=== PATIENT | male | born 1965 | race Caucasian/White ===

== ENCOUNTER 2016-09-02 15:41 | Emergency (ER) | payer OTHER ==
[~2016-09-02] VITALS: Ht 180.3 cm; Wt 72.0 kg
[~2016-09-02 15:41] MED LIST: CLR10 PO; EFF75 PO; HYDR-5688 PO; LDDP5 TD; LSN20 PO; MORP60TA6 PO
[2016-09-02] MEDS ORDERED: MORP15TA19 PO (16:10)
[2016-09-02] MEDS ORDERED: HYDR-5688 PO (16:10)
[2016-09-02] MEDS ORDERED: ERGO50002 PO (16:10)
[2016-09-02] MEDS ORDERED: NICO14DI9 TOP (16:10)
[2016-09-02] MEDS ORDERED: SENN8.6C PO (16:10)
[2016-09-02 16:17] LABS: HEMATOCRIT 33.6 % (42-52); MEAN CELL VOLUME 83.4 fL (80-100); MEAN CORPUSCULAR HGB CONC 32.4 g/dl (32-36); MEAN PLATELET VOLUME 8.2 fL (7.4-10.4); PLATELET COUNT 438 K/uL (130-400); RED BLOOD COUNT 4.03 M/uL (4.7-6.1); WHITE BLOOD COUNT 8.29 K/uL (4.8-10.8)
[2016-09-02 16:18] VITALS: TEMP 37.1; Ht 180.3 cm; Wt 72.0 kg
--- NOTE | 2016-09-02 16:20 | DIAGNOSTIC IMAGING REPORT ---
CHEST ONE VIEW PORTABLE CLINICAL HISTORY: eval for pnea cough. Dyspnea. COMPARISON STUDY: 07/23/2016 FINDINGS: Lungs are clear. Diaphragms smooth. Several old right-sided rib fractures. Degenerative change left shoulder. IMPRESSION: Chronic change. No acute process. Electronically signed by: Bob Dillon M.D. 09/02/2016 4:18 PM Dictated Date/Time: 09/02/2016 4:18 PM
[2016-09-02 16:39] LABS: ALT/SGPT 21 U/L (12-78); AST/SGOT 7 U/L (15-37); BLOOD UREA NITROGEN 13 mg/dl (7-18); BUN/CREATININE RATIO 17.1 (10-20); CALCIUM 8.8 mg/dl (8.5-10.1); CARBON DIOXIDE 29 mmol/L (21-32); CHLORIDE 104 mmol/L (98-107); CREATININE 0.78 mg/dl (0.60-1.40); GLUCOSE 85 mg/dl (70-99); POTASSIUM 3.9 mmol/L (3.5-5.1); SODIUM 141 mmol/L (136-145)
[2016-09-02 16:41] LABS: ACETAMINOPHEN < 2 ug/ml (10-30)
[2016-09-02 16:50] LABS: ALKALINE PHOSPHATASE 127 U/L (45-117)
[2016-09-02 16:51] LABS: URINE APPEARANCE CLEAR (CLEAR); URINE BILIRUBIN NEG (NEG); URINE COLOR YELLOW; URINE NITRITE NEG (NEG); URINE SPECIFIC GRAVITY 1.004 (1.000-1.030); UROBILINOGEN NEG (NEG)
[2016-09-02 16:59] LABS: MANUAL MICROSCOPIC REQUIRED? NO; REVIEW REQ? NO
[2016-09-02 17:36] LABS: BENZODIAZEPINE, URINE NEG (NEG); COCAINE,URINE NEG (NEG); PHENCYCLIDINE, URINE NEG (NEG)
[2016-09-02] MEDS ORDERED: MoRPHine SULFATE CR 15 MG TAB (MS CONTIN) PO ONE (19:50)
[2016-09-02] MEDS ORDERED: METOPROLOL TARTRATE 25 MG TAB PO STA (19:50)
[2016-09-02] MEDS ORDERED: MoRPHine SULFATE CR 15 MG TAB (MS CONTIN) PO STA (19:50)
[2016-09-02] MEDS ORDERED: NICOTINE 14 MG/24 HR TDSY TD STA (19:50)
[2016-09-02] MEDS ORDERED: VENLAFAXINE HCL 50 MG TAB PO STA (19:50)
[2016-09-02] MEDS ORDERED: TRAZODONE HCL 100 MG TAB PO STA (19:50)
[2016-09-02] MEDS ORDERED: TAMSULOSIN HCL 0.4 MG CAP PO ONE (20:00)
--- NOTE | 2016-09-02 22:41 | EMERGENCY ROOM VISIT NOTE ---
History Report prepared by Pradip: Aster Guaman Under the Supervision of: Dr. Stephan Moncada M.D. First contact with patient: 15:54 Chief Complaint: ALTERED MENTAL STATUS Stated Complaint: AMS/SELF HARM/ FR [facility] History of Present Illness The patient is a 51 year old male who presents to the Emergency Room for a mental health evaluation after making suicidal statements today. The patient currently resides at [facility] due to his inability to care for himself after a left hip fracture and surgery this past June. He notes that he is surrounded by people in the last stages of life and that it is a very bad environment. He is dependent on other people to take care of him, but does not want to be in that situation. He has also been experiencing disrupted sleep. Today, he admits that he got overwhelmed and made a suicidal threat. He said that if he had a gun, he would kill himself. The patient does have a history of inpatient mental health treatment but has never tried to hurt himself. He has been diagnosed with schizoaffective disorder in the past. Today, the patient's home health care case manager evaluated him and thought that he could benefit from inpatient care. The patient is getting physical therapy for his hip but he is unsure if he is making progress. His temperature is typically between 98 and 99. The patient is incontinent at baseline and uses a catheter. Denies cough or any other illnesses. Source of History: patient Onset: today Position: other (Psych) Quality: other (suicidal threat) Timing: constant Modifying Factors (Worsening): other (living situation, health problems) Associated Symptoms: No cough Review of Systems See HPI for pertinent positives & negatives. A total of 10 systems reviewed and were otherwise negative. Past Medical & Surgical Medical Problems: (1) Altered mental status (2) Anxiety (3) Depression (4) Hip fracture, left (5) Insomnia (6) Intervertebral disc rupture (7) Lumbar stenosis with neurogenic claudication (8) Mood disorder (9) past psych meds (10) Schizoaffective disorder Family History Depression Social History Smoking Status: Heavy Tobacco Smoker Marital Status: single Housing Status: shelter Occupation Status: unemployed, disabled Current/Historical Medications Scheduled Cholecalciferol (Vitamin D3), 1 TAB PO DAILY Ergocalciferol (Drisdol), 50,000 UNITS PO DAILY Loratadine (Claritin), 10 MG PO DAILY Metoprolol Tartrate (Lopressor) (Lopressor), 12.5 MG PO Q12 Morphine Cont Rel (Ms Contin), 15 MG PO Q12 Multiple Vitamins W/ Minerals (Thera M Plus), 1 TAB PO DAILY Nicotine (Nicotine), 1 PATCH TOP DAILY Sennosides (Senna), 8.6 MG PO DAILY Tamsulosin Hcl (Flomax), 0.4 MG PO HS Trazodone Hcl (Trazodone), 100 MG PO HS Venlafaxine Hcl (Effexor), 75 MG PO BID Scheduled PRN Hydrocodone/Acetaminophen 5MG/325MG ([place] 5MG/325MG), 1 TABLET PO Q4 PRN for Pain Ibuprofen (Motrin), 400 MG PO Q4 PRN for Pain Allergies Coded Allergies: No Known Allergies (Verified , 10/27/15) Physical Exam Vital Signs Date Time Temp Pulse Resp B/P Pulse Ox O2 Delivery O2 Flow Rate FiO2 09/02/16 22:07 77 18 134/95 97 09/02/16 16:18 37.1 89 18 124/92 98 Room Air Physical Exam Constitutional: Vital signs reviewed. Eyes: Pupils are equal round reactive to light. Conjunctiva are noninjected. ENT: Pharynx is clear without erythema or exudate. Mucous membranes are moist. Neck supple without meningeal signs. Respiratory: Clear to auscultation bilaterally. Breath sounds are equal bilaterally. Cardiovascular: Regular rate and rhythm. No rubs or gallops. GI: Soft, nondistended and nontender. Bowel sounds are present. Musculoskeletal: No peripheral edema. No lower extremity tenderness. Healed incisions to the lower spine and left hip without tenderness, redness, swelling , or increased warmth. Integumentary: No cyanosis. Neurological: The patient is awake and alert. No focal deficits. Psychiatric: Depressed affect. Medical Decision & Procedures ER Provider Diagnostic Interpretation: X-ray results as stated below per interpretation by me and the radiologist: CHEST ONE VIEW PORTABLE CLINICAL HISTORY: eval for pnea cough. Dyspnea. COMPARISON STUDY: 07/23/2016 FINDINGS: Lungs are clear. Diaphragms smooth. Several old right-sided rib fractures. Degenerative change left shoulder. IMPRESSION: Chronic change. No acute process. Electronically signed by: Bob Dlilon M.D. 09/02/2016 4:18 PM Dictated Date/Time: 09/02/2016 4:18 PM Laboratory Results 09/02/16 16:05 09/02/16 16:05 Test 09/02/16 16:05 09/02/16 16:39 Red Blood Count 4.03 M/uL (4.7-6.1) Mean Corpuscular Volume 83.4 fL (80-100) Mean Corpuscular Hemoglobin 27.0 pg (25-34) Mean Corpuscular Hemoglobin Concent 32.4 g/dl (32-36) RDW Standard Deviation 45.1 fL (36.4-46.3) RDW Coefficient of Variation 14.9 % (11.5-14.5) Mean Platelet Volume 8.2 fL (7.4-10.4) Anion Gap 8.0 mmol/L (3-11) Est Creatinine Clear Calc Drug Dose 112.8 ml/min Estimated GFR () 120.3 Estimated GFR (Non- 103.8 BUN/Creatinine Ratio 17.1 (10-20) Calcium Level 8.8 mg/dl (8.5-10.1) Total Bilirubin 0.2 mg/dl (0.2-1) Direct Bilirubin < 0.1 mg/dl (0-0.2) Aspartate Amino Transf (AST/SGOT) 7 U/L (15-37) Alanine Aminotransferase (ALT/SGPT) 21 U/L (12-78) Alkaline Phosphatase 127 U/L (45-117) Total Protein 7.2 gm/dl (6.4-8.2) Albumin 3.4 gm/dl (3.4-5.0) Thyroid Stimulating Hormone (TSH) 1.100 uIu/ml (0.300-4.500) Salicylates Level < 1.7 mg/dl (2.8-20) Acetaminophen Level < 2 ug/ml (10-30) Ethyl Alcohol mg/dL < 3.0 mg/dl (0-3) Urine Color YELLOW Urine Appearance CLEAR (CLEAR) Urine pH 7.0 (4.5-7.5) Urine Specific [place] 1.004 (1.000-1.030) Urine Protein NEG (NEG) Urine Glucose (UA) NEG (NEG) Urine Ketones NEG (NEG) Urine Occult Blood NEG (NEG) Urine Nitrite NEG (NEG) Urine Bilirubin NEG (NEG) Urine Urobilinogen NEG (NEG) Urine Leukocyte Esterase NEG (NEG) Urine Opiates Screen POS (NEG) Urine Methadone, Qualitative NEG (NEG) Urine Barbiturates NEG (NEG) Urine Phencyclidine (PCP) Level NEG (NEG) Ur Amphetamine/Methamphetamine NEG (NEG) MDMA (Ecstasy) Screen NEG (NEG) Urine Benzodiazepines Screen NEG (NEG) Urine Cocaine Metabolite NEG (NEG) Urine Marijuana (THC) NEG (NEG) Laboratory results as reviewed by me. Medications Administered Medications (Trade) Dose Ordered Sig/Colten Route Start Time Stop Time Status Last Admin Dose Admin Trazodone HCl (Desyrel Tab) 100 mg NOW STAT PO 09/02/16 19:50 09/02/16 19:53 DC 09/02/16 20:48 100 MG Tamsulosin HCl (Flomax Cap) 0.4 mg NOW ONCE PO 09/02/16 20:00 09/02/16 20:01 DC 09/02/16 20:47 0.4 MG Metoprolol Tartrate (Lopressor Tab) 12.5 mg NOW STAT PO 09/02/16 19:50 09/02/16 19:53 DC 09/02/16 20:48 12.5 MG Venlafaxine HCl (effeXOR TAB) 75 mg NOW STAT PO 09/02/16 19:50 09/02/16 19:53 DC 09/02/16 20:48 75 MG Morphine Sulfate (Oramorph Sr Tab) 15 mg TODAY@1950 ONCE PO 09/02/16 19:50 09/02/16 20:42 DC 09/02/16 20:48 15 MG ECG Indication: other (medical clearance for psych evaluation) Rate (beats per minute): 90 Rhythm: normal sinus Findings: Q waves (Inferior), no ectopy Comparison ECG Date: 07/24/16 Change: no significant change ED Course 1558: The patient was evaluated in room A7. A complete history and physical exam was performed. 1947: The psych home health care case manager says that 11 facilities have turned him down, so he will be kept here overnight until [address] [place] [address] has a bed and she will consult [address] [place] [address] to see him for medication consultation. Medical Decision This is a 51-year-old male who presents for mental health evaluation. I did perform a limited focused review of portions of the patient's old chart on the electronic medical record. He was admitted for a hip fracture on July 15. He ended up with toxic encephalopathy secondary to opiate withdrawal. He has a history of schizoaffective disorder. I did evaluate the patient as noted above. The patient states he is depressed because of the dependent stated he is in. He is not sure if he will recover his independence and made statements about shooting himself. He was sent here for inpatient placement to a psychiatric facility. I did personally review the patient's 12-lead EKG and chest x-ray as described above. I did order and review the patient's blood work as noted in the electronic medical record. Urinalysis did not show any signs of infection. The patient was medically cleared. He does require hospitalization for suicidal ideation. He does state to me that he is not sure if he would kill himself. The bed search was initiated by the mental health home health care case manager. 11 facilities turned down and so the bed search was halted at this time. [facility] [address]. was consulted for recommendations. I did order his evening medications. I did sign the patient out to Dr. Hernández pending placement. Impression Primary Impression: Mood disorder Additional Impression: Suicidal ideation Scribe Attestation The scribe's documentation has been prepared under my direct and personally reviewed by me in its entirety. I confirm that the note above accurately reflects all work, treatment, procedures, and medical decision making performed by me. Departure Information Dispostion Still a Patient Referrals Juancarlos Solis (PCP) Patient Instructions A Signature Page, My [facility]
[2016-09-02] MEDS ORDERED: ACETAMINOPHEN 325 MG TAB ONE (23:06)
[2016-09-03] MEDS ORDERED: VENLAFAXINE HCL XR 75 MG CAPXR PO STA (05:35)
[2016-09-03] MEDS ORDERED: METOPROLOL SUCC 25MG EXT REL TAB PO STA (05:35)
[2016-09-03] MEDS ORDERED: MoRPHine SULFATE CR 15 MG TAB (MS CONTIN) PO STA (05:35)
--- NOTE | 2016-09-03 05:37 | EMERGENCY ROOM VISIT NOTE ---
ED Visit Note First contact with patient: 00:02 This case was signed out to me at change of shift awaiting bed placement. The patient is resting comfortably at this time. 0237: The patient is sleeping at this time. 0530: The patient continues to sleep. I will order appropriate daytime medications-metoprolol, MS Contin, and Effexor. 0630: the case will be signed out to Dr. Beckwith at change of shift awaiting continued bed search.
--- NOTE | 2016-09-03 13:16 | EMERGENCY ROOM VISIT NOTE ---
ED Visit Note First contact with patient: 06:42 I discussed the patient's case with Dr. Harrison, Psychiatry. She states he is OK to be released back to the [facility] as he is currently denying any suicidal or homicidal thoughts. She recommends we increase his Trazodone to 200 mg a day , and his Effexor should be administered in the morning and afternoon, instead of evening. Patient's case was discussed with the [facility] administration. Secure transportation arrangements have been made. The patient is aware of the plan and agrees.
[2016-09-03 16:04] VITALS: BP 136/79; PULSE 79; O2SAT 98
--- NOTE | 2016-09-03 17:10 | Psych Management Progress Note ---
Psychiatry Miscellaneous Date of Service: Sep 03, 2016. asked to see patient earlier this afternoon as had been in ER for 20+hours awaiting placement and was denying SI after getting some sleep. Chart reviewed , patient known to me from consultation service as period of altered mental status prior to his hip surgery. Patient has guns at home but no access in rehab. He admits that he is a dramatic person and just got frustrated with all of the noise at the group home and views self as so much higher functioning that the other group home residents. He would prefer to continue rehab and now declines any desire to sign himself into a psychiatric facility. He has a long standing relationship with his outpatient psychiatric provider at the [place]. There is no evidence of psychosis. He is compliant/cooperative in ED and there is no indication for involuntary psychiatric commitment. Reviewed that his Effexor second dose may be being given too close to bedtime as BID scheduling is usually 2nd dose in later afternoon (say 2 pm, 5 pm latest). Reviewed past med trials for sleep as relates trazodone 100 mg ineffective. Reviewed would advise increase to 200 mg. Patient is psychiatrically stable for discharge to [facility] of ongoing rehab. Case discussed with Dr. Bean (accepting physician).
[2016-09-03] MEDS ORDERED: MoRPHine SULFATE CR 15 MG TAB (MS CONTIN) PO ONE (19:50)
[2016-09-08 00:31] LABS: COD UR NEGATIVE NG/ML (CUTOFF=50); HYDROCOD UR 242 NG/ML (CUTOFF=50); HYDROMOR UR 262 NG/ML (CUTOFF=50); MORPHINE UR 5280 NG/ML (CUTOFF=50); NORHYDROCODONE CONF UR 1420 NG/ML (CUTOFF=50); OXYMORPH UR NEGATIVE NG/ML (CUTOFF=50)
[2016-09-23] MEDS ORDERED: CLC100 PO (11:13)
[2016-09-23] MEDS ORDERED: MRLP17X PO (11:13)
[2016-09-23] MEDS ORDERED: MORP15TA19 PO (18:43)
[2016-09-23] MEDS ORDERED: HYDR-5688 PO (18:43)
[2017-01-07] MEDS ORDERED: CGN1 PO (14:04)
[2017-03-17] MEDS ORDERED: IBUP-1459 PO (16:10)
[2017-03-17] MEDS ORDERED: CHOL20007 PO (16:10)
[2017-03-17] MEDS ORDERED: TRAZ100T29 PO (16:10)
[2017-03-17] MEDS ORDERED: METO25TA56 PO (16:10)
[2017-03-17] MEDS ORDERED: MULT-17 PO (16:10)
[2017-03-17] MEDS ORDERED: TAMS0.4C38 PO (16:10)
[2017-03-17] MEDS ORDERED: HYDR-5688 PO (18:11)
[2017-03-17] MEDS ORDERED: NAPR375T3 PO (18:11)
[2017-03-17] MEDS ORDERED: LISI-461 PO (18:11)
[2017-03-23] MEDS ORDERED: RXC5 PO (13:44)
[2017-03-23] MEDS ORDERED: KFL500 PO (13:46)
== END 2016-09-03 16:04 | disposition home or self-care (01) ==
LOC: EDBD 15:41 → C.EDA 15:42
DX: F39 Unspecified mood [affective] disorder (principal); R45.851 Suicidal ideations; F17.200 Nicotine dependence, unspecified, uncomplicated

== ENCOUNTER 2016-09-17 17:30 | Inpatient (IN) | payer OTHER ==
[~2016-09-17] VITALS: Ht 180.3 cm; Wt 74.6 kg
[~2016-09-17 17:30] MED LIST changes: +ERGO50002 PO; -LDDP5 TD; -LSN20 PO; +MORP15TA19 PO; -MORP60TA6 PO; +NICO14DI9 TOP; +SENN8.6C PO
--- NOTE | 2016-09-17 18:36 | EMERGENCY ROOM VISIT NOTE ---
History Report prepared by Pradip: Aster Guaman Under the Supervision of: Dr. Jazmine Beckwith M.D. First contact with patient: 17:45 Chief Complaint: ANXIETY Stated Complaint: ANXIETY History of Present Illness The patient is a 51 year old male who presents to the Emergency Room for a mental health evaluation due to worsened anxiety today. The patient has been a resident at [facility] since June for rehabilitation. He broke his left hip in June and had it surgically repaired. About a week later, he had 2 discs fused. The patient notes that he was having therapy for both his left hip and back. He has limited use of his left arm due to a shoulder injury, but has not had any therapy or surgical repair to the shoulder. Today, the patient was discharged home from [facility]. When he got to his apartment, it was very messy and he was not able to navigate with his walker. He also could not call his phone to order any food. He does not have a vehicle and cannot drive to get food. The patient then realized that he would not be able to take care of himself at home, so he began to have a panic attack. Currently, he continues to feel very anxious. He denies any homicidal or suicidal thoughts. The patient has been eating and drinking well prior to being discharged from [facility]. Source of History: patient Onset: today Position: other (psych) Quality: other (anxiety/panic attack) Timing: constant Modifying Factors (Worsening): other (home situation) Review of Systems See HPI for pertinent positives & negatives. A total of 10 systems reviewed and were otherwise negative. Past Medical & Surgical Medical Problems: (1) Altered mental status (2) Anxiety (3) Depression (4) Hip fracture, left (5) Insomnia (6) Intervertebral disc rupture (7) Lumbar stenosis with neurogenic claudication (8) Mood disorder (9) past psych meds (10) Schizoaffective disorder Family History Depression Social History Smoking Status: Current Every Day Smoker Marital Status: single Housing Status: jail Occupation Status: unemployed, disabled Current/Historical Medications Scheduled Cholecalciferol (Vitamin D3), 1 TAB PO DAILY Loratadine (Claritin), 10 MG PO DAILY Metoprolol Tartrate (Lopressor) (Lopressor), 12.5 MG PO Q12 Morphine Cont Rel (Ms Contin), 15 MG PO Q12 Multiple Vitamins W/ Minerals (Thera M Plus), 1 TAB PO DAILY Nicotine (Nicotine), 1 PATCH TOP DAILY Sennosides (Senna), 8.6 MG PO DAILY Tamsulosin Hcl (Flomax), 0.4 MG PO HS Trazodone Hcl (Trazodone), 100 MG PO HS Venlafaxine Hcl (Effexor), 75 MG PO BID Scheduled PRN Hydrocodone/Acetaminophen 5MG/325MG ([place] 5MG/325MG), 1 TABLET PO Q4 PRN for Pain Ibuprofen (Motrin), 400 MG PO Q4 PRN for Pain Allergies Coded Allergies: No Known Allergies (Verified , 09/17/16) Physical Exam Vital Signs Date Time Temp Pulse Resp B/P Pulse Ox O2 Delivery O2 Flow Rate FiO2 09/17/16 20:25 98 09/17/16 19:17 100 20 139/90 96 Room Air 09/17/16 17:33 36.9 108 16 /164 94 Room Air Physical Exam Vital signs reviewed. General: Chronically ill-appearing 51 year old male, in no significant distress. HEENT: No scleral icterus, PERRLA, neck supple. Atraumatic. Cardiovascular: Regular rate and rhythm, no extra sounds. Pulmonary: Clear to auscultation bilaterally, normal work of breathing. Abdomen: Soft, nontender, nondistended, positive bowel sounds. Musculoskeletal: Atraumatic, no peripheral edema. Limited range of motion of the left upper extremity due to discomfort. Neurologic: Patient awake alert and oriented x 3, weakness of the bilateral lower extremities bilaterally. Cranial nerves 2 through 12 grossly intact. Skin: Warm, dry, no rash Medical Decision & Procedures Laboratory Results 09/17/16 19:10 Red Blood Count 4.48, Mean Corpuscular Volume 82.1, Mean Corpuscular Hemoglobin 27.0, Mean Corpuscular Hemoglobin Concent 32.9, Mean Platelet Volume 8.3, Neutrophils (%) (Auto) 81.6, Lymphocytes (%) (Auto) 14.1, Monocytes (%) (Auto) 3.3, Eosinophils (%) (Auto) 0.6, Basophils (%) (Auto) 0.2, Neutrophils # (Auto) 10.12, Lymphocytes # (Auto) 1.74, Monocytes # (Auto) 0.41, Eosinophils # (Auto) 0.07, Basophils # (Auto) 0.02 09/17/16 19:10 Test 09/17/16 19:10 White Blood Count 12.38 K/uL (4.8-10.8) Red Blood Count 4.48 M/uL (4.7-6.1) Hemoglobin 12.1 g/dL (14.0-18.0) Hematocrit 36.8 % (42-52) Mean Corpuscular Volume 82.1 fL (80-100) Mean Corpuscular Hemoglobin 27.0 pg (25-34) Mean Corpuscular Hemoglobin Concent 32.9 g/dl (32-36) Platelet Count 344 K/uL (130-400) Mean Platelet Volume 8.3 fL (7.4-10.4) Neutrophils (%) (Auto) 81.6 % Lymphocytes (%) (Auto) 14.1 % Monocytes (%) (Auto) 3.3 % Eosinophils (%) (Auto) 0.6 % Basophils (%) (Auto) 0.2 % Neutrophils # (Auto) 10.12 K/uL (1.4-6.5) Lymphocytes # (Auto) 1.74 K/uL (1.2-3.4) Monocytes # (Auto) 0.41 K/uL (0.11-0.59) Eosinophils # (Auto) 0.07 K/uL (0-0.5) Basophils # (Auto) 0.02 K/uL (0-0.2) RDW Standard Deviation 43.7 fL (36.4-46.3) RDW Coefficient of Variation 14.6 % (11.5-14.5) Immature Granulocyte % (Auto) 0.2 % Immature Granulocyte # (Auto) 0.02 K/uL (0.00-0.02) Anion Gap 11.0 mmol/L (3-11) Est Creatinine Clear Calc Drug Dose 112.8 ml/min Estimated GFR () 120.3 Estimated GFR (Non- 103.8 BUN/Creatinine Ratio 21.3 (10-20) Calcium Level 9.3 mg/dl (8.5-10.1) Magnesium Level 2.5 mg/dl (1.8-2.4) Total Bilirubin 0.1 mg/dl (0.2-1) Direct Bilirubin < 0.1 mg/dl (0-0.2) Aspartate Amino Transf (AST/SGOT) 24 U/L (15-37) Alanine Aminotransferase (ALT/SGPT) 41 U/L (12-78) Alkaline Phosphatase 142 U/L (45-117) Total Protein 7.4 gm/dl (6.4-8.2) Albumin 3.5 gm/dl (3.4-5.0) Laboratory results per my review. ECG Indication: weakness Rate (beats per minute): 100 Rhythm: normal sinus Findings: LAFB, no acute ischemic change, no ectopy, other (previous inferior infarct) ED Course 1813: Past medical records reviewed. The patient was evaluated in room A6. A complete history and physical examination was performed. 2031: Per bilingual patient support caseworker, [facility] cannot take the patient back tonight but will accept a referral and review it tomorrow. 2036: I discussed the case with Dr. Joselito Mazarieogs. The patient will be evaluated for further management. Medical Decision Differential diagnosis: Etiologies such as metabolic, infection, hypo/hyperglycemia, electrolyte abnormalities, cardiac sources, intracerebral event, toxicologic, neurologic, as well as others were entertained. This patient was evaluated and appeared to be in no significant distress. The patient states he has no resources to care for himself at home. [facility]. The jail was unable to accept him at this hour of the night. They will review the case in the morning. The patient wishes for permanent placement. Case management has been involved. The case has been discussed with the hospitalist service who will observe the patient until a definitive disposition can be made. Patient is aware of the plan and agrees. Consults Time Called: 2034 Consulting Physician: Dr. Joselito Mazariegos Returned Call: 2036 I discussed the case with him. The patient will be evaluated for further management. Impression Primary Impression: Ambulatory dysfunction Additional Impressions: Anxiety Self-care deficit in patient living alone Scribe Attestation The scribe's documentation has been prepared under my direction and personally reviewed by me in its entirety. I confirm that the note above accurately reflects all work, treatment, procedures, and medical decision making performed by me. Departure Information Dispostion Being Evaluated By Hospitalist Referrals Juancarlos Solis (PCP) Patient Instructions [facility] Health Problem Qualifiers
[2016-09-17 19:21] LABS: BASO % 0.2 %; BASO ABS # 0.02 K/uL (0-0.2); COMPLETE YES; EOS % 0.6 %; HEMATOCRIT 36.8 % (42-52); IG% 0.2 %; LYMPH % 14.1 %; LYMPH ABS # 1.74 K/uL (1.2-3.4); MEAN CELL VOLUME 82.1 fL (80-100); MEAN CORPUSCULAR HGB CONC 32.9 g/dl (32-36); MEAN PLATELET VOLUME 8.3 fL (7.4-10.4); MONO % 3.3 %; NEUT % 81.6 %; PLATELET COUNT 344 K/uL (130-400); RED BLOOD COUNT 4.48 M/uL (4.7-6.1); WHITE BLOOD COUNT 12.38 K/uL (4.8-10.8)
[2016-09-17 19:37] LABS: ALT/SGPT 41 U/L (12-78); BLOOD UREA NITROGEN 17 mg/dl (7-18); BUN/CREATININE RATIO 21.3 (10-20); CALCIUM 9.3 mg/dl (8.5-10.1); CARBON DIOXIDE 25 mmol/L (21-32); CHLORIDE 104 mmol/L (98-107); CREATININE 0.78 mg/dl (0.60-1.40); GLUCOSE 110 mg/dl (70-99); MAGNESIUM 2.5 mg/dl (1.8-2.4); POTASSIUM 4.2 mmol/L (3.5-5.1); SODIUM 140 mmol/L (136-145)
[2016-09-17 19:40] LABS: ALKALINE PHOSPHATASE 142 U/L (45-117); AST/SGOT 24 U/L (15-37)
[2016-09-17 21:10] LABS: URINE APPEARANCE CLOUDY (CLEAR); URINE BILIRUBIN NEG (NEG); URINE COLOR YELLOW; URINE EPITHELIAL CELL AUTO 0-5 /lpf (0-5); URINE NITRITE NEG (NEG); URINE SPECIFIC GRAVITY 1.005 (1.000-1.030); UROBILINOGEN NEG (NEG); ZZUR CULT IF INDIC CLEAN CATCH YES
[2016-09-17 21:11] LABS: MANUAL MICROSCOPIC REQUIRED? NO; REVIEW REQ? NO
[2016-09-17] MEDS ORDERED: LORAZEPAM 2 MG/ML 1 ML VIAL IV PRN (23:45)
[2016-09-17] MEDS ORDERED: ACETAMINOPHEN 325 MG TAB PO PRN (23:45)
[2016-09-17] MEDS ORDERED: KETOROLAC TROMETHAMINE 30 MG/ML VIAL IV PRN (23:45)
[2016-09-17] MEDS ORDERED: IBUPROFEN 200 MG TAB PO PRN (23:45)
[2016-09-17] MEDS ORDERED: ONDANSETRON INJ 2 MG/ML 2 ML VIAL IV PRN (23:45)
[2016-09-18] MEDS ORDERED: IV FLUIDS COMPLETED PRN (00:15)
[2016-09-18 00:20] VITALS: BP 134/86; PULSE 94; TEMP 37; O2SAT 94; Ht 180.3 cm; Wt 74.6 kg
[2016-09-18] MEDS ORDERED: SODIUM CHLORIDE 0.9% 1000ML 1,000 ML IV STA (00:20)
[2016-09-18] MEDS ORDERED: TRAZODONE HCL 100 MG TAB PO ONE (00:21)
[2016-09-18] MEDS ORDERED: VENLAFAXINE HCL 37.5 MG TAB PO ONE (00:22)
[2016-09-18] MEDS ORDERED: METOPROLOL TARTRATE 25 MG TAB PO ONE (00:23)
[2016-09-18] MEDS ORDERED: LORAZEPAM INJ 0.5 MG in SYRINGE 0.75 ML IV PRN (00:30)
[2016-09-18 01:03] LABS: PROTHROMBIN TIME (PATIENT) 10.3 SECONDS (9.0-12.0)
[2016-09-18] MEDS ORDERED: SODIUM CHLORIDE 0.9% 1000ML 1,000 ML IV ONE (02:30)
[2016-09-18 07:21] VITALS: BP 138/81; PULSE 82; TEMP 36.8; O2SAT 96
[2016-09-18 07:36] LABS: BASO % 0.2 %; BASO ABS # 0.02 K/uL (0-0.2); COMPLETE YES; EOS % 3.1 %; HEMATOCRIT 34.4 % (42-52); IG% 0.2 %; LYMPH ABS # 2.08 K/uL (1.2-3.4); MEAN CELL VOLUME 82.7 fL (80-100); MEAN CORPUSCULAR HEMOGLOBIN 26.7 pg (25-34); MEAN CORPUSCULAR HGB CONC 32.3 g/dl (32-36); MEAN PLATELET VOLUME 8.5 fL (7.4-10.4); MONO % 4.9 %; NEUT % 67.6 %; PLATELET COUNT 322 K/uL (130-400); RED BLOOD COUNT 4.16 M/uL (4.7-6.1); WHITE BLOOD COUNT 8.65 K/uL (4.8-10.8)
[2016-09-18] MEDS: VENLAFAXINE HCL 37.5 MG TAB PO SCH ×2 (08:25→20:12)
[2016-09-18] MEDS: CEROVITE ADV FORMULA TAB PO SCH (08:26)
[2016-09-18] MEDS: SENNA 8.6 MG TAB PO SCH (08:26)
[2016-09-18] MEDS: LORATADINE 10 MG TAB PO SCH (08:26)
[2016-09-18] MEDS: METOPROLOL TARTRATE 25 MG TAB PO SCH ×2 (08:26→20:12)
[2016-09-18] MEDS: ENOXAPARIN 40 MG/0.4 ML SYR SQ SCH (08:27)
[2016-09-18] MEDS: MoRPHine SULFATE CR 15 MG TAB (MS CONTIN) PO SCH ×2 (08:31→20:11)
--- NOTE | 2016-09-18 08:54 | HISTORY & PHYSICAL EXAMINATION ---
DATE OF ADMISSION: 09/17/2016 PRIMARY CARE DOCTOR: RADHA. Hx obtained from px and records. CHIEF COMPLAINT: Anxiety. HISTORY OF PRESENT ILLNESS: Medical history significant for schizoaffective disorder, anxiety, hypertension , ongoing tobacco abuse, chronic pain on narcotics, hx neurogenic bladder/intermittent straight catheterization. chronic anemia (baseline Hg 10-11) Recent confinement June 2016 under Orthopedic service for left intertrochanteric hip fracture and spinal stenosis. Px underwent femoral nailing and decompression surgery. Developed toxic encephalopathy secondary to opioid withdrawal as per records leading ton ICU transfer. Subsequently discharged to [facility] rehab, later [facility] rehab. Patient discharged home yesterday. At home, patient found his house in disarray following his fall from 2 months ago, had difficulty moving around in his wheelchair. Denies chest pain. admits to some anxiety, mood is okay. tolerable back pain denies bladder sx. Patient called EMS. Brought to the ER. MEDICAL HISTORY: As above. SURGERIES: Orthopedic procedures. HOME MEDICATIONS: Vitamin D3, [place], Motrin, Claritin, multivitamins, Lopressor, MS Contin, nicotine, senna, Flomax, trazodone, Effexor. ALLERGIES: No known drug allergies. FAMILY HISTORY: Hypertension. PERSONAL AND SOCIAL HISTORY: One cigarette a day. No chronic intake of alcoholic beverages. Disabled. Lives alone. REVIEW OF SYSTEMS: As per HPI, all other ROS negative. PHYSICAL EXAMINATION: VITAL SIGNS: Blood pressure was noted to be 134/100, pulse rate 108, RR 16. GENERAL: Comfortable, odd affect, slightly anxious. SKIN : pallor HEAD, EYES, EARS, NOSE, AND THROAT: Pale palpebral conjunctivae. Dry mucosa. NECK: No JVD. supple CHEST: Clear to auscultation. HEART: Tachycardic. ABDOMEN: Soft. EXTREMITIES: No edema. No tenderness. NEUROLOGIC: No gross focality. LABORATORY DATA: Hemoglobin 12.1, hematocrit 36, white cell count 12.3, platelets 200. Sodium 140, potassium 4.2, chloride 104, CO2 25, BUN 20, creatinine 0.7, glucose 110. UA, WBC esterase positive, bacteria, epithelial cells. ASSESSMENT AND PLAN: 1. Functional disability, ambulatory dysfunction. recent back, hip surgery (06/2016) 2. Mood disorder, schizophrenia, stable on meds. 3. Asymptomatic pyuria history urinary retention, intermittent straight cath at home 4. Ongoing tobacco abuse. 5. chronic pain on narcotics Observation [facility] PT/OT evia Social service RE discharge planning. Hold off on antibiotics for now Patient counselled to stop smoking. DVT prophylaxis, Lovenox subQ. FULL CODE. MTDD
--- NOTE | 2016-09-18 09:52 | Progress Note ---
Subjective Date of Service: Sep 18, 2016. Subjective Pt evaluation today including: conversation w/ patient, physical exam, lab review, review of studies, review of inpatient medication list Saw/examined the patient in room 257 This is a 51 year old male with PMH of schizoaffective disorder, anxiety, HTN, neurogenic bladder and intermittent self cath - was recently in the hospital due to a fall in June 2016 - had surgical intervention of the lumbar spine and left hip - was sent to rehab and then sent home - states that at home he was having trouble getting around - was using a walker for ambulation. Had difficulty moving forward and so he came back to the hospital. I saw him this AM and pain is controlled Resting Comfortably Denies any symptoms +weakness and ambulatory issues Problem List Medical Problems: (1) Ambulatory dysfunction Status: Acute (2) Ambulatory dysfunction Status: Acute (3) Anxiety Status: Chronic (4) Back pain Status: Acute (5) Fall Status: Acute (6) Self-care deficit in patient living alone Status: Acute (7) Subcapital fracture of left hip Status: Acute (8) Suicidal ideation Status: Acute (9) Thought disorder Status: Acute Review of Systems Constitutional: + fatigue, + weakness, No chills, No fever Respiratory: No cough, No shortness of breath Cardiac: No chest pain, No edema, No palpitations Abdomen: No constipation, No diarrhea, No nausea, No pain, No vomiting Musculoskeletal: + joint pain (left hip, controlled with medications) Male : No dysuria, No urinary frequency Psychiatric: + anxiety (controlled with medications), + depression symptoms Medications Current Inpatient Medications Medications (Trade) Dose Ordered Sig/Colten Route Start Time Stop Time Status Last Admin Dose Admin Metoprolol Tartrate (Lopressor Tab) 12.5 mg Q12 PO 09/18/16 09:00 10/18/16 08:59 09/18/16 08:26 12.5 MG Enoxaparin Sodium (Lovenox Inj) 40 mg Q24H SQ 09/18/16 09:00 10/18/16 08:59 09/18/16 08:27 40 MG Acetaminophen (Tylenol Tab) 650 mg Q4H PRN PO 09/17/16 23:45 10/17/16 23:44 Acetaminophen/ Hydrocodone Bitart ([place] 5/325 Tab) 1 tab Q4 PRN PO 09/17/16 23:45 2/3/17 23:44 Ibuprofen (Advil Tab) 400 mg Q4 PRN PO 09/17/16 23:45 10/17/16 23:44 Loratadine (Claritin Tab) 10 mg DAILY PO 09/18/16 09:00 10/18/16 08:59 09/18/16 08:26 10 MG Morphine Sulfate (Oramorph Sr Tab) 15 mg Q12 PO 09/18/16 09:00 10/02/16 08:59 09/18/16 08:31 15 MG Multivitamins/ Minerals (Multivitamin W/ Minerals Tab) 1 tab DAILY PO 09/18/16 09:00 10/18/16 08:59 09/18/16 08:26 1 TAB Tamsulosin HCl (Flomax Cap) 0.4 mg HS PO 09/18/16 21:00 10/18/16 20:59 Trazodone HCl (Desyrel Tab) 100 mg HS PO 09/18/16 21:00 10/18/16 20:59 Venlafaxine HCl (effeXOR TAB) 75 mg BID PO 09/18/16 09:00 10/18/16 08:59 09/18/16 08:25 75 MG Senna (Senokot Tab) 8.6 mg DAILY PO 09/18/16 09:00 10/18/16 08:59 09/18/16 08:26 8.6 MG Lorazepam (Ativan Inj) 0.5 mg Q4H PRN IV 09/17/16 23:45 10/17/16 23:44 Ondansetron HCl (Zofran Inj) 4 mg Q6H PRN IV 09/17/16 23:45 10/17/16 23:44 Ketorolac Tromethamine 30 mg 30 mg Q6H PRN IV 09/17/16 23:45 09/22/16 23:44 Sodium Chloride (Nss 1000ml) 1,000 ml @ 75 mls/hr [id number] ONCE IV 09/18/16 02:30 09/18/16 15:49 09/18/16 02:39 75 MLS/HR Miscellaneous 1 ea 1 ea PRN PRN N/A 09/18/16 00:15 09/18/17 00:14 09/18/16 03:38 1 EA Lorazepam/Syringe (Ativan Inj/ Syringe) 1 ml @ 1 mls/min Q4H PRN IV 09/18/16 00:30 10/18/16 00:29 Objective Vital Signs Date Time Temp Pulse Resp B/P Pulse Ox O2 Delivery O2 Flow Rate FiO2 09/18/16 08:00 Room Air 09/18/16 07:21 36.8 82 20 138/81 96 Room Air 09/18/16 00:20 37.0 94 14 134/86 94 Room Air 09/17/16 23:52 98 20 140/93 98 Room Air 09/17/16 22:30 102 20 134/101 97 Room Air 09/17/16 20:51 108 20 158/111 96 Room Air 09/17/16 20:25 98 09/17/16 19:17 100 20 139/90 96 Room Air 09/17/16 17:33 36.9 108 16 /164 94 Room Air Physical Exam General Appearance: no apparent distress, + pertinent finding (resting comfortably) Eyes: normal inspection Respiratory/Chest: lungs clear, normal breath sounds, no respiratory distress, no accessory muscle use Cardiovascular: regular rate, rhythm, no edema, no murmur Abdomen: normal bowel sounds, non tender, soft Extremities: normal inspection, no pedal edema, + pertinent finding (decreased and painful ROM of left LE/hip/back) Neurologic/Psychiatric: no motor/sensory deficits, alert, normal mood/affect, oriented x 3, + pertinent finding (terse answers; no mood issues; AAOx3) Skin: normal color Laboratory Results Last 24 Hours Test 09/17/16 19:10 09/17/16 20:45 09/18/16 07:12 White Blood Count 12.38 K/uL 8.65 K/uL Red Blood Count 4.48 M/uL 4.16 M/uL Hemoglobin 12.1 g/dL 11.1 g/dL Hematocrit 36.8 % 34.4 % Mean Corpuscular Volume 82.1 fL 82.7 fL Mean Corpuscular Hemoglobin 27.0 pg 26.7 pg Mean Corpuscular Hemoglobin Concent 32.9 g/dl 32.3 g/dl Platelet Count 344 K/uL 322 K/uL Mean Platelet Volume 8.3 fL 8.5 fL Neutrophils (%) (Auto) 81.6 % 67.6 % Lymphocytes (%) (Auto) 14.1 % 24.0 % Monocytes (%) (Auto) 3.3 % 4.9 % Eosinophils (%) (Auto) 0.6 % 3.1 % Basophils (%) (Auto) 0.2 % 0.2 % Neutrophils # (Auto) 10.12 K/uL 5.84 K/uL Lymphocytes # (Auto) 1.74 K/uL 2.08 K/uL Monocytes # (Auto) 0.41 K/uL 0.42 K/uL Eosinophils # (Auto) 0.07 K/uL 0.27 K/uL Basophils # (Auto) 0.02 K/uL 0.02 K/uL RDW Standard Deviation 43.7 fL 44.1 fL RDW Coefficient of Variation 14.6 % 14.7 % Immature Granulocyte % (Auto) 0.2 % 0.2 % Immature Granulocyte # (Auto) 0.02 K/uL 0.02 K/uL Prothrombin Time 10.3 SECONDS Prothromb Time International Ratio 1.0 Sodium Level 140 mmol/L Potassium Level 4.2 mmol/L Chloride Level 104 mmol/L Carbon Dioxide Level 25 mmol/L Anion Gap 11.0 mmol/L Blood Urea Nitrogen 17 mg/dl Creatinine 0.78 mg/dl Est Creatinine Clear Calc Drug Dose 112.8 ml/min Estimated GFR () 120.3 Estimated GFR (Non- 103.8 BUN/Creatinine Ratio 21.3 Random Glucose 110 mg/dl Calcium Level 9.3 mg/dl Magnesium Level 2.5 mg/dl Total Bilirubin 0.1 mg/dl Direct Bilirubin < 0.1 mg/dl Aspartate Amino Transf (AST/SGOT) 24 U/L Alanine Aminotransferase (ALT/SGPT) 41 U/L Alkaline Phosphatase 142 U/L Total Creatine Kinase 262 U/L Total Protein 7.4 gm/dl Albumin 3.5 gm/dl Urine Color YELLOW Urine Appearance CLOUDY Urine pH 7.0 Urine Specific [place] 1.005 Urine Protein NEG Urine Glucose (UA) NEG Urine Ketones NEG Urine Occult Blood NEG Urine Nitrite NEG Urine Bilirubin NEG Urine Urobilinogen NEG Urine Leukocyte Esterase LARGE Urine WBC (Auto) >30 /hpf Urine RBC (Auto) 0-4 /hpf Urine Hyaline Casts (Auto) 1-5 /lpf Urine Epithelial Cells (Auto) 0-5 /lpf Urine Bacteria (Auto) 1+ Assessment and Plan This is a 51 year old male with PMH of schizoaffective disorder, anxiety, HTN, neurogenic bladder and intermittent self cath Ambulatory Dysfunction * secondary to recent surgical intervention of left hip and lower lumbar spine * recent stay at rehab, was discharged from rehab back home, but did not do well * pain is controlled * uses walker for ambulation * PT/OT * discharge planning eval * continue his home pain medications Neurogenic Bladder * secondary to lumbar spine surgical intervention * intermittent self cath - patient may continue with this * asymptomatic pyuria - no antibiotics at this time * continue Flomax Schizoaffective Disorder * stable mood - continue home medications HTN * blood pressures improved today * continue b-zee DVT ppx * Lovenox FULL CODE observation status - will d/c back to rehab once evaluations are performed
[2016-09-18] MEDS: HYDROCODONE/ACETAMOPHEN 5/325MG TAB PO PRN (12:41)
[2016-09-18 15:16] VITALS: BP 123/82; PULSE 77; TEMP 36.4; O2SAT 98
[2016-09-18 16:05] VITALS: O2SAT 98
[2016-09-18] MEDS ORDERED: NURSING VERBAL MED ORDER ONE (17:45)
[2016-09-18] MEDS ORDERED: NICOTINE 14 MG/24 HR TDSY TD ONE (18:15)
[2016-09-18] MEDS: TAMSULOSIN HCL 0.4 MG CAP PO SCH (20:11)
[2016-09-18] MEDS: TRAZODONE HCL 100 MG TAB PO SCH (20:12)
[2016-09-19 00:10] VITALS: BP 126/80; PULSE 83; TEMP 36.7; O2SAT 96
[2016-09-19 07:19] VITALS: BP 136/82; PULSE 88; TEMP 36.7; O2SAT 97
[2016-09-19 07:26] LABS: HEMATOCRIT 35.1 % (42-52); MEAN CELL VOLUME 81.6 fL (80-100); MEAN CORPUSCULAR HEMOGLOBIN 26.7 pg (25-34); MEAN CORPUSCULAR HGB CONC 32.8 g/dl (32-36); MEAN PLATELET VOLUME 8.2 fL (7.4-10.4); PLATELET COUNT 324 K/uL (130-400); WHITE BLOOD COUNT 8.46 K/uL (4.8-10.8)
[2016-09-19 08:02] LABS: BUN/CREATININE RATIO 15.2 (10-20); CREATININE 0.71 mg/dl (0.60-1.40); POTASSIUM 3.9 mmol/L (3.5-5.1)
[2016-09-19] MEDS: METOPROLOL TARTRATE 25 MG TAB PO SCH ×2 (08:42→22:03)
[2016-09-19] MEDS: CEROVITE ADV FORMULA TAB PO SCH (08:42)
[2016-09-19] MEDS: SENNA 8.6 MG TAB PO SCH (08:42)
[2016-09-19] MEDS: MoRPHine SULFATE CR 15 MG TAB (MS CONTIN) PO SCH ×2 (08:42→22:02)
[2016-09-19] MEDS: NICOTINE 14 MG/24 HR TDSY TD SCH (08:43)
[2016-09-19] MEDS: ENOXAPARIN 40 MG/0.4 ML SYR SQ SCH (08:43)
[2016-09-19] MEDS: LORATADINE 10 MG TAB PO SCH (08:44)
[2016-09-19] MEDS: VENLAFAXINE HCL 37.5 MG TAB PO SCH ×2 (08:44→22:02)
--- NOTE | 2016-09-19 09:37 | Progress Note ---
Subjective Date of Service: Sep 19, 2016. Subjective Pt evaluation today including: conversation w/ patient, physical exam, lab review, review of studies, review of inpatient medication list Saw/examined the patient in room 257 He is doing well Only complaint is difficulty with sleep Problem List Medical Problems: (1) Ambulatory dysfunction Status: Acute (2) Ambulatory dysfunction Status: Acute (3) Anxiety Status: Chronic (4) Back pain Status: Acute (5) Fall Status: Acute (6) Self-care deficit in patient living alone Status: Acute (7) Subcapital fracture of left hip Status: Acute (8) Suicidal ideation Status: Acute (9) Thought disorder Status: Acute Review of Systems Constitutional: + weakness, No chills, No fever Respiratory: No shortness of breath Cardiac: No chest pain Neurologic: + balance problems, + weakness, No memory loss, No numbness/ tingling, No paralysis, No vertigo Psychiatric: + insomnia Medications Current Inpatient Medications Medications (Trade) Dose Ordered Sig/Colten Route Start Time Stop Time Status Last Admin Dose Admin Metoprolol Tartrate (Lopressor Tab) 12.5 mg Q12 PO 09/18/16 09:00 10/18/16 08:59 09/18/16 20:12 12.5 MG Enoxaparin Sodium (Lovenox Inj) 40 mg Q24H SQ 09/18/16 09:00 10/18/16 08:59 09/18/16 08:27 40 MG Acetaminophen (Tylenol Tab) 650 mg Q4H PRN PO 09/17/16 23:45 10/17/16 23:44 Acetaminophen/ Hydrocodone Bitart ([place] 5/325 Tab) 1 tab Q4 PRN PO 09/17/16 23:45 10/01/16 23:44 09/18/16 12:41 1 TAB Ibuprofen (Advil Tab) 400 mg Q4 PRN PO 09/17/16 23:45 10/17/16 23:44 Loratadine (Claritin Tab) 10 mg DAILY PO 09/18/16 09:00 10/18/16 08:59 09/18/16 08:26 10 MG Morphine Sulfate (Oramorph Sr Tab) 15 mg Q12 PO 09/18/16 09:00 10/02/16 08:59 09/18/16 20:11 15 MG Multivitamins/ Minerals (Multivitamin W/ Minerals Tab) 1 tab DAILY PO 09/18/16 09:00 10/18/16 08:59 09/18/16 08:26 1 TAB Tamsulosin HCl (Flomax Cap) 0.4 mg HS PO 09/18/16 21:00 10/18/16 20:59 09/18/16 20:11 0.4 MG Trazodone HCl (Desyrel Tab) 100 mg HS PO 09/18/16 21:00 10/18/16 20:59 09/18/16 20:12 100 MG Venlafaxine HCl (effeXOR TAB) 75 mg BID PO 09/18/16 09:00 10/18/16 08:59 09/18/16 20:12 75 MG Senna (Senokot Tab) 8.6 mg DAILY PO 09/18/16 09:00 10/18/16 08:59 09/18/16 08:26 8.6 MG Lorazepam (Ativan Inj) 0.5 mg Q4H PRN IV 09/17/16 23:45 10/17/16 23:44 Ondansetron HCl (Zofran Inj) 4 mg Q6H PRN IV 09/17/16 23:45 10/17/16 23:44 Ketorolac Tromethamine (Toradol Inj) 30 mg Q6H PRN IV 09/17/16 23:45 09/22/16 23:44 Miscellaneous 1 ea 1 ea PRN PRN N/A 09/18/16 00:15 09/18/17 00:14 09/18/16 03:38 1 EA Lorazepam/Syringe (Ativan Inj/ Syringe) 1 ml @ 1 mls/min Q4H PRN IV 09/18/16 00:30 10/18/16 00:29 Nicotine (Nicoderm Cq 14MG Patch) 1 patch QAM TD 09/19/16 09:00 10/19/16 08:59 Miscellaneous (Remove Nicoderm Patch) 1 ea QAM N/A 09/19/16 09:00 10/19/16 08:59 Objective Vital Signs Date Time Temp Pulse Resp B/P Pulse Ox O2 Delivery O2 Flow Rate FiO2 09/19/16 07:19 36.7 88 18 136/82 97 Room Air 09/19/16 00:10 36.7 83 20 126/80 96 Room Air 09/19/16 00:00 Room Air 09/18/16 16:05 98 Room Air 09/18/16 15:16 36.4 77 18 123/82 98 Room Air Physical Exam General Appearance: no apparent distress Respiratory/Chest: lungs clear, normal breath sounds, no respiratory distress, no accessory muscle use Cardiovascular: regular rate, rhythm, no edema, no murmur Abdomen: normal bowel sounds, non tender, soft Neurologic/Psychiatric: no motor/sensory deficits, alert, normal mood/affect Laboratory Results Last 24 Hours Test 09/19/16 07:11 09/19/16 07:14 Sodium Level 142 mmol/L Potassium Level 3.9 mmol/L Chloride Level 106 mmol/L Carbon Dioxide Level 23 mmol/L Anion Gap 13.0 mmol/L Blood Urea Nitrogen 11 mg/dl Creatinine 0.71 mg/dl Est Creatinine Clear Calc Drug Dose 128.4 ml/min Estimated GFR () 125.0 Estimated GFR (Non- 107.9 BUN/Creatinine Ratio 15.2 Random Glucose 98 mg/dl Calcium Level 9.0 mg/dl White Blood Count 8.46 K/uL Red Blood Count 4.30 M/uL Hemoglobin 11.5 g/dL Hematocrit 35.1 % Mean Corpuscular Volume 81.6 fL Mean Corpuscular Hemoglobin 26.7 pg Mean Corpuscular Hemoglobin Concent 32.8 g/dl RDW Standard Deviation 43.8 fL RDW Coefficient of Variation 14.7 % Platelet Count 324 K/uL Mean Platelet Volume 8.2 fL Assessment and Plan This is a 51 year old male with PMH of schizoaffective disorder, anxiety, HTN, neurogenic bladder and intermittent self cath Ambulatory Dysfunction 09/19 * will need PT/OT, still pending * patient would like to go to [facility] * pain is controlled 09/18 * secondary to recent surgical intervention of left hip and lower lumbar spine * recent stay at rehab, was discharged from rehab back home, but did not do well * pain is controlled * uses walker for ambulation * PT/OT * discharge planning eval * continue his home pain medications Neurogenic Bladder * secondary to lumbar spine surgical intervention * intermittent self cath - patient may continue with this * asymptomatic pyuria - no antibiotics at this time * continue Flomax Schizoaffective Disorder * stable mood - continue home medications HTN * blood pressures improved today * continue b-zee DVT ppx * Lovenox FULL CODE plan for rehab discharge once PT/OT done Discharge planning: rehab hospital
[2016-09-19] MEDS: HYDROCODONE/ACETAMOPHEN 5/325MG TAB PO PRN (14:26)
[2016-09-19 15:32] VITALS: BP 119/77; PULSE 97; TEMP 36.9; O2SAT 96
[2016-09-19 16:20] VITALS: O2SAT 98
[2016-09-19] MEDS: ZOLPIDEM TARTRATE 5 MG TAB PO PRN (22:02)
[2016-09-19] MEDS: TAMSULOSIN HCL 0.4 MG CAP PO SCH (22:03)
[2016-09-19] MEDS: TRAZODONE HCL 100 MG TAB PO SCH (22:03)
[2016-09-20 00:16] VITALS: BP 129/86; PULSE 84; TEMP 36.8; O2SAT 96
[2016-09-20] MEDS: HYDROCODONE/ACETAMOPHEN 5/325MG TAB PO PRN (05:09)
[2016-09-20 08:00] VITALS: O2SAT 97
[2016-09-20 08:05] VITALS: BP 117/79; PULSE 85; TEMP 36.8; O2SAT 97
[2016-09-20] MEDS: SENNA 8.6 MG TAB PO SCH (08:17)
[2016-09-20] MEDS: MoRPHine SULFATE CR 15 MG TAB (MS CONTIN) PO SCH ×2 (08:17→21:28)
[2016-09-20] MEDS: NICOTINE 14 MG/24 HR TDSY TD SCH (08:17)
[2016-09-20] MEDS: LORATADINE 10 MG TAB PO SCH (08:17)
[2016-09-20] MEDS: CEROVITE ADV FORMULA TAB PO SCH (08:17)
[2016-09-20] MEDS: VENLAFAXINE HCL 37.5 MG TAB PO SCH ×2 (08:18→14:05)
[2016-09-20] MEDS: ENOXAPARIN 40 MG/0.4 ML SYR SQ SCH (08:18)
[2016-09-20] MEDS: METOPROLOL TARTRATE 25 MG TAB PO SCH ×2 (08:18→21:28)
--- NOTE | 2016-09-20 09:21 | Progress Note ---
Subjective Date of Service: Sep 20, 2016. Subjective Pt evaluation today including: conversation w/ patient, physical exam, lab review, review of studies, review of inpatient medication list Saw/examined the patient in room 257 doing well today +weakness persists +insomnia no other issues to note Problem List Medical Problems: (1) Ambulatory dysfunction Status: Acute (2) Ambulatory dysfunction Status: Acute (3) Anxiety Status: Chronic (4) Back pain Status: Acute (5) Fall Status: Acute (6) Self-care deficit in patient living alone Status: Acute (7) Subcapital fracture of left hip Status: Acute (8) Suicidal ideation Status: Acute (9) Thought disorder Status: Acute Review of Systems Constitutional: + fatigue, + weakness, No chills, No fever Respiratory: No cough, No shortness of breath, No sputum Cardiac: No chest pain Abdomen: No diarrhea, No nausea, No pain, No vomiting Musculoskeletal: + joint pain (controlled with medications) Male : + problem reported (chronic retention), No dysuria, No urinary frequency Medications Current Inpatient Medications Medications (Trade) Dose Ordered Sig/Colten Route Start Time Stop Time Status Last Admin Dose Admin Metoprolol Tartrate (Lopressor Tab) 12.5 mg Q12 PO 09/18/16 09:00 10/18/16 08:59 09/20/16 08:18 12.5 MG Enoxaparin Sodium (Lovenox Inj) 40 mg Q24H SQ 09/18/16 09:00 10/18/16 08:59 09/20/16 08:18 40 MG Acetaminophen (Tylenol Tab) 650 mg Q4H PRN PO 09/17/16 23:45 10/17/16 23:44 Acetaminophen/ Hydrocodone Bitart ([place] 5/325 Tab) 1 tab Q4 PRN PO 09/17/16 23:45 10/01/16 23:44 09/20/16 05:09 1 TAB Ibuprofen (Advil Tab) 400 mg Q4 PRN PO 09/17/16 23:45 10/17/16 23:44 Loratadine (Claritin Tab) 10 mg DAILY PO 09/18/16 09:00 10/18/16 08:59 09/20/16 08:17 10 MG Morphine Sulfate (Oramorph Sr Tab) 15 mg Q12 PO 09/18/16 09:00 10/02/16 08:59 09/20/16 08:17 15 MG Multivitamins/ Minerals (Multivitamin W/ Minerals Tab) 1 tab DAILY PO 09/18/16 09:00 10/18/16 08:59 09/20/16 08:17 1 TAB Tamsulosin HCl (Flomax Cap) 0.4 mg HS PO 09/18/16 21:00 10/18/16 20:59 09/19/16 22:03 0.4 MG Trazodone HCl (Desyrel Tab) 100 mg HS PO 09/18/16 21:00 10/18/16 20:59 09/19/16 22:03 100 MG Venlafaxine HCl (effeXOR TAB) 75 mg BID PO 09/18/16 09:00 10/18/16 08:59 09/20/16 08:18 75 MG Senna (Senokot Tab) 8.6 mg DAILY PO 09/18/16 09:00 10/18/16 08:59 09/20/16 08:17 8.6 MG Lorazepam (Ativan Inj) 0.5 mg Q4H PRN IV 09/17/16 23:45 10/17/16 23:44 Ondansetron HCl (Zofran Inj) 4 mg Q6H PRN IV 09/17/16 23:45 10/17/16 23:44 Ketorolac Tromethamine (Toradol Inj) 30 mg Q6H PRN IV 09/17/16 23:45 09/22/16 23:44 Miscellaneous 1 ea 1 ea PRN PRN N/A 09/18/16 00:15 09/18/17 00:14 09/18/16 03:38 1 EA Lorazepam/Syringe (Ativan Inj/ Syringe) 1 ml @ 1 mls/min Q4H PRN IV 09/18/16 00:30 10/18/16 00:29 Nicotine (Nicoderm Cq 14MG Patch) 1 patch QAM TD 09/19/16 09:00 10/19/16 08:59 09/20/16 08:17 1 PATCH Miscellaneous (Remove Nicoderm Patch) 1 ea QAM N/A 09/19/16 09:00 10/19/16 08:59 09/20/16 08:18 1 EA Zolpidem Tartrate (Ambien Tab) 5 mg HS PRN PO 09/19/16 09:30 10/19/16 09:29 09/19/16 22:02 5 MG Objective Vital Signs Date Time Temp Pulse Resp B/P Pulse Ox O2 Delivery O2 Flow Rate FiO2 09/20/16 08:05 36.8 85 20 117/79 97 09/20/16 00:16 36.8 84 20 129/86 96 Room Air 09/20/16 00:00 Room Air 09/19/16 16:20 98 Room Air 09/19/16 15:32 36.9 97 18 119/77 96 Room Air Physical Exam General Appearance: no apparent distress Respiratory/Chest: lungs clear, normal breath sounds, no respiratory distress, no accessory muscle use Cardiovascular: regular rate, rhythm, no edema, no murmur Abdomen: normal bowel sounds, non tender, soft Extremities: normal inspection, no pedal edema Neurologic/Psychiatric: no motor/sensory deficits, alert, normal mood/affect Assessment and Plan This is a 51 year old male with PMH of schizoaffective disorder, anxiety, HTN, neurogenic bladder and intermittent self cath Ambulatory Dysfunction 09/20 * continue PT/OT while inpatient * plan is for discharge to [facility] * discharge planning eval placed 09/19 * will need PT/OT, still pending * patient would like to go to [facility] * pain is controlled 09/18 * secondary to recent surgical intervention of left hip and lower lumbar spine * recent stay at rehab, was discharged from rehab back home, but did not do well * pain is controlled * uses walker for ambulation * PT/OT * discharge planning eval * continue his home pain medications Neurogenic Bladder * secondary to lumbar spine surgical intervention * intermittent self cath - patient may continue with this * asymptomatic pyuria - no antibiotics at this time * continue Flomax Schizoaffective Disorder * stable mood - continue home medications HTN * blood pressures improved today * continue b-zee DVT ppx * Lovenox FULL CODE plan for rehab discharge once PT/OT done Discharge planning: rehab hospital
--- NOTE | 2016-09-20 10:25 | Psych Management Progress Note ---
Psychiatry Miscellaneous Date of Service: Sep 20, 2016. patient known to me from previous admission. MS assessed. Chart reviewed. Full consult dictated. No indication for inpatient psych admit. Dose Effexor am and afternoon not hs. Previously recommended 150 mg trazodone to improve sleep. Liaison to confirm outpatient f/u.
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
[2016-09-20 14:39] VITALS: BP 102/64; PULSE 86; TEMP 36.8; O2SAT 95
[2016-09-20] MEDS ORDERED: POLYETHYLENE (MIRALAX) 17 GM PACK PO ONE (20:19)
[2016-09-20 21:20] VITALS: BP 144/96; PULSE 83
[2016-09-20] MEDS: TAMSULOSIN HCL 0.4 MG CAP PO SCH (21:27)
[2016-09-20] MEDS: ZOLPIDEM TARTRATE 5 MG TAB PO PRN (21:48)
[2016-09-20] MEDS: TRAZODONE HCL 50 MG TAB PO SCH (21:48)
[2016-09-20 23:50] VITALS: BP 119/73; PULSE 85; TEMP 36.7; O2SAT 94
[2016-09-21] MEDS: VENLAFAXINE HCL 37.5 MG TAB PO SCH ×2 (06:35→13:25)
[2016-09-21 06:44] LABS: BASO % 0.2 %; BASO ABS # 0.02 K/uL (0-0.2); COMPLETE YES; EOS % 3.3 %; HEMATOCRIT 37.4 % (42-52); IG% 0.2 %; LYMPH % 30.1 %; LYMPH ABS # 2.68 K/uL (1.2-3.4); MEAN CORPUSCULAR HGB CONC 32.9 g/dl (32-36); MEAN PLATELET VOLUME 8.8 fL (7.4-10.4); MONO % 5.7 %; NEUT % 60.5 %; PLATELET COUNT 394 K/uL (130-400); RED BLOOD COUNT 4.56 M/uL (4.7-6.1); WHITE BLOOD COUNT 8.91 K/uL (4.8-10.8)
[2016-09-21 07:09] LABS: CREATININE 0.84 mg/dl (0.60-1.40)
[2016-09-21 08:00] VITALS: O2SAT 95
[2016-09-21] MEDS: ENOXAPARIN 40 MG/0.4 ML SYR SQ SCH (08:20)
[2016-09-21] MEDS: MoRPHine SULFATE CR 15 MG TAB (MS CONTIN) PO SCH ×2 (08:21→20:41)
[2016-09-21] MEDS: SENNA 8.6 MG TAB PO SCH (08:21)
[2016-09-21] MEDS: CEROVITE ADV FORMULA TAB PO SCH (08:21)
[2016-09-21] MEDS: LORATADINE 10 MG TAB PO SCH (08:21)
[2016-09-21] MEDS: POLYETHYLENE (MIRALAX) 17 GM PACK PO PRN (08:21)
[2016-09-21] MEDS: NICOTINE 14 MG/24 HR TDSY TD SCH (08:21)
[2016-09-21] MEDS: METOPROLOL TARTRATE 25 MG TAB PO SCH ×2 (08:21→20:41)
[2016-09-21 08:34] VITALS: BP 111/76; PULSE 87; TEMP 36.5; O2SAT 95
[2016-09-21 15:41] VITALS: BP 111/78; PULSE 85; TEMP 36.7; O2SAT 98
[2016-09-21] MEDS ORDERED: LORAZEPAM 0.5 MG TAB PO PRN (17:00)
[2016-09-21] MEDS ORDERED: MINERAL OIL ENEMA 133 ML BTL PR ONE (17:00)
[2016-09-21] MEDS ORDERED: DOCUSATE SODIUM 100 MG CAP PO ONE (17:00)
--- NOTE | 2016-09-21 17:08 | Progress Note ---
Internal Med Progress Note Date of Service: Sep 21, 2016. Provider Documentation: SUBJECTIVE: Patient is lying in his bed in no apparent distress. Has been c/o constipation in the recent past and had no BM for the past 3-4 days. Denies any nausea/vomiting or abdominal pain. OBJECTIVE: Vital Signs-as noted below Examination: General Appearance: Alert/Awake and is in no apparent distress HEENT: Normocephalic, Eyes, Ears, Nose & Throat are normal looking. Neck: Supple Midline trachea, No JVD. Respiratory/Chest: lungs clear, normal breath sounds, no respiratory distress, no accessory muscle use Cardiovascular: regular rate, rhythm, no edema, no murmur Abdomen: normal bowel sounds, non tender, soft Extremities: normal inspection, no pedal edema Neurologic/Psychiatric: no motor/sensory deficits, alert, normal mood/affect Lab data as noted below. ASSESSMENT & PLAN: Ambulatory Dysfunction: Continue PT/OT while inpatient -Plan is to discharge to a Rehab facility Constipation: Likely due to narcotics he has been on. -Added Colace in addition to Senna and Miralax Hypertension: BP has been stable. Continue B-zee. Neurogenic Bladder: Secondary to lumbar spine surgical intervention -Intermittently self cath - patient may continue with this -Asymptomatic pyuria - no antibiotics at this time -Continue Flomax Schizoaffective Disorder: Stable mood - continue home medications DVT Prophylaxis: Sq Lovenox. FULL CODE Discharge Planning: Rehab facility. Vital Signs: Date Time Temp Pulse Resp B/P Pulse Ox O2 Delivery O2 Flow Rate FiO2 09/21/16 16:00 Room Air 09/21/16 15:41 36.7 85 18 111/78 98 Room Air 09/21/16 08:34 36.5 87 20 111/76 95 09/21/16 08:00 95 Room Air 09/21/16 00:00 Room Air 09/20/16 23:50 36.7 85 20 119/73 94 Room Air 09/20/16 21:20 83 144/96 Lab Results: Results Past 24 Hours Test 09/21/16 05:55 Range/Units White Blood Count 8.91 4.8-10.8 K/uL Red Blood Count 4.56 4.7-6.1 M/uL Hemoglobin 12.3 14.0-18.0 g/dL Hematocrit 37.4 42-52 % Mean Corpuscular Volume 82.0 80-100 fL Mean Corpuscular Hemoglobin 27.0 25-34 pg Mean Corpuscular Hemoglobin Concent 32.9 32-36 g/dl Platelet Count 394 130-400 K/uL Mean Platelet Volume 8.8 7.4-10.4 fL Neutrophils (%) (Auto) 60.5 % Lymphocytes (%) (Auto) 30.1 % Monocytes (%) (Auto) 5.7 % Eosinophils (%) (Auto) 3.3 % Basophils (%) (Auto) 0.2 % Neutrophils # (Auto) 5.39 1.4-6.5 K/uL Lymphocytes # (Auto) 2.68 1.2-3.4 K/uL Monocytes # (Auto) 0.51 0.11-0.59 K/uL Eosinophils # (Auto) 0.29 0-0.5 K/uL Basophils # (Auto) 0.02 0-0.2 K/uL RDW Standard Deviation 43.7 36.4-46.3 fL RDW Coefficient of Variation 14.7 11.5-14.5 % Immature Granulocyte % (Auto) 0.2 % Immature Granulocyte # (Auto) 0.02 0.00-0.02 K/uL Creatinine 0.84 0.60-1.40 mg/dl Est Creatinine Clear Calc Drug Dose 108.5 ml/min Estimated GFR () 116.7 Estimated GFR (Non- 100.7
[2016-09-21] MEDS ORDERED: HYDROCODONE/ACETAMOPHEN 5/325MG TAB PO PRN (18:00)
[2016-09-21 20:35] VITALS: BP 118/81; PULSE 84
[2016-09-21] MEDS: DOCUSATE SODIUM 100 MG CAP PO SCH (20:41)
[2016-09-21] MEDS: TAMSULOSIN HCL 0.4 MG CAP PO SCH (20:41)
[2016-09-21] MEDS: TRAZODONE HCL 50 MG TAB PO SCH (20:41)
[2016-09-21] MEDS: ZOLPIDEM TARTRATE 5 MG TAB PO PRN (20:43)
[2016-09-21 23:46] VITALS: BP 113/73; PULSE 91; TEMP 36.8; O2SAT 96
[2016-09-22] MEDS: VENLAFAXINE HCL 37.5 MG TAB PO SCH ×2 (06:07→14:35)
[2016-09-22 07:12] LABS: BASO % 0.4 %; BASO ABS # 0.03 K/uL (0-0.2); COMPLETE YES; EOS % 3.6 %; HEMATOCRIT 38.6 % (42-52); IG% 0.2 %; LYMPH % 30.8 %; LYMPH ABS # 2.51 K/uL (1.2-3.4); MEAN CORPUSCULAR HGB CONC 32.9 g/dl (32-36); MEAN PLATELET VOLUME 8.8 fL (7.4-10.4); MONO % 4.3 %; NEUT % 60.7 %; PLATELET COUNT 392 K/uL (130-400); RED BLOOD COUNT 4.71 M/uL (4.7-6.1); WHITE BLOOD COUNT 8.16 K/uL (4.8-10.8)
[2016-09-22 07:45] VITALS: BP 109/75; PULSE 87; TEMP 36.7; O2SAT 95
[2016-09-22] MEDS: LORATADINE 10 MG TAB PO SCH (07:49)
[2016-09-22] MEDS: DOCUSATE SODIUM 100 MG CAP PO SCH ×2 (07:50→21:05)
[2016-09-22] MEDS: METOPROLOL TARTRATE 25 MG TAB PO SCH ×2 (07:50→21:06)
[2016-09-22] MEDS: SENNA 8.6 MG TAB PO SCH (07:50)
[2016-09-22] MEDS: CEROVITE ADV FORMULA TAB PO SCH (07:50)
[2016-09-22] MEDS: NICOTINE 14 MG/24 HR TDSY TD SCH (07:51)
[2016-09-22 07:53] LABS: BUN/CREATININE RATIO 18.1 (10-20); CALCIUM 9.2 mg/dl (8.5-10.1); CREATININE 0.82 mg/dl (0.60-1.40); POTASSIUM 4.2 mmol/L (3.5-5.1)
[2016-09-22] MEDS: ENOXAPARIN 40 MG/0.4 ML SYR SQ SCH (07:53)
[2016-09-22] MEDS: MoRPHine SULFATE CR 15 MG TAB (MS CONTIN) PO SCH ×2 (07:53→21:04)
[2016-09-22 08:00] VITALS: O2SAT 95
[2016-09-22 16:10] VITALS: O2SAT 98
--- NOTE | 2016-09-22 19:04 | Progress Note ---
Internal Med Progress Note Date of Service: Sep 22, 2016. Provider Documentation: SUBJECTIVE: Patient is sitting in the chair in no apparent distress. Has been c/o constipation in the recent past and had one BM last night. Denies any nausea/vomiting or abdominal pain. OBJECTIVE: Vital Signs-as noted below Examination: General Appearance: Alert/Awake and is in no apparent distress HEENT: Normocephalic, Eyes, Ears, Nose & Throat are normal looking. Neck: Supple Midline trachea, No JVD. Respiratory/Chest: lungs clear, normal breath sounds, no respiratory distress, no accessory muscle use Cardiovascular: regular rate, rhythm, no edema, no murmur Abdomen: normal bowel sounds, non tender, soft Extremities: normal inspection, no pedal edema Neurologic/Psychiatric: no motor/sensory deficits, alert, normal mood/affect Lab data as noted below. ASSESSMENT & PLAN: Ambulatory Dysfunction: Continue PT/OT while inpatient -Plan is to discharge to a Rehab facility Constipation: Likely due to narcotics he has been on. -Continue Colace in addition to Senna and Miralax Hypertension: BP has been stable. Continue B-zee. Neurogenic Bladder: Secondary to lumbar spine surgical intervention -Intermittently self cath - patient may continue with this -Asymptomatic pyuria - no antibiotics at this time -Continue Flomax Schizoaffective Disorder: Stable mood - continue home medications DVT Prophylaxis: Sq Lovenox. FULL CODE Discharge Planning: Rehab facility. integrity manager working on placement. Vital Signs: Date Time Temp Pulse Resp B/P Pulse Ox O2 Delivery O2 Flow Rate FiO2 09/22/16 08:00 95 Room Air 09/22/16 07:45 36.7 87 18 109/75 95 Room Air 09/22/16 00:00 Room Air 09/21/16 23:46 36.8 91 20 113/73 96 Room Air 09/21/16 20:35 84 118/81 Lab Results: Results Past 24 Hours Test 09/22/16 06:00 Range/Units White Blood Count 8.16 4.8-10.8 K/uL Red Blood Count 4.71 4.7-6.1 M/uL Hemoglobin 12.7 14.0-18.0 g/dL Hematocrit 38.6 42-52 % Mean Corpuscular Volume 82.0 80-100 fL Mean Corpuscular Hemoglobin 27.0 25-34 pg Mean Corpuscular Hemoglobin Concent 32.9 32-36 g/dl Platelet Count 392 130-400 K/uL Mean Platelet Volume 8.8 7.4-10.4 fL Neutrophils (%) (Auto) 60.7 % Lymphocytes (%) (Auto) 30.8 % Monocytes (%) (Auto) 4.3 % Eosinophils (%) (Auto) 3.6 % Basophils (%) (Auto) 0.4 % Neutrophils # (Auto) 4.96 1.4-6.5 K/uL Lymphocytes # (Auto) 2.51 1.2-3.4 K/uL Monocytes # (Auto) 0.35 0.11-0.59 K/uL Eosinophils # (Auto) 0.29 0-0.5 K/uL Basophils # (Auto) 0.03 0-0.2 K/uL RDW Standard Deviation 44.2 36.4-46.3 fL RDW Coefficient of Variation 14.8 11.5-14.5 % Immature Granulocyte % (Auto) 0.2 % Immature Granulocyte # (Auto) 0.02 0.00-0.02 K/uL Sodium Level 141 136-145 mmol/L Potassium Level 4.2 3.5-5.1 mmol/L Chloride Level 106 98-107 mmol/L Carbon Dioxide Level 26 21-32 mmol/L Anion Gap 9.0 3-11 mmol/L Blood Urea Nitrogen 15 7-18 mg/dl Creatinine 0.82 0.60-1.40 mg/dl Est Creatinine Clear Calc Drug Dose 111.2 ml/min Estimated GFR () 117.8 Estimated GFR (Non- 101.7 BUN/Creatinine Ratio 18.1 10-20 Random Glucose 97 70-99 mg/dl Calcium Level 9.2 8.5-10.1 mg/dl Chemistry Specimen Hemolysis
[2016-09-22] MEDS: ZOLPIDEM TARTRATE 5 MG TAB PO PRN (21:04)
[2016-09-22] MEDS: TRAZODONE HCL 50 MG TAB PO SCH (21:05)
[2016-09-22] MEDS: TAMSULOSIN HCL 0.4 MG CAP PO SCH (21:05)
[2016-09-22 23:16] VITALS: BP 106/76; PULSE 87; TEMP 36.7; O2SAT 96
[2016-09-23] MEDS: VENLAFAXINE HCL 37.5 MG TAB PO SCH ×2 (05:56→14:06)
[2016-09-23 07:23] VITALS: BP 102/65; PULSE 82; TEMP 36.7; O2SAT 97
[2016-09-23] MEDS: MoRPHine SULFATE CR 15 MG TAB (MS CONTIN) PO SCH ×2 (08:27→19:42)
[2016-09-23] MEDS: METOPROLOL TARTRATE 25 MG TAB PO SCH ×2 (08:28→19:42)
[2016-09-23] MEDS: SENNA 8.6 MG TAB PO SCH (08:29)
[2016-09-23] MEDS: DOCUSATE SODIUM 100 MG CAP PO SCH ×3 (08:29→19:41)
[2016-09-23] MEDS: ENOXAPARIN 40 MG/0.4 ML SYR SQ SCH (08:31)
[2016-09-23] MEDS: NICOTINE 14 MG/24 HR TDSY TD SCH (08:31)
[2016-09-23] MEDS: CEROVITE ADV FORMULA TAB PO SCH (08:32)
[2016-09-23] MEDS: LORATADINE 10 MG TAB PO SCH (09:57)
[2016-09-23] MEDS: POLYETHYLENE (MIRALAX) 17 GM PACK PO PRN (10:49)
--- NOTE | 2016-09-23 11:11 | Progress Note ---
Internal Med Progress Note Date of Service: Sep 23, 2016. Provider Documentation: SUBJECTIVE: Patient is sitting in the chair in no apparent distress. Has been c/o constipation in the recent past and had one BM last night. Wants something else than Miralax for BM. Denies any nausea/ vomiting or abdominal pain. OBJECTIVE: Vital Signs-as noted below Examination: General Appearance: Alert/Awake and is in no apparent distress HEENT: Normocephalic, Eyes, Ears, Nose & Throat are normal looking. Neck: Supple Midline trachea, No JVD. Respiratory/Chest: lungs clear, normal breath sounds, no respiratory distress, no accessory muscle use Cardiovascular: regular rate, rhythm, no edema, no murmur Abdomen: normal bowel sounds, non tender, soft Extremities: normal inspection, no pedal edema Neurologic/Psychiatric: no motor/sensory deficits, alert, normal mood/affect Lab data as noted below. ASSESSMENT & PLAN: Ambulatory Dysfunction: Continue PT/OT while inpatient -Plan is to discharge to a Rehab facility Constipation: Likely due to narcotics he has been on. -Continue Colace (Increased to 3 times a day)in addition to Senna and Miralax Hypertension: BP has been stable. Continue B-zee. Neurogenic Bladder: Secondary to lumbar spine surgical intervention -Intermittently self cath - patient may continue with this -Asymptomatic pyuria - no antibiotics at this time -Continue Flomax Schizoaffective Disorder: Stable mood - continue home medications DVT Prophylaxis: Sq Lovenox. FULL CODE Discharge Planning: Discharge to Rehab facility later today. Vital Signs: Date Time Temp Pulse Resp B/P Pulse Ox O2 Delivery O2 Flow Rate FiO2 09/23/16 07:23 36.7 82 16 102/65 97 Room Air 09/23/16 00:00 Room Air 09/22/16 23:16 36.7 87 18 106/76 96 Room Air 09/22/16 16:10 98 Room Air
[2016-09-23] MEDS ORDERED: MRLP17X PO (11:13)
[2016-09-23] MEDS ORDERED: CLC100 PO (11:13)
--- NOTE | 2016-09-23 11:15 | Discharge Instructions ---
Discharge Instructions Admission Reason for Admission: Ambulatory Dysfunction Discharge Discharge Diagnosis / Problem: Ambulatory Dysfunction Discharge Goals Goal(s): Decrease discomfort, Improve function, Increase independence, Improve disease control, Improve nutritional status, Learn about illness, Diagnostic testing, Therapeutic intervention Activity Recommendations Activity Limitations: resume your previous activity (As tolerated with assistance following fall precautions) Exercise/Sports Limitations: as tolerated (With assistance) Shower/Bathe: no limitations Driving or Machine Use: NO . Instructions / Follow-Up Instructions / Follow-Up Monitor the bowel movements and ask for help as need arises. Follow up with the Physician at the facility. Current Hospital Diet Patient's current hospital diet: Regular Diet Discharge Diet Recommended Diet: Regular Diet Pending Studies Studies pending at discharge: no Laboratory Results Hemoglobin A1c Test 09/02/16 05:30 Range/Units Estimated Average Glucose 100 mg/dl Hemoglobin A1c 5.1 4.5-5.6 % Medical Emergencies . Who to Call and When: Medical Emergencies: If at any time you feel your situation is an emergency, please call 911 immediately. . Non-Emergent Contact Non-Emergency issues call your: Primary Care Provider . . "Provider Documentation" section prepared by Jose Miguel Burns. VTE Core Measure Inpt VTE Proph given/why not?: Enoxaparin (Lovenox)SQ
--- NOTE | 2016-09-23 11:22 | Discharge Summary ---
Discharge Summary Admission Date: Sep 18, 2016 at 17:19 Discharge Date: Sep 23, 2016 Discharge Disposition: Rehab Principal Diagnosis: Ambulatory Dysfunction Secondary Diagnoses/Problems: Hypertension Constipation caused by narcotics Neurogenic Bladder Schizoaffective Disorder Procedures: None Vaccinations: None Consultations: None Pending Studies/Follow-Up: None Medication Reconciliation New Medications: Docusate Sodium (Docusate Sodium) 100 Mg Cap 100 MG PO TID, #60 CAP Polyethylene (Miralax) 17 Gm Pow 17 GM PO DAILY PRN for Constipation, #30 Continued Medications: Cholecalciferol (Vitamin D3) 2,000 Unit Tab 1 TAB PO DAILY for 90 Days, #90 TAB 3 Refills Hydrocodone/Acetaminophen 5MG/325MG ([place] 5MG/325MG) Tab 1 TABLET PO Q4 PRN for Pain, TAB PAIN 5-10 ON A SCALE OF 1-10 Ibuprofen (Motrin) 400 Mg Tab 400 MG PO Q4 PRN for Pain, TAB PAIN LEVEL 1-4 ON A SCALE OF 1-10 Loratadine (Claritin) 10 Mg Tab 10 MG PO DAILY Metoprolol Tartrate (Lopressor) (Lopressor) 25 Mg Tab 12.5 MG PO Q12, TAB HOLD FOR PULSE < 55 Morphine Cont Rel (Ms Contin) 15 Mg Tabcr 15 MG PO Q12, TAB Multiple Vitamins W/ Minerals (Thera M Plus) 1 Tab Tab 1 TAB PO DAILY Nicotine (Nicotine) 14 Mg/24 Hr Dis 1 PATCH TOP DAILY for 28 Days, #28 PATCH Sennosides (Senna) 8.6 Mg Cap 8.6 MG PO DAILY Tamsulosin Hcl (Flomax) 0.4 Mg Cap 0.4 MG PO HS, CAP Trazodone Hcl (Trazodone) 100 Mg Tab 100 MG PO HS, TAB Venlafaxine Hcl (Effexor) 75 Mg Tab 75 MG PO BID Admission Information HPI (per Admitting provider): Medical history significant for schizoaffective disorder, anxiety, hypertension , ongoing tobacco abuse, chronic pain on narcotics, hx neurogenic bladder/intermittent straight catheterization. chronic anemia (baseline Hg 10-11) Recent confinement June 2016 under Orthopedic service for left intertrochanteric hip fracture and spinal stenosis.Px underwent femoral nailing and decompression surgery. Developed toxic encephalopathy secondary to opioid withdrawal as per records leading ton ICU transfer. Subsequently discharged to [facility]hab, [facility]. Patient discharged home yesterday. At home, patient found his house in disarray following his fall from 2 months ago, had difficulty moving around in his wheelchair. Denies chest pain. admits to some anxiety, mood is okay. tolerable back pain denies bladder sx. Patient called EMS. Brought to the ER. Physical Exam (per Admitting): VITAL SIGNS: Blood pressure was noted to be 134/100, pulse rate 108, RR 16. GENERAL: Comfortable, odd affect, slightly anxious. SKIN : pallor HEAD, EYES, EARS, NOSE, AND THROAT: Pale palpebral conjunctivae. Dry mucosa. NECK: No JVD. supple CHEST: Clear to auscultation. HEART: Tachycardic. ABDOMEN: Soft. EXTREMITIES: No edema. No tenderness. NEUROLOGIC: No gross focality. Hospital Course Ambulatory Dysfunction: Continue PT/OT while inpatient -Plan is to discharge to a Rehab facility Constipation: Likely due to narcotics he has been on. -Continue Colace (Increased to 3 times a day)in addition to Senna and Miralax Hypertension: BP has been stable. Continue B-zee. Neurogenic Bladder: Secondary to lumbar spine surgical intervention -Intermittently self cath - patient may continue with this -Asymptomatic pyuria - no antibiotics at this time -Continue Flomax Schizoaffective Disorder: Stable mood - continue home medications DVT Prophylaxis: Sq Lovenox. FULL CODE Discharge Planning: Discharge to Rehab facility later today. Total time spent on discharge = 42 minutes. This includes examination of the patient, discharge planning, medication reconciliation, and communication with other providers. Discharge Instructions Activity Recommendations Activity Limitations: resume your previous activity (As tolerated with assistance following fall precautions) Exercise/Sports Limitations: as tolerated (With assistance) Shower/Bathe: no limitations Driving or Machine Use: NO . Instructions / Follow-Up Instructions / Follow-Up Monitor the bowel movements and ask for help as need arises. Follow up with the Physician at the facility. Current Hospital Diet Patient's current hospital diet: Regular Diet Discharge Diet Recommended Diet: Regular Diet Additional Copies To Clara Loja M.D.
[2016-09-23] MEDS ORDERED: BISACODYL 10 MG SUPP PR ONE (12:00)
[2016-09-23 14:59] VITALS: BP 124/86; PULSE 87; TEMP 36.6; O2SAT 98
[2016-09-23 18:08] VITALS: BP 124/86; PULSE 87; TEMP 36.6; O2SAT 98
[2016-09-23] MEDS ORDERED: HYDR-5688 PO (18:43)
[2016-09-23] MEDS ORDERED: MORP15TA19 PO (18:43)
[2016-09-23 19:38] VITALS: BP 121/81; PULSE 98
[2016-09-23] MEDS: TAMSULOSIN HCL 0.4 MG CAP PO SCH (19:41)
[2016-09-23] MEDS: TRAZODONE HCL 50 MG TAB PO SCH (19:41)
[2017-01-07] MEDS ORDERED: CGN1 PO (14:04)
[2017-03-17] MEDS ORDERED: TAMS0.4C38 PO (16:10)
[2017-03-17] MEDS ORDERED: METO25TA56 PO (16:10)
[2017-03-17] MEDS ORDERED: CHOL20007 PO (16:10)
[2017-03-17] MEDS ORDERED: TRAZ100T29 PO (16:10)
[2017-03-17] MEDS ORDERED: IBUP-1459 PO (16:10)
[2017-03-17] MEDS ORDERED: MULT-17 PO (16:10)
[2017-03-17] MEDS ORDERED: NAPR375T3 PO (18:11)
[2017-03-17] MEDS ORDERED: HYDR-5688 PO (18:11)
[2017-03-17] MEDS ORDERED: LISI-461 PO (18:11)
[2017-03-23] MEDS ORDERED: RXC5 PO (13:44)
[2017-03-23] MEDS ORDERED: KFL500 PO (13:46)
== END 2016-09-23 21:15 | DRG 93 ==
LOC: ENRESERVTM → ENRESERVDT → EDBD 17:30 → C.EDA 17:31 → C.MS2W 23:15 → OBSVTOIN 09-18 17:19 → UNDODISIN 09-23 21:15
PROVIDERS: ADMIT Family Medicine; ATTEND Emergency Medicine
DX: R26.89 Other abnormalities of gait and mobility (principal); F32.9 Major depressive disorder, single episode, unspecified; F17.210 Nicotine dependence, cigarettes, uncomplicated; F41.9 Anxiety disorder, unspecified; F25.9 Schizoaffective disorder, unspecified; G89.29 Other chronic pain; D64.9 Anemia, unspecified; I10 Essential (primary) hypertension; N31.9 Neuromuscular dysfunction of bladder, unspecified; K59.03 Drug induced constipation; T40.605A Adverse effect of unspecified narcotics, initial encounter; Z79.899 Other long term (current) drug therapy; Z98.890 Other specified postprocedural states

== ENCOUNTER 2016-12-24 17:15 | Emergency (ER) | payer OTHER ==
[~2016-12-24] VITALS: Ht 180.3 cm; Wt 76.8 kg
[~2016-12-24 17:15] MED LIST changes: +CLC100 PO; -ERGO50002 PO; +MRLP17X PO
[2016-12-24 17:22] VITALS: TEMP 37.6; Ht 180.3 cm; Wt 76.8 kg
[2016-12-24] MEDS ORDERED: MIRT15TA3 PO (18:11)
[2016-12-24] MEDS ORDERED: BTH25 PO (18:11)
[2016-12-24] MEDS ORDERED: ZNF/4 PO (18:11)
[2016-12-24] MEDS ORDERED: HLD1X PO (18:11)
[2016-12-24] MEDS ORDERED: ONDANSETRON 4MG OD TAB PO ONE (19:00)
[2016-12-24 19:27] LABS: URINE APPEARANCE CLEAR (CLEAR); URINE BILIRUBIN NEG (NEG); URINE COLOR YELLOW; URINE NITRITE NEG (NEG); URINE SPECIFIC GRAVITY 1.007 (1.000-1.030); UROBILINOGEN NEG (NEG); ZZURINE CULT IF INDIC CATH NO
[2016-12-24 19:29] LABS: MANUAL MICROSCOPIC REQUIRED? NO; REVIEW REQ? YES
--- NOTE | 2016-12-24 19:57 | DIAGNOSTIC IMAGING REPORT ---
PA CHEST RADIOGRAPH AND UPRIGHT AND SUPINE AP RADIOGRAPHS OF THE ABDOMEN CLINICAL HISTORY: Abdominal pain and constipation. COMPARISON STUDY: Chest radiograph September 02, 2016 and abdominal series July 16, 2016. FINDINGS: There are numerous old bilateral rib fractures. No pneumothorax or pleural effusion is present. There is no consolidation or evidence of pulmonary edema. Cardiomediastinal silhouette is normal. There is no free air. Post surgical findings within the spine are noted. There is a large amount of stool within the colon and rectum suggestive of fecal impaction. A left femoral internal fixation is partially imaged. IMPRESSION: 1. Large amount of stool within the colon and rectum suggestive of fecal impaction. 2. No free air. 3. No acute cardiopulmonary findings. Electronically signed by: Oswaldo Wilson M.D. 12/24/2016 7:56 PM Dictated Date/Time: 12/24/2016 7:54 PM
[2016-12-24] MEDS ORDERED: MAGNESIUM CITRATE 296 ML/BTL PO ONE (20:00)
[2016-12-24] MEDS ORDERED: PHENERGAN 25MG HOMEPACK PO ONE (20:00)
[2016-12-24] MEDS ORDERED: PROMETHAZINE HCL 25 MG TAB PO ONE (20:00)
[2016-12-24] MEDS ORDERED: PROM25TA9 PO (20:02)
[2016-12-24] MEDS ORDERED: NAPROXEN 375 MG TAB PO STA (22:04)
[2016-12-24] MEDS ORDERED: METOPROLOL TARTRATE 25 MG TAB PO STA (22:04)
[2016-12-24] MEDS ORDERED: BETHANECHOL CHL 25 MG TAB PO STA (22:04)
[2016-12-24] MEDS ORDERED: VENLAFAXINE HCL XR 75 MG CAPXR PO STA (22:04)
[2016-12-24] MEDS ORDERED: TRAZODONE HCL 100 MG TAB PO STA (22:04)
[2016-12-24] MEDS ORDERED: TAMSULOSIN HCL 0.4 MG CAP PO ONE (22:15)
[2016-12-24] MEDS ORDERED: MIRTAZAPINE TAB 15 MG TAB PO ONE (22:15)
--- NOTE | 2016-12-25 00:53 | EMERGENCY ROOM VISIT NOTE ---
History First contact with patient: 18:14 Chief Complaint: RECTAL PAIN Stated Complaint: NAUSEA/CONSTIPATION Nursing Triage Summary: Patient arrives via BLS from home with complaints of rectal discomfort, muscle spasms "4 inches up my rectum" Had hip surgery this past June. Last BM was small and about 24 hours ago. Little nausea as well. History of Present Illness The patient is a 51 year old male who presents to the Emergency Room with complaints of nausea, rectal pain and constipation. The patient reports that he sustained a traumatic injury last June, resulting in a lumbar spine fracture and left hip fracture. He underwent surgery for his back and hip. Since his injury, he has problems with urination. He also takes regular narcotics for chronic back and hip pain. The patient reports that he did have a small bowel movement 24 hours ago. He does have prior history of constipation. He denies any vomiting, blood in his stool, fever or chills. The patient self catheterizes at home. He denies any history of UTI. The patient presents to the emergency department via BLS transport, and rates his discomfort a 3 out of 10. Review of Systems 10 system review was performed and was negative except for pertinent positives and negatives as indicated in history of present illness Past Medical/Surgical History Medical Problems: (1) Altered mental status (2) Anxiety (3) Depression (4) Hip fracture, left (5) Hypertension (6) Insomnia (7) Intervertebral disc rupture (8) Lumbar stenosis with neurogenic claudication (9) Mood disorder (10) past psych meds (11) Schizoaffective disorder (12) Tobacco abuse (13) Urinary retention Surgical Problems: (1) History of repair of hip fracture Family History Depression Social History Smoking Status: Current Every Day Smoker Marital Status: single Housing Status: lives alone, care home Occupation Status: unemployed, disabled Current/Historical Medications Scheduled Bethanechol Chl (Bethanechol Chloride), 1 TAB PO BID Cholecalciferol (Vitamin D3), 1 TAB PO DAILY Docusate Sodium (Docusate Sodium), 100 MG PO TID Haloperidol (Haloperidol), 1 MG PO Q6H Lisinopril (Zestril), 10 MG PO DAILY Metoprolol Tartrate (Lopressor) (Lopressor), 12.5 MG PO Q12 Mirtazapine (Remeron), 15 MG PO HS Multiple Vitamins W/ Minerals (Thera M Plus), 1 TAB PO DAILY Naproxen (Naproxen), 2 TAB PO BID Sennosides (Senna), 8.6 MG PO DAILY Tamsulosin Hcl (Flomax), 0.4 MG PO HS Tizanidine (Tizanidine HCl), 1 TAB PO DAILY Trazodone Hcl (Trazodone), 2 TAB PO HS Venlafaxine Hcl (Effexor), 75 MG PO BID Scheduled PRN Hydrocodone/Acetaminophen 5MG/325MG ([place] 5MG/325MG), 1 TAB PO BID PRN for Pain Ibuprofen (Motrin), 400 MG PO Q4 PRN for Pain Polyethylene (Miralax), 17 GM PO DAILY PRN for Constipation Promethazine Hcl (Phenergan), 25 MG PO Q4H PRN for Nausea Allergies Coded Allergies: No Known Allergies (Verified , 12/24/16) Physical Exam Vital Signs Date Time Temp Pulse Resp B/P Pulse Ox O2 Delivery O2 Flow Rate FiO2 12/24/16 22:35 98 20 107/87 95 Room Air 12/24/16 20:32 99 24 148/106 96 Room Air 12/24/16 18:56 110 16 139/94 98 Room Air 12/24/16 17:33 107 12/24/16 17:22 37.6 107 18 138/94 97 Room Air Physical Exam CONSTITUTIONAL: Healthy and well nourished. Alert and oriented X 3 with positive affect. Patient does not appear in any acute distress. HEENT: Normocephalic, atraumatic. Pupils equal, round and reactive. No scleral icterus or conjunctival pallor. NECK: Full active range of motion without discomfort. RESPIRATORY: Clear to auscultation bilaterally with no wheezing, crackles, rhonchi or stridor. CARDIOVASCULAR: Regular rate and rhythm with no murmurs, rubs or gallops. GASTROINTESTINAL: Bowel sounds present in all quadrants. Patient has no abdominal tenderness to palpation. Negative CVA tenderness. Negative McBurney' s point tenderness. No rigidity, guarding or rebound. Digital rectal exam was performed by our physician multimedia assistant student. The patient has no stool within the rectal vault. There is no perianal edema, erythema or induration. No palpable or visible hemorrhoids. Patient has no significant discomfort with this exam. MUSCULOSKELETAL: Full range of motion of all joints without discomfort. INTEGUMENTARY: No rash or other significant dermatologic conditions noted. NEUROLOGIC: No focal neurologic deficits noted. Medical Decision & Procedures ER Provider Diagnostic Interpretation: My interpretation of an abdomen obstruction series with a PA chest view does not show any obstructive pattern. Moderate fecal stasis is noted. Radiologist report is as follows: PA CHEST RADIOGRAPH AND UPRIGHT AND SUPINE AP RADIOGRAPHS OF THE ABDOMEN CLINICAL HISTORY: Abdominal pain and constipation. COMPARISON STUDY: Chest radiograph September 02, 2016 and abdominal series July 16, 2016. FINDINGS: There are numerous old bilateral rib fractures. No pneumothorax or pleural effusion is present. There is no consolidation or evidence of pulmonary edema. Cardiomediastinal silhouette is normal. There is no free air. Post surgical findings within the spine are noted. There is a large amount of stool within the colon and rectum suggestive of fecal impaction. A left femoral internal fixation is partially imaged. IMPRESSION: 1. Large amount of stool within the colon and rectum suggestive of fecal impaction. 2. No free air. 3. No acute cardiopulmonary findings. Laboratory Results Test 12/24/16 19:12 Urine Color YELLOW Urine Appearance CLEAR (CLEAR) Urine pH 7.0 (4.5-7.5) Urine Specific [place] 1.007 (1.000-1.030) Urine Protein NEG (NEG) Urine Glucose (UA) NEG (NEG) Urine Ketones NEG (NEG) Urine Occult Blood NEG (NEG) Urine Nitrite NEG (NEG) Urine Bilirubin NEG (NEG) Urine Urobilinogen NEG (NEG) Urine Leukocyte Esterase TRACE (NEG) Urine WBC (Auto) 1-5 /hpf (0-5) Urine RBC (Auto) 0-4 /hpf (0-4) Urine Hyaline Casts (Auto) 1-5 /lpf (0-5) Urine Epithelial Cells (Auto) 10-20 /lpf (0-5) Urine Bacteria (Auto) NEG (NEG) Urine cath collection was performed, with urinalysis showing no evidence for infection. Medications Administered Medications (Trade) Dose Ordered Sig/Colten Route Start Time Stop Time Status Last Admin Dose Admin Ondansetron HCl (Zofran Odt) 4 mg ONE ONCE PO 12/24/16 19:00 12/24/16 19:01 DC 12/24/16 19:02 4 MG Promethazine HCl (Phenergan 25MG Home Pack) 1 homepack UD ONCE PO 12/24/16 20:00 12/24/16 20:01 DC 12/24/16 20:30 1 HOMEPACK Promethazine HCl (Phenergan Tab) 25 mg NOW ONCE PO 12/24/16 20:00 12/24/16 20:01 DC 12/24/16 20:30 25 MG Magnesium Citrate (Citrate Of Magnesia Soln) 296 ml NOW ONCE PO 12/24/16 20:00 12/24/16 20:01 DC 12/24/16 20:31 296 ML Bethanechol Chloride (Urecholine Tab) 25 mg ONE STAT PO 12/24/16 22:04 12/24/16 22:09 DC 12/24/16 22:31 25 MG Metoprolol Tartrate (Lopressor Tab) 12.5 mg ONE STAT PO 12/24/16 22:04 12/24/16 22:09 DC 12/24/16 22:32 12.5 MG Mirtazapine (Remeron Tab) 15 mg NOW ONCE PO 12/24/16 22:15 12/24/16 22:16 DC 12/24/16 22:32 15 MG Naproxen (Naprosyn Tab) 375 mg ONE STAT PO 12/24/16 22:04 12/24/16 22:09 DC 12/24/16 22:31 375 MG Tamsulosin HCl (Flomax Cap) 0.4 mg NOW ONCE PO 12/24/16 22:15 12/24/16 22:16 DC 12/24/16 22:31 0.4 MG Trazodone HCl (Desyrel Tab) 200 mg ONE STAT PO 12/24/16 22:04 12/24/16 22:09 DC 12/24/16 22:30 200 MG Venlafaxine HCl (effeXOR EXTENDED REL CAP) 75 mg ONE STAT PO 12/24/16 22:04 12/24/16 22:09 DC 12/24/16 22:30 75 MG ED Course Patient history and physical exam were performed. Nurse's notes were reviewed. Urine cath collection was ordered, with urinalysis showing no evidence for infection. An abdomen obstruction series with a PA chest view shows a moderate amount of stool. Radiologist report is suggesting impaction, however digital rectal exam was normal. The patient was advised that his symptoms are likely secondary to constipation secondary to opioid use. The patient was dispensed a bottle of magnesium citrate. He was instructed to follow-up with his PCP as needed for any further constipation needs. When the nurse initially attempted to discharge the patient, he requested admission to the hospital. The patient was advised that he does not meet criteria for admission or observation. The patient then reported that he does not have a way of getting home. Case Management spoke with the patient. The patient reports that he was very anxious, and has not had his nighttime medications. His indications were ordered and administered. The patient was feeling better, and was awaiting transportation home at the time of this dictation. Medical Decision Patient presents to the emergency department with complaint of generalized abdominal pain. His x-ray shows significant fecal load without evidence for obstruction. The patient has been on chronic opioid treatment since his admission/surgery last June. Patient also performs self catheterizations. His urinalysis is not suggestive of infection. Clinical exam otherwise does not show any evidence for peritonitis. The patient is afebrile and does not have any nausea or vomiting. Impression Primary Impression: Constipation due to opioid therapy Departure Information Prescriptions Promethazine Hcl (Phenergan) 25 Mg Tab 25 MG PO Q4H Y for Nausea, #20 TAB Prov: Bahman Salcedo PA 12/24/16 Referrals Jayesh Arthur,DFedericoOFederico (PCP) Patient Instructions [facility]
[2016-12-25 01:10] VITALS: BP 141/105; PULSE 99; O2SAT 98
[2017-03-17] MEDS ORDERED: MULT-17 PO (16:10)
[2017-03-17] MEDS ORDERED: METO25TA56 PO (16:10)
[2017-03-17] MEDS ORDERED: TRAZ100T29 PO (16:10)
[2017-03-17] MEDS ORDERED: TAMS0.4C38 PO (16:10)
[2017-03-17] MEDS ORDERED: CHOL20007 PO (16:10)
[2017-03-17] MEDS ORDERED: IBUP-1459 PO (16:10)
[2017-03-17] MEDS ORDERED: LISI-461 PO (18:11)
[2017-03-17] MEDS ORDERED: HYDR-5688 PO (18:11)
[2017-03-17] MEDS ORDERED: NAPR-1221 PO (18:11)
[2017-03-23] MEDS ORDERED: RXC5 PO (13:44)
[2017-03-23] MEDS ORDERED: KFL500 PO (13:46)
== END 2016-12-25 01:11 | disposition home or self-care (01) ==
LOC: EDBD 17:15 → C.EDB 17:17
DX: K59.03 Drug induced constipation (principal); T40.2X5A Adverse effect of other opioids, initial encounter; I10 Essential (primary) hypertension; F25.9 Schizoaffective disorder, unspecified; F32.9 Major depressive disorder, single episode, unspecified; F17.200 Nicotine dependence, unspecified, uncomplicated; Z87.81 Personal history of (healed) traumatic fracture; Z98.890 Other specified postprocedural states; Z79.899 Other long term (current) drug therapy

== ENCOUNTER 2016-12-28 16:32 | Inpatient (IN) | payer OTHER ==
[~2016-12-28] VITALS: Ht 180.3 cm; Wt 77.7 kg
[~2016-12-28 16:32] MED LIST changes: +BTH25 PO; -CLR10 PO; +HLD1X PO; -HYDR-5688 PO; +MIRT15TA3 PO; -MORP15TA19 PO; -NICO14DI9 TOP; +PROM25TA9 PO; +ZNF/4 PO
[2016-12-28] MEDS ORDERED: SODIUM CHLORIDE 0.9% 1000ML 1,000 ML IV STA (17:01)
[2016-12-28] MEDS ORDERED: DiphenhydrAMINE HCL 50 MG/ML VIAL IV STA (17:07)
[2016-12-28] MEDS ORDERED: LORAZEPAM 2 MG/ML 1 ML VIAL IV STA (17:07)
--- NOTE | 2016-12-28 17:19 | DIAGNOSTIC IMAGING REPORT ---
CHEST ONE VIEW PORTABLE CLINICAL HISTORY: Overdose. COMPARISON STUDY: Chest radiograph December 24, 2016. FINDINGS: No pneumothorax or pleural effusion is present. There are multiple old bilateral rib fractures. Cardiac size is normal. Mediastinal contours are normal. No consolidation is identified to suggest pneumonia. IMPRESSION: No acute cardiopulmonary findings. Electronically signed by: Oswaldo Wilson M.D. 12/28/2016 5:18 PM Dictated Date/Time: 12/28/2016 5:17 PM
[2016-12-28 17:22] LABS: URINE APPEARANCE CLOUDY (CLEAR); URINE COLOR DK YELLOW; URINE EPITHELIAL CELL AUTO 20-30 /lpf (0-5); URINE NITRITE POS (NEG); URINE PH 5.5 (4.5-7.5); URINE SPECIFIC GRAVITY 1.035 (1.000-1.030); UROBILINOGEN NEG (NEG)
--- NOTE | 2016-12-28 17:23 | EMERGENCY ROOM VISIT NOTE ---
History Report prepared by Pradip: Trudy Vasquez Under the Supervision of: Dr. Raymundo Hutton D.O. First contact with patient: 16:34 Chief Complaint: ANXIETY Stated Complaint: ANXIETY History of Present Illness The patient is a 51 year old male who presents to the Emergency Room with complaints of constant rectal spasms and cramping for the past 10 days. The symptoms began rapidly and have not stopped. He reports feeling hot, diaphoresis , being unable to sleep, vomiting, and sour stomach. His last bowel movement was yesterday and he was unaware that he had had a bowel movement. He denies any chest pain or SOB. He is unable to sit still because of the spasms. He has never experienced these symptoms before. He has a history of bowel and bladder problems after a L4 L5 disc fusion and hip fracture surgery. He self caths. He has never had medication reactions like this before. He has a history of anxiety and depression. He denies any thoughts of hurting himself. He was recently taken off of Haldol. He is on Remeron and Effexor. Source of History: patient Onset: 10 days Position: other (rectal) Quality: other (spasm, cramping) Timing: constant Associated Symptoms: No SOB, No chest pain Note: Pt reports feeling hot, unable to sleep, sour stomach, incontinence. Review of Systems See HPI for pertinent positives & negatives. A total of 10 systems reviewed and were otherwise negative. Past Medical & Surgical Medical Problems: (1) Altered mental status (2) Anxiety (3) Depression (4) Hip fracture, left (5) Hypertension (6) Insomnia (7) Intervertebral disc rupture (8) Lumbar stenosis with neurogenic claudication (9) Mood disorder (10) past psych meds (11) Schizoaffective disorder (12) Tobacco abuse (13) Urinary retention Surgical Problems: (1) History of repair of hip fracture Family History Depression Social History Smoking Status: Current Every Day Smoker Marital Status: single Housing Status: lives alone, intermediate Occupation Status: unemployed, disabled Current/Historical Medications Scheduled Cholecalciferol (Vitamin D3), 1 TAB PO DAILY Docusate Sodium (Docusate Sodium), 100 MG PO TID Lisinopril (Zestril), 10 MG PO DAILY Metoprolol Tartrate (Lopressor) (Lopressor), 12.5 MG PO Q12 Mirtazapine (Remeron), 15 MG PO HS Multiple Vitamins W/ Minerals (Thera M Plus), 1 TAB PO DAILY Naproxen (Naproxen), 2 TAB PO BID Sennosides (Senna), 8.6 MG PO DAILY Tamsulosin Hcl (Flomax), 0.4 MG PO HS Tizanidine (Tizanidine HCl), 1 TAB PO DAILY Trazodone Hcl (Trazodone), 2 TAB PO HS Venlafaxine Hcl (Effexor), 75 MG PO BID Scheduled PRN Hydrocodone/Acetaminophen 5MG/325MG ([place] 5MG/325MG), 1 TAB PO BID PRN for Pain Ibuprofen (Motrin), 400 MG PO Q4 PRN for Pain Polyethylene (Miralax), 17 GM PO DAILY PRN for Constipation Promethazine Hcl (Phenergan), 25 MG PO Q4H PRN for Nausea Allergies Coded Allergies: No Known Allergies (Verified , 12/28/16) Physical Exam Vital Signs Date Time Temp Pulse Resp B/P Pulse Ox O2 Delivery O2 Flow Rate FiO2 12/28/16 19:27 122 152/87 12/28/16 18:49 117 130/87 12/28/16 17:37 120 18 108/85 99 Room Air 12/28/16 17:36 120 12/28/16 16:46 37.2 130 20 162/106 98 Room Air Physical Exam GENERAL: Patient is awake, alert, and very agitated. Significant psychomotor agitation noted. EYES: The conjunctivae are clear. The pupils are round and reactive. EARS, NOSE, MOUTH AND THROAT: The nose is without any evidence of any deformity. Mucous membranes are moist tongue is midline NECK: The neck is nontender and supple. RESPIRATORY: Normal respiratory effort is noted there is no evidence of wheezing rhonchi or rales CARDIOVASCULAR: Tachycardic rate, but regular rhythm. No definite murmurs noted to auscultation. GASTROINTESTINAL: The abdomen is soft. Bowel sounds are present in all quadrants. Abdomen is nontender MUSCULOSKELETAL/EXTREMITIES: There is no evidence of gross deformity full range of motion is noted in the hips and shoulders SKIN: There is no obvious evidence of any rash. There are no petechiae, pallor or cyanosis noted. NEUROLOGIC: Patient is awake alert and oriented x3, patellar reflexes are 3+ bilaterally PSYCH: Patient appears anxious, currently denying SI/HI. Medical Decision & Procedures ER Provider Diagnostic Interpretation: X-ray results as stated below per interpretation by me and the radiologist. Radiology results as stated below per my review and radiologist interpretation: CHEST ONE VIEW PORTABLE CLINICAL HISTORY: Overdose. COMPARISON STUDY: Chest radiograph December 24, 2016. FINDINGS: No pneumothorax or pleural effusion is present. There are multiple old bilateral rib fractures. Cardiac size is normal. Mediastinal contours are normal. No consolidation is identified to suggest pneumonia. IMPRESSION: No acute cardiopulmonary findings. Electronically signed by: Oswaldo Wilson M.D. 12/28/2016 5:18 PM Dictated Date/Time: 12/28/2016 5:[address] OF THE ABDOMEN AND PELVIS WITHOUT CONTRAST CLINICAL HISTORY: Lower abdominal pain and constipation. COMPARISON STUDY: Abdominal series December 24, 2016. TECHNIQUE: Axial images of the abdomen and pelvis were obtained without IV contrast. Images were reviewed in the axial, sagittal, and coronal planes. FINDINGS: Evaluation of the abdomen and pelvis is suboptimal given the lack of IV and oral contrast. Unenhanced images of liver, spleen, adrenal glands, kidneys and pancreas are normal. There is no hydronephrosis. There is no peripancreatic or pericholecystic infiltration. There are post surgical findings within the spine as well as the proximal left femur. There is no evidence for a bowel obstruction. There is a moderate amount of stool within the colon. The appendix is normal. There is no free fluid or abscess. IMPRESSION: 1. No acute process within the abdomen or pelvis although evaluation compromised given the lack of IV and oral contrast. 2. Moderate amount of stool within the colon. No bowel obstruction. 3. Normal appendix. Electronically signed by: Oswaldo Wilson M.D. 12/28/2016 6:36 PM Dictated Date/Time: 12/28/2016 6:30 PM Laboratory Results 12/28/16 17:21 Red Blood Count 4.82, Mean Corpuscular Volume 79.9, Mean Corpuscular Hemoglobin 28.0, Mean Corpuscular Hemoglobin Concent 35.1, Mean Platelet Volume 8.7, Neutrophils (%) (Auto) 78.5, Lymphocytes (%) (Auto) 16.1, Monocytes (%) (Auto) 4.7, Eosinophils (%) (Auto) 0.3, Basophils (%) (Auto) 0.1, Neutrophils # (Auto) 11.35, Lymphocytes # (Auto) 2.33, Monocytes # (Auto) 0.68, Eosinophils # (Auto) 0.04, Basophils # (Auto) 0.02 12/28/16 17:21 Test 12/28/16 16:46 12/28/16 17:21 12/28/16 17:58 Urine Color DK YELLOW Urine Appearance CLOUDY (CLEAR) Urine pH 5.5 (4.5-7.5) Urine Specific [place] 1.035 (1.000-1.030) Urine Protein TRACE (NEG) Urine Glucose (UA) NEG (NEG) Urine Ketones 1+ (NEG) Urine Occult Blood NEG (NEG) Urine Nitrite POS (NEG) Urine Bilirubin NEG (NEG) Urine Urobilinogen NEG (NEG) Urine Leukocyte Esterase MODERATE (NEG) Urine WBC (Auto) >30 /hpf (0-5) Urine RBC (Auto) 0-4 /hpf (0-4) Urine Hyaline Casts (Auto) 10-30 /lpf (0-5) Urine Epithelial Cells (Auto) 20-30 /lpf (0-5) Urine Bacteria (Auto) 1+ (NEG) Urine Pathogenic Casts 0-3 GRANULAR CASTS /lpf (0) Urine Opiates Screen POS (NEG) Urine Methadone, Qualitative NEG (NEG) Urine Barbiturates NEG (NEG) Urine Phencyclidine (PCP) Level NEG (NEG) Ur Amphetamine/Methamphetamine NEG (NEG) MDMA (Ecstasy) Screen POS (NEG) Urine Benzodiazepines Screen NEG (NEG) Urine Cocaine Metabolite NEG (NEG) Urine Marijuana (THC) NEG (NEG) White Blood Count 14.46 K/uL (4.8-10.8) Red Blood Count 4.82 M/uL (4.7-6.1) Hemoglobin 13.5 g/dL (14.0-18.0) Hematocrit 38.5 % (42-52) Mean Corpuscular Volume 79.9 fL (80-100) Mean Corpuscular Hemoglobin 28.0 pg (25-34) Mean Corpuscular Hemoglobin Concent 35.1 g/dl (32-36) Platelet Count 507 K/uL (130-400) Mean Platelet Volume 8.7 fL (7.4-10.4) Neutrophils (%) (Auto) 78.5 % Lymphocytes (%) (Auto) 16.1 % Monocytes (%) (Auto) 4.7 % Eosinophils (%) (Auto) 0.3 % Basophils (%) (Auto) 0.1 % Neutrophils # (Auto) 11.35 K/uL (1.4-6.5) Lymphocytes # (Auto) 2.33 K/uL (1.2-3.4) Monocytes # (Auto) 0.68 K/uL (0.11-0.59) Eosinophils # (Auto) 0.04 K/uL (0-0.5) Basophils # (Auto) 0.02 K/uL (0-0.2) RDW Standard Deviation 46.2 fL (36.4-46.3) RDW Coefficient of Variation 15.8 % (11.5-14.5) Immature Granulocyte % (Auto) 0.3 % Immature Granulocyte # (Auto) 0.04 K/uL (0.00-0.02) Erythrocyte Sedimentation Rate 40 mm/hr (0-14) Prothrombin Time 10.5 SECONDS (9.0-12.0) Prothromb Time International Ratio 1.0 (0.9-1.1) Activated Partial Thromboplast Time 32.3 SECONDS (21.0-31.0) Partial Thromboplastin Ratio 1.2 Anion Gap 11.0 mmol/L (3-11) Est Creatinine Clear Calc Drug Dose 96.5 ml/min Estimated GFR () 106.2 Estimated GFR (Non- 91.7 BUN/Creatinine Ratio 10.1 (10-20) Osmolality 286 mOsm/kg (280-300) Calcium Level 9.8 mg/dl (8.5-10.1) Magnesium Level 2.4 mg/dl (1.8-2.4) Total Bilirubin 0.5 mg/dl (0.2-1) Direct Bilirubin 0.1 mg/dl (0-0.2) Aspartate Amino Transf (AST/SGOT) 16 U/L (15-37) Alanine Aminotransferase (ALT/SGPT) 28 U/L (12-78) Alkaline Phosphatase 115 U/L (45-117) Total Creatine Kinase 334 U/L (39-308) Creatine Kinase MB 9.9 ng/ml (0.5-3.6) Creatine Kinase MB Ratio 3.0 (0-3.0) Troponin I < 0.015 ng/ml (0-0.045) C-Reactive Protein 8.97 mg/dl (0-0.29) Total Protein 7.9 gm/dl (6.4-8.2) Albumin 3.9 gm/dl (3.4-5.0) Lipase 134 U/L (73-393) Salicylates Level 3.6 mg/dl (2.8-20) Acetaminophen Level < 2 ug/ml (10-30) Ethyl Alcohol mg/dL < 3.0 mg/dl (0-3) Bedside Lactic Acid Venous 2.30 mmol/L (0.90-1.70) Laboratory results per my review. Medications Administered Medications (Trade) Dose Ordered Sig/Colten Route Start Time Stop Time Status Last Admin Dose Admin Sodium Chloride (Nss 1000ml) 1,000 ml @ 999 mls/hr Q1H1M STAT IV 12/28/16 17:01 12/28/16 18:04 DC 12/28/16 17:01 999 MLS/HR Lorazepam (Ativan Inj) 1 mg NOW STAT IV 12/28/16 17:07 12/28/16 17:08 DC 12/28/16 17:36 1 MG Diphenhydramine HCl (Benadryl Inj) 25 mg NOW STAT IV 12/28/16 17:07 12/28/16 17:08 DC 12/28/16 17:37 25 MG Piperacillin Sod/ Tazobactam Sod (Zosyn Iv) 4.5 gm NOW STAT IV 12/28/16 18:07 12/28/16 18:08 DC 12/28/16 18:16 4.5 GM ECG Indication: diaphoresis Rate (beats per minute): 126 Rhythm: sinus tachycardia Findings: Q waves (Inferior), no ectopy Comparison ECG Date: 17-Sep-2016 Change: Increased rate, otherwise no specific changes ED Course 1701: NSS 1000 ml @ 999 mls/hr IV. 1705: The patient was evaluated in room A6. A complete history and physical examination were performed. 170: Benadryl Inj 25 mg IV, Lorazepam 1 mg IV. 180: Zosyn Iv 4.5 gm IV. 1927: I discussed the patient's case with Dr. Doss, [facility] [place]. The patient will be evaluated for further management. 1930: Upon reevaluation, the patient is still having symptoms. I discussed results and treatment plan with him. He verbalizes agreement and understanding. I spoke with Dr. Doss of the [facility] hospitalist service. The patient will be evaluated for further management and care. Medical Decision Prior records/ancillary studies reviewed and summarized above. Nursing notes reviewed. Differential diagnosis: Etiologies such as metabolic, infection, hypo/hyperglycemia, electrolyte abnormalities, cardiac sources, intracerebral event, toxicologic, neurologic, as well as others were entertained. The patient is a 51-year-old male who presented to the emergency department for an evaluation of anxiety. The patient was recently started on Haldol but stopped this medication because it ran out a few days ago. His overall exam appear to be consistent with a dystonic type reaction. He was treated with IV fluids and IV Benadryl. He was also given IV benzodiazepines. This seemed to improve his overall condition but he also had a low-grade fever and signs of SIRS. The patient doesn't a history of chronic urinary tract infections. His most recent cultures were reviewed. He was treated with IV antibiotics because of a presumed urinary tract infection noted on urinalysis today. The patient was reevaluated multiple times today. I discussed his case with the on-call [facility] hospitalist group. They've agreed to evaluate the patient in the emergency department for further management and disposition. Consults Time Called: [phone] Consulting Physician: Dr. Doss, [facility] [place] hospitalist Returned Call: 1927 I discussed the patient's case with him. The patient will be evaluated for further management. Impression Primary Impression: Dystonic drug reaction Additional Impressions: UTI (urinary tract infection) Lactic acidosis SIRS (systemic inflammatory response syndrome) Scribe Attestation The scribe's documentation has been prepared under my direction and personally reviewed by me in its entirety. I confirm that the note above accurately reflects all work, treatment, procedures, and medical decision making performed by me. Departure Information Dispostion Being Evaluated By Hospitalist Referrals Jayesh Arthur D.O. (PCP) Patient Instructions My [facility] Health Problem Qualifiers Additional Impressions: UTI (urinary tract infection) Urinary tract infection type: site unspecified Hematuria presence: without hematuria Qualified Codes: N39.0 - Urinary tract infection, site not specified
[2016-12-28 17:36] LABS: BASO % 0.1 %; BASO ABS # 0.02 K/uL (0-0.2); COMPLETE YES; EOS % 0.3 %; HEMATOCRIT 38.5 % (42-52); IG% 0.3 %; LYMPH % 16.1 %; LYMPH ABS # 2.33 K/uL (1.2-3.4); MEAN CELL VOLUME 79.9 fL (80-100); MEAN CORPUSCULAR HGB CONC 35.1 g/dl (32-36); MEAN PLATELET VOLUME 8.7 fL (7.4-10.4); MONO % 4.7 %; NEUT % 78.5 %; PLATELET COUNT 507 K/uL (130-400); RED BLOOD COUNT 4.82 M/uL (4.7-6.1); WHITE BLOOD COUNT 14.46 K/uL (4.8-10.8)
[2016-12-28 17:37] LABS: MANUAL MICROSCOPIC REQUIRED? NO; REVIEW REQ? YES
[2016-12-28 17:39] LABS: BENZODIAZEPINE, URINE NEG (NEG); COCAINE,URINE NEG (NEG); PHENCYCLIDINE, URINE NEG (NEG); URINE BILIRUBIN NEG (NEG)
[2016-12-28 17:48] LABS: URINE PATH CASTS 0-3 GRANULAR CASTS /lpf (0)
[2016-12-28 17:49] LABS: PARTIAL THROMBOPLASTIN RATIO 1.2; PROTHROMBIN TIME (PATIENT) 10.5 SECONDS (9.0-12.0)
[2016-12-28 17:52] LABS: ALT/SGPT 28 U/L (12-78); AST/SGOT 16 U/L (15-37); BLOOD UREA NITROGEN 10 mg/dl (7-18); BUN/CREATININE RATIO 10.1 (10-20); CALCIUM 9.8 mg/dl (8.5-10.1); CARBON DIOXIDE 22 mmol/L (21-32); CHLORIDE 108 mmol/L (98-107); CREATININE 0.95 mg/dl (0.60-1.40); GLUCOSE 114 mg/dl (70-99); MAGNESIUM 2.4 mg/dl (1.8-2.4); POTASSIUM 3.8 mmol/L (3.5-5.1); SODIUM 141 mmol/L (136-145)
[2016-12-28 17:55] LABS: ALKALINE PHOSPHATASE 115 U/L (45-117); C-REACTIVE PROTEIN 8.97 mg/dl (0-0.29)
[2016-12-28 18:04] LABS: ACETAMINOPHEN < 2 ug/ml (10-30)
[2016-12-28] MEDS ORDERED: PIPERACILLIN/TAZOBACTAM 4.5 GM/100ML D5W IV STA (18:07)
--- NOTE | 2016-12-28 18:38 | DIAGNOSTIC IMAGING REPORT ---
CT OF THE ABDOMEN AND PELVIS WITHOUT CONTRAST CLINICAL HISTORY: Lower abdominal pain and constipation. COMPARISON STUDY: Abdominal series December 24, 2016. TECHNIQUE: Axial images of the abdomen and pelvis were obtained without IV contrast. Images were reviewed in the axial, sagittal, and coronal planes. FINDINGS: Evaluation of the abdomen and pelvis is suboptimal given the lack of IV and oral contrast. Unenhanced images of liver, spleen, adrenal glands, kidneys and pancreas are normal. There is no hydronephrosis. There is no peripancreatic or pericholecystic infiltration. There are post surgical findings within the spine as well as the proximal left femur. There is no evidence for a bowel obstruction. There is a moderate amount of stool within the colon. The appendix is normal. There is no free fluid or abscess. IMPRESSION: 1. No acute process within the abdomen or pelvis although evaluation compromised given the lack of IV and oral contrast. 2. Moderate amount of stool within the colon. No bowel obstruction. 3. Normal appendix. Electronically signed by: Oswaldo Wilson M.D. 12/28/2016 6:36 PM Dictated Date/Time: 12/28/2016 6:30 PM
[2016-12-28] MEDS ORDERED: HYDROCODONE/ACETAMOPHEN 5/325MG TAB PO PRN (19:45)
[2016-12-28] MEDS ORDERED: PROMETHAZINE HCL 25 MG TAB PO PRN (19:45)
[2016-12-28] MEDS ORDERED: ACETAMINOPHEN 325 MG TAB PO PRN (19:45)
[2016-12-28] MEDS ORDERED: ONDANSETRON INJ 2 MG/ML 2 ML VIAL IV PRN (19:45)
[2016-12-28] MEDS ORDERED: POLYETHYLENE (MIRALAX) 17 GM PACK PO PRN (19:45)
[2016-12-28 20:43] VITALS: BP 115/74; PULSE 121; TEMP 37.2; O2SAT 96; Ht 180.3 cm; Wt 77.7 kg
[2016-12-28] MEDS ORDERED: LORAZEPAM INJ 0.5 MG in SYRINGE 0.25 ML IV PRN (21:00)
[2016-12-28] MEDS ORDERED: NICOTINE 14 MG/24 HR TDSY TD STA (21:17)
[2016-12-28] MEDS: ZOLPIDEM TARTRATE 5 MG TAB PO PRN (21:31)
[2016-12-28] MEDS: DOCUSATE SODIUM 100 MG CAP PO SCH (21:32)
[2016-12-28] MEDS: MIRTAZAPINE TAB 15 MG TAB PO SCH (21:32)
[2016-12-28] MEDS: TAMSULOSIN HCL 0.4 MG CAP PO SCH (21:32)
[2016-12-28] MEDS: VENLAFAXINE HCL 50 MG TAB PO SCH (21:33)
[2016-12-28] MEDS: NAPROXEN 375 MG TAB PO SCH (21:34)
[2016-12-28] MEDS: TRAZODONE HCL 100 MG TAB PO SCH (21:34)
[2016-12-28] MEDS: METOPROLOL TARTRATE 25 MG TAB PO SCH (21:37)
[2016-12-28] MEDS: AMPICILLIN/SULBACTAM SOD INJ 3,000 MG in SODIUM CHLORIDE 0.9% 100ML 100 ML IV SCH (23:20)
--- NOTE | 2016-12-28 23:22 | History and Physical ---
History & Physical Date & Time of Service: December 28, 2016 at 23:23 Chief Complaint: Sirs, Uti Primary Care Physician: Dakota Arthur D.O. History of Present Illness Source: patient The patient is a 51-year-old male who presents to the emergency department complaining of rectal spasms and cramping, feeling hot, having sweats, insomnia , nausea, vomiting and a sour stomach that began about 10 days ago. He is unable to sit still because of the spasms. He straight caths himself due to complications after an L4 5 disc fusion and hip fracture surgery that left him with bowel and bladder control issues. He was recently taken off Haldol. Past Medical/Surgical History Medical Problems: (1) Anxiety Status: Chronic (2) Depression Status: Chronic (3) Hypertension Status: Chronic (4) Insomnia Status: Resolved (5) Intervertebral disc rupture Status: Chronic (6) Mood disorder Status: Resolved (7) Schizoaffective disorder Status: Chronic (8) Tobacco abuse Status: Chronic (9) Urinary retention Status: Chronic Surgical Problems: (1) History of repair of hip fracture Status: Chronic Family History Depression Social History Smoking Status: Current Every Day Smoker Smokeless Tobacco Use: No Alcohol Use: socially Drug Use: none Marital Status: single Housing status: lives alone Occupational Status: unemployed, disabled Multi-Drug Resistant Organisms History of MDRO: No Allergies Coded Allergies: No Known Allergies (Verified , 12/28/16) Home Medications Scheduled Cholecalciferol (Vitamin D3), 1 TAB PO DAILY Docusate Sodium (Docusate Sodium), 100 MG PO TID Lisinopril (Zestril), 10 MG PO DAILY Metoprolol Tartrate (Lopressor) (Lopressor), 12.5 MG PO Q12 Mirtazapine (Remeron), 15 MG PO HS Multiple Vitamins W/ Minerals (Thera M Plus), 1 TAB PO DAILY Naproxen (Naproxen), 2 TAB PO BID Sennosides (Senna), 8.6 MG PO DAILY Tamsulosin Hcl (Flomax), 0.4 MG PO HS Tizanidine (Tizanidine HCl), 1 TAB PO DAILY Trazodone Hcl (Trazodone), 2 TAB PO HS Venlafaxine Hcl (Effexor), 75 MG PO BID Scheduled PRN Hydrocodone/Acetaminophen 5MG/325MG (Coolidge 5MG/325MG), 1 TAB PO BID PRN for Pain Ibuprofen (Motrin), 400 MG PO Q4 PRN for Pain Polyethylene (Miralax), 17 GM PO DAILY PRN for Constipation Promethazine Hcl (Phenergan), 25 MG PO Q4H PRN for Nausea Review of Systems Constitutional: + chills, + fatigue, + fever, + sweats, + weakness, No weight loss Eyes: No diplopia, No discharge, No eye pain, No problem reported, No redness, No worsening of vision ENT: No dental problems, No hearing loss, No nasal symptoms, No problem reported, No sore throat, No tinnitus, No trouble swallowing, No unusual epistaxis Respiratory: No cough, No dyspnea at rest, No dyspnea on exertion, No hemoptysis, No problem reported, No shortness of breath, No sputum, No wheezing Cardiovascular: No PND, No chest pain, No claudication, No edema, No orthopnea , No palpitations, No problem reported Abdomen: + nausea, + vomiting, No GI bleeding, No constipation, No diarrhea, No pain Musculoskeletal: No calf pain, No joint pain, No muscle pain, No problem reported, No swelling Genitourinary - Male: + urinary incontinence, + urinary retention, No dysuria, No hematuria, No impotence, No lesions, No penile discharge, No urinary frequency, No urinary hesitancy, No urinary urgency Neurologic: + balance problems, + weakness, No memory loss, No numbness/ tingling, No paralysis, No vertigo Psychiatric: + anxiety, + depression symptoms, + insomnia, No anhedonism, No substance abuse Endocrine: No excessive thirst, No excessive urination, No fatigue, No problem reported Hematologic / Lymphatic: No abnormal bleeding/bruising, No clotting problems, No night sweats, No problem reported, No swollen lymph nodes Integumentary: No bleeding, No color change, No itch, No new/changing skin lesions, No problem reported, No rash Allergic / Immunologic: No environmental allergies, No food allergies, No frequent infections, No hives, No pet sensitivities, No poor healing, No problem reported, No prolonged convalescence, No seasonal allergies Physical Exam Vital Signs Date Time Temp Pulse Resp B/P Pulse Ox O2 Delivery O2 Flow Rate FiO2 12/28/16 20:43 37.2 121 20 115/74 96 Room Air 12/28/16 20:11 110 137/97 12/28/16 19:27 122 152/87 12/28/16 18:49 117 130/87 12/28/16 17:37 120 18 108/85 99 Room Air 12/28/16 17:36 120 12/28/16 16:46 37.2 130 20 162/106 98 Room Air General Appearance: + mild distress (secondary to constant motion and dystonic movements.) Head: normocephalic, atraumatic Eyes: normal inspection, PERRL, EOMI, sclerae normal ENT: normal ENT inspection, hearing grossly normal, pharynx normal Neck: supple, no adenopathy, thyroid normal, no JVD, no carotid bruits, trachea midline Respiratory/Chest: chest non-tender, lungs clear, normal breath sounds, no respiratory distress, no accessory muscle use Cardiovascular: no edema, no gallop, no JVD, no murmur, normal peripheral pulses, + tachycardia Abdomen/GI: normal bowel sounds, non tender, soft, no organomegaly, no pulsatile mass Back: normal inspection, no CVA tenderness, no muscle spasm, normal range of motion Extremities/Musculoskelatal: normal inspection, no calf tenderness, normal capillary refill, no pedal edema, normal range of motion Neurologic/Psych: geophysical support specialist II-XII nml as tested, alert, normal mood/affect, normal reflexes, oriented x 3, + abnormal gait, + motor weakness, + abnormal reflexes, + depressed affect Skin: normal color, warm/dry, no rash Lymphatic: no adenopathy Diagnostics Laboratory Results Results Past 24 Hours Test 12/28/16 16:46 12/28/16 17:21 12/28/16 17:58 Range/Units Urine Color DK YELLOW Urine Appearance CLOUDY CLEAR Urine pH 5.5 4.5-7.5 Urine Specific [place] 1.035 1.000-1.030 Urine Protein TRACE NEG Urine Glucose (UA) NEG NEG Urine Ketones 1+ NEG Urine Occult Blood NEG NEG Urine Nitrite POS NEG Urine Bilirubin NEG NEG Urine Urobilinogen NEG NEG Urine Leukocyte Esterase MODERATE NEG Urine WBC (Auto) >30 0-5 /hpf Urine RBC (Auto) 0-4 0-4 /hpf Urine Hyaline Casts (Auto) 10-30 0-5 /lpf Urine Epithelial Cells (Auto) 20-30 0-5 /lpf Urine Bacteria (Auto) 1+ NEG Urine Pathogenic Casts 0-3 GRANULAR CASTS 0 /lpf Urine Opiates Screen POS NEG Urine Methadone, Qualitative NEG NEG Urine Barbiturates NEG NEG Urine Phencyclidine (PCP) Level NEG NEG Ur Amphetamine/Methamphetamine NEG NEG MDMA (Ecstasy) Screen POS NEG Urine Benzodiazepines Screen NEG NEG Urine Cocaine Metabolite NEG NEG Urine Marijuana (THC) NEG NEG White Blood Count 14.46 4.8-10.8 K/uL Red Blood Count 4.82 4.7-6.1 M/uL Hemoglobin 13.5 14.0-18.0 g/dL Hematocrit 38.5 42-52 % Mean Corpuscular Volume 79.9 80-100 fL Mean Corpuscular Hemoglobin 28.0 25-34 pg Mean Corpuscular Hemoglobin Concent 35.1 32-36 g/dl Platelet Count 507 130-400 K/uL Mean Platelet Volume 8.7 7.4-10.4 fL Neutrophils (%) (Auto) 78.5 % Lymphocytes (%) (Auto) 16.1 % Monocytes (%) (Auto) 4.7 % Eosinophils (%) (Auto) 0.3 % Basophils (%) (Auto) 0.1 % Neutrophils # (Auto) 11.35 1.4-6.5 K/uL Lymphocytes # (Auto) 2.33 1.2-3.4 K/uL Monocytes # (Auto) 0.68 0.11-0.59 K/uL Eosinophils # (Auto) 0.04 0-0.5 K/uL Basophils # (Auto) 0.02 0-0.2 K/uL RDW Standard Deviation 46.2 36.4-46.3 fL RDW Coefficient of Variation 15.8 11.5-14.5 % Immature Granulocyte % (Auto) 0.3 % Immature Granulocyte # (Auto) 0.04 0.00-0.02 K/uL Erythrocyte Sedimentation Rate 40 0-14 mm/hr Prothrombin Time 10.5 9.0-12.0 SECONDS Prothromb Time International Ratio 1.0 0.9-1.1 Activated Partial Thromboplast Time 32.3 21.0-31.0 SECONDS Partial Thromboplastin Ratio 1.2 Sodium Level 141 136-145 mmol/L Potassium Level 3.8 3.5-5.1 mmol/L Chloride Level 108 98-107 mmol/L Carbon Dioxide Level 22 21-32 mmol/L Anion Gap 11.0 3-11 mmol/L Blood Urea Nitrogen 10 7-18 mg/dl Creatinine 0.95 0.60-1.40 mg/dl Est Creatinine Clear Calc Drug Dose 96.5 ml/min Estimated GFR () 106.2 Estimated GFR (Non- 91.7 BUN/Creatinine Ratio 10.1 10-20 Random Glucose 114 70-99 mg/dl Osmolality 286 280-300 mOsm/kg Calcium Level 9.8 8.5-10.1 mg/dl Magnesium Level 2.4 1.8-2.4 mg/dl Total Bilirubin 0.5 0.2-1 mg/dl Direct Bilirubin 0.1 0-0.2 mg/dl Aspartate Amino Transf (AST/SGOT) 16 15-37 U/L Alanine Aminotransferase (ALT/SGPT) 28 12-78 U/L Alkaline Phosphatase 115 45-117 U/L Total Creatine Kinase 334 39-308 U/L Creatine Kinase MB 9.9 0.5-3.6 ng/ml Creatine Kinase MB Ratio 3.0 0-3.0 Troponin I < 0.015 0-0.045 ng/ml C-Reactive Protein 8.97 0-0.29 mg/dl Total Protein 7.9 6.4-8.2 gm/dl Albumin 3.9 3.4-5.0 gm/dl Lipase 134 73-393 U/L Salicylates Level 3.6 2.8-20 mg/dl Acetaminophen Level < 2 10-30 ug/ml Ethyl Alcohol mg/dL < 3.0 0-3 mg/dl Hepatitis C Antibody Screen NEG NEG Bedside Lactic Acid Venous 2.30 0.90-1.70 mmol/L Microbiology Results 12/28/16 Urine Culture, Received Pending Diagnostic Radiology Patient Name: DAKOTA BAUTISTA Unit Number: [id number] Dictated: 12/28/161716 Transcribed: 12/28/161716 MARCO A Printed Date/Time: [~ rep prt dt]/[~ rep prt tm] [~ rep ct labl] - [~ rep ct ivnm] [facility] [place] [address] Dictated: 12/28/161716 Transcribed: 12/28/16 1717 JA Printed Date/Time: [~ rep prt dt]/[~ rep prt tm] [~ rep ct labl] - [~ rep ct ivnm] [~ rep ct add3]] CHEST ONE VIEW PORTABLE CLINICAL HISTORY: Overdose. COMPARISON STUDY: Chest radiograph December 24, 2016. FINDINGS: No pneumothorax or pleural effusion is present. There are multiple old bilateral rib fractures. Cardiac size is normal. Mediastinal contours are normal. No consolidation is identified to suggest pneumonia. IMPRESSION: No acute cardiopulmonary findings. Electronically signed by: Oswaldo Wilson M.D. 12/28/2016 5:18 PM Dictated Date/Time: 12/28/2016 5:17 PM The status of this report is Signed. Draft = Not yet reviewed or approved by Radiologist. Signed = Reviewed and approved by Radiologist. <AttendingPhy></AttendingPhy> <FamilyPhy>Dakota Arthur D.O.</FamilyPhy> < PrimaryPhy>Dakota Arthur D.O.</PrimaryPhy> <UnitNumber>[id number]</UnitNumber > <VisitNumber>[id number]</VisitNumber> <PatientName>DAKOTA BAUTISTA</PatientName > <DateOfBirth>1965</DateOfBirth> <Location>[facility]</Location> <ServiceDate> 12/28/16</ServiceDate> <MNE>ESINDI</MNE> <OrderingPhy>Raymundo Hutton D.O.</ OrderingPhy> <OrderingPhyMNE>f rep ord dr summers</OrderingPhyMNE> <DictatingPhyMNE> f rep dict dr summers</DictatingPhyMNE> <CCListMNE>f rep ct mne</CCListMNE> < AdmittingPhyMNE>f pt admit dr summers</AdmittingPhyMNE> <AttendingPhyMNE>f pt attend dr summers</AttendingPhyMNE> <ConsultingPhyMNE>f pt consult dr summers</ConsultingPhyMNE> <FamilyPhyMNE>f pt fam dr summers</FamilyPhyMNE> <OtherPhyMNE>f pt other dr summers</OtherPhyMNE> < PrimaryPhyMNE>f pt prim care dr summers</PrimaryPhyMNE> <ReferringPhyMNE>f pt referring dr summers</ReferringPhyMNE> Patient Name: DAKOTA BAUTISTA Unit Number: [id number] Dictated: 12/28/161829 Transcribed: 12/28/161829 JA Printed Date/Time: [~ rep prt dt]/[~ rep prt tm] [~ rep ct labl] - [~ rep ct ivnm] [facility] [place] [address] Dictated: 12/28/161829 Transcribed: 12/28/161829 JA Printed Date/Time: [~ rep prt dt]/[~ rep prt tm] [~ rep ct labl] - [~ rep ct ivnm] [~ rep ct add3]] CT OF THE ABDOMEN AND PELVIS WITHOUT CONTRAST CLINICAL HISTORY: Lower abdominal pain and constipation. COMPARISON STUDY: Abdominal series December 24, 2016. TECHNIQUE: Axial images of the abdomen and pelvis were obtained without IV contrast. Images were reviewed in the axial, sagittal, and coronal planes. FINDINGS: Evaluation of the abdomen and pelvis is suboptimal given the lack of IV and oral contrast. Unenhanced images of liver, spleen, adrenal glands, kidneys and pancreas are normal. There is no hydronephrosis. There is no peripancreatic or pericholecystic infiltration. There are post surgical findings within the spine as well as the proximal left femur. There is no evidence for a bowel obstruction. There is a moderate amount of stool within the colon. The appendix is normal. There is no free fluid or abscess. IMPRESSION: 1. No acute process within the abdomen or pelvis although evaluation compromised given the lack of IV and oral contrast. 2. Moderate amount of stool within the colon. No bowel obstruction. 3. Normal appendix. Electronically signed by: Oswaldo Wilson M.D. 12/28/2016 6:36 PM Dictated Date/Time: 12/28/2016 6:30 PM The status of this report is Signed. Draft = Not yet reviewed or approved by Radiologist. Signed = Reviewed and approved by Radiologist. <AttendingPhy></AttendingPhy> <FamilyPhy>Dakota Arthur D.O.</FamilyPhy> < PrimaryPhy>Dakota Arthur D.O.</PrimaryPhy> <UnitNumber>[id number]</UnitNumber > <VisitNumber>[id number]</VisitNumber> <PatientName>DAKOTA BAUTISTA</PatientName > <DateOfBirth>1965</DateOfBirth> <Location>[facility]</Location> <ServiceDate> 12/28/16</ServiceDate> <MNE>ESINDI</MNE> <OrderingPhy>Raymundo Hutton D.O.</ OrderingPhy> <OrderingPhyMNE>f rep ord dr summers</OrderingPhyMNE> <DictatingPhyMNE> f rep dict dr summers</DictatingPhyMNE> <CCListMNE>f rep ct melina</CCListMNE> < AdmittingPhyMNE>f pt admit dr summers</AdmittingPhyMNE> <AttendingPhyMNE>f pt attend dr summers</AttendingPhyMNE> <ConsultingPhyMNE>f pt consult dr summers</ConsultingPhyMNE> <FamilyPhyMNE>f pt fam dr summers</FamilyPhyMNE> <OtherPhyMNE>f pt other dr summers</OtherPhyMNE> < PrimaryPhyMNE>f pt prim care dr summers</PrimaryPhyMNE> <ReferringPhyMNE>f pt referring dr summers</ReferringPhyMNE> EKG EKG shows sinus tachycardia at 126 bpm left anterior fascicular block, possible old inferior wall FL, no change compared to 09/17/2016. Impression Assessment and Plan Complicated UTI/regular straight cathing/SIRS--the patient will be admitted to the medical floor. His previously urinary tract infections without of Enterococcus faecalis, with the most recent being resistant to fluoroquinolones. His received Zosyn IV in the emergency department, and we placed on Unasyn 3 g IV every 6 hours, normal saline with KCl 20 mEq once mils per hour. We'll follow urine culture and sensitivity results. Tachycardia/hypertension--increase heart rate is likely due to above infection and relative dehydration. We'll place on IV fluids as noted above. Continue current medications of lisinopril 10 mg by mouth daily and metoprolol tartrate 12.5 mg by mouth every 12 hours. If heart rate does not respond readily to infection treatment, then to increase metoprolol tartrate at that time. Anxiety/depression/schizoaffective disorder/mood disorder/insomnia--continue venlafaxine 75 mg by mouth twice a day, trazodone 200 mg by mouth at bedtime, and we'll increase her mirtazapine from 15-30 mg by mouth at bedtime. We'll have lorazepam 0.5 mg IV at bedtime when necessary available. Chronic urinary retention--increased tamsulosin 0.4-0.8 mg by mouth at bedtime. Muscle spasms/dystonic movements--continue Zanaflex 4 mg by mouth daily. This may be a withdrawal effect of Haldol, and will need to be followed closely. Constipation--continue senna 8.6 mg by mouth daily and docusate sodium 100 mg by mouth 3 times a day. Chronic pain--continue hydrocodone/acetaminophen 5/325 one by mouth twice a day when necessary. Level of Care Med/Surg Advanced Directives Existing Advance Directive: No Existing Living Will: No Existing Power of Arts Administrator: No Resuscitation Status FULL RESUSCITATION VTE Prophylaxis VTE Risk Assessment Done? Y/N: Yes Risk Level: Moderate Given or contraindicated: SCD's
[2016-12-29] VITALS: BP 120/79; PULSE 101; TEMP 37; O2SAT 96
[2016-12-29] MEDS: AMPICILLIN/SULBACTAM SOD INJ 3,000 MG in SODIUM CHLORIDE 0.9% 100ML 100 ML IV SCH ×3 (06:14→17:46)
[2016-12-29 07:19] VITALS: BP 111/75; PULSE 108; TEMP 36.8; O2SAT 99
[2016-12-29 07:20] LABS: BASO % 0.2 %; BASO ABS # 0.02 K/uL (0-0.2); COMPLETE YES; HEMATOCRIT 35.2 % (42-52); IG% 0.2 %; LYMPH ABS # 2.71 K/uL (1.2-3.4); MEAN CELL VOLUME 80.2 fL (80-100); MEAN CORPUSCULAR HEMOGLOBIN 27.1 pg (25-34); MEAN CORPUSCULAR HGB CONC 33.8 g/dl (32-36); MEAN PLATELET VOLUME 8.6 fL (7.4-10.4); MONO % 6.5 %; NEUT % 66.1 %; PLATELET COUNT 435 K/uL (130-400); RED BLOOD COUNT 4.39 M/uL (4.7-6.1); WHITE BLOOD COUNT 10.83 K/uL (4.8-10.8)
[2016-12-29] MEDS: DOCUSATE SODIUM 100 MG CAP PO SCH ×3 (07:40→21:20)
[2016-12-29] MEDS: VENLAFAXINE HCL 50 MG TAB PO SCH ×2 (07:40→21:19)
[2016-12-29] MEDS: METOPROLOL TARTRATE 25 MG TAB PO SCH ×2 (07:41→21:22)
[2016-12-29] MEDS: CEROVITE ADV FORMULA TAB PO SCH (07:41)
[2016-12-29] MEDS: LISINOPRIL 10 MG TAB PO SCH (07:42)
[2016-12-29] MEDS: CHOLECALCIFEROL 1000 INTER.UNIT TAB PO SCH (07:42)
[2016-12-29] MEDS: NAPROXEN 375 MG TAB PO SCH ×2 (07:42→21:23)
[2016-12-29] MEDS: SENNA 8.6 MG TAB PO SCH (07:42)
[2016-12-29] MEDS: NICOTINE 14 MG/24 HR TDSY TD SCH (07:43)
[2016-12-29 07:59] LABS: BUN/CREATININE RATIO 16.6 (10-20); CALCIUM 8.6 mg/dl (8.5-10.1); CREATININE 0.74 mg/dl (0.60-1.40); MAGNESIUM 2.5 mg/dl (1.8-2.4); POTASSIUM 3.8 mmol/L (3.5-5.1)
[2016-12-29] MEDS: KETOROLAC TROMETHAMINE 30 MG/ML VIAL IV PRN (08:00)
--- NOTE | 2016-12-29 08:29 | Clinical Documentation Query ---
CLINICAL DOCUMENTATION QUERY 51 year old male with known history of urinary retention requiring frequent straight catheterization who presents with complicated UTI, SIRS, and possible withdrawal effect of Haldol. Query #1/2 In your clinical opinion is this patient being managed for: ( x) Complicated UTI due to frequent straight catheterization treated with IV Unasyn. ( ) Other explanation of clinical findings (Please Explain) ( ) Unable to determine (Please Define) ( ) Need to Discuss ( ) Not Agree The medical record reflects the following clinical findings, treatment, and risk factors. Clinical Indicators: tachycardia 130, leukocytosis 14.46, ESR 40, CRP 8.97, serum lactic acid 2.30, and UA +bacteria and leukocyte esterase. Treatment: IV Unasyn, UC, tamsulosin qhs Risk Factors: Age, frequent self-straight catheterizations. Query #2/2 The H&P is also stating SIRS due to UTI. Since the [place]orm[place] of ICD 10 this phrasing can no long mean Sepsis. If the physician's intent was to mean Sepsis from UTI then such should be documented. SIRS due to UTI only codes to simple UTI and may not reflect physician's intended level of severity. In your clinical opinion is this patient being managed for: ( x ) Sepsis due to straight catheterization associated UTI ( ) UTI w/o sepsis ( ) Other explanation of clinical findings (Please Explain) ( ) Unable to determine (Please Define) ( ) Need to Discuss ( ) Not Agree The medical record reflects the following clinical findings, treatment, and risk factors. Clinical Indicators: tachycardia 130, leukocytosis 14.46, ESR 40, CRP 8.97, serum lactic acid 2.30, and UA +bacteria and leukocyte esterase. Treatment: IVF's, IV Unasyn Risk Factors: Urinary retention, Self-straight catheterizations. Please clarify and document your clinical opinion in the progress notes and discharge summary. Terms such as "probable", "suspected", "likely", "questionable", "possible", or "still to be ruled out" are acceptable. IF IN AGREEMENT, YOU MUST DOCUMENT ABOVE DIAGNOSTIC STATEMENT IN DAILY PROGRESS NOTES AND DISCHARGE SUMMARY. This document is not part of the patient's record. SIRS Criteria * SIRS criteria are present in many hospitalized patients, including those who never develop infection and never incur adverse outcomes. * SIRS may simply reflect an appropriate host response that is frequently adaptive. * SIRS criteria, such as pyrexia or neutrophilia should alert the CDS to a potential infectious process. * 2 of 4 SIRS criteria may clinically support both an infectious process and a systemic process, i.e. Sepsis. * Temperature >38C or <36C * Heart Rate >90/min * Respiratory Rate >20/min or PaCO2 <32 mm Hg * WBC >12,000/mm3 or <4000/mm3 or >10% immature bands *If the physician suspects that the sepsis is related to a chronic indwelling clark catheter or frequent self-catheterization then documentation of such will support a higher level of patient severity. Thank You, Isaiah Brown RN [phone]
--- NOTE | 2016-12-29 10:41 | Hospitalist Progress Note ---
Hospitalist Progress Note Date of Service December 29, 2016. Subjective Pt evaluation today including: conversation w/ patient, physical exam, chart review, lab review, review of studies, review of inpatient medication list Patient seen and evaluated. He was admitted overnight for rectal spasms, diaphoresis, nausea/vomiting, insomnia, and dyspepsia. Patient has schizoaffective disorder and was recently stopped on Haldol yesterday. He reports they stopped the Haldol due to these symptoms that he presented with. Incidentally he was found to have urinary tract infection that is growing gram- negative bacilli with sensitivities to follow. Patient chronically straight Due to surgical complication from L4-L5 disc fusion and hip fracture. Patient is resting supine in bed with signs of dystonic reaction including lip smacking, abnormal tongue movements, and diffuse muscle spasms/involuntary movements. He states the symptoms have been present for approximately 10 days. He does report feeling slightly better compared to presentation yesterday. [facility]. Additional Comments: REVIEW OF SYSTEMS: General/Constitutional: +"I feel hot" ENT: Denies visual changes, nasal drainage, hearing loss, sore throat, trouble swallowing Cardiovascular: Denies chest pain, palpitations, edema Respiratory: Denies cough, sputum, SOB, wheezing, orthopnea GI: +rectal spasm; Denies nausea, vomiting, abdominal pain, constipation, diarrhea, melena/hematochezia : +urinary retention; Denies dysuria, frequency, hematuria Musculoskeletal: +muscle spasm Neurologic: Denies dizziness/lightheadedness, numbness/tingling Psychiatric: +anxiety, +depression Endocrine: Deferred Hematologic/Lymphatic: Denies bleeding/clotting abnormalities Skin: Denies rash, itch, new skin changes, easy bruising Allergy/Immunologic: Deferred Medications Current Inpatient Medications Medications (Trade) Dose Ordered Sig/Colten Route Start Time Stop Time Status Last Admin Dose Admin Acetaminophen (Tylenol Tab) 650 mg Q4H PRN PO 12/28/16 19:45 01/27/17 19:44 Zolpidem Tartrate (Ambien Tab) 5 mg HSZ PRN PO 12/28/16 19:45 01/27/17 19:44 12/28/16 21:31 5 MG Ondansetron HCl (Zofran Inj) 4 mg Q6H PRN IV 12/28/16 19:45 01/27/17 19:44 Ketorolac Tromethamine (Toradol Inj) 30 mg Q6H PRN IV 12/28/16 19:45 01/02/17 19:44 12/29/16 08:00 30 MG Docusate Sodium (coLACE CAP) 100 mg TID PO 12/28/16 21:00 01/27/17 20:59 12/29/16 07:40 100 MG Acetaminophen/ Hydrocodone Bitart (Wendel 5/325 Tab) 1 tab QID PRN PO 12/28/16 19:45 01/11/17 19:44 Lisinopril (Zestril Tab) 10 mg DAILY PO 12/29/16 09:00 01/28/17 08:59 12/29/16 07:42 10 MG Metoprolol Tartrate (Lopressor Tab) 12.5 mg Q12 PO 12/28/16 21:00 01/27/17 20:59 12/29/16 07:41 12.5 MG Mirtazapine (Remeron Tab) 30 mg HS PO 12/28/16 21:00 01/27/17 20:59 12/28/16 21:32 30 MG Multivitamins/ Minerals (Multivitamin W/ Minerals Tab) 1 tab DAILY PO 12/29/16 09:00 01/28/17 08:59 12/29/16 07:41 1 TAB Naproxen (Naprosyn Tab) 750 mg BID PO 12/28/16 21:00 01/27/17 20:59 12/29/16 07:42 750 MG Polyethylene (Miralax Powder Packet) 17 gm DAILY PRN PO 12/28/16 19:45 01/27/17 19:44 Promethazine HCl (Phenergan Tab) 25 mg Q4H PRN PO 12/28/16 19:45 01/27/17 19:44 Tamsulosin HCl (Flomax Cap) 0.8 mg HS PO 12/28/16 21:00 01/27/17 20:59 12/28/16 21:32 0.8 MG Tizanidine HCl (Zanaflex Tab) 4 mg DAILY PO 12/29/16 09:00 01/28/17 08:59 12/29/16 07:42 4 MG Trazodone HCl (Desyrel Tab) 200 mg HS PO 12/28/16 21:00 01/27/17 20:59 12/28/16 21:34 200 MG Venlafaxine HCl (effeXOR TAB) 75 mg BID PO 12/28/16 21:00 01/27/17 20:59 12/29/16 07:40 75 MG Cholecalciferol (Vitamin D Tab) 2,000 inter.unit QAM PO 12/29/16 09:00 01/28/17 08:59 12/29/16 07:42 2,000 INTER.UNIT Senna 8.6 mg 8.6 mg QAM PO 12/29/16 09:00 01/28/17 08:59 12/29/16 07:42 8.6 MG Ampicillin Sodium/ Sulbactam Sodium 3000 mg/Sodium Chloride 108 ml @ 200 mls/hr Q6H IV 12/29/16 00:00 01/08/17 00:00 12/29/16 06:14 200 MLS/HR Lorazepam/Syringe (Ativan Inj/ Syringe) 0.5 ml @ 0.5 mls/min HS PRN IV 12/28/16 21:00 01/27/17 20:59 Nicotine (Nicoderm Cq 14MG Patch) 1 patch QAM TD 12/29/16 09:00 01/28/17 08:59 12/29/16 07:43 1 PATCH Miscellaneous (Remove Nicoderm Patch) 1 ea HS N/A 12/29/16 21:00 01/28/17 20:59 Objective Vital Signs Date Time Temp Pulse Resp B/P Pulse Ox O2 Delivery O2 Flow Rate FiO2 12/29/16 07:19 36.8 108 20 111/75 99 Room Air 12/29/16 00:00 37.0 101 20 120/79 96 Room Air 12/29/16 00:00 96 Room Air 12/28/16 20:43 37.2 121 20 115/74 96 Room Air 12/28/16 20:11 110 137/97 12/28/16 19:27 122 152/87 12/28/16 18:49 117 130/87 12/28/16 17:37 120 18 108/85 99 Room Air 12/28/16 17:36 120 12/28/16 16:46 37.2 130 20 162/106 98 Room Air Physical Exam Notes: PHYSICAL EXAM:: General Appearance: WDWN, restless and who is A&O x 3 HEENT: Head is normocephalic/atraumatic; EOMI; PERRLA; Hearing grossly intact; Mucous membranes moist; Pharynx negative for exudate/lesions Neck: Supple; Trachea midline; Neg JVD; Neg lymphadenopathy Heart: regular rhythm, tachycardia with no M/G/R Lungs: CTA in all lung pedroza bilaterally; Respirations unlabored; Neg accessory muscle use Abdomen: Soft, non-tender, non-distended; Positive BS x 4 quadrants; Neg organomegaly Extremities: Capillary refill < 2 seconds; Neg cyanosis or edema Neurological: Speech clear; lip smacking, tongue protrusions; involuntary movements largely of lower extremities Psychiatric: flat affect, pleasant Skin: Normal Color; Warm/Dry; Neg rashes, ecchymosis, lacerations/ulcerations Laboratory Results Last 24 Hours Test 12/28/16 16:46 12/28/16 17:21 12/28/16 17:58 12/29/16 06:43 Urine Color DK YELLOW Urine Appearance CLOUDY Urine pH 5.5 Urine Specific [place] 1.035 Urine Protein TRACE Urine Glucose (UA) NEG Urine Ketones 1+ Urine Occult Blood NEG Urine Nitrite POS Urine Bilirubin NEG Urine Urobilinogen NEG Urine Leukocyte Esterase MODERATE Urine WBC (Auto) >30 /hpf Urine RBC (Auto) 0-4 /hpf Urine Hyaline Casts (Auto) 10-30 /lpf Urine Epithelial Cells (Auto) 20-30 /lpf Urine Bacteria (Auto) 1+ Urine Pathogenic Casts 0-3 GRANULAR CASTS /lpf Urine Opiates Screen POS Urine Methadone, Qualitative NEG Urine Barbiturates NEG Urine Phencyclidine (PCP) Level NEG Ur Amphetamine/Methamphetamine NEG MDMA (Ecstasy) Screen POS Urine Benzodiazepines Screen NEG Urine Cocaine Metabolite NEG Urine Marijuana (THC) NEG White Blood Count 14.46 K/uL 10.83 K/uL Red Blood Count 4.82 M/uL 4.39 M/uL Hemoglobin 13.5 g/dL 11.9 g/dL Hematocrit 38.5 % 35.2 % Mean Corpuscular Volume 79.9 fL 80.2 fL Mean Corpuscular Hemoglobin 28.0 pg 27.1 pg Mean Corpuscular Hemoglobin Concent 35.1 g/dl 33.8 g/dl Platelet Count 507 K/uL 435 K/uL Mean Platelet Volume 8.7 fL 8.6 fL Neutrophils (%) (Auto) 78.5 % 66.1 % Lymphocytes (%) (Auto) 16.1 % 25.0 % Monocytes (%) (Auto) 4.7 % 6.5 % Eosinophils (%) (Auto) 0.3 % 2.0 % Basophils (%) (Auto) 0.1 % 0.2 % Neutrophils # (Auto) 11.35 K/uL 7.16 K/uL Lymphocytes # (Auto) 2.33 K/uL 2.71 K/uL Monocytes # (Auto) 0.68 K/uL 0.70 K/uL Eosinophils # (Auto) 0.04 K/uL 0.22 K/uL Basophils # (Auto) 0.02 K/uL 0.02 K/uL RDW Standard Deviation 46.2 fL 47.2 fL RDW Coefficient of Variation 15.8 % 16.1 % Immature Granulocyte % (Auto) 0.3 % 0.2 % Immature Granulocyte # (Auto) 0.04 K/uL 0.02 K/uL Erythrocyte Sedimentation Rate 40 mm/hr Prothrombin Time 10.5 SECONDS Prothromb Time International Ratio 1.0 Activated Partial Thromboplast Time 32.3 SECONDS Partial Thromboplastin Ratio 1.2 Sodium Level 141 mmol/L 145 mmol/L Potassium Level 3.8 mmol/L 3.8 mmol/L Chloride Level 108 mmol/L 112 mmol/L Carbon Dioxide Level 22 mmol/L 25 mmol/L Anion Gap 11.0 mmol/L 8.0 mmol/L Blood Urea Nitrogen 10 mg/dl 12 mg/dl Creatinine 0.95 mg/dl 0.74 mg/dl Est Creatinine Clear Calc Drug Dose 96.5 ml/min 124.3 ml/min Estimated GFR () 106.2 122.9 Estimated GFR (Non- 91.7 106.1 BUN/Creatinine Ratio 10.1 16.6 Random Glucose 114 mg/dl 119 mg/dl Osmolality 286 mOsm/kg Calcium Level 9.8 mg/dl 8.6 mg/dl Magnesium Level 2.4 mg/dl 2.5 mg/dl Total Bilirubin 0.5 mg/dl Direct Bilirubin 0.1 mg/dl Aspartate Amino Transf (AST/SGOT) 16 U/L Alanine Aminotransferase (ALT/SGPT) 28 U/L Alkaline Phosphatase 115 U/L Total Creatine Kinase 334 U/L Creatine Kinase MB 9.9 ng/ml Creatine Kinase MB Ratio 3.0 Troponin I < 0.015 ng/ml C-Reactive Protein 8.97 mg/dl Total Protein 7.9 gm/dl Albumin 3.9 gm/dl Lipase 134 U/L Salicylates Level 3.6 mg/dl Acetaminophen Level < 2 ug/ml Ethyl Alcohol mg/dL < 3.0 mg/dl Hepatitis C Antibody Screen NEG Bedside Lactic Acid Venous 2.30 mmol/L Test 12/29/16 07:54 Assessment and Plan Mr. Blanca is a 51 y/o male with PMHx of Schizoaffective Disorder, Urinary Retention with Straight Cath needs, Bowel Dysfunction, S/P L4-L5 Fusion Complication who presents with multiple complaints consistent with dystonic reaction from Haldol (stopped on 12/28) and UTI. Sepsis from Complicated UTI 2/2 Chronic Straight Caths: Gram Neg Bacilli - Most recent UTI (Aug) - Enterococcus faecalis with resistance to Fluoroquinolones - Awaiting culture identity and sensitivities - Unasyn 3 g IV Q6H Chronic Urinary Retention and Bowel Dysfunction 2/2 L4-L5 Surgical Complication: - Flomax 0.8 mg daily (increased) and allow self straight-cath - Senokot 8.6 mg dailiy Muscle Spasm/Dystonic Movements: Recent cessation of Haldol yesterday - Dystonic movements present x 10 days per patient - Zanaflex 4 mg daily Tachycardia/HTN: - Sinus tachycardia 2/2 dystonia vs infection - Lisinopril 10 mg daily - Lopressor 12.5 mg BID Schizoaffective Disorder - Anxiety/Depression/Mood Disorder/Insomnia: - Effexor 75 mg BID - Remeron 30 mg daily (increased) and trazodone 200 mg HS - Ativan 0.5 mg IV HS PRN DVT Prophylaxis: Lovenox 40 mg SC daily Code Status: FULL RESUSCITATION Disposition: Lives at home alone with [facility] multiple times a week Continued [facility] stay due to: multiple IV medications needed Discharge planning: home with home health
[2016-12-29 15:52] VITALS: BP 137/89; PULSE 101; TEMP 37; O2SAT 98
[2016-12-29 16:00] VITALS: O2SAT 98
[2016-12-29] MEDS: ZOLPIDEM TARTRATE 5 MG TAB PO PRN (21:19)
[2016-12-29] MEDS: MIRTAZAPINE TAB 15 MG TAB PO SCH (21:19)
[2016-12-29] MEDS: TAMSULOSIN HCL 0.4 MG CAP PO SCH (21:21)
[2016-12-29] MEDS: TRAZODONE HCL 100 MG TAB PO SCH (21:43)
[2016-12-29 23:33] VITALS: BP 143/93; PULSE 107; TEMP 36.9; O2SAT 97
[2016-12-30] VITALS: O2SAT 98
[2016-12-30] MEDS: AMPICILLIN/SULBACTAM SOD INJ 3,000 MG in SODIUM CHLORIDE 0.9% 100ML 100 ML IV SCH ×2 (00:01→05:49)
[2016-12-30] MEDS ORDERED: COUGH DROP (SUGAR FREE) LOZ 24 LOZ/1 BOX PO PRN (01:15)
[2016-12-30 07:10] LABS: BASO % 0.2 %; BASO ABS # 0.02 K/uL (0-0.2); COMPLETE YES; EOS % 3.2 %; HEMATOCRIT 34.6 % (42-52); IG% 0.1 %; LYMPH % 31.5 %; LYMPH ABS # 2.81 K/uL (1.2-3.4); MEAN CELL VOLUME 81.6 fL (80-100); MEAN CORPUSCULAR HEMOGLOBIN 26.9 pg (25-34); MEAN CORPUSCULAR HGB CONC 32.9 g/dl (32-36); MEAN PLATELET VOLUME 8.5 fL (7.4-10.4); MONO % 5.8 %; NEUT % 59.2 %; PLATELET COUNT 410 K/uL (130-400); RED BLOOD COUNT 4.24 M/uL (4.7-6.1); WHITE BLOOD COUNT 8.93 K/uL (4.8-10.8)
[2016-12-30 07:12] VITALS: BP 109/72; PULSE 84; TEMP 36.3; O2SAT 94
[2016-12-30 07:44] LABS: BUN/CREATININE RATIO 14.8 (10-20); CALCIUM 8.4 mg/dl (8.5-10.1); CREATININE 0.8 mg/dl (0.60-1.40); MAGNESIUM 2.7 mg/dl (1.8-2.4)
[2016-12-30] MEDS: VENLAFAXINE HCL 50 MG TAB PO SCH ×2 (08:21→20:44)
[2016-12-30] MEDS: DOCUSATE SODIUM 100 MG CAP PO SCH ×3 (08:21→20:42)
[2016-12-30] MEDS: CEROVITE ADV FORMULA TAB PO SCH (08:22)
[2016-12-30] MEDS: METOPROLOL TARTRATE 25 MG TAB PO SCH ×2 (08:22→20:42)
[2016-12-30] MEDS: CHOLECALCIFEROL 1000 INTER.UNIT TAB PO SCH (08:23)
[2016-12-30] MEDS: LISINOPRIL 10 MG TAB PO SCH (08:23)
[2016-12-30] MEDS: NAPROXEN 375 MG TAB PO SCH ×2 (08:23→20:44)
[2016-12-30] MEDS: NICOTINE 14 MG/24 HR TDSY TD SCH (08:24)
[2016-12-30] MEDS ORDERED: CEPHALEXIN MONOHYDRATE 500 MG CAP PO ONE (09:45)
[2016-12-30] MEDS: SENNA 8.6 MG TAB PO SCH (10:22)
[2016-12-30] MEDS: ENOXAPARIN 40 MG/0.4 ML SYR SQ SCH (10:23)
--- NOTE | 2016-12-30 12:35 | Hospitalist Progress Note ---
Hospitalist Progress Note Date of Service December 30, 2016. Subjective Pt evaluation today including: conversation w/ patient, physical exam, chart review, lab review, review of studies, review of inpatient medication list Patient seen and evaluated. No acute events overnight. Reporting improvement in his dystonic manifestations. Still continues to have mild involuntary movements and lip smacking. Continues to have insomnia which is largely difficulty falling asleep however is able to maintain sleep. Urine culture obtained revealing Citrobacter freundii that is pansensitive. No new complaints Additional Comments: REVIEW OF SYSTEMS: General/Constitutional: Denies fever/chills ENT: Denies visual changes, nasal drainage, hearing loss, sore throat, trouble swallowing Cardiovascular: Denies chest pain, palpitations, edema Respiratory: Denies cough, sputum, SOB, wheezing, orthopnea GI: +rectal spasm (improving); Denies nausea, vomiting, abdominal pain, constipation, diarrhea, melena/hematochezia : +urinary retention (chronic); Denies dysuria, frequency, hematuria Musculoskeletal: +muscle spasm (improving) Neurologic: Denies dizziness/lightheadedness, numbness/tingling Psychiatric: +anxiety, +depression, +insomnia (trouble falling asleep) Endocrine: Deferred Hematologic/Lymphatic: Denies bleeding/clotting abnormalities Skin: Denies rash, itch, new skin changes, easy bruising Allergy/Immunologic: Deferred Objective Vital Signs Date Time Temp Pulse Resp B/P Pulse Ox O2 Delivery O2 Flow Rate FiO2 12/30/16 09:39 Room Air 12/30/16 07:12 36.3 84 18 109/72 94 Room Air 12/30/16 00:00 98 Room Air 12/29/16 23:33 36.9 107 18 143/93 97 Room Air 12/29/16 16:00 98 Room Air 12/29/16 15:52 37.0 101 18 137/89 98 Room Air Physical Exam Notes: PHYSICAL EXAM:: General Appearance: WDWN, less restless and who is A&O x 3 HEENT: Head is normocephalic/atraumatic; EOMI; PERRLA; Hearing grossly intact; Mucous membranes moist; Pharynx negative for exudate/lesions Neck: Supple; Trachea midline; Neg JVD; Neg lymphadenopathy Heart: RRR with no M/G/R Lungs: CTA in all lung pedroza bilaterally; Respirations unlabored; Neg accessory muscle use Abdomen: Soft, non-tender, non-distended; Positive BS x 4 quadrants; Neg organomegaly Extremities: Capillary refill < 2 seconds; Neg cyanosis or edema Neurological: Speech clear; lip smacking, tongue protrusions; involuntary movements largely of lower extremities Psychiatric: flat affect, pleasant Skin: Normal Color; Warm/Dry; Neg rashes, ecchymosis, lacerations/ulcerations Laboratory Results Last 24 Hours Test 12/30/16 06:50 White Blood Count 8.93 K/uL Red Blood Count 4.24 M/uL Hemoglobin 11.4 g/dL Hematocrit 34.6 % Mean Corpuscular Volume 81.6 fL Mean Corpuscular Hemoglobin 26.9 pg Mean Corpuscular Hemoglobin Concent 32.9 g/dl Platelet Count 410 K/uL Mean Platelet Volume 8.5 fL Neutrophils (%) (Auto) 59.2 % Lymphocytes (%) (Auto) 31.5 % Monocytes (%) (Auto) 5.8 % Eosinophils (%) (Auto) 3.2 % Basophils (%) (Auto) 0.2 % Neutrophils # (Auto) 5.28 K/uL Lymphocytes # (Auto) 2.81 K/uL Monocytes # (Auto) 0.52 K/uL Eosinophils # (Auto) 0.29 K/uL Basophils # (Auto) 0.02 K/uL RDW Standard Deviation 48.6 fL RDW Coefficient of Variation 16.3 % Immature Granulocyte % (Auto) 0.1 % Immature Granulocyte # (Auto) 0.01 K/uL Sodium Level 146 mmol/L Potassium Level 4.0 mmol/L Chloride Level 113 mmol/L Carbon Dioxide Level 25 mmol/L Anion Gap 8.0 mmol/L Blood Urea Nitrogen 12 mg/dl Creatinine 0.80 mg/dl Est Creatinine Clear Calc Drug Dose 115.0 ml/min Estimated GFR () 119.0 Estimated GFR (Non- 102.7 BUN/Creatinine Ratio 14.8 Random Glucose 103 mg/dl Calcium Level 8.4 mg/dl Magnesium Level 2.7 mg/dl Assessment and Plan Mr. Blanca is a 51 y/o male with PMHx of Schizoaffective Disorder, Urinary Retention with Straight Cath needs, Bowel Dysfunction, S/P L4-L5 Fusion Complication who presents with multiple complaints consistent with dystonic reaction from Haldol (stopped on 12/28) and UTI. Sepsis from Complicated UTI 2/2 Chronic Straight Caths: Citrobacter Freundii Complex Pansensitive - Keflex 500 mg BID for total 10 days ABx therapy - DAY #3 Chronic Urinary Retention and Bowel Dysfunction 2/2 L4-L5 Surgical Complication: - Flomax 0.8 mg daily (increased) and allow self straight-cath - Senokot 8.6 mg dailiy Muscle Spasm/Dystonic Movements: Recent cessation of Haldol yesterday - Dystonic movements present x 10 days per patient with improvement - Zanaflex 4 mg daily Tachycardia/HTN: Sinus tachycardia 2/2 dystonia vs infection - Lisinopril 10 mg daily - Lopressor 12.5 mg BID Schizoaffective Disorder - Anxiety/Depression/Mood Disorder/Insomnia: - Effexor 75 mg BID - Remeron 30 mg daily (increased) and trazodone 200 mg HS - Ativan 0.5 mg IV HS PRN DVT Prophylaxis: Lovenox 40 mg SC daily Code Status: FULL RESUSCITATION Disposition: Lives at home alone with [facility] multiple times a week - plan for D/C home - F/U with [facility] 01/06 Discharge planning: home with home health
[2016-12-30] MEDS: KETOROLAC TROMETHAMINE 30 MG/ML VIAL IV PRN (14:38)
[2016-12-30 14:58] VITALS: BP_SYST 153; BP_SYST 156; BP_DIAS 78; BP_DIAS 92; PULSE 99; TEMP 36.7; O2SAT 97
[2016-12-30] MEDS ORDERED: CYCLOBENZAPRINE HCL 10 MG TAB PO STA (15:58)
[2016-12-30] MEDS ORDERED: NURSING VERBAL MED ORDER ONE (16:00)
[2016-12-30] MEDS: ZOLPIDEM TARTRATE 5 MG TAB PO PRN (20:41)
[2016-12-30] MEDS: TRAZODONE HCL 100 MG TAB PO SCH (20:43)
[2016-12-30] MEDS: TAMSULOSIN HCL 0.4 MG CAP PO SCH (20:45)
[2016-12-30] MEDS: CEPHALEXIN MONOHYDRATE 500 MG CAP PO SCH (20:45)
[2016-12-30] MEDS: MIRTAZAPINE TAB 15 MG TAB PO SCH (20:46)
[2016-12-30 23:06] VITALS: BP 144/92; PULSE 99; TEMP 36.9; O2SAT 96
[2016-12-31 06:51] LABS: BASO % 0.3 %; BASO ABS # 0.03 K/uL (0-0.2); COMPLETE YES; EOS % 3.9 %; HEMATOCRIT 35.5 % (42-52); IG% 0.1 %; LYMPH % 28.9 %; LYMPH ABS # 2.61 K/uL (1.2-3.4); MEAN CELL VOLUME 81.8 fL (80-100); MEAN CORPUSCULAR HEMOGLOBIN 26.5 pg (25-34); MEAN CORPUSCULAR HGB CONC 32.4 g/dl (32-36); MEAN PLATELET VOLUME 8.4 fL (7.4-10.4); MONO % 7.5 %; NEUT % 59.3 %; PLATELET COUNT 424 K/uL (130-400); RED BLOOD COUNT 4.34 M/uL (4.7-6.1); WHITE BLOOD COUNT 9.02 K/uL (4.8-10.8)
[2016-12-31 07:30] LABS: BUN/CREATININE RATIO 18.2 (10-20); CALCIUM 8.9 mg/dl (8.5-10.1); CREATININE 0.77 mg/dl (0.60-1.40); MAGNESIUM 2.7 mg/dl (1.8-2.4); POTASSIUM 4.3 mmol/L (3.5-5.1)
[2016-12-31 07:54] VITALS: BP 166/98; PULSE 102; TEMP 36.7; O2SAT 99
[2016-12-31] MEDS: NAPROXEN 375 MG TAB PO SCH (08:41)
[2016-12-31] MEDS: VENLAFAXINE HCL 50 MG TAB PO SCH (08:41)
[2016-12-31] MEDS: DOCUSATE SODIUM 100 MG CAP PO SCH ×2 (08:42→14:00)
[2016-12-31] MEDS: CHOLECALCIFEROL 1000 INTER.UNIT TAB PO SCH (08:42)
[2016-12-31] MEDS: SENNA 8.6 MG TAB PO SCH (08:42)
[2016-12-31] MEDS: LISINOPRIL 10 MG TAB PO SCH (08:42)
[2016-12-31] MEDS: METOPROLOL TARTRATE 25 MG TAB PO SCH (08:42)
[2016-12-31] MEDS: CEROVITE ADV FORMULA TAB PO SCH (08:42)
[2016-12-31] MEDS: CEPHALEXIN MONOHYDRATE 500 MG CAP PO SCH (08:43)
[2016-12-31] MEDS: ENOXAPARIN 40 MG/0.4 ML SYR SQ SCH (08:43)
[2016-12-31] MEDS: NICOTINE 14 MG/24 HR TDSY TD SCH (08:43)
--- NOTE | 2016-12-31 11:48 | Hospitalist Progress Note ---
Hospitalist Progress Note Date of Service December 31, 2016. Subjective Pt evaluation today including: conversation w/ patient, physical exam, chart review, lab review, review of studies, review of inpatient medication list Patient seen and evaluated. Dystonic reactions improving but continues to have significant rectal spasm which is unrelated to dystonic reaction but related to surgical complication with L4-L5 fusion. Today patient verbalizes that he does not feel safe to return home alone at this time as the dystonic reaction is still prevalent and the incontinence/ rectal spasm. He does have home services a couple times a week that was planning to do PT however he states this hasn't started. Patient wants consideration for inpatient rehab. This may not be unreasonable given living alone and continued dystonia. Will obtain PT/OT evaluations. Constitutional: + fatigue, No chills, No fever Eyes: No worsening of vision ENT: No nasal symptoms, No sore throat, No trouble swallowing Respiratory: No cough, No shortness of breath, No sputum Cardiovascular: No chest pain Abdomen: No constipation, No diarrhea, No nausea, No pain, No vomiting Musculoskeletal: + problem reported (muscle spasm) Male : + problem reported (urinary retention) Neurologic: + problem reported (rectal spasm 2/2 L4-L5 fusion surgical complication) Psychiatric: + anxiety, + depression symptoms Heme: No abnormal bleeding/bruising Skin: No itch, No rash Medications Current Inpatient Medications Medications (Trade) Dose Ordered Sig/Colten Route Start Time Stop Time Status Last Admin Dose Admin Acetaminophen (Tylenol Tab) 650 mg Q4H PRN PO 12/28/16 19:45 01/27/17 19:44 Zolpidem Tartrate (Ambien Tab) 5 mg HSZ PRN PO 12/28/16 19:45 01/27/17 19:44 12/30/16 20:41 5 MG Ondansetron HCl (Zofran Inj) 4 mg Q6H PRN IV 12/28/16 19:45 01/27/17 19:44 Ketorolac Tromethamine (Toradol Inj) 30 mg Q6H PRN IV 12/28/16 19:45 01/02/17 19:44 12/30/16 14:38 30 MG Docusate Sodium (coLACE CAP) 100 mg TID PO 12/28/16 21:00 01/27/17 20:59 12/31/16 08:42 100 MG Acetaminophen/ Hydrocodone Bitart (Victor 5/325 Tab) 1 tab QID PRN PO 12/28/16 19:45 01/11/17 19:44 12/30/16 00:07 1 TAB Lisinopril (Zestril Tab) 10 mg DAILY PO 12/29/16 09:00 01/28/17 08:59 12/31/16 08:42 10 MG Metoprolol Tartrate (Lopressor Tab) 12.5 mg Q12 PO 12/28/16 21:00 01/27/17 20:59 12/31/16 08:42 12.5 MG Mirtazapine (Remeron Tab) 30 mg HS PO 12/28/16 21:00 01/27/17 20:59 12/30/16 20:46 30 MG Multivitamins/ Minerals (Multivitamin W/ Minerals Tab) 1 tab DAILY PO 12/29/16 09:00 01/28/17 08:59 12/31/16 08:42 1 TAB Naproxen (Naprosyn Tab) 750 mg BID PO 12/28/16 21:00 01/27/17 20:59 12/31/16 08:41 750 MG Polyethylene (Miralax Powder Packet) 17 gm DAILY PRN PO 12/28/16 19:45 01/27/17 19:44 Promethazine HCl (Phenergan Tab) 25 mg Q4H PRN PO 12/28/16 19:45 01/27/17 19:44 Tamsulosin HCl (Flomax Cap) 0.8 mg HS PO 12/28/16 21:00 01/27/17 20:59 12/30/16 20:45 0.8 MG Tizanidine HCl (Zanaflex Tab) 4 mg DAILY PO 12/29/16 09:00 01/28/17 08:59 12/31/16 08:42 4 MG Trazodone HCl (Desyrel Tab) 200 mg HS PO 12/28/16 21:00 01/27/17 20:59 12/30/16 20:43 200 MG Venlafaxine HCl (effeXOR TAB) 75 mg BID PO 12/28/16 21:00 01/27/17 20:59 12/31/16 08:41 75 MG Cholecalciferol (Vitamin D Tab) 2,000 inter.unit QAM PO 12/29/16 09:00 01/28/17 08:59 12/31/16 08:42 2,000 INTER.UNIT Senna 8.6 mg 8.6 mg QAM PO 12/29/16 09:00 01/28/17 08:59 12/31/16 08:42 8.6 MG Lorazepam/Syringe (Ativan Inj/ Syringe) 0.5 ml @ 0.5 mls/min HS PRN IV 12/28/16 21:00 01/27/17 20:59 12/29/16 21:30 0.5 MLS/MIN Nicotine (Nicoderm Cq 14MG Patch) 1 patch QAM TD 12/29/16 09:00 01/28/17 08:59 12/31/16 08:43 1 PATCH Miscellaneous (Remove Nicoderm Patch) 1 ea HS N/A 12/29/16 21:00 01/28/17 20:59 12/30/16 20:47 1 EA Enoxaparin Sodium (Lovenox Inj) 40 mg QAM SQ 12/30/16 09:00 01/29/17 08:59 12/31/16 08:43 40 MG Menthol (Nice Ameena) 1 ameena PRN PRN PO 12/30/16 01:15 01/08/17 01:05 Cephalexin Monohydrate (Keflex Cap) 500 mg BID PO 12/30/16 21:00 01/09/17 20:59 12/31/16 08:43 500 MG Objective Vital Signs Date Time Temp Pulse Resp B/P Pulse Ox O2 Delivery O2 Flow Rate FiO2 12/31/16 08:00 Room Air 12/31/16 07:54 36.7 102 19 166/98 99 Room Air 12/31/16 00:00 Room Air 12/30/16 23:06 36.9 99 18 144/92 96 Room Air 12/30/16 16:00 Room Air 12/30/16 14:58 36.7 99 22 156/78 97 Room Air 153/92 Physical Exam General Appearance: WD/WN, + mild distress (restless; pain from rectal spasm) Eyes: normal inspection ENT: hearing grossly normal Neck: supple, no JVD, trachea midline Respiratory/Chest: lungs clear, normal breath sounds, no respiratory distress, no accessory muscle use Cardiovascular: regular rate, rhythm, no gallop, no murmur Abdomen: normal bowel sounds, non tender, soft Extremities: no pedal edema, no calf tenderness, + pertinent finding ( involuntary spasm of bilateral lower extremities (improving)) Neurologic/Psychiatric: alert, oriented x 3, + pertinent finding (dystonic reaction - lip smacking) Skin: normal color, warm/dry Laboratory Results Last 24 Hours Test 12/31/16 06:31 White Blood Count 9.02 K/uL Red Blood Count 4.34 M/uL Hemoglobin 11.5 g/dL Hematocrit 35.5 % Mean Corpuscular Volume 81.8 fL Mean Corpuscular Hemoglobin 26.5 pg Mean Corpuscular Hemoglobin Concent 32.4 g/dl Platelet Count 424 K/uL Mean Platelet Volume 8.4 fL Neutrophils (%) (Auto) 59.3 % Lymphocytes (%) (Auto) 28.9 % Monocytes (%) (Auto) 7.5 % Eosinophils (%) (Auto) 3.9 % Basophils (%) (Auto) 0.3 % Neutrophils # (Auto) 5.34 K/uL Lymphocytes # (Auto) 2.61 K/uL Monocytes # (Auto) 0.68 K/uL Eosinophils # (Auto) 0.35 K/uL Basophils # (Auto) 0.03 K/uL RDW Standard Deviation 48.3 fL RDW Coefficient of Variation 16.1 % Immature Granulocyte % (Auto) 0.1 % Immature Granulocyte # (Auto) 0.01 K/uL Sodium Level 145 mmol/L Potassium Level 4.3 mmol/L Chloride Level 111 mmol/L Carbon Dioxide Level 26 mmol/L Anion Gap 8.0 mmol/L Blood Urea Nitrogen 14 mg/dl Creatinine 0.77 mg/dl Est Creatinine Clear Calc Drug Dose 119.5 ml/min Estimated GFR () 120.9 Estimated GFR (Non- 104.3 BUN/Creatinine Ratio 18.2 Random Glucose 103 mg/dl Calcium Level 8.9 mg/dl Magnesium Level 2.7 mg/dl Assessment and Plan Mr. Blanca is a 51 y/o male with PMHx of Schizoaffective Disorder, Urinary Retention with Straight Cath needs, Bowel Dysfunction, S/P L4-L5 Fusion Complication who presents with multiple complaints consistent with dystonic reaction from Haldol (stopped on 12/28) and UTI. 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-L5 Surgical Complication: - Flomax 0.8 mg daily (increased) and allow self straight-cath - Senokot 8.6 mg dailiy Muscle Spasm/Dystonic Movements: Recent cessation of Haldol yesterday - Dystonic movements present x 10 days per patient with improvement - tongue thrushing stopped but continues to have lip-smacking and involuntary movements of bilateral legs - Zanaflex 4 mg daily Tachycardia/HTN: Sinus tachycardia 2/2 dystonia vs infection - Lisinopril 10 mg daily - Lopressor 12.5 mg BID Schizoaffective Disorder - Anxiety/Depression/Mood Disorder/Insomnia: - Effexor 75 mg BID - Remeron 30 mg daily (increased) and trazodone 200 mg HS - Ativan 0.5 mg IV HS PRN DVT Prophylaxis: Lovenox 40 mg SC daily Code Status: FULL RESUSCITATION Disposition: Lives at home alone with [facility] multiple times a week - has not started home PT and hasn't followed up with Dr. Boykin for back surgery in June - At this time patient initially wanted to return home but is concerned for safety as he is having ambulatory dysfunction with rectal spasm pain/ incontinence and living alone - Will obtain PT/OT evaluations [facility] stay due to: ambulation difficulties
[2016-12-31] MEDS ORDERED: KFL500 PO (12:17)
[2016-12-31] MEDS ORDERED: CYCL10TA6 PO (12:17)
[2016-12-31 12:23] VITALS: BP 166/98; PULSE 102; TEMP 36.7; O2SAT 99
--- NOTE | 2016-12-31 12:24 | Discharge Instructions ---
Discharge Instructions Date of Service December 31, 2016. Admission Reason for Admission: Sepsis due to UTI Discharge Discharge Diagnosis / Problem: Sepsis due to UTI, Citrobacter Discharge Goals Goal(s): Improve function, Improve disease control, Specific goals ([facility]) Activity Recommendations Activity Limitations: resume your previous activity Exercise/Sports Limitations: as tolerated Shower/Bathe: no limitations Driving or Machine Use: no driving . Instructions / Follow-Up Instructions / Follow-Up Medications: - KEFLEX: 500mg twice a day, take for 7 days to complete 10 days total therapy for Citrobacter UTI - FLEXERIL: 10mg three times a day as needed for rectal spasms, this is safe to take with Zanaflex has sedating properties so you may feel more drowsy after taking this medication, can help with sleeping at bedtime UTI secondary to straight cath: culture grew Citrobacter, no resistance, treat with Keflex. Continue to practice sterile straight cath techniques Rectal spasms and bowel incontinence: continue to try Flexeril since it helped here in the hospital Dystonic reaction: continue to hold Haldol, [facility] Weakness: case management has helped set up home therapy and home nursing visits [facility] Current Hospital Diet Patient's current hospital diet: Regular Diet Discharge Diet Recommended Diet: Regular Diet Pending Studies Studies pending at discharge: no Medical Emergencies . Who to Call and When: Medical Emergencies: If at any time you feel your situation is an emergency, please call 911 immediately. . Non-Emergent Contact Non-Emergency issues call your: Primary Care Provider Call Non-Emergent contact if: your pain is worsening, you have any medication questions . . "Provider Documentation" section prepared by Taye Rothman. . VTE Core Measure Inpt VTE Proph given/why not?: SCD's [place] Drug Monitoring Program Search Results: no issues identified
--- NOTE | 2016-12-31 13:04 | Discharge Summary ---
Discharge Summary Date of Service December 31, 2016. Discharge Summary Admission Date: December 28, 2016 at 19:46 Discharge Date: December 31, 2016 Discharge Disposition: Home with services Principal Diagnosis: Dystonic Reaction and UTI Problems/Secondary Diagnoses: 1. Schizoaffective Disorder 2. Hypertension 3. Insomnia 4. S/P L4-L5 Fusion 5. Rectal Spasm/Incontinence 2/2 Surgery 6. Urinary Retention with Straight Catheterization Procedures: 1. CHEST ONE VIEW PORTABLE CLINICAL HISTORY: Overdose. COMPARISON STUDY: Chest radiograph December 24, 2016. FINDINGS: No pneumothorax or pleural effusion is present. There are multiple old bilateral rib fractures. Cardiac size is normal. Mediastinal contours are normal. No consolidation is identified to suggest pneumonia. IMPRESSION: No acute cardiopulmonary findings. 2. CT OF THE ABDOMEN AND PELVIS WITHOUT CONTRAST FINDINGS: Evaluation of the abdomen and pelvis is suboptimal given the lack of IV and oral contrast. Unenhanced images of liver, spleen, adrenal glands, kidneys and pancreas are normal. There is no hydronephrosis. There is no peripancreatic or pericholecystic infiltration. There are post surgical findings within the spine as well as the proximal left femur. There is no evidence for a bowel obstruction. There is a moderate amount of stool within the colon. The appendix is normal. There is no free fluid or abscess. IMPRESSION: 1. No acute process within the abdomen or pelvis although evaluation compromised given the lack of IV and oral contrast. 2. Moderate amount of stool within the colon. No bowel obstruction. 3. Normal appendix. Medication Reconciliation New Medications: Cyclobenzaprine Hcl (Flexeril) 10 Mg Tab 1 TAB PO TID PRN for Muscle Spasms for 10 Days, #30 TAB Cephalexin Monohydrate (Cephalexin) 500 Mg Cap 500 MG PO BID, #14 CAP 0 Refills Continued Medications: Cholecalciferol (Vitamin D3) 2,000 Unit Tab 1 TAB PO DAILY for 90 Days, #90 TAB 3 Refills Docusate Sodium (Docusate Sodium) 100 Mg Cap 100 MG PO TID, #60 CAP Hydrocodone/Acetaminophen 5MG/325MG ([place] 5MG/325MG) Tab 1 TAB PO BID PRN for Pain for 30 Days, TAB PRN PAIN Ibuprofen (Motrin) 400 Mg Tab 400 MG PO Q4 PRN for Pain, TAB PAIN LEVEL 1-4 ON A SCALE OF 1-10 Lisinopril (Zestril) 10 Mg Tab 10 MG PO DAILY, TAB Metoprolol Tartrate (Lopressor) (Lopressor) 25 Mg Tab 12.5 MG PO Q12, TAB Mirtazapine (Remeron) 15 Mg Tab 15 MG PO HS, TAB Multiple Vitamins W/ Minerals (Thera M Plus) 1 Tab Tab 1 TAB PO DAILY Naproxen (Naproxen) 375 Mg Tab 2 TAB PO BID, TAB Polyethylene (Miralax) 17 Gm Pow 17 GM PO DAILY PRN for Constipation, #30 Promethazine Hcl (Phenergan) 25 Mg Tab 25 MG PO Q4H PRN for Nausea, #20 TAB Sennosides (Senna) 8.6 Mg Cap 8.6 MG PO DAILY Tamsulosin Hcl (Flomax) 0.4 Mg Cap 0.4 MG PO HS, CAP Tizanidine (Tizanidine HCl) 4 Mg Tab 1 TAB PO DAILY Trazodone Hcl (Trazodone) 100 Mg Tab 2 TAB PO HS, TAB Venlafaxine Hcl (Effexor) 75 Mg Tab 75 MG PO BID Discharge Exam REVIEW OF SYSTEMS Constitutional: + fatigue, No chills, No fever Eyes: No worsening of vision ENT: No nasal symptoms, No sore throat, No trouble swallowing Respiratory: No cough, No shortness of breath, No sputum Cardiovascular: No chest pain Abdomen: No constipation, No diarrhea, No nausea, No pain, No vomiting Musculoskeletal: + problem reported (muscle spasm) Male : + problem reported (urinary retention) Neurologic: + problem reported (rectal spasm 2/2 L4-L5 fusion surgical complication) Psychiatric: + anxiety, + depression symptoms Heme: No abnormal bleeding/bruising Skin: No itch, No rash PHYSICAL EXAM General Appearance: WD/WN, + mild distress (restless; pain from rectal spasm) Eyes: normal inspection ENT: hearing grossly normal Neck: supple, no JVD, trachea midline Respiratory/Chest: lungs clear, normal breath sounds, no respiratory distress, no accessory muscle use Cardiovascular: regular rate, rhythm, no gallop, no murmur Abdomen: normal bowel sounds, non tender, soft Extremities: no pedal edema, no calf tenderness, + pertinent finding ( involuntary spasm of bilateral lower extremities (improving)) Neurologic/Psychiatric: alert, oriented x 3, + pertinent finding (dystonic reaction - lip smacking) Skin: normal color, warm/dry Hospital Course ADMISSION: The patient is a 51-year-old male who presents to the emergency department complaining of rectal spasms and cramping, feeling hot, having sweats , insomnia, nausea, vomiting and a sour stomach that began about 10 days ago. He is unable to sit still because of the spasms. He straight caths himself due to complications after an L4 5 disc fusion and hip fracture surgery that left him with bowel and bladder control issues. He was recently taken off Haldol. HOSPITAL COURSE: Mr. Blanca was admitted for dystonic drug reaction 2/2 Haldol and Pansensitive Citrobacter Freundii Complex. His Haldol was discontinued the day prior to admission due to involuntary movements, lip-smacking, tongue thrusting, a numerous other complaints. The symptoms have gradually started to decrease. However upon discharge patient continues to have involuntary movements of lower extremities and lip-smacking. Upon admission he also complained of rectal spasm and cramping with associated incontinence that has been present since his L4-L5 fusion in June. This is a chronic addition however he feels is recently exacerbated and worsened the morning. He states this rectal spasms seems to ease up throughout the day. He was discharged with Flexeril 10 mg TID PRN for spasms. Incidentally, due to frequent straight catheterization he was found to be in sepsis with UTI with pansensitive Citrobacter Freundii Complex. He was discharged home on Keflex 500 mg BID to complete a 10 day course. All home medications were resumed. [facility]. Recommendations: Given the rectal spasm pain that started after spinal surgery should consider Gabapentin 100 mg TID with gradual increase. Did not implement this in hospital but would recommend close monitoring in relation to psychiatric medication use and gabapentin. He should also have outpatient follow -up with Dr. Boykin as he said he has not followed-up since his surgical procedure. As well, he states he is supposed to receive at home PT services which haven't started due to his current symptoms but this should be implemented. Total Time Spent: Greater than 30 minutes This includes examination of the patient, discharge planning, medication reconciliation, and communication with other providers. Discharge Instructions Please refer to the electronic Patient Visit Report (Discharge Instructions) for additional information. Additional Copies To Jayesh Arthur D.O.
[2017-01-03 11:34] LABS: COD UR NEGATIVE NG/ML (CUTOFF=50); HYDROCOD UR 633 NG/ML (CUTOFF=50); HYDROMOR UR 540 NG/ML (CUTOFF=50); MORPHINE UR 139 NG/ML (CUTOFF=50); NORHYDROCODONE CONF UR 8110 NG/ML (CUTOFF=50); OXYMORPH UR NEGATIVE NG/ML (CUTOFF=50)
[2017-01-05 16:31] LABS: SYNTHETIC CANNABINOIDS QL URIN NEGATIVE (Negative)
[2017-03-17] MEDS ORDERED: METO25TA56 PO (16:10)
[2017-03-17] MEDS ORDERED: TRAZ100T29 PO (16:10)
[2017-03-17] MEDS ORDERED: IBUP-1459 PO (16:10)
[2017-03-17] MEDS ORDERED: MULT-17 PO (16:10)
[2017-03-17] MEDS ORDERED: CHOL20007 PO (16:10)
[2017-03-17] MEDS ORDERED: TAMS0.4C38 PO (16:10)
[2017-03-17] MEDS ORDERED: LISI-461 PO (18:11)
[2017-03-17] MEDS ORDERED: NAPR-1221 PO (18:11)
[2017-03-17] MEDS ORDERED: HYDR-5688 PO (18:11)
[2017-03-23] MEDS ORDERED: RXC5 PO (13:44)
[2017-03-23] MEDS ORDERED: KFL500 PO (13:46)
== END 2016-12-31 16:17 | disposition home health service (06) | DRG 698 ==
LOC: ENRESERVDT → ENRESERVTM → EDBD 16:32 → C.EDA 16:34 → C.MS2W 19:46
PROVIDERS: ADMIT Hospitalist; ATTEND Hospitalist
DX: T83.518A Infection and inflammatory reaction due to other urinary catheter, initial encounter (principal); A41.9 Sepsis, unspecified organism; N39.0 Urinary tract infection, site not specified; G24.09 Other drug induced dystonia; K59.00 Constipation, unspecified; G89.29 Other chronic pain; I10 Essential (primary) hypertension; R00.0 Tachycardia, unspecified; R33.9 Retention of urine, unspecified; Z79.899 Other long term (current) drug therapy; F17.200 Nicotine dependence, unspecified, uncomplicated; T43.1X5A Adverse effect of monoamine-oxidase-inhibitor antidepressants, initial encounter; F25.9 Schizoaffective disorder, unspecified

== ENCOUNTER 2016-12-31 20:11 | Inpatient (IN) | payer OTHER ==
[~2016-12-31] VITALS: Ht 175.3 cm; Wt 72.6 kg
[~2016-12-31 20:11] MED LIST changes: -BTH25 PO; +CYCL10TA6 PO; -HLD1X PO; +KFL500 PO
[2016-12-31] MEDS ORDERED: BENZTROPINE MESYLATE 1 MG TAB PO STA (20:43)
[2016-12-31 21:10] LABS: HEMATOCRIT 34.2 % (42-52); MEAN CELL VOLUME 79.7 fL (80-100); MEAN CORPUSCULAR HEMOGLOBIN 26.8 pg (25-34); MEAN CORPUSCULAR HGB CONC 33.6 g/dl (32-36); MEAN PLATELET VOLUME 8.3 fL (7.4-10.4); PLATELET COUNT 470 K/uL (130-400); RED BLOOD COUNT 4.29 M/uL (4.7-6.1); WHITE BLOOD COUNT 11.46 K/uL (4.8-10.8)
--- NOTE | 2016-12-31 21:28 | EMERGENCY ROOM VISIT NOTE ---
History Report prepared by Pradip: Trudy Vasquez Under the Supervision of: Dr. Rocael Vieira M.D. First contact with patient: 20:38 Chief Complaint: MENTAL HEALTH EVALUATION Stated Complaint: MHID History of Present Illness The patient is a 51 year old male who presents to the Emergency Room with complaints of persistent suicidal ideation starting earlier today. He was evaluated by [facility] in the field and comes to the ED seeking admission. He was discharged from the medical hospital today after treatment for a UTI. Since then he has been feeling suicidal with a plan to shoot himself with a gun. He has never hurt himself before and tries to stay positive. He identifies the source of his stress as his own health problems. He is not under any financial stress or having any troubles with his relationships with friends and family. He has had involuntary movements of his extremities for the past week which has improved after he was taken off of a medication. Source of History: patient, nursing staff Onset: earlier today Position: other (mental health) Quality: other (suicidal ideation) Timing: other (persistent) Note: Pt admits to having a plan. Pt denies having hurt himself. Review of Systems See HPI for pertinent positives & negatives. A total of 10 systems reviewed and were otherwise negative. Past Medical & Surgical Medical Problems: (1) Altered mental status (2) Anxiety (3) Depression (4) Hip fracture, left (5) Hypertension (6) Insomnia (7) Intervertebral disc rupture (8) Lumbar stenosis with neurogenic claudication (9) Mood disorder (10) past psych meds (11) Schizoaffective disorder (12) Tobacco abuse (13) Urinary retention Surgical Problems: (1) History of repair of hip fracture Family History Depression Social History Smoking Status: Current Every Day Smoker Drug Use: none Marital Status: single Housing Status: lives alone, [facility] Occupation Status: unemployed, disabled Current/Historical Medications Scheduled Cephalexin Monohydrate (Cephalexin), 500 MG PO BID Cholecalciferol (Vitamin D3), 1 TAB PO DAILY Docusate Sodium (Docusate Sodium), 100 MG PO TID Lisinopril (Zestril), 10 MG PO DAILY Metoprolol Tartrate (Lopressor) (Lopressor), 12.5 MG PO Q12 Mirtazapine (Remeron), 15 MG PO HS Multiple Vitamins W/ Minerals (Thera M Plus), 1 TAB PO DAILY Naproxen (Naproxen), 2 TAB PO BID Sennosides (Senna), 8.6 MG PO DAILY Tamsulosin Hcl (Flomax), 0.4 MG PO HS Tizanidine (Tizanidine HCl), 1 TAB PO DAILY Trazodone Hcl (Trazodone), 2 TAB PO HS Venlafaxine Hcl (Effexor), 75 MG PO BID Scheduled PRN Cyclobenzaprine Hcl (Flexeril), 1 TAB PO TID PRN for Muscle Spasms Hydrocodone/Acetaminophen 5MG/325MG ([place] 5MG/325MG), 1 TAB PO BID PRN for Pain Ibuprofen (Motrin), 400 MG PO Q4 PRN for Pain Polyethylene (Miralax), 17 GM PO DAILY PRN for Constipation Promethazine Hcl (Phenergan), 25 MG PO Q4H PRN for Nausea Allergies Coded Allergies: No Known Allergies (Verified , 12/31/16) Physical Exam Vital Signs Date Time Temp Pulse Resp B/P Pulse Ox O2 Delivery O2 Flow Rate FiO2 12/31/16 22:29 72 18 128/76 96 Room Air 12/31/16 20:15 37.0 105 18 130/82 96 Room Air Physical Exam GENERAL: Patient is in no acute distress. HEENT: No acute trauma, normocephalic atraumatic, mucous membranes moist, no nasal congestion, no scleral icterus. NECK: No stridor, no adenopathy, no meningismus, trachea is midline. LUNGS: Clear to auscultation bilaterally, no wheeze, no rhonchi, breath sounds equal. HEART: Without murmurs gallops or rubs, regular rate and rhythm. ABDOMEN: Soft, nontender, bowel sounds positive, no hernias, no peritonitis. EXTREMITIES: No cyanosis or edema, full range of motion of all the joints without pain or difficulty, no signs for acute trauma. NEUROLOGIC: Oriented x 3, no acute motor or sensory deficits, no focal weakness. Constant movement of his extremities with some teeth grinding. SKIN: No rash, no jaundice, no diaphoresis. PSYCH: Cooperative and voluntary, admits to suicidal ideation with a plan. Medical Decision & Procedures Laboratory Results 12/31/16 21:00 12/31/16 21:00 Test 12/31/16 21:00 12/31/16 23:05 Red Blood Count 4.29 M/uL (4.7-6.1) Mean Corpuscular Volume 79.7 fL (80-100) Mean Corpuscular Hemoglobin 26.8 pg (25-34) Mean Corpuscular Hemoglobin Concent 33.6 g/dl (32-36) RDW Standard Deviation 45.7 fL (36.4-46.3) RDW Coefficient of Variation 15.7 % (11.5-14.5) Mean Platelet Volume 8.3 fL (7.4-10.4) Anion Gap 10.0 mmol/L (3-11) Est Creatinine Clear Calc Drug Dose 134.4 ml/min Estimated GFR () 128.8 Estimated GFR (Non- 111.2 BUN/Creatinine Ratio 16.2 (10-20) Calcium Level 9.2 mg/dl (8.5-10.1) Total Bilirubin 0.4 mg/dl (0.2-1) Aspartate Amino Transf (AST/SGOT) 14 U/L (15-37) Alanine Aminotransferase (ALT/SGPT) 24 U/L (12-78) Alkaline Phosphatase 93 U/L (45-117) Total Protein 7.4 gm/dl (6.4-8.2) Albumin 3.4 gm/dl (3.4-5.0) Globulin 4.0 gm/dl (2.5-4.0) Albumin/Globulin Ratio 0.9 (0.9-2) Thyroid Stimulating Hormone (TSH) 0.185 uIu/ml (0.300-4.500) Free Thyroxine 1.23 ng/dl (0.80-1.60) Salicylates Level 2.6 mg/dl (2.8-20) Acetaminophen Level < 2 ug/ml (10-30) Ethyl Alcohol mg/dL < 3.0 mg/dl (0-3) Urine Color YELLOW Urine Appearance CLEAR (CLEAR) Urine pH 7.0 (4.5-7.5) Urine Specific [place] 1.007 (1.000-1.030) Urine Protein NEG (NEG) Urine Glucose (UA) NEG (NEG) Urine Ketones NEG (NEG) Urine Occult Blood NEG (NEG) Urine Nitrite NEG (NEG) Urine Bilirubin NEG (NEG) Urine Urobilinogen NEG (NEG) Urine Leukocyte Esterase NEG (NEG) Urine Opiates Screen NEG (NEG) Urine Methadone, Qualitative NEG (NEG) Urine Barbiturates NEG (NEG) Urine Phencyclidine (PCP) Level NEG (NEG) Ur Amphetamine/Methamphetamine NEG (NEG) MDMA (Ecstasy) Screen NEG (NEG) Urine Benzodiazepines Screen NEG (NEG) Urine Cocaine Metabolite NEG (NEG) Urine Marijuana (THC) NEG (NEG) Laboratory results reviewed by me. Medications Administered Medications (Trade) Dose Ordered Sig/Colten Route Start Time Stop Time Status Last Admin Dose Admin Benztropine Mesylate (Cogentin Tab) 2 mg NOW STAT PO 12/31/16 20:43 12/31/16 20:45 DC 12/31/16 20:55 2 MG Cephalexin Monohydrate (Keflex Cap) 500 mg NOW STAT PO 12/31/16 22:16 12/31/16 22:17 DC 12/31/16 22:29 500 MG ED Course 2041: The patient was evaluated in room A7. A complete history and physical exam was performed. 2042: Cogentin Tab 2 mg PO. 2215: Keflex Cap 500 mg PO. Medical Decision Differential diagnosis: medication reaction, situational depression, drug or alcohol abuse, thyroid disorder, electrolyte imbalance, suicidal ideation. There is a mild leukocytosis, this could be consistent with infection or just the stress of his current situation. No worrisome anemia. No significant electrolyte abnormality, kidney failure or hepatitis. The patient appears to be in a euthyroid state. Urinalysis does not show infection-his urinary infection seems to have cleared. Urine tox is negative. Aspirin, Tylenol and aspirin levels are undetectable. The patient was given oral Keflex as he was due for this medication. He was given oral Cogentin. He did request a dose of Flexeril, this was given orally as well. The patient is medically clear for a psychiatric evaluation and admission. He is voluntary and a bed search is underway. The patient has been cooperative during his ER stay. Impression Primary Impression: Suicidal ideation Scribe Attestation The scribe's documentation has been prepared under my direction and personally reviewed by me in its entirety. I confirm that the note above accurately reflects all work, treatment, procedures, and medical decision making performed by me. Departure Information Dispostion Still a Patient Referrals Shunk, Jayesh R.,D.O. (PCP) Patient Instructions [facility]
[2016-12-31 22:08] LABS: CALCIUM 9.2 mg/dl (8.5-10.1)
[2016-12-31] MEDS ORDERED: CEPHALEXIN MONOHYDRATE 250 MG CAP PO STA (22:16)
[2016-12-31 22:45] LABS: ACETAMINOPHEN < 2 ug/ml (10-30)
[2016-12-31 22:50] LABS: ALB/GLOB RATIO 0.9 (0.9-2); BUN/CREATININE RATIO 16.2 (10-20); CREATININE 0.66 mg/dl (0.60-1.40); POTASSIUM 3.5 mmol/L (3.5-5.1); THYROID STIMULATING HORMONE 0.185 uIu/ml (0.300-4.500)
[2016-12-31 23:53] LABS: URINE APPEARANCE CLEAR (CLEAR); URINE BILIRUBIN NEG (NEG); URINE COLOR YELLOW; URINE NITRITE NEG (NEG); URINE SPECIFIC GRAVITY 1.007 (1.000-1.030); UROBILINOGEN NEG (NEG); ZZUR CULT IF INDIC CLEAN CATCH NO
[2017-01-01 00:02] LABS: MANUAL MICROSCOPIC REQUIRED? NO; REVIEW REQ? NO
[2017-01-01 00:12] LABS: BENZODIAZEPINE, URINE NEG (NEG); COCAINE,URINE NEG (NEG); PHENCYCLIDINE, URINE NEG (NEG)
[2017-01-01] MEDS ORDERED: CYCLOBENZAPRINE HCL 10 MG TAB PO STA (00:23)
[2017-01-01] MEDS ORDERED: NURSING VERBAL MED ORDER ONE ×3 (01:30→02:30)
[2017-01-01 01:50] VITALS: BP 128/76; PULSE 72; TEMP 37; Ht 175.3 cm; Wt 72.6 kg
[2017-01-01 02:00] VITALS: O2SAT 99
--- NOTE | 2017-01-01 02:07 | EMERGENCY ROOM VISIT NOTE ---
ED Visit Note First contact with patient: 02:06 This case was signed out to me at change of shift awaiting evaluation for inpatient psychiatric care. The patient was evaluated by staff from [facility]. They are willing to admit her to their unit. The 201 was signed.
[2017-01-01] MEDS ORDERED: MIRTAZAPINE TAB 15 MG TAB PO STA (02:23)
[2017-01-01] MEDS ORDERED: METOPROLOL TARTRATE 25 MG TAB PO STA (02:24)
[2017-01-01] MEDS ORDERED: VENLAFAXINE HCL 37.5 MG TAB PO STA (02:25)
[2017-01-01] MEDS ORDERED: ACETAMINOPHEN 325 MG TAB PO PRN (02:30)
[2017-01-01] MEDS ORDERED: hydrOXYzine HCL 25 MG TAB PO PRN ×2 (02:30)
[2017-01-01] MEDS ORDERED: ALUMINUM/MAGNESIUM SUSP 30 ML UDC PO PRN (02:30)
[2017-01-01] MEDS ORDERED: BISMUTH SUBSALICYLATE PER ML OMNICELL CHARGE PO PRN (02:30)
[2017-01-01] MEDS ORDERED: SODIUM CHLORIDE 0.65% NA SOLN 45 ML (OCEAN) PRN (02:30)
[2017-01-01] MEDS ORDERED: TRAZODONE HCL 100 MG TAB PO STA (02:32)
[2017-01-01] MEDS: METOPROLOL TARTRATE 25 MG TAB PO SCH ×2 (09:00→21:16)
[2017-01-01] MEDS ORDERED: VENLAFAXINE HCL 37.5 MG TAB PO SCH (09:00)
--- NOTE | 2017-01-01 09:53 | Psych Management Progress Note ---
Psychiatry Miscellaneous Date of Service: January 01, 2017. I personally participated in the case review and medical recommendations outlined in the psychiatric admission documented by FRANCINE Lei.
[2017-01-01] MEDS ORDERED: POLYETHYLENE (MIRALAX) 17 GM PACK PO PRN (10:00)
[2017-01-01] MEDS ORDERED: PROMETHAZINE HCL 25 MG TAB PO PRN (10:00)
[2017-01-01] MEDS ORDERED: IBUPROFEN 200 MG TAB PO PRN (10:00)
[2017-01-01] MEDS ORDERED: NAPROXEN 375 MG TAB PO ONE (10:30)
[2017-01-01] MEDS ORDERED: DOCUSATE SODIUM 100 MG CAP PO ONE (10:30)
[2017-01-01] MEDS ORDERED: METOPROLOL TARTRATE 25 MG TAB PO ONE (10:30)
[2017-01-01] MEDS ORDERED: CEROVITE ADV FORMULA TAB PO ONE (10:30)
[2017-01-01] MEDS ORDERED: LISINOPRIL 10 MG TAB PO ONE (10:30)
[2017-01-01] MEDS ORDERED: VENLAFAXINE HCL XR 75 MG CAPXR PO ONE (10:30)
[2017-01-01] MEDS ORDERED: CEPHALEXIN MONOHYDRATE 500 MG CAP PO ONE (10:30)
[2017-01-01 10:35] VITALS: BP 166/97; PULSE 120
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
[2017-01-01] MEDS: DOCUSATE SODIUM 100 MG CAP PO SCH ×2 (14:43→21:16)
[2017-01-01] MEDS: MAGNESIUM HYDROXIDE SUSP 30 ML UDC PO PRN (16:04)
[2017-01-01] MEDS ORDERED: METOPROLOL TARTRATE 25 MG TAB PO SCH (21:00)
[2017-01-01 21:14] VITALS: BP 152/95; PULSE 98
[2017-01-01] MEDS: TRAZODONE HCL 100 MG TAB PO SCH (21:16)
[2017-01-01] MEDS: CEPHALEXIN MONOHYDRATE 500 MG CAP PO SCH (21:17)
[2017-01-01] MEDS: NAPROXEN 375 MG TAB PO SCH (21:17)
[2017-01-01] MEDS: MIRTAZAPINE TAB 15 MG TAB PO SCH (21:17)
[2017-01-01] MEDS: TAMSULOSIN HCL 0.4 MG CAP PO SCH (21:17)
[2017-01-01] MEDS ORDERED: MIRTAZAPINE TAB 15 MG TAB PO SCH (22:00)
[2017-01-01] MEDS ORDERED: TRAZODONE HCL 100 MG TAB PO SCH (22:00)
[2017-01-02 06:47] VITALS: BP_SYST 126; BP_SYST 130; BP_DIAS 88; BP_DIAS 89; PULSE 102; PULSE 108; TEMP 36.6
[2017-01-02] MEDS: DOCUSATE SODIUM 100 MG CAP PO SCH ×3 (08:49→21:28)
[2017-01-02] MEDS: VENLAFAXINE HCL XR 75 MG CAPXR PO SCH (08:49)
[2017-01-02] MEDS: METOPROLOL TARTRATE 25 MG TAB PO SCH ×2 (08:50→21:27)
[2017-01-02] MEDS: CEPHALEXIN MONOHYDRATE 500 MG CAP PO SCH ×2 (08:50→21:29)
[2017-01-02] MEDS: NAPROXEN 375 MG TAB PO SCH ×2 (08:51→21:30)
[2017-01-02] MEDS: CEROVITE ADV FORMULA TAB PO SCH (08:51)
[2017-01-02] MEDS: LISINOPRIL 10 MG TAB PO SCH (08:52)
[2017-01-02] MEDS: SENNA 8.6 MG TAB PO SCH (08:52)
[2017-01-02] MEDS: CHOLECALCIFEROL 1000 INTER.UNIT TAB PO SCH (08:52)
--- NOTE | 2017-01-02 11:21 | Psychiatric Progress Notes ---
Progress Note Date of Service January 02, 2017. Interval History 51 yo male admitted voluntarily on 01/01/17 with severe depression with suicidality and a plan to shoot himself. He has had multiple medical problems since back surgery last year with a severe decline in functionality. Chief Complaint "Better.". Subjective Patient was seen & assessed interval progress reviewed with Treatment Team. The patient says that he is feeling better today. He attributes this in part to the fact that his muscle spasms are reducing and he slept well through the night. He says that the rectal spasms that he has been having were there to a much lesser degree after surgery, but have been severe over the last 2 weeks. Yesterday he felt that they were less frequent and was able to focus away from them and participate in programming. He acknowledges that he is anxious about them, likely making them worse and so has been trying to relax and focus away from them. His mood is "OK" and still have suicidal thoughts that "come and go " without pattern. He has continued to straight cath himself successfully and has been in control of his bowels. Today he has showered, has been participating in programming and has been social with his peers. Review of Systems Constitutional: No chills, No fatigue, No fever, No problem reported, No sweats , No weakness, No weight loss ENT: + problem reported (orobuccal dyskinesias more pronounced today) Respiratory: No cough, No dyspnea at rest, No dyspnea on exertion, No hemoptysis, No problem reported, No shortness of breath, No sputum, No wheezing Cardiovascular: No PND, No chest pain, No claudication, No edema, No orthopnea , No palpitations, No problem reported Abdomen: + problem reported (rectal spasms improving) Musculoskeletal: + problem reported (torse and limb spasms improved over yesterday, able to sit more quietly) Neurologic: + weakness (using a walker) Psychiatric: + anxiety, + depression symptoms Integumentary: No bleeding, No color change, No itch, No new/changing skin lesions, No problem reported, No rash Sleep Information Total Hours of Sleep: 7.25 Meal Information Percent of Breakfast Consumed: 100 Percent of Lunch Consumed: 90 Percent of Dinner Consumed: 100 Mental Status Exam During interview pt is: alert and oriented, cooperative Appearance: appropriately dressed, appropriately groomed Eye contact is: good Motor behavior is: other (reduction in mucles spasms of arms/legs/torso, but orobuccal dyskinesia more pronounced. ) Speech: normal in rate, rhythm & volume Affect: depressed, flat Mood is: depressed Thought process: goal directed Thought content: reality based without delusions Suicidal thought are: present, Plan: present, Intent: denied Homicidal thoughts are: denied Hallucinations: denies auditory, denies visual Cognition: memory grossly intact, attention grossly intact Intelligence estimated to be: average Insight: impaired Judgement: impaired Impression Improvement to involuntary muscle movements today, is able to be more still in the chair. Orobuccal movements more evident. Tolerating higher dose of Effexor and appeared to sleep better last night. Tomorrow will need to coordinate with his home care agency to let them know he's in the hospital and [facility]. Will continue Effexor XT 225 mg. daily for his mood. Will need to explore ways to secure the guns that are in his apt. Plan (1) Depression 5/6 -Previously diagnosed with schizoaffective disorder. Would like to explore this further and obtain [facility] -Will increase Effexor XR to 225 mg all morning. If worsens his muscle spasms will reduce and change agents -Increase Remeron to 30 mg at bedtime to benefit sleep -Every 15 minute checks for safety- -Encourage participation in group and individual counseling -Coordinate services with current outpatient providers 01/02 -Continue meds - Will need to secure guns from home - [facility] the [facility] (2) Muscle spasm 5 -Self-report diagnosis of tardive dyskinesia having recently been taken off of Haldol. His presentation is somewhat confusing as he has full body muscle spasms or not necessarily congruent with TD. For now we will continue his anti- spasmodics but consider a trial of amantadine or tetrabenazine or an antiepileptic agent 5/7 - arm/leg/torso spasms improved, but orobuccal dyskinesias more pronounce. Consider a withdrawal dyskinesia as he has been off of haldol for just a week or more. (3) Hypertension 5/6 -Monitor BP -Continue home doses of antihypertensive agents (4) Lumbar stenosis with neurogenic claudication 5/6 -Patient has not recently been using narcotics and so we'll continue use of NSAIDs -Patient will require the use of a walker for ambulation -Fall precautions -Coordinate with home health services referred at time of discharge on December 31 () Urinary tract infection 01/01 -Continue antibiotic as previously prescribed -Patient self caths Due to neurogenic bladder Has been reviewed with Dr. Josefina pham Discharge / Aftercare Planning Primary Care Physician: Name: Dr. Arthur at [facility]: Name: Lety Fall- [facility] Visit Code E&M Code: 45418 Inventory Assets Strengths: Willingness to engage in treatment, has outpatient providers Needs: Outpatient support Risk Factors Assessment Male: Yes : Yes /single/: Yes Higher / Fall in social status: Yes Health problems: Yes Mental Health Diagnoses: Yes Substance use disorders: No Previous attempt: No Previous psychiatric stay: Yes Smoker: Yes Protective Factors Assessment Hoahaoism beliefs: No : No Responsible for young children: No Employed: No Stable relationships: No Supportive family: No Good rapport with provider: Yes Data Vital Signs Last 24 Hrs: Date Time Temp Pulse Resp B/P Pulse Ox O2 Delivery O2 Flow Rate FiO2 01/02/17 06:47 36.6 108 16 130/89 102 126/88 01/01/17 21:14 98 18 152/95 Meds Administered Last 24 Hrs: Meds Administered (Past 24Hrs) Medications (Trade) Dose Ordered Sig/Colten Route Start Time Stop Time Status Last Admin Dose Admin Benztropine Mesylate (Cogentin Tab) 2 mg NOW STAT PO 12/31/16 20:43 12/31/16 20:45 DC 12/31/16 20:55 2 MG Cephalexin Monohydrate (Keflex Cap) 500 mg NOW STAT PO 12/31/16 22:16 12/31/16 22:17 DC 12/31/16 22:29 500 MG Cyclobenzaprine HCl (Flexeril Tab) 10 mg NOW STAT PO 01/01/17 00:23 01/01/17 00:24 DC 01/01/17 00:29 10 MG Magnesium Hydroxide (Milk Of Magnesia Susp) 30 ml DAILY PRN PO 01/01/17 02:30 01/31/17 02:29 01/01/17 16:04 30 ML Hydroxyzine HCl (Vistaril Tab) 50 mg HSZ PRN PO 01/01/17 02:30 01/31/17 02:29 01/01/17 02:47 50 MG Mirtazapine (Remeron Tab) 15 mg NOW STAT PO 01/01/17 02:23 01/01/17 02:25 DC 01/01/17 02:44 15 MG Metoprolol Tartrate (Lopressor Tab) 12.5 mg Q12 PO 01/01/17 09:00 01/31/17 08:59 01/02/17 08:50 12.5 MG Metoprolol Tartrate (Lopressor Tab) 12.5 mg NOW STAT PO 01/01/17 02:24 01/01/17 02:25 DC 01/01/17 02:43 12.5 MG Venlafaxine HCl (effeXOR TAB) 75 mg NOW STAT PO 01/01/17 02:25 01/01/17 02:26 DC 01/01/17 02:42 75 MG Trazodone HCl (Desyrel Tab) 200 mg NOW STAT PO 01/01/17 02:32 01/01/17 02:33 DC 01/01/17 02:42 200 MG Cephalexin Monohydrate (Keflex Cap) 500 mg BID PO 01/01/17 22:00 01/11/17 08:59 01/02/17 08:50 500 MG Docusate Sodium (coLACE CAP) 100 mg TID PO 01/01/17 14:00 01/31/17 13:59 01/02/17 08:49 100 MG Lisinopril (Zestril Tab) 10 mg DAILY PO 01/02/17 09:00 02/01/17 08:59 01/02/17 08:52 10 MG Mirtazapine (Remeron Tab) 30 mg HS PO 01/01/17 22:00 01/31/17 21:59 01/01/17 21:17 30 MG Multivitamins/ Minerals (Multivitamin W/ Minerals Tab) 1 tab DAILY PO 01/02/17 09:00 02/01/17 08:59 01/02/17 08:51 1 TAB Naproxen (Naprosyn Tab) 750 mg BID PO 01/01/17 22:00 01/31/17 21:59 01/02/17 08:51 750 MG Tamsulosin HCl (Flomax Cap) 0.4 mg HS PO 01/01/17 22:00 01/31/17 21:59 01/01/17 21:17 0.4 MG Tizanidine HCl (Zanaflex Tab) 4 mg DAILY PO 01/02/17 09:00 02/01/17 08:59 01/02/17 08:52 4 MG Trazodone HCl (Desyrel Tab) 200 mg HS PO 01/01/17 22:00 01/31/17 21:59 01/01/17 21:16 200 MG Venlafaxine HCl (effeXOR EXTENDED REL CAP) 225 mg QAM PO 01/02/17 09:00 02/01/17 08:59 01/02/17 08:49 225 MG Cholecalciferol (Vitamin D Tab) 2,000 inter.unit DAILY PO 01/02/17 09:00 02/01/17 08:59 01/02/17 08:52 2,000 INTER.UNIT Senna (Senokot Tab) 8.6 mg DAILY PO 01/02/17 09:00 02/01/17 08:59 01/02/17 08:52 8.6 MG Cephalexin Monohydrate (Keflex Cap) 500 mg 1030 ONCE PO 01/01/17 10:30 01/01/17 10:33 DC 01/01/17 10:49 500 MG Docusate Sodium (coLACE CAP) 100 mg 1030 ONCE PO 01/01/17 10:30 01/01/17 10:33 DC 01/01/17 10:47 100 MG Lisinopril (Zestril Tab) 10 mg 1030 ONCE PO 01/01/17 10:30 01/01/17 10:33 DC 01/01/17 10:51 10 MG Multivitamins/ Minerals (Multivitamin W/ Minerals Tab) 1 tab 1030 ONCE PO 01/01/17 10:30 01/01/17 10:33 DC 01/01/17 10:49 1 TAB Naproxen (Naprosyn Tab) 750 mg 1030 ONCE PO 01/01/17 10:30 01/01/17 10:33 DC 01/01/17 10:50 750 MG Tizanidine HCl (Zanaflex Tab) 4 mg 1030 ONCE PO 01/01/17 10:30 01/01/17 10:33 DC 01/01/17 10:50 4 MG Venlafaxine HCl (effeXOR EXTENDED REL CAP) 225 mg 1030 ONCE PO 01/01/17 10:30 01/01/17 10:33 DC 01/01/17 10:48 225 MG Lab Results Last 24 Hrs: 12/31/16 21:00 12/31/16 21:00 Test 12/31/16 21:00 12/31/16 23:05 Red Blood Count 4.29 M/uL (4.7-6.1) Mean Corpuscular Volume 79.7 fL (80-100) Mean Corpuscular Hemoglobin 26.8 pg (25-34) Mean Corpuscular Hemoglobin Concent 33.6 g/dl (32-36) RDW Standard Deviation 45.7 fL (36.4-46.3) RDW Coefficient of Variation 15.7 % (11.5-14.5) Mean Platelet Volume 8.3 fL (7.4-10.4) Anion Gap 10.0 mmol/L (3-11) Est Creatinine Clear Calc Drug Dose 134.4 ml/min Estimated GFR () 128.8 Estimated GFR (Non- 111.2 BUN/Creatinine Ratio 16.2 (10-20) Calcium Level 9.2 mg/dl (8.5-10.1) Total Bilirubin 0.4 mg/dl (0.2-1) Aspartate Amino Transf (AST/SGOT) 14 U/L (15-37) Alanine Aminotransferase (ALT/SGPT) 24 U/L (12-78) Alkaline Phosphatase 93 U/L (45-117) Total Protein 7.4 gm/dl (6.4-8.2) Albumin 3.4 gm/dl (3.4-5.0) Globulin 4.0 gm/dl (2.5-4.0) Albumin/Globulin Ratio 0.9 (0.9-2) Thyroid Stimulating Hormone (TSH) 0.185 uIu/ml (0.300-4.500) Free Thyroxine 1.23 ng/dl (0.80-1.60) Salicylates Level 2.6 mg/dl (2.8-20) Acetaminophen Level < 2 ug/ml (10-30) Ethyl Alcohol mg/dL < 3.0 mg/dl (0-3) Urine Color YELLOW Urine Appearance CLEAR (CLEAR) Urine pH 7.0 (4.5-7.5) Urine Specific [place] 1.007 (1.000-1.030) Urine Protein NEG (NEG) Urine Glucose (UA) NEG (NEG) Urine Ketones NEG (NEG) Urine Occult Blood NEG (NEG) Urine Nitrite NEG (NEG) Urine Bilirubin NEG (NEG) Urine Urobilinogen NEG (NEG) Urine Leukocyte Esterase NEG (NEG) Urine Opiates Screen NEG (NEG) Urine Methadone, Qualitative NEG (NEG) Urine Barbiturates NEG (NEG) Urine Phencyclidine (PCP) Level NEG (NEG) Ur Amphetamine/Methamphetamine NEG (NEG) MDMA (Ecstasy) Screen NEG (NEG) Urine Benzodiazepines Screen NEG (NEG) Urine Cocaine Metabolite NEG (NEG) Urine Marijuana (THC) NEG (NEG) Problem Qualifiers (1) Depression: Depression Type: major depressive disorder Major depression recurrence: recurrent Major depression episode severity: severe Psychotic features: without psychotic features
[2017-01-02] MEDS: MAGNESIUM HYDROXIDE SUSP 30 ML UDC PO PRN (18:49)
[2017-01-02 21:08] VITALS: BP 158/103; PULSE 106
[2017-01-02] MEDS: TRAZODONE HCL 100 MG TAB PO SCH (21:28)
[2017-01-02] MEDS: TAMSULOSIN HCL 0.4 MG CAP PO SCH (21:29)
[2017-01-02] MEDS: MIRTAZAPINE TAB 15 MG TAB PO SCH (21:29)
[2017-01-02] MEDS: CYCLOBENZAPRINE HCL 10 MG TAB PO PRN (21:31)
[2017-01-03 06:54] VITALS: BP_SYST 115; BP_SYST 134; BP_DIAS 84; BP_DIAS 92; PULSE 102; PULSE 109; TEMP 36.7
[2017-01-03] MEDS: CEPHALEXIN MONOHYDRATE 500 MG CAP PO SCH ×2 (08:32→21:08)
[2017-01-03] MEDS: DOCUSATE SODIUM 100 MG CAP PO SCH ×3 (08:32→21:07)
[2017-01-03] MEDS: VENLAFAXINE HCL XR 75 MG CAPXR PO SCH (08:32)
[2017-01-03] MEDS: METOPROLOL TARTRATE 25 MG TAB PO SCH ×2 (08:32→21:07)
[2017-01-03] MEDS: SENNA 8.6 MG TAB PO SCH (08:33)
[2017-01-03] MEDS: CHOLECALCIFEROL 1000 INTER.UNIT TAB PO SCH (08:33)
[2017-01-03] MEDS: NAPROXEN 375 MG TAB PO SCH ×2 (08:33→21:08)
[2017-01-03] MEDS: CEROVITE ADV FORMULA TAB PO SCH (08:33)
[2017-01-03] MEDS: LISINOPRIL 10 MG TAB PO SCH (08:34)
[2017-01-03] MEDS: CYCLOBENZAPRINE HCL 10 MG TAB PO PRN ×2 (09:17→17:49)
[2017-01-03] MEDS ORDERED: DIAZEPAM 5MG TAB PO ONE (13:00)
--- NOTE | 2017-01-03 13:00 | Psychiatric Progress Notes ---
Progress Note Date of Service January 03, 2017. Interval History 51 yo male admitted voluntarily on 01/01/17 with severe depression with suicidality and a plan to shoot himself. He has had multiple medical problems since back surgery last year with a severe decline in functionality. Chief Complaint "Not good. ". Subjective Patient was seen & assessed interval progress reviewed with Treatment Team. Today the patients muscle jerks/spasms are worse, including rectal spasms. He cannot lie still and is worried that he will be incontinent of bowel at any minute. His mood is proportionally worse and having suicidal thoughts that are "more solid". We discuss removing the guns from his home and temporarily giving them to the police to secure and he is accepting of this. . His sleep was restless, waking several times with his bed sheets in disarray. He remains anxious. he says that he is safe here on the unit without intent to harm himself. Review of Systems Constitutional: + fatigue ENT: + problem reported (orobuccal movements) Respiratory: No cough, No dyspnea at rest, No dyspnea on exertion, No hemoptysis, No problem reported, No shortness of breath, No sputum, No wheezing Cardiovascular: No PND, No chest pain, No claudication, No edema, No orthopnea , No palpitations, No problem reported Abdomen: + problem reported (rectal spasms and concern fo incontinence) Musculoskeletal: + problem reported (BLE weakness, walking with a walker) Neurologic: + weakness Psychiatric: + anxiety, + depression symptoms, + insomnia Integumentary: No bleeding, No color change, No itch, No new/changing skin lesions, No problem reported, No rash Sleep Information Total Hours of Sleep: 6.50 Meal Information Percent of Breakfast Consumed: 100 Percent of Lunch Consumed: 100 Percent of Dinner Consumed: 100 Mental Status Exam During interview pt is: alert and oriented, cooperative Appearance: appropriately dressed, appropriately groomed Eye contact is: good Motor behavior is: other (Orobuccal involuntary movement, arm/back/leg spasms have returned, not rhythmic, no cogwheeling or stiffness in BUE) Speech: normal in rate, rhythm & volume Affect: depressed, flat Mood is: depressed Thought process: goal directed Thought content: reality based without delusions Suicidal thought are: present, Plan: present, Intent: denied Homicidal thoughts are: denied Hallucinations: denies auditory, denies visual Cognition: memory grossly intact, attention grossly intact Intelligence estimated to be: average Insight: impaired Judgement: impaired Impression Worsening to involuntary movements today, exacerbating his mood and anxiety. If TD, may be helped by BZD so will order Valium 5 mg. BID with first dose now. If not improvement will ask neuro to weigh in. Will not order PT/OT at this point as likely to be unproductive until muscle movements addressed. Will continue other meds. Agrees to have guns removed by police. Plan (1) Depression 5/6 -Previously diagnosed with schizoaffective disorder. Would like to explore this further and obtain [facility] -Will increase Effexor XR to 225 mg all morning. If worsens his muscle spasms will reduce and change agents -Increase Remeron to 30 mg at bedtime to benefit sleep -Every 15 minute checks for safety- -Encourage participation in group and individual counseling -Coordinate services with current outpatient providers 01/02 -Continue meds - Will need to secure guns from home - [facility] (2) Muscle spasm 01/01 -Self-report diagnosis of tardive dyskinesia having recently been taken off of Haldol. His presentation is somewhat confusing as he has full body muscle spasms or not necessarily congruent with TD. For now we will continue his anti- spasmodics but consider a trial of amantadine or tetrabenazine or an antiepileptic agent 01/02 - arm/leg/torso spasms improved, but orobuccal dyskinesias more pronounce. Consider a withdrawal dyskinesia as he has been off of haldol for just a week or more. 01/03 - Movements worse again today. Will trial Valium 5 mg. BID and if no improvement will consult neuro - Hold on PT/OT until above evaluated. (3) Hypertension 5 -Monitor BP -Continue home doses of antihypertensive agents (4) Lumbar stenosis with neurogenic claudication 5 -Patient has not recently been using narcotics and so we'll continue use of NSAIDs -Patient will require the use of a walker for ambulation -Fall precautions -Coordinate with home health services referred at time of discharge on December 31 (5) Urinary tract infection 5 -Continue antibiotic as previously prescribed -Patient self caths Due to neurogenic bladder Has been reviewed with Dr. Josefina pham Discharge / Aftercare Planning Primary Care Physician: [facility]: [facility]: Name: Lety Fall- [facility] Visit Code E&M Code: 76110 Inventory Assets Strengths: Willingness to engage in treatment, has outpatient providers Needs: Outpatient support Risk Factors Assessment Male: Yes : Yes /single/: Yes Higher / Fall in social status: Yes Health problems: Yes Mental Health Diagnoses: Yes Substance use disorders: No Previous attempt: No Previous psychiatric stay: Yes Smoker: Yes Protective Factors Assessment Mosque beliefs: No : No Responsible for young children: No Employed: No Stable relationships: No Supportive family: No Good rapport with provider: Yes Data Vital Signs Last 24 Hrs: Date Time Temp Pulse Resp B/P Pulse Ox O2 Delivery O2 Flow Rate FiO2 01/03/17 06:54 36.7 109 18 115/84 102 134/92 01/02/17 21:08 106 18 158/103 Meds Administered Last 24 Hrs: Meds Administered (Past 24Hrs) Medications (Trade) Dose Ordered Sig/Colten Route Start Time Stop Time Status Last Admin Dose Admin Cephalexin Monohydrate (Keflex Cap) 500 mg BID PO 01/01/17 22:00 01/11/17 08:59 01/03/17 08:32 500 MG Docusate Sodium (coLACE CAP) 100 mg TID PO 01/01/17 14:00 01/31/17 13:59 01/03/17 08:32 100 MG Lisinopril (Zestril Tab) 10 mg DAILY PO 01/02/17 09:00 02/01/17 08:59 01/03/17 08:34 10 MG Mirtazapine (Remeron Tab) 30 mg HS PO 01/01/17 22:00 01/31/17 21:59 01/02/17 21:29 30 MG Multivitamins/ Minerals (Multivitamin W/ Minerals Tab) 1 tab DAILY PO 01/02/17 09:00 02/01/17 08:59 01/03/17 08:33 1 TAB Naproxen (Naprosyn Tab) 750 mg BID PO 01/01/17 22:00 01/31/17 21:59 01/03/17 08:33 750 MG Tamsulosin HCl (Flomax Cap) 0.4 mg HS PO 01/01/17 22:00 01/31/17 21:59 01/02/17 21:29 0.4 MG Tizanidine HCl (Zanaflex Tab) 4 mg DAILY PO 01/02/17 09:00 02/01/17 08:59 01/03/17 08:34 4 MG Trazodone HCl (Desyrel Tab) 200 mg HS PO 01/01/17 22:00 01/31/17 21:59 01/02/17 21:28 200 MG Venlafaxine HCl (effeXOR EXTENDED REL CAP) 225 mg QAM PO 01/02/17 09:00 02/01/17 08:59 01/03/17 08:32 225 MG Cholecalciferol (Vitamin D Tab) 2,000 inter.unit DAILY PO 01/02/17 09:00 02/01/17 08:59 01/03/17 08:33 2,000 INTER.UNIT Senna (Senokot Tab) 8.6 mg DAILY PO 01/02/17 09:00 02/01/17 08:59 01/03/17 08:33 8.6 MG Lab Results Last 24 Hrs: 12/31/16 21:00 12/31/16 21:00 Test 12/31/16 21:00 12/31/16 23:05 Red Blood Count 4.29 M/uL (4.7-6.1) Mean Corpuscular Volume 79.7 fL (80-100) Mean Corpuscular Hemoglobin 26.8 pg (25-34) Mean Corpuscular Hemoglobin Concent 33.6 g/dl (32-36) RDW Standard Deviation 45.7 fL (36.4-46.3) RDW Coefficient of Variation 15.7 % (11.5-14.5) Mean Platelet Volume 8.3 fL (7.4-10.4) Anion Gap 10.0 mmol/L (3-11) Est Creatinine Clear Calc Drug Dose 134.4 ml/min Estimated GFR () 128.8 Estimated GFR (Non- 111.2 BUN/Creatinine Ratio 16.2 (10-20) Calcium Level 9.2 mg/dl (8.5-10.1) Total Bilirubin 0.4 mg/dl (0.2-1) Aspartate Amino Transf (AST/SGOT) 14 U/L (15-37) Alanine Aminotransferase (ALT/SGPT) 24 U/L (12-78) Alkaline Phosphatase 93 U/L (45-117) Total Protein 7.4 gm/dl (6.4-8.2) Albumin 3.4 gm/dl (3.4-5.0) Globulin 4.0 gm/dl (2.5-4.0) Albumin/Globulin Ratio 0.9 (0.9-2) Thyroid Stimulating Hormone (TSH) 0.185 uIu/ml (0.300-4.500) Free Thyroxine 1.23 ng/dl (0.80-1.60) Salicylates Level 2.6 mg/dl (2.8-20) Acetaminophen Level < 2 ug/ml (10-30) Ethyl Alcohol mg/dL < 3.0 mg/dl (0-3) Urine Color YELLOW Urine Appearance CLEAR (CLEAR) Urine pH 7.0 (4.5-7.5) Urine Specific [place] 1.007 (1.000-1.030) Urine Protein NEG (NEG) Urine Glucose (UA) NEG (NEG) Urine Ketones NEG (NEG) Urine Occult Blood NEG (NEG) Urine Nitrite NEG (NEG) Urine Bilirubin NEG (NEG) Urine Urobilinogen NEG (NEG) Urine Leukocyte Esterase NEG (NEG) Urine Opiates Screen NEG (NEG) Urine Methadone, Qualitative NEG (NEG) Urine Barbiturates NEG (NEG) Urine Phencyclidine (PCP) Level NEG (NEG) Ur Amphetamine/Methamphetamine NEG (NEG) MDMA (Ecstasy) Screen NEG (NEG) Urine Benzodiazepines Screen NEG (NEG) Urine Cocaine Metabolite NEG (NEG) Urine Marijuana (THC) NEG (NEG) Problem Qualifiers (1) Depression: Depression Type: major depressive disorder Major depression recurrence: recurrent Major depression episode severity: severe Psychotic features: without psychotic features
[2017-01-03 21:05] VITALS: BP 141/93; PULSE 112
[2017-01-03] MEDS: DIAZEPAM 5MG TAB PO SCH (21:07)
[2017-01-03] MEDS: MIRTAZAPINE TAB 15 MG TAB PO SCH (21:08)
[2017-01-03] MEDS: TRAZODONE HCL 100 MG TAB PO SCH (21:08)
[2017-01-03] MEDS: TAMSULOSIN HCL 0.4 MG CAP PO SCH (21:08)
[2017-01-04 06:53] VITALS: BP_SYST 122; BP_SYST 129; BP_DIAS 86; BP_DIAS 90; PULSE 111; TEMP 36.6
[2017-01-04] MEDS: VENLAFAXINE HCL XR 75 MG CAPXR PO SCH (09:18)
[2017-01-04] MEDS: DOCUSATE SODIUM 100 MG CAP PO SCH ×2 (09:18→13:28)
[2017-01-04] MEDS: METOPROLOL TARTRATE 25 MG TAB PO SCH ×2 (09:19→21:32)
[2017-01-04] MEDS: CEPHALEXIN MONOHYDRATE 500 MG CAP PO SCH ×2 (09:19→21:32)
[2017-01-04] MEDS: CEROVITE ADV FORMULA TAB PO SCH (09:20)
[2017-01-04] MEDS: NAPROXEN 375 MG TAB PO SCH ×2 (09:21→21:31)
[2017-01-04] MEDS: DIAZEPAM 5MG TAB PO SCH ×2 (09:22→21:33)
[2017-01-04] MEDS: SENNA 8.6 MG TAB PO SCH (09:22)
[2017-01-04] MEDS: CHOLECALCIFEROL 1000 INTER.UNIT TAB PO SCH (09:22)
[2017-01-04] MEDS: LISINOPRIL 10 MG TAB PO SCH (09:23)
[2017-01-04] MEDS: CYCLOBENZAPRINE HCL 10 MG TAB PO PRN ×3 (09:25→20:13)
--- NOTE | 2017-01-04 11:50 | Psychiatric Progress Notes ---
Progress Note Date of Service January 04, 2017. Interval History 51 yo male admitted voluntarily on 01/01/17 with severe depression with suicidality and a plan to shoot himself. He has had multiple medical problems since back surgery last year with a severe decline in functionality. Chief Complaint "The same". Subjective Patient was seen & assessed. He states that he continues to be distraught by multiple physical problems, and today is focused on his rectum being tight. He states that the Valium started yesterday is helping with his body jerks, but he continues to experience a constant sense of squeezing in his rectum which is very uncomfortable. He hasn't had a bowel movement in 2-3 days, and states that the last time he had a bowel movement, he was incontinent. He is very worried that he will have another episode of fecal incontinence, and feels unable to participate in treatment due to this concern. He states he is unable to relax his anal sphincter or to have a bowel movement, and although he denies pain, it is uncomfortable and constantly bothering him. He is able to urinate. He states he's had chronic GI problems since surgery in June, with off and on constipation, and that his rectum has felt tight for about the past 2 weeks. He notes he had an exam in the emergency room and was told he had no ulcers or anal fissures, but has not seen anyone else for this issue. He states that because his muscles elsewhere in his body or feeling "more relaxed, " his mood has improved from a 2 to a 3 out of 10. He endorses ongoing suicidality, stating "well I ain't living like this, I need a solution." When asked to clarify, he states "all day I feel my butt, and I crap myself, have a catheter, can't walk, back got plates in it, shoulder pain, wrist problem..." He complains of being bored here, stating that he is not able to play on his computer, watching movies, or play guitar. Sleep Information Total Hours of Sleep: 7.25 Meal Information Percent of Breakfast Consumed: 25 Percent of Lunch Consumed: 50 Percent of Dinner Consumed: 25 Mental Status Exam During interview pt is: alert and oriented, cooperative Appearance: appropriately dressed, appropriately groomed Eye contact is: good Motor behavior is: other (Orobuccal involuntary movement, arm/back/leg spasms, walks with walker) Speech: normal in rate, rhythm & volume Affect: depressed, irritable Mood is: depressed, irritable Thought process: goal directed Thought content: reality based without delusions Suicidal thought are: present, Plan: present, Intent: denied Homicidal thoughts are: denied Hallucinations: denies auditory, denies visual Cognition: memory grossly intact, attention grossly intact Intelligence estimated to be: average Insight: impaired Judgement: impaired Impression Involuntary movements improved with the addition of diazepam, but remains concerned about rectal dysfunction and constipation, and requesting to see a specialist. Although mood is slightly improved, he remains suicidal and irritable. Will not order PT/OT at this point as likely to be unproductive until muscle movements addressed. Will continue other meds. Agrees to have guns removed by police. Plan (1) Depression 01/01 -Previously diagnosed with schizoaffective disorder. Would like to explore this further and obtain [facility] -Will increase Effexor XR to 225 mg all morning. If worsens his muscle spasms will reduce and change agents -Increase Remeron to 30 mg at bedtime to benefit sleep -Every 15 minute checks for safety- -Encourage participation in group and individual counseling -Coordinate services with current outpatient providers 01/02 -Continue meds -Will need to secure guns from home -[facility] with [facility] 01/04 -Continue current medications. (2) Muscle spasm 01/01 -Self-report diagnosis of tardive dyskinesia having recently been taken off of Haldol. His presentation is somewhat confusing as he has full body muscle spasms or not necessarily congruent with TD. For now we will continue his anti- spasmodics but consider a trial of amantadine or tetrabenazine or an antiepileptic agent 01/02 - arm/leg/torso spasms improved, but orobuccal dyskinesias more pronounce. Consider a withdrawal dyskinesia as he has been off of haldol for just a week or more. 01/03 - Movements worse again today. Will trial Valium 5 mg. BID and if no improvement will consult neuro - Hold on PT/OT until above evaluated. 01/04 - Continue diazepam, as he reports improvement in muscle spasms. - Consult GI, as he is requesting to see somebody about constipation and muscle tightness in the rectal area. (3) Hypertension 01/01 -Monitor BP -Continue home doses of antihypertensive agents (4) Lumbar stenosis with neurogenic claudication 01/01 -Patient has not recently been using narcotics and so we'll continue use of NSAIDs -Patient will require the use of a walker for ambulation -Fall precautions -Coordinate with home health services referred at time of discharge on December 31 (5) Urinary tract infection 01/01 -Continue antibiotic as previously prescribed -Patient self caths Due to neurogenic bladder Has been reviewed with Dr. Josefina pham Discharge / Aftercare Planning Primary Care Physician: Name: Dr. Arthur at [facility] Customer Service: Name: Lety Fall- [facility] Visit Code E&M Code: 26966 Inventory Assets Strengths: Willingness to engage in treatment, has outpatient providers Needs: Outpatient support Risk Factors Assessment Male: Yes : Yes /single/: Yes Higher / Fall in social status: Yes Health problems: Yes Mental Health Diagnoses: Yes Substance use disorders: No Previous attempt: No Previous psychiatric stay: Yes Smoker: Yes Protective Factors Assessment Roman Catholic beliefs: No : No Responsible for young children: No Employed: No Stable relationships: No Supportive family: No Good rapport with provider: Yes Data Vital Signs Last 24 Hrs: Date Time Temp Pulse Resp B/P Pulse Ox O2 Delivery O2 Flow Rate FiO2 01/04/17 06:53 36.6 111 18 129/86 111 122/90 01/03/17 21:05 112 18 141/93 Meds Administered Last 24 Hrs: Meds Administered (Past 24Hrs) Medications (Trade) Dose Ordered Sig/Colten Route Start Time Stop Time Status Last Admin Dose Admin Diazepam (Valium Tab) 5 mg BID PO 01/03/17 22:00 02/02/17 21:59 01/04/17 09:22 5 MG Diazepam (Valium Tab) 5 mg 1300 ONCE PO 01/03/17 13:00 01/03/17 13:01 DC 01/03/17 12:59 5 MG Problem Qualifiers (1) Depression: Depression Type: major depressive disorder Major depression recurrence: recurrent Major depression episode severity: severe Psychotic features: without psychotic features
--- NOTE | 2017-01-04 16:14 | Gastroenterology Progress Note ---
Progress Note Date of Service: January 04, 2017 Subjective Pt evaluation today including: conversation w/ patient, physical exam (with nurse present), chart review, review of studies, review of inpatient medication list Medications Current Inpatient Medications Medications (Trade) Dose Ordered Sig/Colten Route Start Time Stop Time Status Last Admin Dose Admin Acetaminophen (Tylenol Tab) 650 mg Q4H PRN PO 01/01/17 02:30 01/31/17 02:29 Al Hydroxide/Mg Hydroxide (Maalox Susp) 30 ml Q4H PRN PO 01/01/17 02:30 01/31/17 02:29 Bismuth Subsalicylate (Kaopectate Liqd) 15 ml DAILY PRN PO 01/01/17 02:30 01/31/17 02:29 Magnesium Hydroxide (Milk Of Magnesia Susp) 30 ml DAILY PRN PO 01/01/17 02:30 01/31/17 02:29 01/02/17 18:49 30 ML Sodium Chloride ([place] Nasal [place]) PRN PRN NA 01/01/17 02:30 01/31/17 02:29 Hydroxyzine HCl (Vistaril Tab) 50 mg HSZ PRN PO 01/01/17 02:30 01/31/17 02:29 01/01/17 02:47 50 MG Hydroxyzine HCl (Vistaril Tab) 25 mg Q4H PRN PO 01/01/17 02:30 01/31/17 02:29 Metoprolol Tartrate (Lopressor Tab) 12.5 mg Q12 PO 01/01/17 09:00 01/31/17 08:59 01/04/17 09:19 12.5 MG Cephalexin Monohydrate (Keflex Cap) 500 mg BID PO 01/01/17 22:00 01/11/17 08:59 01/04/17 09:19 500 MG Cyclobenzaprine HCl (Flexeril Tab) 10 mg TID PRN PO 01/01/17 10:00 01/31/17 09:59 01/04/17 14:12 10 MG Docusate Sodium (coLACE CAP) 100 mg TID PO 01/01/17 14:00 01/31/17 13:59 01/04/17 13:28 100 MG Ibuprofen (Advil Tab) 400 mg Q4 PRN PO 01/01/17 10:00 01/31/17 09:59 Lisinopril (Zestril Tab) 10 mg DAILY PO 01/02/17 09:00 02/01/17 08:59 01/04/17 09:23 10 MG Mirtazapine (Remeron Tab) 30 mg HS PO 01/01/17 22:00 01/31/17 21:59 01/03/17 21:08 30 MG Multivitamins/ Minerals (Multivitamin W/ Minerals Tab) 1 tab DAILY PO 01/02/17 09:00 02/01/17 08:59 01/04/17 09:20 1 TAB Naproxen (Naprosyn Tab) 750 mg BID PO 01/01/17 22:00 01/31/17 21:59 01/04/17 09:21 750 MG Polyethylene (Miralax Powder Packet) 17 gm DAILY PRN PO 01/01/17 10:00 01/31/17 09:59 01/04/17 11:01 17 GM Promethazine HCl (Phenergan Tab) 25 mg Q4H PRN PO 01/01/17 10:00 01/31/17 09:59 Tamsulosin HCl (Flomax Cap) 0.4 mg HS PO 01/01/17 22:00 01/31/17 21:59 01/03/17 21:08 0.4 MG Tizanidine HCl (Zanaflex Tab) 4 mg DAILY PO 01/02/17 09:00 02/01/17 08:59 01/04/17 09:23 4 MG Trazodone HCl (Desyrel Tab) 200 mg HS PO 01/01/17 22:00 01/31/17 21:59 01/03/17 21:08 200 MG Venlafaxine HCl (effeXOR EXTENDED REL CAP) 225 mg QAM PO 01/02/17 09:00 02/01/17 08:59 01/04/17 09:18 225 MG Cholecalciferol (Vitamin D Tab) 2,000 inter.unit DAILY PO 01/02/17 09:00 02/01/17 08:59 01/04/17 09:22 2,000 INTER.UNIT Senna (Senokot Tab) 8.6 mg DAILY PO 01/02/17 09:00 02/01/17 08:59 01/04/17 09:22 8.6 MG Diazepam (Valium Tab) 5 mg BID PO 01/03/17 22:00 02/02/17 21:59 01/04/17 09:22 5 MG Objective Vital Signs Date Time Temp Pulse Resp B/P Pulse Ox O2 Delivery O2 Flow Rate FiO2 01/04/17 06:53 36.6 111 18 129/86 111 122/90 01/03/17 21:05 112 18 141/93 Assessment and Plan GI consult dictated Job: rectal muscle spasms--not sure if related to constipation or if from the total body involuntary muscle movement--laxative to move bowels and neurology consult constipation---check abd series but give mag citrate and then miralax tid-- etiology combination of narcotics and lack of neurologic function post back surgery. Never had a colonoscopy and elective colonoscopy recommended. microcytic anemia--check Fe sat, ferritin, B12, folate, hemoccult
[2017-01-04] MEDS ORDERED: MAGNESIUM CITRATE 296 ML/BTL PO ONE (16:30)
--- NOTE | 2017-01-04 16:42 | DIAGNOSTIC IMAGING REPORT ---
ABDOMEN 2VIEW W/PA CHEST RTN CLINICAL HISTORY: Constipation COMPARISON STUDY: December 28, 2016 FINDINGS: The erect chest reveals no free air. There are old right-sided rib fractures. There is no focal pulmonary consolidation. Erect and supine views of the abdomen reveal postsurgical changes within the lumbar spine and left hip. There is mild fecal retention. There are no transition zones indicate bowel obstruction. IMPRESSION: Fecal retention. No evidence of bowel obstruction. No evidence of free air. Electronically signed by: Chalo Mcfarlane M.D. 01/04/2017 4:41 PM Dictated Date/Time: 01/04/2017 4:40 PM
[2017-01-04] MEDS: MIRTAZAPINE TAB 15 MG TAB PO SCH (21:31)
[2017-01-04] MEDS: TRAZODONE HCL 100 MG TAB PO SCH (21:31)
[2017-01-04] MEDS: POLYETHYLENE (MIRALAX) 17 GM PACK PO SCH ×2 (21:32→21:44)
[2017-01-04] MEDS: TAMSULOSIN HCL 0.4 MG CAP PO SCH (21:32)
[2017-01-04 22:03] VITALS: BP 165/95; PULSE 97
--- NOTE | 2017-01-04 23:17 | GASTROINTESTINAL CONSULTATION ---
DATE OF CONSULTATION: 01/04/2017 REQUESTING PHYSICIAN: Dr. Jesi Naidu. REASON FOR CONSULTATION: Muscle spasms and incontinent of bowel movements. CHIEF COMPLAINT: The patient has rectal spasms. HISTORY OF PRESENT ILLNESS: The patient is having total body involuntary muscle movements (in the chart thought secondary to Haldol), also complaining of rectal involuntary movements and spasm as well, not really pain, but the rhythmic involuntary movements. The patient had some type of spinal fusion back surgery in June and is not able to have normal bowel function or urinary tract function, he has to self-catheterize. He has no feeling around his anus. He is having to take medication for constipation. He states he has not moved his bowels for the last 3 days. He states when he does move his bowels, the rectal spasms do not necessarily change. There are no bloody stools or black stools. No dysphagia. Does have some GERD symptoms. States he has never had an upper scope or colonoscopy and never seen GI before. He was admitted with suicidal ideation, is on psych unit and being treated for that. PAST MEDICAL HISTORY: ALLERGIES: None. MEDICATIONS ON ADMISSION: Keflex, vitamin D3, docusate, Zestril, Lopressor, Remeron, multivitamin, Naprosyn, Senna, Flomax, tizanidine, trazodone, Effexor, p.r.n. Flexeril, [place], Motrin, MiraLax, Phenergan. PROBLEMS AND SURGERY: Anxiety, depression, hip fracture, hypertension, schizoaffective disorder, spinal stenosis, DJD. FAMILY HISTORY: Of depression. SOCIAL HISTORY: Tobacco daily. REVIEW OF SYSTEMS: CONSTITUTIONAL: Negative. EYES: Negative. EARS, NOSE, MOUTH, THROAT: Negative. CARDIOVASCULAR: Negative. RESPIRATORY: Negative. GENITOURINARY: Self-catheterization. MUSCULOSKELETAL: Back pain. INTEGUMENTARY, NEUROLOGIC, PSYCHIATRIC, ENDOCRINE, HEMATOLOGIC: Negative except as noted above. PHYSICAL EXAMINATION: GENERAL: Male, appears stated age, in no acute distress. Moving around constantly during H and P. Physical with nurse present. VITAL SIGNS: Most recent vital signs in the chart. Weight is 72.6. When he came into the Emergency Room, his vital signs were blood pressure 128/76, respiratory rate 18, pulse 72, oximetry 96% on room air. EYES: Conjunctivae and lids normal. ENT: Oropharynx clear. NECK: Without obvious mass or thyroid enlargement. RESPIRATORY: Normal effort, clear to anterior auscultation. CARDIOVASCULAR: Regular rate and rhythm. EXTREMITIES: Without edema. ABDOMEN: Positive bowel sounds, soft, nontender. No obvious organomegaly or masses are appreciated. RECTAL: No obvious mass noted. There is no stool on the glove. No impaction. States he has no sensation of rectal exam. DATA: CBC on admission, white count slightly elevated, hemoglobin was slightly low at 11.5, microcytic. CMP unremarkable. Free T4 normal. TSH slightly low. CT scan on 12/28/2016 of the abdomen and pelvis, moderate stool in the colon. Abdominal x-ray when he came in the ER on 12/23/2016 for nausea, rectal pain, and constipation showed fecal impaction. IMPRESSION AND PLAN: 1. Rectal muscle spasms, not sure if related to constipation or from the total body involuntary muscle movement. I recommend laxatives to get his bowels moving again and a neurology consult. 2. Constipation. Check an abdominal series, but give magnesium citrate and then MiraLax t.i.d. Etiology is probably a combination of narcotics and lack of neurologic function post back surgery. He has never had a colonoscopy, selective colonoscopy is recommended. 3. Microcytic anemia. Check iron sat, ferritin, B12, folate, and stool Hemoccult. MTDD
[2017-01-05 07:01] VITALS: BP_SYST 113; BP_DIAS 78; BP_DIAS 80; PULSE 111; PULSE 115; TEMP 36.4
--- NOTE | 2017-01-05 08:38 | Neurology Consultation ---
Neurology Consultation Date of Consultation: January 05, 2017. Attending Physician: Josefina Harrison M.D. Primary Care Physician: Jayesh Arthur D.O. Reason for Consultation: Patient is a 51-year-old, who was asked to see the request of Dr. Bradford, for neurologic consultation regarding abnormal involuntary movements and other issues. History of Present Illness Source: patient, caregiver, hospital records This patient has a long-standing history of psychiatric illnesses including anxiety, depression, schizoaffective disorder, and panic attacks. He has had multiple hospitalizations in the past for psychiatric reasons and has been on wide variety of medications. More recently, he has been on mirtazapine, Effexor , and trazodone. The patient has a long-standing history of low back pain and has been on disability since 1997 for back issues. In February 2016, he lost his balance and fell fracturing his right distal radius. He required surgical repair by Dr. Pope. In June 2016 he lost his balance and fell again fracturing his left hip. This was surgically repaired by Dr. Gaitan. Soon after this he was evaluated for his low back pain and was noted to have severe spinal stenosis at L4-5. He underwent disc removal with cage and fusion by Dr. Diaz. Ever since surgery, the patient feels that he has had problems with his bowels and bladder. He has fecal incontinence and he can't sense when he has to go to the bathroom. He feels in his rectum is "tight" and can spasm although he doesn 't have pain. He feels that his buttocks are numb and he has some numbness in his feet. He has some weakness in the feet as well. He has no pain in the legs. He tends to retain urine and have trouble initiating urination. Interestingly, he has had no low back pain since surgery. Patient has no neck pain or upper extremity symptoms. For 5 weeks ago the patient was placed on Haldol for uncertain reasons. Within 2 weeks he noted abnormal movements of his limbs and trunk in a generalized continuous fashion. He says he got quite jumpy. After being on the medicine 2- 3 weeks he stopped Haldol altogether. For the last 2 weeks, he has been off Haldol and although his movements are better there are still present. Patient was admitted to our hospital on January 01 because of increased depression and suicidal ideation. He has considerable stress from all his health issues. He was given 2 mg of Cogentin in the emergency room which he says helped considerably, although it was temporary. Valium seems to help a little bit with his movements but does not help his rectal spasm. Past Medical/Surgical History Medical Problems: (1) Ambulatory dysfunction Status: Acute (2) Ambulatory dysfunction Status: Acute (3) Back pain Status: Acute (4) Constipation due to opioid therapy Status: Acute (5) Depression Status: Chronic (6) Dystonic drug reaction Status: Acute (7) Fall Status: Acute (8) Lactic acidosis Status: Acute (9) Self-care deficit in patient living alone Status: Acute (10) SIRS (systemic inflammatory response syndrome) Status: Acute (11) Subcapital fracture of left hip Status: Acute (12) Suicidal ideation Status: Acute (13) Suicidal ideation Status: Acute (14) Thought disorder Status: Acute (15) UTI (urinary tract infection) Status: Acute Hypertension Dyslipidemia Lumbar spinal stenosis post L4-5 disc removal and fusion in June 2016 Bowel and bladder issues post surgery Post left hip fracture June 2016 requiring surgical repair Post right distal radial fracture February 2016 secondary to a fall requiring surgical repair Was some teeth removal History of multiple psychiatric conditions including anxiety, depression, and schizoaffective disorder Family History Mother at 66 of ovarian cancer. Father age 74 of an MA Social History Patient was in the [employer] for many years and then worked at [employer], retiring in 1997 We security disability because of his low back issues. Patient was a 2 pack per day cigarette smoker for years cutting down to a pack a day more recently and then quitting cigarettes over the last week. He has been smoking for 25+ years. Although he was a heavy drinker in the service he has not had much in the way of alcohol recently. Smoking Status: Former smoker Smokeless Tobacco Use: No Alcohol Use: none Drug Use: none Marital Status: single Housing Status: lives alone, [facility] Occupation Status: unemployed, disabled Allergies Coded Allergies: No Known Allergies (Verified , 12/31/16) Current Inpatient Medications Current Inpatient Medications Medications (Trade) Dose Ordered Sig/Colten Route Start Time Stop Time Status Last Admin Dose Admin Acetaminophen (Tylenol Tab) 650 mg Q4H PRN PO 01/01/17 02:30 01/31/17 02:29 Al Hydroxide/Mg Hydroxide (Maalox Susp) 30 ml Q4H PRN PO 01/01/17 02:30 01/31/17 02:29 Sodium Chloride ([place] Nasal [place]) PRN PRN NA 01/01/17 02:30 01/31/17 02:29 Hydroxyzine HCl (Vistaril Tab) 50 mg HSZ PRN PO 01/01/17 02:30 01/31/17 02:29 01/01/17 02:47 50 MG Hydroxyzine HCl (Vistaril Tab) 25 mg Q4H PRN PO 01/01/17 02:30 01/31/17 02:29 Metoprolol Tartrate (Lopressor Tab) 12.5 mg Q12 PO 01/01/17 09:00 01/31/17 08:59 01/04/17 21:32 12.5 MG Cephalexin Monohydrate (Keflex Cap) 500 mg BID PO 01/01/17 22:00 01/11/17 08:59 01/04/17 21:32 500 MG Cyclobenzaprine HCl (Flexeril Tab) 10 mg TID PRN PO 01/01/17 10:00 01/31/17 09:59 01/04/17 20:13 10 MG Ibuprofen (Advil Tab) 400 mg Q4 PRN PO 01/01/17 10:00 01/31/17 09:59 Lisinopril (Zestril Tab) 10 mg DAILY PO 01/02/17 09:00 02/01/17 08:59 01/04/17 09:23 10 MG Mirtazapine (Remeron Tab) 30 mg HS PO 01/01/17 22:00 01/31/17 21:59 01/04/17 21:31 30 MG Multivitamins/ Minerals (Multivitamin W/ Minerals Tab) 1 tab DAILY PO 01/02/17 09:00 02/01/17 08:59 01/04/17 09:20 1 TAB Naproxen (Naprosyn Tab) 750 mg BID PO 01/01/17 22:00 01/31/17 21:59 01/04/17 21:31 750 MG Polyethylene (Miralax Powder Packet) 17 gm DAILY PRN PO 01/01/17 10:00 01/31/17 09:59 01/04/17 11:01 17 GM Promethazine HCl (Phenergan Tab) 25 mg Q4H PRN PO 01/01/17 10:00 01/31/17 09:59 Tamsulosin HCl (Flomax Cap) 0.4 mg HS PO 01/01/17 22:00 01/31/17 21:59 01/04/17 21:32 0.4 MG Tizanidine HCl (Zanaflex Tab) 4 mg DAILY PO 01/02/17 09:00 02/01/17 08:59 01/04/17 09:23 4 MG Trazodone HCl (Desyrel Tab) 200 mg HS PO 01/01/17 22:00 01/31/17 21:59 01/04/17 21:31 200 MG Venlafaxine HCl (effeXOR EXTENDED REL CAP) 225 mg QAM PO 01/02/17 09:00 02/01/17 08:59 01/04/17 09:18 225 MG Cholecalciferol (Vitamin D Tab) 2,000 inter.unit DAILY PO 01/02/17 09:00 02/01/17 08:59 01/04/17 09:22 2,000 INTER.UNIT Diazepam (Valium Tab) 5 mg BID PO 01/03/17 22:00 02/02/17 21:59 01/04/17 21:33 5 MG Polyethylene (Miralax Powder Packet) 17 gm TID PO 01/04/17 22:00 02/03/17 21:59 Review of Systems Constitutional: + fatigue, + weakness, No weight loss Eyes: No diplopia, No worsening of vision ENT: No hearing loss, No tinnitus Respiratory: No cough, No shortness of breath Cardiovascular: No chest pain, No palpitations Abdomen: No nausea, No pain Musculoskeletal: No joint pain, No muscle pain Genitourinary - Male: + urinary retention, No dysuria, No hematuria Neurologic: + balance problems, + numbness/tingling, + weakness, No vertigo Psychiatric: + anxiety, + depression symptoms Endocrine: + fatigue Hematologic / Lymphatic: No abnormal bleeding/bruising Integumentary: No rash Allergic / Immunologic: No hives Physical Exam Vital Signs (Past 24 Hrs): Date Time Temp Pulse Resp B/P Pulse Ox O2 Delivery O2 Flow Rate FiO2 01/05/17 07:01 36.4 111 18 113/78 115 113/80 01/04/17 22:03 97 165/95 Patient is right-handed. The patient is awake and alert. Speech is normal without obvious aphasia or dysarthria. Mentation and thought processes are reasonably intact with orientation and normal fund of knowledge. Mood and affect are normal and appropriate. Appearance and grooming are normal. The discs are sharp with positive venous pulsations. There are no exudates, hemorrhages, or blood vessel changes seen. Pupils are 4mm bilaterally and reactive to light. Extraocular eye muscles are intact without nystagmus. Visual acuity and visual pedroza seem normal grossly to confrontation. There are no deficits to sensation of the face bilaterally. Corneal reflexes are positive bilaterally. Facial strength and symmetry is normal bilaterally. Hearing seems intact grossly to voice and finger rub. Palate moves well without asymmetry. There is normal sternocleidomastoid and trapezius strength bilaterally. Tongue is midline with good strength bilaterally. Neck is with full range of motion without discomfort. There are no cervical bruits. There are no cranial or ocular bruits. Heart is without murmur. Cervical, thoracic, and lumbar spine are nontender to palpation. Gait is narrow based but he limps favoring the left hip using a walker for support. With outstretched arms there is no drift. There are no resting, postural, or action tremors. There is no ataxia with [id number] testing. There is reasonable facility in the hands. The patient has significant frequent dyskinetic movements of the limbs, trunk, and lips. As I watched the patient, distracting him, the movements would dampen but did not disappear. Motor strength is 5/5 diffusely in the arms bilaterally including deltoids, biceps, brachioradialis, wrist flexors and extensors, manager client, and intrinsic hand muscles. Motor strength is 5/5 in the hip flexors and quadriceps muscles bilaterally. Tibialis anterior, tibialis posterior, gastrocnemius, and peroneal muscles were 4/5. He has marked wasting and atrophy in the lower legs and feet bilaterally. There is no atrophy or wasting in the hands. Limbs have good tone without spasticity or rigidity. There are no fasciculations seen. Sensory examination reveals some stocking decreased sensation to pinprick in the feet bilaterally to the lower legs. Reflexes are 2/4 in the biceps, triceps, brachioradialis, and quadriceps tendons bilaterally. Achilles tendon reflexes are absent bilaterally. Toes are neutral to downgoing with plantar stimulation bilaterally. The skin of the lower legs and feet is thin and shiny. They seem pale. Peripheral pulses are present and of normal quality distally in all four limbs. There is no peripheral edema noted. Laboratory Results Past 24 Hours: Test 01/04/17 19:30 01/05/17 04:44 01/05/17 08:18 Stool Occult Blood POSITIVE (NEGATIVE) Transferrin % Saturation % (20-50) Impression 1. Bowel incontinence and urinary retention These seem to have initiated the time of lumbar spine surgery in June 2016. Sacral radiculopathy is suspected. 2. Atrophy weakness and numbness in the distal lower legs bilaterally. Again this could be sacral radiculopathy. Skin changes are interesting and an early reflex sympathetic dystrophy may be present. There are no upper motor neuron signs on examination. He has no neurologic deficits referable to the neck or arms. 3. Abnormal involuntary movements. These are dyskinesias and are variable. There may be a volitional component to some of these movements (exaggerating at times) but I'm convinced that at least some of these movements are real/pathologic. I suspect acute extrapyramidal reaction from Haldol. Interestingly, one dose of Cogentin in the ER really helped him. 4. Rectal spasms. These are likely more related to the sacral nerve root problems stemming from his previous lumbar spine surgery. Plan 1. I recommend an MRI of the lumbar and sacral spine with and without contrast 2. Depending on any significant findings we may need a follow-up consultation with Dr. Diaz. 3. I may consider EMG and nerve conduction studies of the legs but this will be done as an outpatient 4. Consider Cogentin 1 mg twice a day 5. Hold on Haldol, tizanidine, and cyclobenzaprine for now. 6. Consider gabapentin if needed. I will follow. This case was discussed with Dr. Naidu, including differential diagnosis and treatment options.
[2017-01-05 08:58] LABS: FERRITIN 106.9 ng/ml (8.0-388.0)
[2017-01-05] MEDS: BENZTROPINE MESYLATE 1 MG TAB PO SCH ×2 (09:31→21:02)
[2017-01-05] MEDS: VENLAFAXINE HCL XR 75 MG CAPXR PO SCH (09:32)
[2017-01-05] MEDS: CEPHALEXIN MONOHYDRATE 500 MG CAP PO SCH ×2 (09:33→21:02)
[2017-01-05] MEDS: METOPROLOL TARTRATE 25 MG TAB PO SCH ×2 (09:33→21:02)
[2017-01-05] MEDS: CEROVITE ADV FORMULA TAB PO SCH (09:34)
[2017-01-05] MEDS: NAPROXEN 375 MG TAB PO SCH ×2 (09:34→21:04)
[2017-01-05] MEDS: LISINOPRIL 10 MG TAB PO SCH (09:35)
[2017-01-05] MEDS: CHOLECALCIFEROL 1000 INTER.UNIT TAB PO SCH (09:35)
[2017-01-05] MEDS: DIAZEPAM 5MG TAB PO SCH ×2 (09:35→21:04)
[2017-01-05] MEDS: POLYETHYLENE (MIRALAX) 17 GM PACK PO SCH ×3 (09:36→21:03)
[2017-01-05] MEDS ORDERED: GADAVIST IV PRN (11:15)
--- NOTE | 2017-01-05 11:31 | DIAGNOSTIC IMAGING REPORT ---
MRI OF THE LUMBAR SPINE WITH AND WITHOUT CONTRAST CLINICAL HISTORY: Peripheral wasting, neurologic impingement. Back pain. COMPARISON STUDY: MRI of the lumbar spine July 20, 2016 and lumbar spine fluoroscopic images July 26, 2016. TECHNIQUE: Utilizing a 1.5 Drea magnet and dedicated coil, multiplanar, multiecho imaging of the lumbar spine was performed before and after uneventful IV administration of 7 mL of Gadavist. FINDINGS: For purposes of numbering on this exam, the L5-S1 disc space is assigned approximately 27 of 31. There is 4 mm of anterolisthesis of L4 and L5. There are postsurgical findings consistent with an L4-L5 decompression with an L4-L5 discectomy and interbody spacer placement. There is fluid signal within the disc. There is anterior slippage at the L4-L5 level which is new since MRI of July 20, 2016. The large disc extrusion shown on that exam is no longer visualized and has been resected. No intracanalicular fluid collection is present. There is increased T2 signal posterior to the L4 vertebral body which enhances. This favors scar tissue although phlegmon could appear similar. There is no rim enhancing fluid collection to suggest an epidural abscess. This extensive marrow signal abnormality within the L4 and L5 vertebral bodies which is nonspecific. There is slight erosion of the inferior endplate of L4 and superior endplate of L5. Conus terminates at the upper L1 level. L1-2: There is mild disc bulge. Central canal and neural foramen are patent. L2-3: There is displacement with disc bulge. There is patent central canal and neural foramen are patent. L3-4: There is disc space narrowing with disc bulge. There is mild narrowing of the central canal. L4-5: The central canal is patent. Neural foramen are suboptimal assessed since exam but there is suggestion of mild narrowing bilaterally. Postoperative findings are noted, as described above. L5-S1: Central canal and neural foramina patent. IMPRESSION: 1. Status post L4-L5 discectomy and posterior decompression. Extensive marrow signal abnormality within the L4 and L5 vertebral bodies with suspected mild erosion of the inferior endplate of L4 and superior endplate of L5 with small amount of fluid within the L4-L5 disc space. These findings are nonspecific and could reflect an infectious process with osteomyelitis/discitis. However, a sterile process such as reactive osteolysis could appear similar. Recommend correlation with clinical evidence for an infectious process. T2 hyperintense material posterior to the L4 vertebral body favors scar. Phlegmon could appear similar. No well-defined fluid collection to suggest epidural abscess. Mild multilevel central canal and neural foraminal stenosis. If progressive symptoms, short-term MRI follow-up is recommended. 2. Interval resection of the large disc extrusion shown on exam June 30, 2016. Interval development of mild anterolisthesis of L4 and L5 suggestive of slippage. Electronically signed by: Oswaldo Wilson M.D. 01/05/2017 11:29 AM Dictated Date/Time: 01/05/2017 11:11 AM
--- NOTE | 2017-01-05 12:00 | Psychiatric Progress Notes ---
Progress Note Date of Service January 05, 2017. Interval History 51 yo male admitted voluntarily on 01/01/17 with severe depression with suicidality and a plan to shoot himself. He has had multiple medical problems since back surgery last year with a severe decline in functionality. Chief Complaint "A little less (suicidal).". Subjective Patient was seen & assessed interval progress reviewed with Treatment Team. The patient has been seen by both GI and neuro in consult. Meds have successfully produced BM last evening, but he remains with rectal spasms. Neuro has recommended MRI due to concerns for sacral nerve impingement, and medication changes. The patient is happy to have his problems evaluated, but is frustrated that there is no immediate relief to his rectal spasms. He denies bowel incontinence and continues to self cath regularly. He has been kept busy today and so has been less focused on his SI, describing them as "a little less". He has not been attending groups, spending time in his room, overheard to be grunting in discomfort. HIs mood remains depressed, with some degree of hopelessness. He slept well, and has a good appetite. Review of Systems Constitutional: No chills, No fatigue, No fever, No problem reported, No sweats , No weakness, No weight loss ENT: + problem reported (Orobuccal dyskinesia, with clacking dentures) Respiratory: No cough, No dyspnea at rest, No dyspnea on exertion, No hemoptysis, No problem reported, No shortness of breath, No sputum, No wheezing Cardiovascular: No PND, No chest pain, No claudication, No edema, No orthopnea , No palpitations, No problem reported Abdomen: + problem reported (rectal spasms, BM last evening, self caths) Musculoskeletal: + problem reported (Uses walker to ambulate due to BLE weakness) Neurologic: + weakness Psychiatric: + anxiety, + depression symptoms Integumentary: No bleeding, No color change, No itch, No new/changing skin lesions, No problem reported, No rash Sleep Information Total Hours of Sleep: 7.25 Meal Information Percent of Breakfast Consumed: 100 Percent of Lunch Consumed: 75 Percent of Dinner Consumed: 100 Mental Status Exam During interview pt is: alert and oriented, cooperative Appearance: appropriately dressed, appropriately groomed Eye contact is: good Motor behavior is: other (Orobuccal involuntary movement, arm/back/leg spasms, walks with walker) Speech: normal in rate, rhythm & volume Affect: depressed, irritable Mood is: depressed, irritable Thought process: goal directed Thought content: reality based without delusions Suicidal thought are: present, Plan: present, Intent: denied Homicidal thoughts are: denied Hallucinations: denies auditory, denies visual Cognition: memory grossly intact, attention grossly intact Intelligence estimated to be: average Insight: impaired Judgement: impaired Impression Appreciate Dr. Contreras and Dr. Bradford's input. Await results of MRI. May need consult with Dr. Diaz if nerve impingement. Mood remains depressed, somewhat irritable, not going to groups due to his physical discomforts. Will continue current meds as medical workup continues. Home care will continue to be a problem in view of lives alone and has no supports. Will need to have guns secured by police after discharge. Plan (1) Depression 01/01 -Previously diagnosed with schizoaffective disorder. Would like to explore this further and obtain outpatient [facility] -Will increase Effexor XR to 225 mg all morning. If worsens his muscle spasms will reduce and change agents -Increase Remeron to 30 mg at bedtime to benefit sleep -Every 15 minute checks for safety- -Encourage participation in group and individual counseling -Coordinate services with current outpatient providers 01/02 -Continue meds -Will need to secure guns from home -[facility] with the [facility] 01/04 -Continue current medications. (2) Muscle spasm 01/01 -Self-report diagnosis of tardive dyskinesia having recently been taken off of Haldol. His presentation is somewhat confusing as he has full body muscle spasms or not necessarily congruent with TD. For now we will continue his anti- spasmodics but consider a trial of amantadine or tetrabenazine or an antiepileptic agent 01/02 - arm/leg/torso spasms improved, but orobuccal dyskinesias more pronounce. Consider a withdrawal dyskinesia as he has been off of haldol for just a week or more. 01/03 - Movements worse again today. Will trial Valium 5 mg. BID and if no improvement will consult neuro - Hold on PT/OT until above evaluated. 01/04 - Continue diazepam, as he reports improvement in muscle spasms. - Consult GI, as he is requesting to see somebody about constipation and muscle tightness in the rectal area. (3) Hypertension 01/01 -Monitor BP -Continue home doses of antihypertensive agents (4) Lumbar stenosis with neurogenic claudication 01/01 -Patient has not recently been using narcotics and so we'll continue use of NSAIDs -Patient will require the use of a walker for ambulation -Fall precautions -Coordinate with home health services referred at time of discharge on December 3101/14 - Appreciate neuro and GI consults - MRI lumbar spine with and without contrast - Will start Cogentin 2 mg. BID as suggested by neuro for muscle dyskinesias - Will DC flexeril and zanaflex since there is no evidence they are helping - consider a trial of neurontin (5) Urinary tract infection 01/01 -Continue antibiotic as previously prescribed -Patient self caths Due to neurogenic bladder Has been reviewed with Dr. Josefina pham Discharge / Aftercare Planning Primary Care Physician: Name: Dr. [facility] Phone Number: [phone] Psychiatrist: Name: Dr Llanes Psychiatrist - [facility] Phone Number: [phone] Nail Kegger: [facility] Phone Number: [phone] Visit Code E&M Code: 01573 Inventory Assets Strengths: Willingness to engage in treatment, has outpatient providers Needs: Outpatient support Risk Factors Assessment Male: Yes : Yes /single/: Yes Higher / Fall in social status: Yes Health problems: Yes Mental Health Diagnoses: Yes Substance use disorders: No Previous attempt: No Previous psychiatric stay: Yes Smoker: Yes Protective Factors Assessment Mosque beliefs: No : No Responsible for young children: No Employed: No Stable relationships: No Supportive family: No Good rapport with provider: Yes Data Vital Signs Last 24 Hrs: Date Time Temp Pulse Resp B/P Pulse Ox O2 Delivery O2 Flow Rate FiO2 01/05/17 07:01 36.4 111 18 113/78 115 113/80 01/04/17 22:03 97 165/95 Meds Administered Last 24 Hrs: Meds Administered (Past 24Hrs) Medications (Trade) Dose Ordered Sig/Colten Route Start Time Stop Time Status Last Admin Dose Admin Diazepam (Valium Tab) 5 mg BID PO 01/03/17 22:00 02/02/17 21:59 01/05/17 09:35 5 MG Diazepam (Valium Tab) 5 mg 1300 ONCE PO 01/03/17 13:00 01/03/17 13:01 DC 01/03/17 12:59 5 MG Magnesium Citrate (Citrate Of Magnesia Soln) 296 ml ONE ONCE PO 01/04/17 16:30 01/04/17 16:31 DC 01/04/17 17:19 296 ML Polyethylene (Miralax Powder Packet) 17 gm TID PO 01/04/17 22:00 02/03/17 21:59 01/05/17 09:36 17 GM Benztropine Mesylate (Cogentin Tab) 2 mg BID PO 01/05/17 09:00 02/04/17 08:59 01/05/17 09:31 2 MG Lab Results Last 24 Hrs: Last 24 Hours Test 01/04/17 19:30 01/05/17 08:18 Stool Occult Blood POSITIVE Iron Level 32 mcg/dl Total Iron Binding Capacity 247 mcg/dl Transferrin 192 mg/dl Transferrin % Saturation 12 % Ferritin 106.9 ng/ml Vitamin B12 Level 739 pg/mL Folate > 24.00 ng/mL Problem Qualifiers (1) Depression: Depression Type: major depressive disorder Major depression recurrence: recurrent Major depression episode severity: severe Psychotic features: without psychotic features
--- NOTE | 2017-01-05 16:52 | PROGRESS NOTE ---
DATE: 01/05/2017 REASON FOR EVALUATION: Anemia and rectal disorder. SUBJECTIVE: The patient continues to have significant dyskinesia movements and loss of sensation and spasm of his rectum. His stool was tested and was found to be positive for occult blood, although the patient denies seeing any visible blood in his stools at any time. He also denies nausea, vomiting, or hematemesis. LABORATORY WORK: Shows that his iron levels are low. ASSESSMENT AND PLAN: His anemia is microcytic and with heme positive stool in a patient at this stage, colon cancer is a possibility. I discussed this with the patient. His B12 and folate were normal. He will need to have a colonoscopy at this point though he is too distracted by his movement disorder to consider having a bowel prep or be sedated for a colonoscopy. Would like to try to accomplish this at some point in the near future. Will keep track of him during his hospital stay and once his movement disorder settles down and he is able to tolerate a bowel prep and be sedated, will proceed with colonoscopy, either as an inpatient or outpatient.
[2017-01-05 20:47] VITALS: BP 147/99; PULSE 111
[2017-01-05] MEDS: TAMSULOSIN HCL 0.4 MG CAP PO SCH (21:03)
[2017-01-05] MEDS: TRAZODONE HCL 100 MG TAB PO SCH (21:03)
[2017-01-05] MEDS: MIRTAZAPINE TAB 15 MG TAB PO SCH (21:04)
[2017-01-06 06:54] VITALS: BP_SYST 128; BP_SYST 135; BP_DIAS 86; BP_DIAS 87; PULSE 112; PULSE 97; TEMP 36.6
[2017-01-06] MEDS: VENLAFAXINE HCL XR 75 MG CAPXR PO SCH (09:39)
[2017-01-06] MEDS: CEPHALEXIN MONOHYDRATE 500 MG CAP PO SCH ×2 (09:39→21:01)
[2017-01-06] MEDS: BENZTROPINE MESYLATE 1 MG TAB PO SCH ×2 (09:39→21:01)
[2017-01-06] MEDS: DIAZEPAM 5MG TAB PO SCH ×2 (09:40→21:02)
[2017-01-06] MEDS: NAPROXEN 375 MG TAB PO SCH ×2 (09:40→21:02)
[2017-01-06] MEDS: CEROVITE ADV FORMULA TAB PO SCH (09:40)
[2017-01-06] MEDS: METOPROLOL TARTRATE 25 MG TAB PO SCH ×2 (09:40→21:00)
[2017-01-06] MEDS: LISINOPRIL 10 MG TAB PO SCH (09:41)
[2017-01-06] MEDS: CHOLECALCIFEROL 1000 INTER.UNIT TAB PO SCH (09:41)
[2017-01-06] MEDS: POLYETHYLENE (MIRALAX) 17 GM PACK PO SCH ×3 (09:44→21:01)
--- NOTE | 2017-01-06 10:14 | Psychiatric Progress Notes ---
Progress Note Date of Service January 06, 2017. Interval History 51 yo male admitted voluntarily on 01/01/17 with severe depression with suicidality and a plan to shoot himself. He has had multiple medical problems since back surgery last year with a severe decline in functionality. Chief Complaint "Let's see how it goes.". Subjective Patient was seen & assessed interval progress reviewed with Treatment Team. The patient remains depressed with SI. He is overwhelmed with his medical condition including a workup for colon cancer and ongoing evaluation of muscle movements. He reports improvement to body dyskinesias since starting Cogentin yesterday, but rectal spasms continue, with both bowel and bladder incontinence. He reports a rash over BLE, red with a burning sensation, but no itching. Benadryl was ineffective. He is willing to proceed with the bowel prep and colonoscopy suggested by Dr. Gamble. He has been attending groups only sporadically due to physical discomforts. Review of Systems Constitutional: + fatigue ENT: + problem reported (poorly fitting dentures, removed today) Respiratory: No cough, No dyspnea at rest, No dyspnea on exertion, No hemoptysis, No problem reported, No shortness of breath, No sputum, No wheezing Cardiovascular: No PND, No chest pain, No claudication, No edema, No orthopnea , No palpitations, No problem reported Abdomen: + problem reported (bowel and urinary incontinence, self cathing) Musculoskeletal: + problem reported (Able to sit more quietly today, with fewer torso and BUE movements. Still with orobuccal movements, reports of rectal spasms) Neurologic: + problem reported (body dyskinesias improved) Psychiatric: + anxiety, + depression symptoms (with SI) Integumentary: + rash (BLE with erythema, macular, without itching) Sleep Information Total Hours of Sleep: 6.00 Meal Information Percent of Breakfast Consumed: 100 Percent of Lunch Consumed: 100 Percent of Dinner Consumed: 75 Mental Status Exam During interview pt is: alert and oriented, cooperative Appearance: appropriately dressed, appropriately groomed, disheveled Eye contact is: good Motor behavior is: other (Orobuccal involuntary movement, arm/back/leg spasms improving, walks with walker) Speech: other (minimal, monotoned) Affect: depressed, flat Mood is: depressed, irritable Thought process: goal directed Thought content: reality based without delusions Suicidal thought are: present, Plan: present, Intent: denied Homicidal thoughts are: denied Hallucinations: denies auditory, denies visual Cognition: memory grossly intact, attention grossly intact Intelligence estimated to be: average Insight: impaired Judgement: impaired Impression MRI showing some L4-[address] Diaz per Dr. Contreras's suggestion. Dr. Gamble has recommended colonoscopy to explore GI source for blood loss, which the patient is now willing to have. Will contact his office to schedule while an inpatient. Will continue current meds for now. Should have this workup inpatient as he will be poorly able to manage himself and OP testing without assistance. Plan (1) Depression 01/01 -Previously diagnosed with schizoaffective disorder. Would like to explore this further and obtain outpatient [facility] -Will increase Effexor XR to 225 mg all morning. If worsens his muscle spasms will reduce and change agents -Increase Remeron to 30 mg at bedtime to benefit sleep -Every 15 minute checks for safety- -Encourage participation in group and individual counseling -Coordinate services with current outpatient providers 01/02 -Continue meds -Will need to secure guns from home -[facility] with the [facility] 01/04 -Continue current medications. 01/06 - Continue current meds as medical workups continue (2) Muscle spasm 01/01 -Self-report diagnosis of tardive dyskinesia having recently been taken off of Haldol. His presentation is somewhat confusing as he has full body muscle spasms or not necessarily congruent with TD. For now we will continue his anti- spasmodics but consider a trial of amantadine or tetrabenazine or an antiepileptic agent 01/02 - arm/leg/torso spasms improved, but orobuccal dyskinesias more pronounce. Consider a withdrawal dyskinesia as he has been off of haldol for just a week or more. 01/03 - Movements worse again today. Will trial Valium 5 mg. BID and if no improvement will consult neuro - Hold on PT/OT until above evaluated. 01/04 - Continue diazepam, as he reports improvement in muscle spasms. - Consult GI, as he is requesting to see somebody about constipation and muscle tightness in the rectal area. 01/06 - Improved with addition of Cogentin - Appreciate Dr. Contreras's input (3) Hypertension 01/01 -Monitor BP -Continue home doses of antihypertensive agents (4) Lumbar stenosis with neurogenic claudication 01/01 -Patient has not recently been using narcotics and so we'll continue use of NSAIDs -Patient will require the use of a walker for ambulation -Fall precautions -Coordinate with home health services referred at time of discharge on December 3101/14 - Appreciate neuro and GI consults - MRI lumbar spine with and without contrast - Will start Cogentin 2 mg. BID as suggested by neuro for muscle dyskinesias - Will DC flexeril and zanaflex since there is no evidence they are helping - consider a trial of neurontin (5) Urinary tract infection 01/01 -Continue antibiotic as previously prescribed -Patient self caths Due to neurogenic bladder (6) Anemia 01/06 - Appreciate GI input - Patient willing for colonoscopy to explore GI blood loss. Will call Dr. Gamble to notify Has been reviewed with Dr. Josefina pham Discharge / Aftercare Planning Primary Care Physician: Name: Dr. [facility] at [place] Phone Number: [phone] Psychiatrist: Name: Dr Llanes Psychiatrist - [facility] Phone Number: [phone] [facility] Phone Number: [phone] Visit Code E&M Code: 28246 Inventory Assets Strengths: Willingness to engage in treatment, has outpatient providers Needs: Outpatient support Risk Factors Assessment Male: Yes : Yes /single/: Yes Higher / Fall in social status: Yes Health problems: Yes Mental Health Diagnoses: Yes Substance use disorders: No Previous attempt: No Previous psychiatric stay: Yes Smoker: Yes Protective Factors Assessment Adventism beliefs: No : No Responsible for young children: No Employed: No Stable relationships: No Supportive family: No Good rapport with provider: Yes Data Vital Signs Last 24 Hrs: Date Time Temp Pulse Resp B/P Pulse Ox O2 Delivery O2 Flow Rate FiO2 01/06/17 06:54 36.6 112 18 128/86 97 135/87 01/05/17 20:47 111 147/99 Meds Administered Last 24 Hrs: Meds Administered (Past 24Hrs) Medications (Trade) Dose Ordered Sig/Colten Route Start Time Stop Time Status Last Admin Dose Admin Magnesium Citrate (Citrate Of Magnesia Soln) 296 ml ONE ONCE PO 01/04/17 16:30 01/04/17 16:31 DC 01/04/17 17:19 296 ML Polyethylene (Miralax Powder Packet) 17 gm TID PO 01/04/17 22:00 02/03/17 21:59 01/06/17 09:44 17 GM Benztropine Mesylate (Cogentin Tab) 2 mg BID PO 01/05/17 09:00 02/04/17 08:59 01/06/17 09:39 2 MG Diphenhydramine HCl (Benadryl Cap) 50 mg NOW ONCE PO 01/05/17 18:45 01/05/17 18:46 DC 01/05/17 18:46 50 MG Lab Results Last 24 Hrs: 12/31/16 21:00 12/31/16 21:00 Test 12/31/16 21:00 12/31/16 23:05 01/04/17 19:30 01/05/17 08:18 Red Blood Count 4.29 M/uL (4.7-6.1) Mean Corpuscular Volume 79.7 fL (80-100) Mean Corpuscular Hemoglobin 26.8 pg (25-34) Mean Corpuscular Hemoglobin Concent 33.6 g/dl (32-36) RDW Standard Deviation 45.7 fL (36.4-46.3) RDW Coefficient of Variation 15.7 % (11.5-14.5) Mean Platelet Volume 8.3 fL (7.4-10.4) Anion Gap 10.0 mmol/L (3-11) Est Creatinine Clear Calc Drug Dose 134.4 ml/min Estimated GFR () 128.8 Estimated GFR (Non- 111.2 BUN/Creatinine Ratio 16.2 (10-20) Calcium Level 9.2 mg/dl (8.5-10.1) Total Bilirubin 0.4 mg/dl (0.2-1) Aspartate Amino Transf (AST/SGOT) 14 U/L (15-37) Alanine Aminotransferase (ALT/SGPT) 24 U/L (12-78) Alkaline Phosphatase 93 U/L (45-117) Total Protein 7.4 gm/dl (6.4-8.2) Albumin 3.4 gm/dl (3.4-5.0) Globulin 4.0 gm/dl (2.5-4.0) Albumin/Globulin Ratio 0.9 (0.9-2) Thyroid Stimulating Hormone (TSH) 0.185 uIu/ml (0.300-4.500) Free Thyroxine 1.23 ng/dl (0.80-1.60) Salicylates Level 2.6 mg/dl (2.8-20) Acetaminophen Level < 2 ug/ml (10-30) Ethyl Alcohol mg/dL < 3.0 mg/dl (0-3) Urine Color YELLOW Urine Appearance CLEAR (CLEAR) Urine pH 7.0 (4.5-7.5) Urine Specific [place] 1.007 (1.000-1.030) Urine Protein NEG (NEG) Urine Glucose (UA) NEG (NEG) Urine Ketones NEG (NEG) Urine Occult Blood NEG (NEG) Urine Nitrite NEG (NEG) Urine Bilirubin NEG (NEG) Urine Urobilinogen NEG (NEG) Urine Leukocyte Esterase NEG (NEG) Urine Opiates Screen NEG (NEG) Urine Methadone, Qualitative NEG (NEG) Urine Barbiturates NEG (NEG) Urine Phencyclidine (PCP) Level NEG (NEG) Ur Amphetamine/Methamphetamine NEG (NEG) MDMA (Ecstasy) Screen NEG (NEG) Urine Benzodiazepines Screen NEG (NEG) Urine Cocaine Metabolite NEG (NEG) Urine Marijuana (THC) NEG (NEG) Stool Occult Blood POSITIVE (NEGATIVE) Iron Level 32 mcg/dl (35-175) Total Iron Binding Capacity 247 mcg/dl (250-450) Transferrin 192 mg/dl (200-360) Transferrin % Saturation 12 % (20-50) Ferritin 106.9 ng/ml (8.0-388.0) Vitamin B12 Level 739 pg/mL (211-911) Folate > 24.00 ng/mL (>5.38) Problem Qualifiers (1) Depression: Depression Type: major depressive disorder Major depression recurrence: recurrent Major depression episode severity: severe Psychotic features: without psychotic features (2) Anemia: Anemia type: unspecified type Qualified Codes: D64.9 - Anemia, unspecified
--- NOTE | 2017-01-06 11:16 | Neurology Progress Notes ---
Neurology Progress Note Date of Service January 06, 2017. Subjective Patient himself feels a little bit better on Cogentin with a little less extra movements. He still has the leg symptoms, gait and incontinence issues. He has less rectal spasm issues. He had an MRI of the lumbar spine which showed postop changes and a fluid collection around the site of the surgery of uncertain etiology. I reviewed this with the patient. Objective Date Time Temp Pulse Resp B/P Pulse Ox O2 Delivery O2 Flow Rate FiO2 01/06/17 06:54 36.6 112 18 128/86 97 135/87 01/05/17 20:47 111 147/99 Imaging: MRI OF THE LUMBAR SPINE WITH AND WITHOUT CONTRAST CLINICAL HISTORY: Peripheral wasting, neurologic impingement. Back pain. COMPARISON STUDY: MRI of the lumbar spine July 20, 2016 and lumbar spine fluoroscopic images July 26, 2016. TECHNIQUE: Utilizing a 1.5 Drea magnet and dedicated coil, multiplanar, multiecho imaging of the lumbar spine was performed before and after uneventful IV administration of 7 mL of Gadavist. FINDINGS: For purposes of numbering on this exam, the L5-S1 disc space is assigned approximately 27 of 31. There is 4 mm of anterolisthesis of L4 and L5. There are postsurgical findings consistent with an L4-L5 decompression with an L4-L5 discectomy and interbody spacer placement. There is fluid signal within the disc. There is anterior slippage at the L4-L5 level which is new since MRI of July 20, 2016. The large disc extrusion shown on that exam is no longer visualized and has been resected. No intracanalicular fluid collection is present. There is increased T2 signal posterior to the L4 vertebral body which enhances. This favors scar tissue although phlegmon could appear similar. There is no rim enhancing fluid collection to suggest an epidural abscess. This extensive marrow signal abnormality within the L4 and L5 vertebral bodies which is nonspecific. There is slight erosion of the inferior endplate of L4 and superior endplate of L5. Conus terminates at the upper L1 level. L1-2: There is mild disc bulge. Central canal and neural foramen are patent. L2-3: There is displacement with disc bulge. There is patent central canal and neural foramen are patent. L3-4: There is disc space narrowing with disc bulge. There is mild narrowing of the central canal. L4-5: The central canal is patent. Neural foramen are suboptimal assessed since exam but there is suggestion of mild narrowing bilaterally. Postoperative findings are noted, as described above. L5-S1: Central canal and neural foramina patent. IMPRESSION: 1. Status post L4-L5 discectomy and posterior decompression. Extensive marrow signal abnormality within the L4 and L5 vertebral bodies with suspected mild erosion of the inferior endplate of L4 and superior endplate of L5 with small amount of fluid within the L4-L5 disc space. These findings are nonspecific and could reflect an infectious process with osteomyelitis/discitis. However, a sterile process such as reactive osteolysis could appear similar. Recommend correlation with clinical evidence for an infectious process. T2 hyperintense material posterior to the L4 vertebral body favors scar. Phlegmon could appear similar. No well-defined fluid collection to suggest epidural abscess. Mild multilevel central canal and neural foraminal stenosis. If progressive symptoms, short-term MRI follow-up is recommended. 2. Interval resection of the large disc extrusion shown on exam June 30, 2016. Interval development of mild anterolisthesis of L4 and L5 suggestive of slippage. Electronically signed by: Oswaldo Wilson M.D. 01/05/2017 11:29 AM Exam: He is awake and alert. Speech is without aphasia or dysarthria. He has no other abnormal involuntary movements around his lips or face, trunk or arms. He has some adduction movements of his legs intermittently. Strength is symmetrical in his arms and legs. Extraocular eye muscles are intact without nystagmus. Current Inpatient Medications Medications (Trade) Dose Ordered Sig/Colten Route Start Time Stop Time Status Last Admin Dose Admin Acetaminophen (Tylenol Tab) 650 mg Q4H PRN PO 01/01/17 02:30 01/31/17 02:29 Al Hydroxide/Mg Hydroxide (Maalox Susp) 30 ml Q4H PRN PO 01/01/17 02:30 01/31/17 02:29 Sodium Chloride ([place] Nasal [place]) PRN PRN NA 01/01/17 02:30 01/31/17 02:29 Hydroxyzine HCl (Vistaril Tab) 50 mg HSZ PRN PO 01/01/17 02:30 01/31/17 02:29 01/01/17 02:47 50 MG Hydroxyzine HCl (Vistaril Tab) 25 mg Q4H PRN PO 01/01/17 02:30 01/31/17 02:29 Metoprolol Tartrate (Lopressor Tab) 12.5 mg Q12 PO 01/01/17 09:00 01/31/17 08:59 01/06/17 09:40 12.5 MG Cephalexin Monohydrate (Keflex Cap) 500 mg BID PO 01/01/17 22:00 01/11/17 08:59 01/06/17 09:39 500 MG Ibuprofen (Advil Tab) 400 mg Q4 PRN PO 01/01/17 10:00 01/31/17 09:59 Lisinopril (Zestril Tab) 10 mg DAILY PO 01/02/17 09:00 02/01/17 08:59 01/06/17 09:41 10 MG Mirtazapine (Remeron Tab) 30 mg HS PO 01/01/17 22:00 01/31/17 21:59 01/05/17 21:04 30 MG Multivitamins/ Minerals (Multivitamin W/ Minerals Tab) 1 tab DAILY PO 01/02/17 09:00 02/01/17 08:59 01/06/17 09:40 1 TAB Naproxen (Naprosyn Tab) 750 mg BID PO 01/01/17 22:00 01/31/17 21:59 01/06/17 09:40 750 MG Polyethylene (Miralax Powder Packet) 17 gm DAILY PRN PO 01/01/17 10:00 01/31/17 09:59 01/04/17 11:01 17 GM Promethazine HCl (Phenergan Tab) 25 mg Q4H PRN PO 01/01/17 10:00 01/31/17 09:59 Tamsulosin HCl (Flomax Cap) 0.4 mg HS PO 01/01/17 22:00 01/31/17 21:59 01/05/17 21:03 0.4 MG Trazodone HCl (Desyrel Tab) 200 mg HS PO 01/01/17 22:00 01/31/17 21:59 01/05/17 21:03 200 MG Venlafaxine HCl (effeXOR EXTENDED REL CAP) 225 mg QAM PO 01/02/17 09:00 02/01/17 08:59 01/06/17 09:39 225 MG Cholecalciferol (Vitamin D Tab) 2,000 inter.unit DAILY PO 01/02/17 09:00 02/01/17 08:59 01/06/17 09:41 2,000 INTER.UNIT Diazepam (Valium Tab) 5 mg BID PO 01/03/17 22:00 02/02/17 21:59 01/06/17 09:40 5 MG Polyethylene (Miralax Powder Packet) 17 gm TID PO 01/04/17 22:00 02/03/17 21:59 01/06/17 09:44 17 GM Benztropine Mesylate (Cogentin Tab) 2 mg BID PO 01/05/17 09:00 02/04/17 08:59 01/06/17 09:39 2 MG Gadobutrol (Gadavist) 7 mmol UD PRN IV 01/05/17 11:15 01/09/17 11:14 Impression 1. Bowel incontinence and urinary retention These seem to have initiated the time of lumbar spine surgery in June 2016. Sacral radiculopathy is suspected. 2. Atrophy weakness and numbness in the distal lower legs bilaterally. Again this could be sacral radiculopathy. Skin changes are interesting and an early reflex sympathetic dystrophy may be present. MRI of the lumbar spine reveals postop changes and fluid changes within the disc within the operative site. There was some slippage of L4 on L5. There are no upper motor neuron signs on examination. He has no neurologic deficits referable to the neck or arms. 3. Abnormal involuntary movements, improved compared to yesterday on Cogentin These are dyskinesias and are variable. There may be a volitional component to some of these movements (exaggerating at times) but I'm convinced that at least some of these movements are real/pathologic. I suspect acute extrapyramidal reaction from Haldol. 4. Rectal spasms, improved. These are likely more related to the sacral nerve root problems stemming from his previous lumbar spine surgery. Plan 1. Agree with a consultation with Dr. Diaz, regarding the MRI of the spine. 2. I may consider EMG and nerve conduction studies of the legs, but this will be done as an outpatient 3. Continue Cogentin 1 mg twice a day, for now. 4. Hold on Haldol, tizanidine, and cyclobenzaprine for now. 5. Consider gabapentin if needed. I have no further neurologic workup patient's to make at this time. Please contact me if I can be of further assistance on this case. I can follow-up as an outpatient if desired.
--- NOTE | 2017-01-06 14:28 | DIAGNOSTIC IMAGING REPORT ---
LUMBAR SPINE CT CT DOSE: 675.07 mGy.cm HISTORY: Low back pain TECHNIQUE: Multiaxial CT images of the lumbar spine were performed and reformatted in the sagittal and coronal plane without the use of contrast. COMPARISON: Lumbar spine MRI 01/05/2017. FINDINGS: There is posterior decompression and fusion at L4-L5 with pedicle screws and rods. The hardware appears intact. There is mild periprosthetic lucency within the bilateral L4 pedicle screws and left L5 pedicle screw measuring up to 2 mm. Endplate sclerosis at L4-5 with associated endplate erosions. No significant bony fusion. The disc spacer is located along the posterior aspect of the disc space but does not extend into the central canal. There is up to 5 mm of anterolisthesis of L4-L5. Evaluation of the central canal including an epidural abnormality is essentially nondiagnostic due to the metallic artifact and due to the CT technique. There is paraspinal inflammatory change/edema at the L4-5 level. There is also a 1.7 cm low density right paraspinal structure best seen on axial image 284 of 411. This is better appreciated on the prior lumbar spine MRI which demonstrates a peripheral enhancing fluid collection. Therefore, this is highly suspicious for a small paraspinal abscess. There is mild central canal narrowing at the L2-L3 and L3-L4 levels. No acute fractures identified. Severe disc space narrowing at L2-L3 and moderate disc space narrowing at L3-L4 with associated mild central canal narrowing. IMPRESSION: Redemonstration of the posterior decompression and fusion at L4-L5 with pedicle screws and rods. There is mild periprosthetic lucency within the bilateral L4 pedicle screws and the left L5 pedicle screw. Endplate sclerosis and erosions at the L4-5 level is also noted. There is paraspinal soft tissue swelling/edema. In addition, there appears to be a 1.7 cm low density right paraspinal fluid collection at the L4-5 level. In retrospect, this is confirmed on yesterday's MRI and is highly suspicious for an abscess. Therefore, in conjunction with yesterday's MRI, these findings are highly suspicious for a discitis/osteomyelitis at the L4-5 level. Electronically signed by: Ryder Durand M.D. 01/06/2017 2:27 PM Dictated Date/Time: 01/06/2017 2:08 PM
[2017-01-06 20:45] VITALS: BP 141/90; PULSE 98
[2017-01-06] MEDS: TAMSULOSIN HCL 0.4 MG CAP PO SCH (21:01)
[2017-01-06] MEDS: TRAZODONE HCL 100 MG TAB PO SCH (21:01)
[2017-01-06] MEDS: MIRTAZAPINE TAB 15 MG TAB PO SCH (21:02)
--- NOTE | 2017-01-07 05:50 | GASTROINTESTINAL CONSULTATION ---
DATE OF CONSULTATION: 01/06/2017 GASTROINTESTINAL INPATIENT PROGRESS NOTE HISTORY OF PRESENT ILLNESS: The patient underwent imaging today that revealed a possible abscess in the lumbar spine region and has anticipated surgical debridement tomorrow by neurosurgery. There is also paraspinal soft tissue swelling that suggests an abscess. I did speak to the patient regarding his anemia. He has a brother who did have colorectal cancer at approximately the patient's current age. The patient himself has never had a colonoscopy, although seems to describe that he underwent a prep and a subsequent ultrasound for reasons unclear to me. The patient was using significant amount of naproxen recently and this may be contributing to his microcytic anemia. The patient is tolerating p.o. intake, has no abdominal pain and does not describe any bright red blood per rectum. LABORATORY STUDIES: His laboratory studies on 12/31/2016 showed a hemoglobin 11.5 with an MCV of 79.7. Platelets are slightly elevated at 470,000. His iron studies show evidence of low percent saturation at 12% and diminished iron studies, although the TIBC is also low suggesting possibly chronic disease. His BUN and creatinine are 11 and 0.6. Stools are heme positive. REVIEW OF SYSTEMS: Otherwise noncontributory based on 14-point exam except for mentioned above. He denies any nausea, vomiting, odynophagia, dysphagia, hematemesis or coffee-ground emesis and has not had any reports of weight loss. TSH level is low at 0.185, although free T4 is 1.23. B12 and folate levels are normal. LFTs are normal. PHYSICAL EXAMINATION: VITAL SIGNS: Today blood pressure 141/90, heart rate 98, he was afebrile this morning at 36.6, respirations 18. GENERAL: The patient is awake, alert and oriented. ABDOMEN: Soft, nontender, nondistended. Good bowel sounds. EXTREMITIES: Without edema. RECTAL: Deferred. HEENT: Sclerae are anicteric, conjunctiva moist. Oral mucosa moist. IMPRESSION: The patient will ultimately need upper endoscopy and colonoscopy either as an inpatient or an outpatient. I suspect that with his upcoming debridement, which is tentatively planned for tomorrow. The bowel prep may need to be postponed at least for several days until this area is treated. Ultimately, the patient is planning for transfer to medical service for continued care. We will observe over the weekend and if acceptable with everyone, we will plan tentatively for an upper endoscopy and colonoscopy perhaps sometime next week as prepping can be completed. Avoid NSAIDs and continue proton pump inhibitor therapy, which I currently do not see that the patient is on. All questions answered to the patient. I will continue to follow with you. At some point, a repeat H and H may be prudent. MTDD
[2017-01-07 07:08] VITALS: BP_SYST 117; BP_SYST 119; BP_DIAS 79; BP_DIAS 80; PULSE 103; PULSE 86; TEMP 36.6
[2017-01-07] MEDS: DIAZEPAM 5MG TAB PO SCH (09:00)
[2017-01-07] MEDS: CEROVITE ADV FORMULA TAB PO SCH (09:00)
[2017-01-07] MEDS: CHOLECALCIFEROL 1000 INTER.UNIT TAB PO SCH (09:00)
[2017-01-07] MEDS: VENLAFAXINE HCL XR 75 MG CAPXR PO SCH (09:00)
[2017-01-07] MEDS: POLYETHYLENE (MIRALAX) 17 GM PACK PO SCH ×2 (09:00→13:49)
[2017-01-07] MEDS: CEPHALEXIN MONOHYDRATE 500 MG CAP PO SCH (09:00)
[2017-01-07] MEDS: NAPROXEN 375 MG TAB PO SCH (09:00)
[2017-01-07] MEDS: BENZTROPINE MESYLATE 1 MG TAB PO SCH (09:42)
[2017-01-07] MEDS: METOPROLOL TARTRATE 25 MG TAB PO SCH (09:43)
[2017-01-07] MEDS: LISINOPRIL 10 MG TAB PO SCH (09:44)
--- NOTE | 2017-01-07 11:42 | CONSULTATION REPORT ---
DATE OF CONSULTATION: 01/07/2017 CHIEF COMPLAINT: Low back and rectal pain. HISTORY OF PRESENT ILLNESS: Mr. Blanca is a patient who is well known to our practice. He had previously undergone a lumbar decompression and fusion in June 2016. He had followed up with our office for 3 visits postoperatively and on those visits stated that he was doing relatively well. He has recently had more medical and health issues and has had difficulties with his psychotropic medications, had a recent UTI as well. He was admitted through the Emergency Room for mental health reasons. While he was admitted he was worked up for his rectal issues. An MRI of his lumbar spine was performed revealing possible infection. Today he states that he is having really no pain going down the legs, he always has pain of around 7 or 8/10, but nothing that is worse than normal. He has had a lot of involuntary tonic-clonic type motions which have improved since changing his medications. He had a fever about 10 days ago, but does not recall any fever recently. He has not developed any weakness in the lower extremities, any other numbness, tingling or paresthesias. He has had no problems to the incision, no drainage. PAST MEDICAL HISTORY: Significant for dyslipidemia, urinary tract infection, chronic lower back pain and hypertension. ALLERGIES: He has no listed drug allergies. MEDICATIONS: Include cephalexin, vitamin D3, Colace, Zestril, Lopressor, Remeron, Naproxen, Senokot, Flomax, tizanidine, trazodone, Effexor. He uses Flexeril, hydrocodone, ibuprofen, MiraLax and Phenergan as needed. FAMILY HISTORY: Significant for psychiatric history. He has had no recent alcohol consumption and he is a former smoker. REVIEW OF SYSTEMS: Negative except for what is in the HPI. PHYSICAL EXAMINATION: GENERAL: The patient is standing and walking with a walker. He does have some involuntary movements including movements of his mouth and arms. His incision was inspected and is benign. There is no erythema or drainage. MUSCULOSKELETAL: Lower extremity motor exam reveals no focal atrophy. Strength and sensation are both intact. He has full range of motion of the hips and knees. He is nontender about the back itself. He does not appear to be in any significant distress. ABDOMEN: Soft, nontender. EXTREMITIES: Calves are supple and nontender. CARDIOVASCULAR: Reveals no gross abnormalities. RADIOGRAPHIC IMAGES: MRI of the lumbar spine performed on 01/05/2017 is available for review. This reveals postoperative changes noted at the L4-L5 segment. Behind the L4 and L5 vertebral body ventral to the thecal sac there appears to be pockets of fluid that can represent epidural abscess. There is high signal in the bone as well which may represent loosening of the hardware. ASSESSMENT: Probable epidural abscess secondary to recent urinary tract infection. PLAN: At this point, the patient does have evidence of an epidural abscess. He is having pain primarily in the rectal region which may be irritation from the infection itself causing irritation to the caudal nerves. This also may be unrelated. He does have an elevated white blood cell count and a high platelet count consistent with infection as well. We believe this needs to be surgically debrided at this point as it does likely represent an abscess. We would want to obtain cultures as well. Our plan is to bring him to the operating room for an I\T\D, remove the old hardware as it does appear to be lucent and pack the area with local antibiotic beads and start him with IV antibiotics. We will need to move forward towards getting authorization for the procedure itself through his insurances and will proceed with surgical intervention. Discussed with patient and he agrees. He understands the risks and benefits of the procedure and wishes to proceed with the surgery.
--- NOTE | 2017-01-07 12:53 | PROGRESS NOTE ---
DATE: 01/07/2017 The patient appears to have infected hardware in his back with an epidural abscess and the plan is for this to be drained and the hardware removed. He has need for colonoscopy and EGD, but given the nature of this infection, we will postpone any endoscopic intervention for now as per Dr. Warner's yesterday. The plan is for him to have this back operation, and then depending on how he does through the weekend and early next week, we will hopefully be able to proceed with EGD and colonoscopy at sometime next week as an inpatient. We will continue to follow the patient during his hospital stay.
--- NOTE | 2017-01-07 13:54 | Psychiatric Progress Notes ---
Progress Note Date of Service January 07, 2017. Interval History 51 yo male admitted voluntarily on 01/01/17 with severe depression with suicidality and a plan to shoot himself. He has had multiple medical problems since back surgery last year with a severe decline in functionality. Chief Complaint None stated. Subjective Patient was seen & assessed interval progress reviewed with Treatment Team. Saw patient this AM and have been awaiting informations about scheduling I&D of back today. has been kept NPO since last night. He says that he is thankful to be getting the care and treatment of his medical conditions, but remains anxious about the process and the outcome. We discuss that the plan is for him to be admitted to medical after surgery, for IV ABX, and he voices understanding. He has been OOB, ambulating with his walker today. He continues to have rectal spasms and is overheard to be grunting with discomfort in his room. He says that his body dyskinesias are improved since starting on Cogentin. Non essential meds held this AM in view of NPO status, but if not going to surgery today will need to be given. Review of Systems Constitutional: + fatigue, + weakness ENT: + problem reported (dentures ill fitting) Respiratory: + cough, + dyspnea at rest, + dyspnea on exertion, + hemoptysis, + problem reported, + shortness of breath, + sputum, + wheezing Cardiovascular: No PND, No chest pain, No claudication, No edema, No orthopnea , No palpitations, No problem reported Abdomen: No GI bleeding, No constipation, No diarrhea, No nausea, No pain, No problem reported, No vomiting Musculoskeletal: + problem reported (Ambulates with walker, BLE weakness, no dyskinesias observed during the interview while he was laying in bed) Psychiatric: + anxiety, + depression symptoms Integumentary: No bleeding, No color change, No itch, No new/changing skin lesions, No problem reported, No rash Sleep Information Total Hours of Sleep: 7.50 Meal Information Percent of Breakfast Consumed: 0 Percent of Lunch Consumed: 0 Percent of Dinner Consumed: 100 Mental Status Exam During interview pt is: alert and oriented, cooperative Appearance: appropriately dressed, appropriately groomed, disheveled Eye contact is: good Motor behavior is: other (Orobuccal involuntary movement, arm/back/leg spasms improving, walks with walker) Speech: other (minimal, monotoned) Affect: depressed, flat Mood is: depressed, irritable Thought process: goal directed Thought content: reality based without delusions Suicidal thought are: present, Plan: present, Intent: denied Homicidal thoughts are: denied Hallucinations: denies auditory, denies visual Cognition: memory grossly intact, attention grossly intact Intelligence estimated to be: average Insight: impaired Judgement: impaired Impression Awaiting word from Dr. Diaz re: surgery today. if they are unable to get the procedure precerted he may need to remain on our service until this can be accomplished, and will need to get the meds held this AM. He has remained with SI during his hospital stay, but I do not think that he will need a 1:1 while on the medical floor, but should not be allowed to leave AMA. He has guns at home and these will need to be secured in view of the fact his SI involved shooting himself. Plan (1) Depression 01/01 -Previously diagnosed with schizoaffective disorder. Would like to explore this further and obtain outpatient [facility] -Will increase Effexor XR to 225 mg all morning. If worsens his muscle spasms will reduce and change agents -Increase Remeron to 30 mg at bedtime to benefit sleep -Every 15 minute checks for safety- -Encourage participation in group and individual counseling -Coordinate services with current outpatient providers 01/02 -Continue meds -Will need to secure guns from home -[facility] with the [facility] 01/04 -Continue current medications. 01/06 - Continue current meds as medical workups continue (2) Muscle spasm 01/01 -Self-report diagnosis of tardive dyskinesia having recently been taken off of Haldol. His presentation is somewhat confusing as he has full body muscle spasms or not necessarily congruent with TD. For now we will continue his anti- spasmodics but consider a trial of amantadine or tetrabenazine or an antiepileptic agent 01/02 - arm/leg/torso spasms improved, but orobuccal dyskinesias more pronounce. Consider a withdrawal dyskinesia as he has been off of haldol for just a week or more. 01/03 - Movements worse again today. Will trial Valium 5 mg. BID and if no improvement will consult neuro - Hold on PT/OT until above evaluated. 01/04 - Continue diazepam, as he reports improvement in muscle spasms. - Consult GI, as he is requesting to see somebody about constipation and muscle tightness in the rectal area. 01/06 - Improved with addition of Cogentin - Appreciate Dr. Contreras's input (3) Hypertension 01/01 -Monitor BP -Continue home doses of antihypertensive agents (4) Lumbar stenosis with neurogenic claudication 01/01 -Patient has not recently been using narcotics and so we'll continue use of NSAIDs -Patient will require the use of a walker for ambulation -Fall precautions -Coordinate with home health services referred at time of discharge on December 3101/05 - Appreciate neuro and GI consults - MRI lumbar spine with and without contrast - Will start Cogentin 2 mg. BID as suggested by neuro for muscle dyskinesias - Will DC flexeril and zanaflex since there is no evidence they are helping - consider a trial of neurontin 01/07 - Awaiting Dr. Diaz's word about I&D today. Will go to medical after for IV ABX - Will see whether dyskinesias in any way related to the L4-5 condition (5) Urinary tract infection 01/01 -Continue antibiotic as previously prescribed -Patient self caths Due to neurogenic bladder (6) Anemia 01/06 - Appreciate GI input - Patient willing for colonoscopy to explore GI blood loss. Will call Dr. Gamble to notify Has been reviewed with Dr. Josefina pham Discharge / Aftercare Planning Primary Care Physician: Name: Dr. Arthur at [place] Phone Number: [phone] Date of Appointment: January 14, 2017 Time of Appointment: 11:30am Psychiatrist: Name: Dr Llanes Psychiatrist - [facility] Phone Number: [phone] Date of Appointment: January 13, 2017 Time of Appointment: 8:30am [employer]: Name: Lety [facility]- [facility] Phone Number: [phone] Partial or Psych Rehab: Name: [facility] Appointment Notes: They will call you at home for start date. Home Health Services: Home Health Services: physical therapy, occupational therapy, home health agency Home Health Agency: [facility] Visit Code E&M Code: 09314 Inventory Assets Strengths: Willingness to engage in treatment, has outpatient providers Needs: Outpatient support Risk Factors Assessment Male: Yes : Yes /single/: Yes Higher / Fall in social status: Yes Health problems: Yes Mental Health Diagnoses: Yes Substance use disorders: No Previous attempt: No Previous psychiatric stay: Yes Smoker: Yes Protective Factors Assessment [employer] beliefs: No : No Responsible for young children: No Employed: No Stable relationships: No Supportive family: No Good rapport with provider: Yes Data Vital Signs Last 24 Hrs: Date Time Temp Pulse Resp B/P Pulse Ox O2 Delivery O2 Flow Rate FiO2 01/07/17 07:08 36.6 86 18 117/79 103 119/80 01/06/17 20:45 98 141/90 Meds Administered Last 24 Hrs: Meds Administered (Past 24Hrs) Medications (Trade) Dose Ordered Sig/Colten Route Start Time Stop Time Status Last Admin Dose Admin Diphenhydramine HCl (Benadryl Cap) 50 mg NOW ONCE PO 01/05/17 18:45 01/05/17 18:46 DC 01/05/17 18:46 50 MG Lab Results Last 24 Hrs: 12/31/16 21:00 12/31/16 21:00 Test 12/31/16 21:00 12/31/16 23:05 01/04/17 19:30 01/05/17 08:18 Red Blood Count 4.29 M/uL (4.7-6.1) Mean Corpuscular Volume 79.7 fL (80-100) Mean Corpuscular Hemoglobin 26.8 pg (25-34) Mean Corpuscular Hemoglobin Concent 33.6 g/dl (32-36) RDW Standard Deviation 45.7 fL (36.4-46.3) RDW Coefficient of Variation 15.7 % (11.5-14.5) Mean Platelet Volume 8.3 fL (7.4-10.4) Anion Gap 10.0 mmol/L (3-11) Est Creatinine Clear Calc Drug Dose 134.4 ml/min Estimated GFR () 128.8 Estimated GFR (Non- 111.2 BUN/Creatinine Ratio 16.2 (10-20) Calcium Level 9.2 mg/dl (8.5-10.1) Total Bilirubin 0.4 mg/dl (0.2-1) Aspartate Amino Transf (AST/SGOT) 14 U/L (15-37) Alanine Aminotransferase (ALT/SGPT) 24 U/L (12-78) Alkaline Phosphatase 93 U/L (45-117) Total Protein 7.4 gm/dl (6.4-8.2) Albumin 3.4 gm/dl (3.4-5.0) Globulin 4.0 gm/dl (2.5-4.0) Albumin/Globulin Ratio 0.9 (0.9-2) Thyroid Stimulating Hormone (TSH) 0.185 uIu/ml (0.300-4.500) Free Thyroxine 1.23 ng/dl (0.80-1.60) Salicylates Level 2.6 mg/dl (2.8-20) Acetaminophen Level < 2 ug/ml (10-30) Ethyl Alcohol mg/dL < 3.0 mg/dl (0-3) Urine Color YELLOW Urine Appearance CLEAR (CLEAR) Urine pH 7.0 (4.5-7.5) Urine Specific Speculator 1.007 (1.000-1.030) Urine Protein NEG (NEG) Urine Glucose (UA) NEG (NEG) Urine Ketones NEG (NEG) Urine Occult Blood NEG (NEG) Urine Nitrite NEG (NEG) Urine Bilirubin NEG (NEG) Urine Urobilinogen NEG (NEG) Urine Leukocyte Esterase NEG (NEG) Urine Opiates Screen NEG (NEG) Urine Methadone, Qualitative NEG (NEG) Urine Barbiturates NEG (NEG) Urine Phencyclidine (PCP) Level NEG (NEG) Ur Amphetamine/Methamphetamine NEG (NEG) MDMA (Ecstasy) Screen NEG (NEG) Urine Benzodiazepines Screen NEG (NEG) Urine Cocaine Metabolite NEG (NEG) Urine Marijuana (THC) NEG (NEG) Stool Occult Blood POSITIVE (NEGATIVE) Iron Level 32 mcg/dl (35-175) Total Iron Binding Capacity 247 mcg/dl (250-450) Transferrin 192 mg/dl (200-360) Transferrin % Saturation 12 % (20-50) Ferritin 106.9 ng/ml (8.0-388.0) Vitamin B12 Level 739 pg/mL (211-911) Folate > 24.00 ng/mL (>5.38) Problem Qualifiers (1) Depression: Depression Type: major depressive disorder Major depression recurrence: recurrent Major depression episode severity: severe Psychotic features: without psychotic features (2) Anemia: Anemia type: unspecified type Qualified Codes: D64.9 - Anemia, unspecified
[2017-01-07] MEDS ORDERED: VLM5 PO (14:04)
[2017-01-07] MEDS ORDERED: MIRT15TA3 PO (14:04)
[2017-01-07] MEDS ORDERED: BENZ-89 PO (14:04)
[2017-01-07] MEDS ORDERED: EFFSR75 PO (14:04)
--- NOTE | 2017-01-07 14:07 | Discharge Instructions ---
Discharge Information Report Includes Report will include the: Discharge Instructions & Summary Admission Admission Date / Time: January 01, 2017 at 01:32 Reason for Admission: Major Depression Discharge Discharge Diagnosis / Problem: Depression Condition at Discharge: Poor Discharge Goals Goal(s): Decrease discomfort, Improve disease control Activity Recommendations Activity Limitations: as noted below (Patient being transferred to med/surg for I&D and IV ABX) . Instructions / Follow-Up Instructions / Follow-Up . SPECIAL CARE INSTRUCTIONS: 1. Follow through with your scheduled aftercare appointments. If unable to keep an appointment, please call to reschedule. 2. Take your medication only as prescribed. Medication should not be changed or stopped without the approval of your doctor. In the event of worsening symptoms or concerns about side effects, contact your doctor immediately. 3. Utilize new healthy coping skills, anger management skills, and stress management skills learned during your hospitalization. Journal feelings and process them with a support person. Identify stressors or situations that may result in relapse, deterioration or inappropriate behaviors and develop a plan to deal with those issues. 4. If your coping skills are ineffective and you are in crisis, contact your outpatient providers for direction. If unable to reach your providers, please call the CAN HELP LINE AT or go to the closest Emergency Room. 5. Avoid alcohol and un-prescribed drugs. 6. You have been provided with the Mental Health Advance Directives Pamphlet for your review. AFTERCARE APPOINTMENTS: * Please call your insurance company prior to your scheduled appointment to confirm your aftercare providers are covered. Take your insurance information to your appointments. . Discharge / Aftercare Planning Primary Care Physician: Name: Dr. Arthur at [facility] Phone Number: [phone] Date of Appointment: January 14, 2017 Time of Appointment: 11:30am Psychiatrist: Name: Dr Llanes Psychiatrist - [facility] Phone Number: [phone] Date of Appointment: January 13, 2017 Time of Appointment: 8:30am Material Expediter: Name: Lety Saunders [facility] Phone Number: [phone] Partial or Psych Rehab: Name: [facility] Appointment Comments: They will call you at home for start date. Home Health Services: Home Health Services: physical therapy, occupational therapy, home health agency Home Health Agency: [facility] . Follow-Up Care Plan for Follow-Up Care: Transfer to med surg per Dr. Diaz Current Hospital Diet Patient's current hospital diet: Regular Diet Discharge Diet Recommended Diet: Regular Diet Procedures Procedures Performed: No Pending Studies Pending Studies at Discharge: No Medical Emergencies . Who to Call and When: Medical Emergencies: For questions or emergencies related to your hospital stay, please contact the Inpatient Behavioral Health Unit at [phone]. A mine patrol is on-call 21/03 for the Behavioral Health Unit for emergencies At any time you feel your situation is an emergency, you may also call 911 immediately. . Non-Emergent Contact Non-Emergency issues call your: Primary Care Provider, Psychiatrist Advance Directives Existing Advance Directive: No Do You Have an Existing Mental: No Existing Living Will: No Existing Power of 3D Modeler: No Advance Directives Info Given: To Pt/S.O. Advance Directives Reason: Declines as Mental Health Visit. Discharge Summary Admission HPI Per the Admitting provider: Jayesh Blanca is a 51-year-old man with a complicated medical history. He also receives psychiatric services through the [facility], currently seeing a Dr. Llanes. The patient has suffered with spinal stenosis and degenerative disc disease and in 2016 underwent spinal fusion surgery. He had complications from surgery, including loss of bowel and bladder function, now having to self cath. He went through a series of hospitalizations here at our hospital, to rehabilitation at [facility] and [facility]. He was discharged from his last nursing facility about one month ago and since then says that he has been doing "not good". He had gone from being functional to now having to use a walker to ambulate and has lost his "bathroom functions". He has help coming in to help him clean and as of this coming Tuesday, had been referred for in-home nursing care as well. He has no supports locally and so had struggled to be able to manage himself at home. He was in our hospital again from December 28 through December 31 for urinary tract infection and rectal spasm. He reports that he was recently on Haldol for the last month for sleep and [facility] due to "tardive dyskinesia.". He presents today with muscle spasms of his entire body , including involuntary mouth movements. He has poor memory for past med trials and does not seem to remember any previous antipsychotics. He reports his mood has been depressed since he was in [facility]. He found it difficult to be in a community of elderly demented people where he was the youngest person there. He has made no act on his suicidal thoughts and has just tried to prevent himself from acting. Over the last 2 weeks, his muscle spasms and jitteriness have become such a problem that he is unable to sleep. Yesterday, after having been discharged from the medical floor, he went home, could not sit still, had poor sleep and began to think more seriously about suicide. He apparently called can help who recommended he come to the emergency room for evaluation for inpatient treatment. Last night he reports no sleep at all, laying awake with the muscle spasms. He continues to feel severely depressed today with suicidal thoughts but no intent at this time. Again his sleep is severely impaired despite having been placed on Remeron recently. His energy is low, appetite is "not good". He notes that his appetite is better when he is in a structured environment like the hospital but at home struggles as he has to prepare his own food. His anxiety is "a lot" and has episodic panic attacks usually triggered by feeling overwhelmed. He describes his panic attacks as "intense". He denies that he has never had auditory or visual hallucinations although had previously seen Dr. Ruben Rao and had been diagnosed with schizoaffective disorder. He denies any current hallucinations delusions or ideas of reference. He denies history of self-injurious behaviors. He denies any history of eating disordered behaviors. He denies any discrete episodes of euphoric mood, sleeplessness or pleasure seeking behaviors. Hospital Course (1) Depression 5/6 -Previously diagnosed with schizoaffective disorder. Would like to explore this further and obtain outpatient [facility] director -Will increase Effexor XR to 225 mg all morning. If worsens his muscle spasms will reduce and change agents -Increase Remeron to 30 mg at bedtime to benefit sleep -Every 15 minute checks for safety- -Encourage participation in group and individual counseling -Coordinate services with current outpatient providers 01/02 -Continue meds -Will need to secure guns from home -[facility] with [facility] 01/04 -Continue current medications. 01/06 - Continue current meds as medical workups continue (2) Muscle spasm 01/01 -Self-report diagnosis of tardive dyskinesia having recently been taken off of Haldol. His presentation is somewhat confusing as he has full body muscle spasms or not necessarily congruent with TD. For now we will continue his anti- spasmodics but consider a trial of amantadine or tetrabenazine or an antiepileptic agent 01/02 - arm/leg/torso spasms improved, but orobuccal dyskinesias more pronounce. Consider a withdrawal dyskinesia as he has been off of haldol for just a week or more. 01/03 - Movements worse again today. Will trial Valium 5 mg. BID and if no improvement will consult neuro - Hold on PT/OT until above evaluated. 01/04 - Continue diazepam, as he reports improvement in muscle spasms. - Consult GI, as he is requesting to see somebody about constipation and muscle tightness in the rectal area. 01/06 - Improved with addition of Cogentin - Appreciate Dr. Contreras's input (3) Hypertension 01/01 -Monitor BP -Continue home doses of antihypertensive agents (4) Lumbar stenosis with neurogenic claudication 01/01 -Patient has not recently been using narcotics and so we'll continue use of NSAIDs -Patient will require the use of a walker for ambulation -Fall precautions -Coordinate with home health services referred at time of discharge on December 3101/05 - Appreciate neuro and GI consults - MRI lumbar spine with and without contrast - Will start Cogentin 2 mg. BID as suggested by neuro for muscle dyskinesias - Will DC flexeril and zanaflex since there is no evidence they are helping - consider a trial of neurontin 01/07 - Awaiting Dr. Diaz's word about I&D today. Will go to medical after for IV ABX - Will see whether dyskinesias in any way related to the L4-5 condition (5) Urinary tract infection 01/01 -Continue antibiotic as previously prescribed -Patient self caths Due to neurogenic bladder (6) Anemia 01/06 - Appreciate GI input - Patient willing for colonoscopy to explore GI blood loss. Will call Dr. Gamble to notify Risk Factors Assessment Male: Yes : Yes /single/: Yes Higher / Fall in social status: Yes Health problems: Yes Mental Health Diagnoses: Yes Substance use disorders: No Previous attempt: No Previous psychiatric stay: Yes Smoker: Yes Protective Factors Assessment Anabaptist beliefs: No : No Responsible for young children: No Employed: No Stable relationships: No Supportive family: No Good rapport with provider: Yes Day of Discharge Assessment Being transferred for I&D of back abscess and then to medical for IV ABX Laboratory Test 12/31/16 21:00 12/31/16 23:05 01/04/17 19:30 01/05/17 08:18 White Blood Count 11.46 Red Blood Count 4.29 Hemoglobin 11.5 Hematocrit 34.2 Mean Corpuscular Volume 79.7 Mean Corpuscular Hemoglobin 26.8 Mean Corpuscular Hemoglobin Concent 33.6 RDW Standard Deviation 45.7 RDW Coefficient of Variation 15.7 Platelet Count 470 Mean Platelet Volume 8.3 Sodium Level 141 Potassium Level 3.5 Chloride Level 109 Carbon Dioxide Level 22 Anion Gap 10.0 Blood Urea Nitrogen 11 Creatinine 0.66 Est Creatinine Clear Calc Drug Dose 134.4 Estimated GFR () 128.8 Estimated GFR (Non- 111.2 BUN/Creatinine Ratio 16.2 Random Glucose 87 Calcium Level 9.2 Total Bilirubin 0.4 Aspartate Amino Transferase (AST) 14 Alanine Aminotransferase (ALT) 24 Alkaline Phosphatase 93 Total Protein 7.4 Albumin 3.4 Globulin 4.0 Albumin/Globulin Ratio 0.9 Thyroid Stimulating Hormone (TSH) 0.185 Free Thyroxine 1.23 Salicylates Level 2.6 Acetaminophen Level < 2 Ethyl Alcohol mg/dL < 3.0 Urine Color YELLOW Urine Appearance CLEAR Urine pH 7.0 Urine Specific [place] 1.007 Urine Protein NEG Urine Glucose (UA) NEG Urine Ketones NEG Urine Occult Blood NEG Urine Nitrite NEG Urine Bilirubin NEG Urine Urobilinogen NEG Urine Leukocyte Esterase NEG Urine Opiates Screen NEG Urine Methadone, Qualitative NEG Urine Barbiturates NEG Urine Phencyclidine (PCP) Level NEG Ur Amphetamine/Methamphetamine NEG MDMA (Ecstasy) Screen NEG Urine Benzodiazepines Screen NEG Urine Cocaine Metabolite NEG Urine Marijuana (THC) NEG Stool Occult Blood POSITIVE Iron Level 32 Total Iron Binding Capacity 247 Transferrin 192 Transferrin % Saturation 12 Ferritin 106.9 Vitamin B12 Level 739 Folate > 24.00 Total Time Total Time Spent (min): Greater than 30 minutes Total Time Included: examination of the patient, discharge planning, medication reconciliation, communication with other providers Tobacco Cessation at Discharge Smoking Status: Former Smoker (has not had a cigarette in several days and is in the process of quitting) FDA approved Prescription: declined med & out pt counseling Problem Qualifiers (1) Depression: Depression Type: major depressive disorder Major depression recurrence: recurrent Major depression episode severity: severe Psychotic features: without psychotic features (2) Anemia: Anemia type: unspecified type Qualified Codes: D64.9 - Anemia, unspecified
[2017-01-07] MEDS ORDERED: FENTANYL CITRATE INJ 50 MCG/1 ML 2 ML VIAL IV PRN (15:00)
[2017-01-07] MEDS ORDERED: ONDANSETRON INJ 2 MG/ML 2 ML VIAL IV PRN (15:00)
[2017-01-07] MEDS ORDERED: ATROPINE SULFATE 0.1 MG/ML 5ML SYR IV PRN (15:00)
[2017-01-07] MEDS ORDERED: MEPERIDINE HCL 25 MG/ML CARP IV PRN (15:00)
[2017-01-07] MEDS ORDERED: EpHEDrine SULFATE INJ 50 MG/ML AMP IV PRN (15:00)
[2017-01-07] MEDS ORDERED: HYDROmorphone INJ 1 MG/ML SYR IV PRN (15:00)
[2017-01-07] MEDS ORDERED: LABETALOL HCL IV 5 MG/ML 20ML IV PRN (15:00)
--- NOTE | 2017-01-07 17:03 | DIAGNOSTIC IMAGING REPORT ---
LUMBAR SPINE, INTRAOPERATIVE FLUOROSCOPY HISTORY: Removal of hardware.. FLUOROSCOPY TIME: 15 seconds.. FINDINGS: Intraoperative fluoroscopy was provided for the lumbar spine. 2 fluoroscopic spot images were obtained. There is removal of the rods at the L4-5 level. IMPRESSION: Fluoroscopy provided for a removal of the L4-L5 spinal rods.. Electronically signed by: Ryder Durand M.D. 01/07/2017 5:02 PM Dictated Date/Time: 01/07/2017 5:01 PM
[2017-03-17] MEDS ORDERED: METO25TA56 PO (16:10)
[2017-03-17] MEDS ORDERED: TRAZ100T29 PO (16:10)
[2017-03-17] MEDS ORDERED: TAMS0.4C38 PO (16:10)
[2017-03-17] MEDS ORDERED: MULT-17 PO (16:10)
[2017-03-17] MEDS ORDERED: CHOL20007 PO (16:10)
[2017-03-17] MEDS ORDERED: IBUP-1459 PO (16:10)
[2017-03-17] MEDS ORDERED: HYDR-5688 PO (18:11)
[2017-03-17] MEDS ORDERED: NAPR-1221 PO (18:11)
[2017-03-17] MEDS ORDERED: LISI-461 PO (18:11)
[2017-03-23] MEDS ORDERED: RXC5 PO (13:44)
[2017-03-23] MEDS ORDERED: KFL500 PO (13:46)
== END 2017-01-07 14:10 | disposition home or self-care (01) | DRG 881 ==
LOC: ENRESERVDT → ENRESERVTM → EDBD 20:11 → C.EDA 20:14 → C.MHU 01-01 01:32
PROVIDERS: ADMIT Psychiatry & Neurology Child & Adolescent Psychiatry; ATTEND Psychiatry & Neurology Child & Adolescent Psychiatry
DX: F32.9 Major depressive disorder, single episode, unspecified (principal); R45.851 Suicidal ideations; N39.0 Urinary tract infection, site not specified; G24.9 Dystonia, unspecified; K59.4 Anal spasm; I10 Essential (primary) hypertension; M48.06 Spinal stenosis, lumbar region; D64.9 Anemia, unspecified; R33.9 Retention of urine, unspecified; Z79.899 Other long term (current) drug therapy; Z81.8 Family history of other mental and behavioral disorders; F17.200 Nicotine dependence, unspecified, uncomplicated

== ENCOUNTER 2017-01-07 14:21 | Inpatient (IN) | payer OTHER ==
[~2017-01-07] VITALS: Ht 180.3 cm; Wt 75.2 kg
[~2017-01-07 14:21] MED LIST changes: +BENZ-89 PO; +EFFSR75 PO; +VLM5 PO
--- NOTE | 2017-01-07 14:33 | History & Physical Bridge Note ---
H&P Re-Evaluation Bridge Note: I have examined the patient, reviewed the History & Physical and in the interval since the performance of the History & Physical I have noted the following changes of clinical significance: No changes noted I and D with possible removal and replacement of hardware
[2017-01-07] MEDS ORDERED: SODIUM CHLORIDE 0.9% PF 50 ML VIAL ONE (14:40)
[2017-01-07] MEDS ORDERED: BUPIVACAINE/EPINEPHRINE 0.5% MPF 1:200,000 30 ML VIAL ONE (14:40)
[2017-01-07] MEDS ORDERED: BACITRACIN 50000 UNIT VIAL ONE (14:40)
[2017-01-07] MEDS ORDERED: VANCOMYCIN HCL 1000MG/20ML VIAL ONE (14:41)
[2017-01-07] MEDS ORDERED: GENTAMICIN SULFATE 40 MG/ML 2 ML VIAL ONE (14:41)
[2017-01-07] MEDS ORDERED: ONDANSETRON INJ 2 MG/ML 2 ML VIAL IV PRN ×2 (15:00→16:45)
[2017-01-07] MEDS ORDERED: ATROPINE SULFATE 0.1 MG/ML 5ML SYR IV PRN (15:00)
[2017-01-07] MEDS ORDERED: EpHEDrine SULFATE INJ 50 MG/ML AMP IV PRN (15:00)
[2017-01-07] MEDS ORDERED: HYDROmorphone INJ 1 MG/ML SYR IV PRN (15:00)
[2017-01-07] MEDS ORDERED: FENTANYL CITRATE INJ 50 MCG/1 ML 2 ML VIAL IV PRN (15:00)
[2017-01-07] MEDS ORDERED: MEPERIDINE HCL 25 MG/ML CARP IV PRN (15:00)
[2017-01-07] MEDS ORDERED: LABETALOL HCL IV 5 MG/ML 20ML IV PRN (15:00)
[2017-01-07] MEDS ORDERED: FENTANYL CITRATE INJ 50 MCG/1 ML 2 ML VIAL ONE ×2 (15:09→16:46)
[2017-01-07] MEDS ORDERED: MIDAZOLAM HCL 1 MG/ML 2ML VIAL ONE (15:09)
[2017-01-07] MEDS ORDERED: HYDROmorphone INJ 2 MG/ML SYR/VIAL ONE (15:10)
[2017-01-07] MEDS ORDERED: DEXAMETHASONE SOD INJ 4 MG/ML VIAL ONE (16:17)
[2017-01-07] MEDS ORDERED: CEFAZOLIN SOD 1 GM VIAL ONE (16:17)
[2017-01-07] MEDS ORDERED: LIDOCAINE HCL 2% 2 ML VIAL (20MG/ML) ONE (16:17)
[2017-01-07] MEDS ORDERED: ONDANSETRON INJ 2 MG/ML 2 ML VIAL ONE (16:17)
[2017-01-07] MEDS ORDERED: ROCURONIUM BROMIDE 10 MG/ML 5 ML VIAL ONE (16:17)
[2017-01-07] MEDS ORDERED: PROPOFOL IV EMULSION 10 MG/ML 20 ML VIAL IV ONE (16:17)
[2017-01-07] MEDS ORDERED: NEOSTIGMINE METHYLSULFATE 1 MG/ML 10ML VIAL ONE (16:18)
[2017-01-07] MEDS ORDERED: GLYCOPYRROLATE INJ 0.2 MG/ML VIAL ONE (16:18)
--- NOTE | 2017-01-07 16:33 | [facility] Post Operative Brief Note ---
Immediate Operative Summary Operative Date January 07, 2017. Pre-Operative Diagnosis Epidural abscess Post-Operative Diagnosis Lumbar infection Procedure(s) Performed i and d Surgeon Dr. Diaz Geologist Surgeon(s) Chandrakant Reyna PA-C Estimated Blood Loss 40 Findings none Specimens Culture #1- L4 Vertebral body- aerobic and anaerobic specimen sent for culture and sensitivty, and gram stain Culture #2- L5 Vertebral Body- aerobic and anaerobic specimen sent for culture and sensitivy and gram stain Cultures sent from room at 1625. A: Removed hardware
[2017-01-07] MEDS ORDERED: FLOSEAL HEMOSTATIC MATRIX 10ML TOP ONE (16:35)
[2017-01-07] MEDS: BACITRACIN 50000 UNIT VIAL ONE ×2 (16:36→16:42)
[2017-01-07] MEDS ORDERED: PHENYLEPHRINE 100MCG/ML 5ML SYR ONE (16:40)
[2017-01-07] MEDS ORDERED: EpHEDrine SULFATE 50MG/5ML SYR ONE (16:40)
[2017-01-07] MEDS ORDERED: ACETAMINOPHEN 325 MG TAB PO PRN (16:45)
[2017-01-07] MEDS ORDERED: HYDROCODONE/ACETAMOPHEN 5/325MG TAB PO PRN (16:45)
[2017-01-07] MEDS ORDERED: DO NOT ADMINISTER FLU VACCINE PRN ×3 (16:45)
[2017-01-07] MEDS ORDERED: DO NOT ADMINISTER PNEUMOCOCCAL VACCINE PRN ×2 (16:45)
[2017-01-07] MEDS ORDERED: POLYETHYLENE (MIRALAX) 17 GM PACK PO PRN (16:45)
[2017-01-07] MEDS ORDERED: PROMETHAZINE HCL 25 MG TAB PO PRN (16:45)
[2017-01-07] MEDS ORDERED: MAGNESIUM HYDROXIDE SUSP 30 ML UDC PO PRN (16:45)
[2017-01-07] MEDS ORDERED: IBUPROFEN 200 MG TAB PO PRN (16:45)
--- NOTE | 2017-01-07 17:37 | Anesthesiology Progress Note ---
Anesthesia Post Op Note Date & Time January 07, 2017 at 17:37 Vital Signs Pain Intensity: 1 Vital Signs Past 12 Hours Date Time Temp Pulse Resp B/P Pulse Ox O2 Delivery O2 Flow Rate FiO2 01/07/17 17:20 36.5 95 18 111/68 100 Nasal Cannula 3 01/07/17 17:10 97 18 119/72 100 Nasal Cannula 3 01/07/17 17:00 102 18 120/75 100 Mask 10 01/07/17 16:50 36.6 109 18 135/78 100 Mask 10 01/07/17 14:43 36.7 99 20 118/79 99 Room Air Notes Mental Status: alert / awake / arousable, participated in evaluation Pt Amnestic to Procedure: Yes Nausea / Vomiting: adequately controlled Pain: adequately controlled Airway Patency, RR, SpO2: stable & adequate BP & HR: stable & adequate Hydration State: stable & adequate Anesthetic Complications: no major complications apparent
[2017-01-07 17:45] VITALS: BP 117/70; PULSE 95; TEMP 36.6; O2SAT 95
--- NOTE | 2017-01-07 17:49 | OPERATIVE REPORT ---
DATE OF OPERATION: 01/07/2017 PREOPERATIVE DIAGNOSIS: Infection at L4-L5 region, lumbar spine. POSTOPERATIVE DIAGNOSIS: Same. PROCEDURE PERFORMED: 1. I\T\D of lumbar spine with removal of instrumentation. 2. Placement of stimulating antibiotic beads in the posterolateral gutters. SURGEON: Dr. Xiang Diaz. AIR BOATSWAIN: Paul Reyna PA-C. Due to the complex nature of the procedure, the entire surgery was performed with the appeals assistant of Paul Reyna PA-C. The assistant laboratory director, under direct supervision, was involved in the actual performance of all aspects of the surgical procedure including hemostasis, tissue retraction and incision, instrument management, patient positioning, and wound closure. ANESTHESIA: General. DISPOSITION: The patient awakened and taken to PACU in stable condition. HISTORY OF PATIENT'S PROBLEMS: This is a 51-year-old male that we have consulted after being admitted to the hospital. Imaging of lumbar spine demonstrated evidence of abscess in the psoas musculature as well as evidence of osteomyelitis within the bone of L4-L5. There has been loss of height and slippage of the L4-L5 region. Subsequently, we elected to undergo I\T\D and obtain cultures of lumbar spine. Risks, benefits, pros, cons, and alternatives were outlined in detail preoperatively. DESCRIPTION OF PROCEDURE: The patient was met with preoperatively, case discussed and all questions were addressed. At that point, the patient was taken back to the operative suite and after undergoing successful general intubation by the department of anesthesia, he was placed in prone position on Chintan table atop Chidi frame. All bony prominences were well padded and the eyes were inspected to ensure there was no external pressure placed upon them. At this point, lumbar spine was prepped and draped in normal sterile fashion. Sharp dissection with the assistance of Bovie cautery was performed down to and exposing the instrumentation at the L4-L5 level. I then proceeded to remove the hardware bilaterally. We did stress the pedicle screws under live fluoro to assess for any motion across the L4-L5 level. None was appreciated and it was grossly with pressure determined to be fused. After the hardware was removed, we cultured both the L4 and L5 pedicles separately. After this was complete, we copiously irrigated with antibiotic solution and packed the pedicle holes and posterior gutters with stimulant combined with gentamicin and vancomycin. A 7 flat CARLOS drain was inserted. Incision was closed with 1-0 Vicryl in the fascia, 2-0 Vicryl subcutaneously, and 4-0 Monocryl for final skin closure. Steri-Strips and sterile dressing placed. The patient was awakened and taken to PACU in stable condition. I attest to the content of the Intraoperative Record and any orders documented therein. Any exceptio ns are noted below.
[2017-01-07 18:15] VITALS: BP 105/69; PULSE 94; TEMP 36.4; O2SAT 97
[2017-01-07 18:46] VITALS: BP 121/77; PULSE 90; TEMP 36.9; O2SAT 94
[2017-01-07 19:29] VITALS: Ht 180.3 cm; Wt 75.2 kg
[2017-01-07 19:50] VITALS: BP 115/67; PULSE 107; TEMP 36.7; O2SAT 95
[2017-01-07] MEDS: SODIUM CHLORIDE 0.9% 1000ML 1,000 ML IV SCH (20:29)
[2017-01-07] MEDS: DOCUSATE SODIUM 100 MG CAP PO SCH (20:33)
[2017-01-07] MEDS: BENZTROPINE MESYLATE 1 MG TAB PO SCH (20:34)
[2017-01-07] MEDS: TAMSULOSIN HCL 0.4 MG CAP PO SCH (20:36)
[2017-01-07] MEDS: METOPROLOL TARTRATE 25 MG TAB PO SCH (20:36)
[2017-01-07] MEDS: NAPROXEN 375 MG TAB PO SCH (20:37)
[2017-01-07] MEDS: TRAZODONE HCL 100 MG TAB PO SCH (20:38)
[2017-01-07] MEDS: MIRTAZAPINE TAB 15 MG TAB PO SCH (20:38)
[2017-01-07] MEDS: DIAZEPAM 5MG TAB PO SCH (20:40)
[2017-01-07 21:03] VITALS: BP 100/68; PULSE 96; TEMP 36.8; O2SAT 94
[2017-01-07] MEDS: CEFAZOLIN IV 2,000 MG in DEXTROSE 5% 50ML 50 ML IV SCH (22:11)
[2017-01-07 22:51] VITALS: BP 99/63; PULSE 89; TEMP 36.6; O2SAT 95
[2017-01-08] VITALS (7 sets, daily range): BP systolic 108–134; BP diastolic 63–82; PULSE 85–118; TEMP 36.2–36.9; O2SAT 92–99
[2017-01-08] MEDS: SODIUM CHLORIDE 0.9% 1000ML 1,000 ML IV SCH (05:23)
[2017-01-08] MEDS: CEFAZOLIN IV 2,000 MG in DEXTROSE 5% 50ML 50 ML IV SCH ×2 (05:23→13:09)
[2017-01-08] MEDS: DOCUSATE SODIUM 100 MG CAP PO SCH ×2 (09:20→20:59)
[2017-01-08] MEDS: LISINOPRIL 10 MG TAB PO SCH (09:20)
[2017-01-08] MEDS: METOPROLOL TARTRATE 25 MG TAB PO SCH ×2 (09:20→21:00)
[2017-01-08] MEDS: CEROVITE ADV FORMULA TAB PO SCH (09:21)
[2017-01-08] MEDS: NAPROXEN 375 MG TAB PO SCH ×2 (09:21→20:58)
[2017-01-08] MEDS: VENLAFAXINE HCL XR 75 MG CAPXR PO SCH (09:21)
[2017-01-08] MEDS: BENZTROPINE MESYLATE 1 MG TAB PO SCH ×2 (09:21→20:58)
[2017-01-08] MEDS: DIAZEPAM 5MG TAB PO SCH ×2 (09:25→21:05)
--- NOTE | 2017-01-08 10:18 | PROGRESS NOTE ---
DATE: 01/08/2017 DATE: 01/08/2017. SUBJECTIVE: Postop day 1. He states his back pain is well controlled. Denies any leg pain. Vital signs stable. T-max 36.7. CARLOS drained 45 mL over the last shift. Cultures are pending. ASSESSMENT: Status post incision and drainage lumbar spine, removal instrumentation and placement of antibiotic beads. PLAN: At this time, we will consult infectious disease. Will require medicine for his multiple medical issues. Hopefully, be able to discontinue the drain in the next few days. I will have discussion with medicine regarding transfer to the medical service. He came under my service more on an urgent basis so that we would be able to move forward with surgery secondary to hospital protocols and transferring from the behavioral unit to the regular hospital floor.
[2017-01-08] MEDS: HYDROmorphone INJ 1 MG/ML SYR IV PRN ×2 (15:15→19:13)
--- NOTE | 2017-01-08 16:49 | Medical Consult ---
Consultation Date of Consultation: January 08, 2017. Attending Physician: Xiang Diaz D.O. Reason for Consultation: Medical mgt History of Present Illness Pt is a 51 yr old man with a Pmh significant for HTN, Schizoaffective disorder, Back pain admitted to the Orthopedic floor s/p surgery on January 07 following spine surgery for infection. DATE OF OPERATION: 01/07/2017 PREOPERATIVE DIAGNOSIS: Infection at L4-L5 region, lumbar spine. POSTOPERATIVE DIAGNOSIS: Same. PROCEDURE PERFORMED: 1. I\T\D of lumbar spine with removal of instrumentation. 2. Placement of stimulating antibiotic beads in the posterolateral gutters. SURGEON: Dr. Xiang Diaz. Post op course had been uneventful. Pt denies any cardio resp symptoms. Past Medical/Surgical History Medical Problems: (1) Ambulatory dysfunction Status: Acute (2) Ambulatory dysfunction Status: Acute (3) Back pain Status: Acute (4) Constipation due to opioid therapy Status: Acute (5) Dystonic drug reaction Status: Acute (6) Fall Status: Acute (7) Lactic acidosis Status: Acute (8) Self-care deficit in patient living alone Status: Acute (9) SIRS (systemic inflammatory response syndrome) Status: Acute (10) Subcapital fracture of left hip Status: Acute (11) Suicidal ideation Status: Acute (12) Suicidal ideation Status: Acute (13) Thought disorder Status: Acute (14) UTI (urinary tract infection) Status: Acute Family History Depression Social History Smoking Status: Former Smoker Drug Use: none Marital Status: single Housing Status: lives alone, intermediate Occupation Status: unemployed, disabled Allergies Coded Allergies: No Known Allergies (Verified , 12/31/16) Current Inpatient Medications Current Inpatient Medications Medications (Trade) Dose Ordered Sig/Colten Route Start Time Stop Time Status Last Admin Dose Admin Magnesium Hydroxide (Milk Of Magnesia Susp) 30 ml DAILY PRN PO 01/07/17 16:45 02/06/17 16:44 Docusate Sodium (coLACE CAP) 100 mg BID PO 01/07/17 21:00 02/06/17 20:59 01/08/17 09:20 100 MG Acetaminophen (Tylenol Tab) 650 mg Q6H PRN PO 01/07/17 16:45 02/06/17 16:44 Ondansetron HCl (Zofran Inj) 4 mg Q6 PRN IV 01/07/17 16:45 02/06/17 16:44 Pneumococcal Polysaccharide Vaccine 1 ea PRN PRN N/A 01/07/17 16:45 02/06/17 16:44 Influenza Virus Vacc Triv Types A&B 1 ea 1 ea PRN PRN N/A 01/07/17 16:45 02/06/17 16:44 Sodium Chloride (Nss 1000ml) 1,000 ml @ 80 mls/hr [id number] IV 01/07/17 18:15 01/08/17 18:14 01/08/17 05:23 80 MLS/HR Oxycodone HCl (Roxicodone Immediate Rel Tab) 5 mg Q4H PRN PO 01/07/17 16:45 01/21/17 16:44 Hydromorphone HCl (Dilaudid Inj) 1 mg Q3H PRN IV 01/07/17 16:45 01/21/17 16:44 01/08/17 15:15 1 MG Polyethylene (Miralax Powder Packet) 17 gm DAILY PO 01/09/17 09:00 02/08/17 08:59 Bisacodyl (Dulcolax Tab) 5 mg DAILY PRN PO 01/09/17 06:00 02/08/17 05:59 Bisacodyl (Dulcolax Supp) 10 mg DAILY PRN SC 01/09/17 06:00 02/08/17 05:59 Benztropine Mesylate (Cogentin Tab) 2 mg BID PO 01/07/17 21:00 02/06/17 20:59 01/08/17 09:21 2 MG Diazepam (Valium Tab) 5 mg BID PO 01/07/17 21:00 02/06/17 20:59 01/08/17 09:25 5 MG Acetaminophen/ Hydrocodone Bitart ([place] 5/325 Tab) 1 tab BID PRN PO 01/07/17 16:45 01/21/17 16:44 Future Hold Ibuprofen (Advil Tab) 400 mg Q4 PRN PO 01/07/17 16:45 02/06/17 16:44 Lisinopril (Zestril Tab) 10 mg DAILY PO 01/08/17 09:00 02/07/17 08:59 01/08/17 09:20 10 MG Metoprolol Tartrate (Lopressor Tab) 12.5 mg Q12 PO 01/07/17 21:00 02/06/17 20:59 01/08/17 09:20 12.5 MG Mirtazapine (Remeron Tab) 30 mg HS PO 01/07/17 21:00 02/06/17 20:59 01/07/17 20:38 30 MG Multivitamins/ Minerals (Multivitamin W/ Minerals Tab) 1 tab DAILY PO 01/08/17 09:00 02/07/17 08:59 01/08/17 09:21 1 TAB Naproxen (Naprosyn Tab) 750 mg BID PO 01/07/17 21:00 02/06/17 20:59 01/08/17 09:21 750 MG Polyethylene (Miralax Powder Packet) 17 gm DAILY PRN PO 01/07/17 16:45 02/06/17 16:44 Promethazine HCl (Phenergan Tab) 25 mg Q4H PRN PO 01/07/17 16:45 02/06/17 16:44 Tamsulosin HCl (Flomax Cap) 0.4 mg HS PO 01/07/17 21:00 02/06/17 20:59 01/07/17 20:36 0.4 MG Trazodone HCl (Desyrel Tab) 200 mg HS PO 01/07/17 21:00 02/06/17 20:59 01/07/17 20:38 200 MG Venlafaxine HCl (effeXOR EXTENDED REL CAP) 225 mg QAM PO 01/08/17 09:00 02/07/17 08:59 01/08/17 09:21 225 MG Review of Systems Constitutional: + weakness Eyes: No diplopia, No discharge, No eye pain, No problem reported, No redness, No worsening of vision ENT: No dental problems, No hearing loss, No nasal symptoms, No problem reported, No sore throat, No tinnitus, No trouble swallowing, No unusual epistaxis Respiratory: No cough, No dyspnea at rest, No dyspnea on exertion, No hemoptysis, No problem reported, No shortness of breath, No sputum, No wheezing Cardiovascular: No PND, No chest pain, No claudication, No edema, No orthopnea , No palpitations, No problem reported Abdomen: No GI bleeding, No constipation, No diarrhea, No nausea, No pain, No problem reported, No vomiting Musculoskeletal: No calf pain, No joint pain, No muscle pain, No problem reported, No swelling Genitourinary - Male: No dysuria, No hematuria, No impotence, No lesions, No penile discharge, No problem reported, No urinary frequency, No urinary hesitancy, No urinary incontinence, No urinary retention, No urinary urgency Neurologic: No balance problems, No memory loss, No numbness/tingling, No paralysis, No problem reported, No vertigo, No weakness Endocrine: No excessive thirst, No excessive urination, No fatigue, No problem reported Hematologic / Lymphatic: No abnormal bleeding/bruising, No clotting problems, No night sweats, No problem reported, No swollen lymph nodes Integumentary: No bleeding, No color change, No itch, No new/changing skin lesions, No problem reported, No rash Physical Exam Date Time Temp Pulse Resp B/P Pulse Ox O2 Delivery O2 Flow Rate FiO2 01/08/17 15:58 36.9 85 16 123/73 92 Room Air 01/08/17 11:36 36.8 91 18 134/81 99 Room Air 01/08/17 09:30 Room Air 01/08/17 08:00 36.7 86 16 129/82 97 Room Air 01/08/17 04:32 Room Air 01/08/17 03:51 100 01/08/17 03:41 36.7 118 18 108/63 94 Room Air 01/08/17 00:30 Room Air 01/07/17 22:51 36.6 89 16 99/63 95 Room Air 01/07/17 21:03 36.8 96 16 100/68 94 Room Air 01/07/17 19:50 36.7 107 16 115/67 95 Room Air 01/07/17 19:29 Room Air 01/07/17 18:46 36.9 90 16 121/77 94 Room Air 01/07/17 18:15 36.4 94 16 105/69 97 Room Air 01/07/17 17:45 36.6 95 16 117/70 95 Room Air 01/07/17 17:20 36.5 95 18 111/68 100 Nasal Cannula 3 01/07/17 17:10 97 18 119/72 100 Nasal Cannula 3 01/07/17 17:00 102 18 120/75 100 Mask 10 01/07/17 16:50 36.6 109 18 135/78 100 Mask 10 General Appearance: WD/WN Head: normocephalic Eyes: normal inspection, PERRL ENT: normal ENT inspection, hearing grossly normal Neck: supple, no adenopathy, no JVD Respiratory/Chest: chest non-tender, lungs clear Cardiovascular: regular rate, rhythm, no edema, no JVD, no murmur Abdomen/GI: normal bowel sounds, non tender, soft Back: + pertinent finding (dressing at surgical site) 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 Resulted Assessment & Plan s/p 1. I\T\D of lumbar spine with removal of instrumentation. 2. Placement of stimulating antibiotic beads in the posterolateral gutters Mgt per Orthopedics. Follow up on cultures. Received IV Cefazolin. Hx of HTN Monitor Bp trend.Currently on lisinopril and metoprolol. Hx of schizoaffective disorder Consult Psychiatry. DVT prophylaxis. Recommend SCDs.
--- NOTE | 2017-01-08 18:03 | Psychiatric Progress Notes ---
Psychiatric Progress Note Date of Service January 08, 2017. Notes patient was discharged from mental health for a medically necessary procedure, he had not yet completed his course of treatment. There are outstanding issues related to multiple guns in his residence and he was expressing SI (no intent or plan in hospital). Will ask liaison to communicate with primary service re: consult/need for clinician to reassess MSE prior to any discharge from [facility].
--- NOTE | 2017-01-08 18:07 | Medical Consult ---
Consultation Date of Consultation: January 08, 2017. Attending Physician: Xiang Diaz D.O. Reason for Consultation: Deep lumbar infection History of Present Illness 51-year-old male with history of hypertension and schizoaffective disorder, status post lumbar surgery, now presents with evidence of psoas abscess, lumbar diskitis and osteomyelitis, patient is now undergone surgical debridement, removal of hardware, and treatment with IV vancomycin. Surgical cultures are pending. Patient has not had any significant fever chills. Tolerating antibiotics without apparent difficulty thus far. Past Medical/Surgical History Medical Problems: (1) Ambulatory dysfunction Status: Acute (2) Ambulatory dysfunction Status: Acute (3) Back pain Status: Acute (4) Constipation due to opioid therapy Status: Acute (5) Dystonic drug reaction Status: Acute (6) Fall Status: Acute (7) Lactic acidosis Status: Acute (8) Self-care deficit in patient living alone Status: Acute (9) SIRS (systemic inflammatory response syndrome) Status: Acute (10) Subcapital fracture of left hip Status: Acute (11) Suicidal ideation Status: Acute (12) Suicidal ideation Status: Acute (13) Thought disorder Status: Acute (14) UTI (urinary tract infection) Status: Acute Medical Problems: (1) Abscess in epidural space of lumbar spine (2) Altered mental status (3) Anemia (4) Anxiety (5) Chronic low back pain (6) Depression (7) Dyslipidemia (8) Hip fracture, left (9) Hypertension (10) Infection of lumbar spine (11) Insomnia (12) Intervertebral disc rupture (13) Lumbar stenosis with neurogenic claudication (14) Mood disorder (15) Muscle spasm (16) past psych meds (17) Schizoaffective disorder (18) Tobacco abuse (19) Urinary retention (20) Urinary tract infection Surgical Problems: (1) History of repair of hip fracture Family History Depression Social History Smoking Status: Former Smoker Drug Use: none Marital Status: single Housing Status: lives alone, jail Occupation Status: unemployed, disabled Allergies Coded Allergies: No Known Allergies (Verified , 12/31/16) Current Inpatient Medications Current Inpatient Medications Medications (Trade) Dose Ordered Sig/Colten Route Start Time Stop Time Status Last Admin Dose Admin Magnesium Hydroxide (Milk Of Magnesia Susp) 30 ml DAILY PRN PO 01/07/17 16:45 02/06/17 16:44 Docusate Sodium (coLACE CAP) 100 mg BID PO 01/07/17 21:00 02/06/17 20:59 01/08/17 09:20 100 MG Acetaminophen (Tylenol Tab) 650 mg Q6H PRN PO 01/07/17 16:45 02/06/17 16:44 Ondansetron HCl (Zofran Inj) 4 mg Q6 PRN IV 01/07/17 16:45 02/06/17 16:44 Pneumococcal Polysaccharide Vaccine 1 ea PRN PRN N/A 01/07/17 16:45 02/06/17 16:44 Influenza Virus Vacc Triv Types A&B 1 ea 1 ea PRN PRN N/A 01/07/17 16:45 02/06/17 16:44 Sodium Chloride (Nss 1000ml) 1,000 ml @ 80 mls/hr [id number] IV 01/07/17 18:15 01/08/17 18:14 01/08/17 05:23 80 MLS/HR Oxycodone HCl (Roxicodone Immediate Rel Tab) 5 mg Q4H PRN PO 01/07/17 16:45 01/21/17 16:44 Hydromorphone HCl (Dilaudid Inj) 1 mg Q3H PRN IV 01/07/17 16:45 01/21/17 16:44 01/08/17 15:15 1 MG Polyethylene (Miralax Powder Packet) 17 gm DAILY PO 01/09/17 09:00 02/08/17 08:59 Bisacodyl (Dulcolax Tab) 5 mg DAILY PRN PO 01/09/17 06:00 02/08/17 05:59 Bisacodyl (Dulcolax Supp) 10 mg DAILY PRN MI 01/09/17 06:00 02/08/17 05:59 Benztropine Mesylate (Cogentin Tab) 2 mg BID PO 01/07/17 21:00 02/06/17 20:59 01/08/17 09:21 2 MG Diazepam (Valium Tab) 5 mg BID PO 01/07/17 21:00 02/06/17 20:59 01/08/17 09:25 5 MG Acetaminophen/ Hydrocodone Bitart ([place] 5/325 Tab) 1 tab BID PRN PO 01/07/17 16:45 01/21/17 16:44 Future Hold Ibuprofen (Advil Tab) 400 mg Q4 PRN PO 01/07/17 16:45 02/06/17 16:44 Lisinopril (Zestril Tab) 10 mg DAILY PO 01/08/17 09:00 02/07/17 08:59 01/08/17 09:20 10 MG Metoprolol Tartrate (Lopressor Tab) 12.5 mg Q12 PO 01/07/17 21:00 02/06/17 20:59 01/08/17 09:20 12.5 MG Mirtazapine (Remeron Tab) 30 mg HS PO 01/07/17 21:00 02/06/17 20:59 01/07/17 20:38 30 MG Multivitamins/ Minerals (Multivitamin W/ Minerals Tab) 1 tab DAILY PO 01/08/17 09:00 02/07/17 08:59 01/08/17 09:21 1 TAB Naproxen (Naprosyn Tab) 750 mg BID PO 01/07/17 21:00 02/06/17 20:59 01/08/17 09:21 750 MG Polyethylene (Miralax Powder Packet) 17 gm DAILY PRN PO 01/07/17 16:45 02/06/17 16:44 Promethazine HCl (Phenergan Tab) 25 mg Q4H PRN PO 01/07/17 16:45 02/06/17 16:44 Tamsulosin HCl (Flomax Cap) 0.4 mg HS PO 01/07/17 21:00 02/06/17 20:59 01/07/17 20:36 0.4 MG Trazodone HCl (Desyrel Tab) 200 mg HS PO 01/07/17 21:00 02/06/17 20:59 01/07/17 20:38 200 MG Venlafaxine HCl (effeXOR EXTENDED REL CAP) 225 mg QAM PO 01/08/17 09:00 02/07/17 08:59 01/08/17 09:21 225 MG Review of Systems all systems were reviewed and are negative except as per HPI Physical Exam Date Time Temp Pulse Resp B/P Pulse Ox O2 Delivery O2 Flow Rate FiO2 01/08/17 16:00 92 Room Air 01/08/17 15:58 36.9 85 16 123/73 92 Room Air 01/08/17 11:36 36.8 91 18 134/81 99 Room Air 01/08/17 09:30 Room Air 01/08/17 08:00 36.7 86 16 129/82 97 Room Air 01/08/17 04:32 Room Air 01/08/17 03:51 100 01/08/17 03:41 36.7 118 18 108/63 94 Room Air 01/08/17 00:30 Room Air 01/07/17 22:51 36.6 89 16 99/63 95 Room Air 01/07/17 21:03 36.8 96 16 100/68 94 Room Air 01/07/17 19:50 36.7 107 16 115/67 95 Room Air 01/07/17 19:29 Room Air 01/07/17 18:46 36.9 90 16 121/77 94 Room Air 01/07/17 18:15 36.4 94 16 105/69 97 Room Air General Appearance: WD/WN, no apparent distress Head: normocephalic, atraumatic Eyes: normal inspection, EOMI, sclerae normal ENT: normal ENT inspection, hearing grossly normal, pharynx normal Neck: supple, no adenopathy, trachea midline Respiratory/Chest: chest non-tender, lungs clear, normal breath sounds, no respiratory distress Cardiovascular: regular rate, rhythm, no gallop, no murmur Abdomen/GI: normal bowel sounds, non tender, soft, no organomegaly Back: normal inspection, no CVA tenderness Extremities/Musculoskelatal: no calf tenderness, normal capillary refill Neurologic/Psych: alert, oriented x 3 Skin: normal color, warm/dry, no rash, + pertinent finding ( Surgical dressing intact) Lymphatic: no adenopathy Laboratory Results RUN DATE: 01/08/17 [facility] PAGE 1 RUN TIME: 1322 Specimen Inquiry PATIENT: LILYDAKOTA [place] LOC: [facility] U # : [id number] AGE/SX: 51/M ROOM: 88 REG : 01/07/[address]: Xiang Diaz D.O. : 1965 BED: 2 DIS : STATUS: ADM IN TLOC: SPEC #: [id number] JADEN: 01/07/17 STATUS: RES REQ #: [id number] RECD: 01/07/[address]: Xiang Diaz D.O. SOURCE: INC.SITE ENTR: 01/07/[address]: Stephan Escobedo M.D. SPDESC: Dakota Gandara D.O. ORDERED: ELOY/TIM CULTSMR COMMENTS: L5 VERTEBRAL BODY Procedure Result Verified Site GRAM STAIN Final 01/08/17-0851 RESULT RARE WBCs SEEN NO ORGANISMS SEEN OR AER/TIM CULT Preliminary 01/08/17-1322 NO GROWTH TO DATE. MRI OF THE LUMBAR SPINE WITH AND WITHOUT CONTRAST CLINICAL HISTORY: Peripheral wasting, neurologic impingement. Back pain. COMPARISON STUDY: MRI of the lumbar spine July 20, 2016 and lumbar spine fluoroscopic images July 26, 2016. TECHNIQUE: Utilizing a 1.5 Drea magnet and dedicated coil, multiplanar, multiecho imaging of the lumbar spine was performed before and after uneventful IV administration of 7 mL of Gadavist. FINDINGS: For purposes of numbering on this exam, the L5-S1 disc space is assigned approximately 27 of 31. There is 4 mm of anterolisthesis of L4 and L5. There are postsurgical findings consistent with an L4-L5 decompression with an L4-L5 discectomy and interbody spacer placement. There is fluid signal within the disc. There is anterior slippage at the L4-L5 level which is new since MRI of July 20, 2016. The large disc extrusion shown on that exam is no longer visualized and has been resected. No intracanalicular fluid collection is present. There is increased T2 signal posterior to the L4 vertebral body which enhances. This favors scar tissue although phlegmon could appear similar. There is no rim enhancing fluid collection to suggest an epidural abscess. This extensive marrow signal abnormality within the L4 and L5 vertebral bodies which is nonspecific. There is slight erosion of the inferior endplate of L4 and superior endplate of L5. Conus terminates at the upper L1 level. L1-2: There is mild disc bulge. Central canal and neural foramen are patent. L2-3: There is displacement with disc bulge. There is patent central canal and neural foramen are patent. L3-4: There is disc space narrowing with disc bulge. There is mild narrowing of the central canal. L4-5: The central canal is patent. Neural foramen are suboptimal assessed since exam but there is suggestion of mild narrowing bilaterally. Postoperative findings are noted, as described above. L5-S1: Central canal and neural foramina patent. IMPRESSION: 1. Status post L4-L5 discectomy and posterior decompression. Extensive marrow signal abnormality within the L4 and L5 vertebral bodies with suspected mild erosion of the inferior endplate of L4 and superior endplate of L5 with small amount of fluid within the L4-L5 disc space. These findings are nonspecific and could reflect an infectious process with osteomyelitis/discitis. However, a sterile process such as reactive osteolysis could appear similar. Recommend correlation with clinical evidence for an infectious process. T2 hyperintense material posterior to the L4 vertebral body favors scar. Phlegmon could appear similar. No well-defined fluid collection to suggest epidural abscess. Mild multilevel central canal and neural foraminal stenosis. If progressive symptoms, short-term MRI follow-up is recommended. 2. Interval resection of the large disc extrusion shown on exam June 30, 2016. Interval development of mild anterolisthesis of L4 and L5 suggestive of slippage. Electronically signed by: Oswaldo Wilson M.D. 01/05/2017 11:29 AM Dictated Date/Time: 01/05/2017 11:11 AM Assessment & Plan now in safe 51-year-old male status post lumbar surgery now with deep lumbar infection with possible diskitis, vertebral osteomyelitis, status post removal of hardware and debridement, cultures are pending. Current antibiotic therapy appropriate pending final culture results. Patient will likely require prolonged IV therapy, will be based on culture results. Will follow.
[2017-01-08] MEDS: TAMSULOSIN HCL 0.4 MG CAP PO SCH (20:58)
[2017-01-08] MEDS: MIRTAZAPINE TAB 15 MG TAB PO SCH (21:01)
[2017-01-08] MEDS: TRAZODONE HCL 100 MG TAB PO SCH (21:01)
[2017-01-09] MEDS ORDERED: BISACODYL 10 MG SUPP PR PRN (06:00)
[2017-01-09] MEDS ORDERED: BISACODYL 5 MG TABEC PO PRN (06:00)
[2017-01-09 07:58] VITALS: BP 122/68; PULSE 73; TEMP 36.7; O2SAT 96
[2017-01-09] MEDS: DIAZEPAM 5MG TAB PO SCH ×2 (09:15→20:52)
[2017-01-09] MEDS: OXYCODONE HCL IR 5 MG TAB (IMMEDIATE RELEASE) PO PRN ×2 (09:16→12:54)
[2017-01-09] MEDS: METOPROLOL TARTRATE 25 MG TAB PO SCH ×2 (09:19→20:53)
[2017-01-09] MEDS: CEROVITE ADV FORMULA TAB PO SCH (09:19)
[2017-01-09] MEDS: DOCUSATE SODIUM 100 MG CAP PO SCH ×2 (09:20→20:53)
[2017-01-09] MEDS: VENLAFAXINE HCL XR 75 MG CAPXR PO SCH (09:20)
[2017-01-09] MEDS: POLYETHYLENE (MIRALAX) 17 GM PACK PO SCH (09:21)
[2017-01-09] MEDS: BENZTROPINE MESYLATE 1 MG TAB PO SCH ×2 (09:21→20:57)
[2017-01-09] MEDS: LISINOPRIL 10 MG TAB PO SCH (09:22)
[2017-01-09] MEDS: NAPROXEN 375 MG TAB PO SCH ×2 (09:22→20:55)
--- NOTE | 2017-01-09 11:07 | Hospitalist Progress Note ---
Hospitalist Progress Note Date of Service January 09, 2017. Subjective Pt evaluation today including: conversation w/ patient Medications Medications (Trade) Dose Ordered Sig/Colten Route Start Time Stop Time Status Last Admin Dose Admin Polyethylene (Miralax Powder Packet) 17 gm DAILY PO 01/09/17 09:00 02/08/17 08:59 01/09/17 09:21 17 GM Objective Vital Signs Date Time Temp Pulse Resp B/P Pulse Ox O2 Delivery O2 Flow Rate FiO2 01/09/17 10:52 Room Air 01/09/17 07:58 36.7 73 16 122/68 96 Room Air 01/08/17 23:25 Room Air 01/08/17 22:45 36.2 114 18 109/73 96 Room Air 01/08/17 16:00 92 Room Air 01/08/17 15:58 36.9 85 16 123/73 92 Room Air 01/08/17 11:36 36.8 91 18 134/81 99 Room Air Physical Exam General Appearance: WD/WN Eyes: normal inspection ENT: normal ENT inspection Neck: supple Respiratory/Chest: chest non-tender Cardiovascular: regular rate, rhythm, no edema Abdomen: normal bowel sounds, non tender Extremities: normal range of motion Skin: normal color, + pertinent finding (Drain at lumbar site.) Assessment and Plan s/p 1. I\T\D of lumbar spine with removal of instrumentation. 2. Placement of stimulating antibiotic beads in the posterolateral gutters Mgt per Orthopedics. Follow up on cultures. Wound cultures negative. Received IV Cefazolin and will continue as per ID recommendations. Pt will likely need PICC line at hi. Hx of HTN Monitor Bp trend.Currently on lisinopril and metoprolol. Hx of schizoaffective disorder Consult Psychiatry. DVT prophylaxis. Recommend SCDs.
[2017-01-09] MEDS: CEFAZOLIN IV 2,000 MG in DEXTROSE 5% 50ML 50 ML IV SCH ×2 (12:08→20:03)
--- NOTE | 2017-01-09 13:47 | PROGRESS NOTE ---
DATE: 01/09/2017 SUBJECTIVE: Postop day #2. Back pain is controlled. Denies any new leg pain. Vital signs stable. T-max 36.7. CARLOS drained only 20 mL today. Cultures still pending with no growth to date. PHYSICAL EXAMINATION: He is comfortable. Dressing is clean, dry and intact. He has no complaints. ASSESSMENT: Status post I\T\D ____ PLAN: At this time, ____ recommending continued Ancef IV. We most likely require a PICC line placement and long-term antibiotics for 6 weeks. The patient understands and agrees.
[2017-01-09 15:00] VITALS: BP 131/86; PULSE 93; TEMP 36.7; O2SAT 93
[2017-01-09] MEDS: HYDROmorphone INJ 1 MG/ML SYR IV PRN ×2 (15:23→19:58)
[2017-01-09 16:00] VITALS: O2SAT 93
[2017-01-09] MEDS: MIRTAZAPINE TAB 15 MG TAB PO SCH (20:55)
[2017-01-09] MEDS: TAMSULOSIN HCL 0.4 MG CAP PO SCH (20:55)
[2017-01-09] MEDS: TRAZODONE HCL 100 MG TAB PO SCH (20:56)
[2017-01-09 22:45] VITALS: BP 109/69; PULSE 80; TEMP 36.5; O2SAT 96
[2017-01-10] MEDS: CEFAZOLIN IV 2,000 MG in DEXTROSE 5% 50ML 50 ML IV SCH ×3 (04:15→20:15)
[2017-01-10 06:58] VITALS: BP 124/81; PULSE 88; TEMP 36.5; O2SAT 98
--- NOTE | 2017-01-10 08:32 | Anesthesiology Progress Note ---
Anesthesia Post Op Note Date & Time January 10, 2017 at 08:32 Vital Signs Pain Intensity: 0.0 Vital Signs Past 12 Hours Date Time Temp Pulse Resp B/P Pulse Ox O2 Delivery O2 Flow Rate FiO2 01/10/17 06:58 36.5 88 16 124/81 98 Room Air 01/09/17 23:20 Room Air 01/09/17 22:45 36.5 80 16 109/69 96 Room Air Notes Mental Status: alert / awake / arousable, participated in evaluation Pt Amnestic to Procedure: Yes Nausea / Vomiting: adequately controlled Pain: adequately controlled Airway Patency, RR, SpO2: stable & adequate BP & HR: stable & adequate Hydration State: stable & adequate Anesthetic Complications: no major complications apparent
[2017-01-10] MEDS: VENLAFAXINE HCL XR 75 MG CAPXR PO SCH (09:21)
[2017-01-10] MEDS: DIAZEPAM 5MG TAB PO SCH ×2 (09:21→20:32)
[2017-01-10] MEDS: OXYCODONE HCL IR 5 MG TAB (IMMEDIATE RELEASE) PO PRN ×3 (09:21→17:05)
[2017-01-10] MEDS: CEROVITE ADV FORMULA TAB PO SCH (09:21)
[2017-01-10] MEDS: METOPROLOL TARTRATE 25 MG TAB PO SCH ×2 (09:22→20:31)
[2017-01-10] MEDS: DOCUSATE SODIUM 100 MG CAP PO SCH ×2 (09:22→20:30)
[2017-01-10] MEDS: LISINOPRIL 10 MG TAB PO SCH (09:23)
[2017-01-10 09:25] LABS: BASO % 0.4 %; BASO ABS # 0.03 K/uL (0-0.2); COMPLETE YES; EOS % 3.7 %; HEMATOCRIT 34.9 % (42-52); IG% 0.6 %; LYMPH % 34.6 %; LYMPH ABS # 2.78 K/uL (1.2-3.4); MEAN CELL VOLUME 84.3 fL (80-100); MEAN CORPUSCULAR HEMOGLOBIN 26.8 pg (25-34); MEAN CORPUSCULAR HGB CONC 31.8 g/dl (32-36); MEAN PLATELET VOLUME 8.5 fL (7.4-10.4); MONO % 3.4 %; NEUT % 57.3 %; PLATELET COUNT 504 K/uL (130-400); RED BLOOD COUNT 4.14 M/uL (4.7-6.1); WHITE BLOOD COUNT 8.04 K/uL (4.8-10.8)
[2017-01-10] MEDS: NAPROXEN 375 MG TAB PO SCH ×2 (09:25→20:32)
[2017-01-10] MEDS: POLYETHYLENE (MIRALAX) 17 GM PACK PO SCH (09:26)
[2017-01-10] MEDS: BENZTROPINE MESYLATE 1 MG TAB PO SCH ×2 (09:26→20:30)
[2017-01-10 09:52] LABS: BUN/CREATININE RATIO 23.5 (10-20); CALCIUM 8.3 mg/dl (8.5-10.1); CREATININE 0.88 mg/dl (0.60-1.40); POTASSIUM 4.1 mmol/L (3.5-5.1)
--- NOTE | 2017-01-10 11:06 | Hospitalist Progress Note ---
Hospitalist Progress Note Date of Service January 10, 2017. Subjective Pt evaluation today including: conversation w/ patient, physical exam, chart review, lab review, conversation w/ internet consultant, review of inpatient medication list Patient currently has no complaints. He denies any significant pain. He says that he is "just sore." He does note that he has not had a bowel movement in several days. He denies any nausea or abdominal pain. No chest pain or pressure. No shortness of breath. Denies any dizziness. Reportedly eating well. No weakness or pain in the lower extremities. Additional Comments: 6 system review negative. Please see pertinent positives in the history of present illness section. Objective Vital Signs Date Time Temp Pulse Resp B/P Pulse Ox O2 Delivery O2 Flow Rate FiO2 01/10/17 08:10 Room Air 01/10/17 06:58 36.5 88 16 124/81 98 Room Air 01/09/17 23:20 Room Air 01/09/17 22:45 36.5 80 16 109/69 96 Room Air 01/09/17 16:00 93 Room Air 01/09/17 15:00 36.7 93 20 131/86 93 Room Air Physical Exam General Appearance: no apparent distress Eyes: EOMI ENT: + pertinent finding (oral mucosa moist) Neck: no JVD Respiratory/Chest: lungs clear Cardiovascular: regular rate, rhythm Abdomen: normal bowel sounds, non tender, soft Extremities: non-tender, no pedal edema Neurologic/Psychiatric: no motor/sensory deficits, oriented x 3 Skin: warm/dry Laboratory Results 01/10/17 08:50 Red Blood Count 4.14, Mean Corpuscular Volume 84.3, Mean Corpuscular Hemoglobin 26.8, Mean Corpuscular Hemoglobin Concent 31.8, Mean Platelet Volume 8.5, Neutrophils (%) (Auto) 57.3, Lymphocytes (%) (Auto) 34.6, Monocytes (%) (Auto) 3.4, Eosinophils (%) (Auto) 3.7, Basophils (%) (Auto) 0.4, Neutrophils # (Auto) 4.61, Lymphocytes # (Auto) 2.78, Monocytes # (Auto) 0.27, Eosinophils # (Auto) 0.30, Basophils # (Auto) 0.03 01/10/17 08:50 Test 01/10/17 08:50 White Blood Count 8.04 K/uL (4.8-10.8) Red Blood Count 4.14 M/uL (4.7-6.1) Hemoglobin 11.1 g/dL (14.0-18.0) Hematocrit 34.9 % (42-52) Mean Corpuscular Volume 84.3 fL (80-100) Mean Corpuscular Hemoglobin 26.8 pg (25-34) Mean Corpuscular Hemoglobin Concent 31.8 g/dl (32-36) Platelet Count 504 K/uL (130-400) Mean Platelet Volume 8.5 fL (7.4-10.4) Neutrophils (%) (Auto) 57.3 % Lymphocytes (%) (Auto) 34.6 % Monocytes (%) (Auto) 3.4 % Eosinophils (%) (Auto) 3.7 % Basophils (%) (Auto) 0.4 % Neutrophils # (Auto) 4.61 K/uL (1.4-6.5) Lymphocytes # (Auto) 2.78 K/uL (1.2-3.4) Monocytes # (Auto) 0.27 K/uL (0.11-0.59) Eosinophils # (Auto) 0.30 K/uL (0-0.5) Basophils # (Auto) 0.03 K/uL (0-0.2) RDW Standard Deviation 50.6 fL (36.4-46.3) RDW Coefficient of Variation 16.4 % (11.5-14.5) Immature Granulocyte % (Auto) 0.6 % Immature Granulocyte # (Auto) 0.05 K/uL (0.00-0.02) Anion Gap 6.0 mmol/L (3-11) Est Creatinine Clear Calc Drug Dose 104.4 ml/min Estimated GFR () 114.5 Estimated GFR (Non- 98.8 BUN/Creatinine Ratio 23.5 (10-20) Calcium Level 8.3 mg/dl (8.5-10.1) Last 24 Hours Test 01/10/17 08:50 White Blood Count 8.04 K/uL Red Blood Count 4.14 M/uL Hemoglobin 11.1 g/dL Hematocrit 34.9 % Mean Corpuscular Volume 84.3 fL Mean Corpuscular Hemoglobin 26.8 pg Mean Corpuscular Hemoglobin Concent 31.8 g/dl Platelet Count 504 K/uL Mean Platelet Volume 8.5 fL Neutrophils (%) (Auto) 57.3 % Lymphocytes (%) (Auto) 34.6 % Monocytes (%) (Auto) 3.4 % Eosinophils (%) (Auto) 3.7 % Basophils (%) (Auto) 0.4 % Neutrophils # (Auto) 4.61 K/uL Lymphocytes # (Auto) 2.78 K/uL Monocytes # (Auto) 0.27 K/uL Eosinophils # (Auto) 0.30 K/uL Basophils # (Auto) 0.03 K/uL RDW Standard Deviation 50.6 fL RDW Coefficient of Variation 16.4 % Immature Granulocyte % (Auto) 0.6 % Immature Granulocyte # (Auto) 0.05 K/uL Sodium Level 141 mmol/L Potassium Level 4.1 mmol/L Chloride Level 107 mmol/L Carbon Dioxide Level 28 mmol/L Anion Gap 6.0 mmol/L Blood Urea Nitrogen 21 mg/dl Creatinine 0.88 mg/dl Est Creatinine Clear Calc Drug Dose 104.4 ml/min Estimated GFR () 114.5 Estimated GFR (Non- 98.8 BUN/Creatinine Ratio 23.5 Random Glucose 170 mg/dl Calcium Level 8.3 mg/dl Assessment and Plan This patient is a 51-year-old male with a history of hypertension and schizoaffective disorder that underwent lumbar spine surgery for possible diskitis, vertebral osteomyelitis on 01/07 -pain management, DVT prophylaxis, PT per primary team -on Ancef 2 g IV q 8 h -one culture with gram + cocci -PICC line needs to be placed Constipation -Continue schedule Colace 100 mg po BID and Miralax daily -will add dulcolax supp x 1 tomorrow if still no BM HTN -continue lisinopril 10 mg daily, Lopressor 12.5 mg BID Schizoaffective disorder -Psychiatry following -Current regimen Cogentin 2 mg BID, Valium 5 mg BID, Remeron 30 mg at night, trazodone 200 mg at night, Effexor 225 mg QAM -PT WILL NEED COORDINATION WITH PSYCH LIASON PRIOR TO D/C PT HAD SI AND MULTIPLE GUNS IN THE HOUSEHOLD This chart was completed in part utilizing [employer] Voice Recognition software. Attempts were made to minimize the grammatical errors, random word insertions, pronoun errors and incomplete sentences. Any formal questions or concerns about the content, text or information contained within the body of this dictation should be directly addressed to the provider for clarification.
--- NOTE | 2017-01-10 12:03 | Psychiatric Progress Notes ---
Progress Note Date of Service January 10, 2017. Interval History 51 yo male initially admitted to the mental health unit for suicidality, now transferred to med/surg s/p I&D lumbar infection and removal of hardware. Chief Complaint "OK I guess.". Subjective Patient was seen & assessed interval progress reviewed with Treatment Team. The patient reports that he is having little to no pain today. He continues to report rectal spasms and no BM for several days. He is optimistic that many of his symptoms will improve with treatment, however remains with SI today, but safe here in the hospital. He seems unsure how long he will need to be in the hospital or on ABX. He continues with mild orobuccal movements, and rhythmic movements of his feet, but without the torso twitches/spasms he was admitted to psych with. He denies other needs at this time. Review of Systems Constitutional: No chills, No fatigue, No fever, No problem reported, No sweats , No weakness, No weight loss ENT: No dental problems, No hearing loss, No nasal symptoms, No problem reported, No sore throat, No tinnitus, No trouble swallowing, No unusual epistaxis Respiratory: No cough, No dyspnea at rest, No dyspnea on exertion, No hemoptysis, No problem reported, No shortness of breath, No sputum, No wheezing Cardiovascular: No PND, No chest pain, No claudication, No edema, No orthopnea , No palpitations, No problem reported Abdomen: + problem reported (rectal spasms and no BM for several days) Musculoskeletal: + problem reported (soreness at surgical site) Neurologic: No balance problems, No memory loss, No numbness/tingling, No paralysis, No problem reported, No vertigo, No weakness Psychiatric: + depression symptoms (with ongoing SI) Integumentary: No bleeding, No color change, No itch, No new/changing skin lesions, No problem reported, No rash Mental Status Exam During interview pt is: alert and oriented, cooperative Appearance: appropriately dressed Eye contact is: fair Motor behavior is: other (involuntary mouth and feet movements) Speech: normal in rate, rhythm & volume (minimal) Affect: depressed, flat Mood is: depressed Thought process: goal directed Thought content: reality based without delusions Suicidal thought are: present, Plan: denied, Intent: denied Homicidal thoughts are: denied Hallucinations: denies auditory, denies visual Cognition: memory grossly intact, attention grossly intact Intelligence estimated to be: average Insight: limited Judgement: limited Impression The patient remains with suicidal ideation and will need to followed throughout his hospitalization. He has framed his suicidality somewhat conditionally, dependent on how his medical condition improves, but he remains at risk if discharged to home in his current condition. As we have said previously, he has guns at home that will need to be secured at the time he returns home. It appears he will be getting a PICC line and 6 weeks of IV ABX which may require a correction stay, so we do not want to lose sight of this in that process. Plan (1) Major depressive disorder, recurrent, severe w/o psychotic behavior 01/10 -Continue current meds - Guns will need to be secured, with the only option for the patient to give them to the police to secure until he is no longer suicidal - The patient recieves psych care through the [facility] and will need follow up. - Will continue to follow - I do not think that he needs 1:1 in the hospital at this time. Discharge / Aftercare Planning Primary Care Physician: Name: Dr. Arthur at [facility] , ext. [phone] Date of Appointment: January 14, 2017 Time of Appointment: 1130 Psychiatrist: Name: Dr. Llanes at [facility] , ext. [phone] Date of Appointment: January 13, 2017 Time of Appointment: 0830 [employer] Operator: Name: eLty Saunders Katelynn Partial or Psych Rehab: Name: [facility] psych rehab Appointment Notes: They will call you at home for start date Home Health Services: Home Health Services: physical therapy, occupational therapy, home health agency Home Health Agency: [facility] Visit Code E&M Code: 85662 Risk Factors Assessment Male: Yes : Yes /single/: Yes Higher / Fall in social status: No Access to guns: Yes Health problems: Yes Mental Health Diagnoses: Yes Substance use disorders: No Hopelessness: Yes Protective Factors Assessment Presybeterian beliefs: No : No Responsible for young children: No Employed: No Stable relationships: No Supportive family: No Data Vital Signs Last 24 Hrs: Date Time Temp Pulse Resp B/P Pulse Ox O2 Delivery O2 Flow Rate FiO2 01/10/17 08:10 Room Air 01/10/17 06:58 36.5 88 16 124/81 98 Room Air 01/09/17 23:20 Room Air 01/09/17 22:45 36.5 80 16 109/69 96 Room Air 01/09/17 16:00 93 Room Air 01/09/17 15:00 36.7 93 20 131/86 93 Room Air Meds Administered Last 24 Hrs: Meds Administered (Past 24Hrs) Medications (Trade) Dose Ordered Sig/Colten Route Start Time Stop Time Status Last Admin Dose Admin Polyethylene 17 gm 17 gm DAILY PO 01/09/17 09:00 02/08/17 08:59 01/10/17 09:26 17 GM Cefazolin Sodium/ Dextrose (Ancef Iv/D5 50ml) 60 ml @ 100 mls/hr Q8H IV 01/09/17 12:00 02/20/17 11:14 01/10/17 04:15 100 MLS/HR Lab Results Last 24 Hrs: Last 24 Hours Test 01/10/17 08:50 White Blood Count 8.04 K/uL Red Blood Count 4.14 M/uL Hemoglobin 11.1 g/dL Hematocrit 34.9 % Mean Corpuscular Volume 84.3 fL Mean Corpuscular Hemoglobin 26.8 pg Mean Corpuscular Hemoglobin Concent 31.8 g/dl Platelet Count 504 K/uL Mean Platelet Volume 8.5 fL Neutrophils (%) (Auto) 57.3 % Lymphocytes (%) (Auto) 34.6 % Monocytes (%) (Auto) 3.4 % Eosinophils (%) (Auto) 3.7 % Basophils (%) (Auto) 0.4 % Neutrophils # (Auto) 4.61 K/uL Lymphocytes # (Auto) 2.78 K/uL Monocytes # (Auto) 0.27 K/uL Eosinophils # (Auto) 0.30 K/uL Basophils # (Auto) 0.03 K/uL RDW Standard Deviation 50.6 fL RDW Coefficient of Variation 16.4 % Immature Granulocyte % (Auto) 0.6 % Immature Granulocyte # (Auto) 0.05 K/uL Sodium Level 141 mmol/L Potassium Level 4.1 mmol/L Chloride Level 107 mmol/L Carbon Dioxide Level 28 mmol/L Anion Gap 6.0 mmol/L Blood Urea Nitrogen 21 mg/dl Creatinine 0.88 mg/dl Est Creatinine Clear Calc Drug Dose 104.4 ml/min Estimated GFR () 114.5 Estimated GFR (Non- 98.8 BUN/Creatinine Ratio 23.5 Random Glucose 170 mg/dl Calcium Level 8.3 mg/dl
--- NOTE | 2017-01-10 13:56 | PROGRESS NOTE ---
DATE: 01/10/2017 SUBJECTIVE: ____ Overall, his back pain is well controlled. Vital signs stable. T-max 36.5. Cultures are demonstrating gram positive cocci. ____ denies any significant back discomfort, denies any leg pain. ASSESSMENT: Status post I\T\D lumbar spine with removal of instrumentation. PLAN: At this time, we will move forward with a PICC line, await recommendations for final antibiotic therapy and hopefully discharge home in the next few days with home health.
--- NOTE | 2017-01-10 15:04 | Infectious Disease Progress Nt ---
Progress Note Date of Service January 10, 2017. Subjective Pt evaluation today including: conversation w/ patient, physical exam, chart review, lab review, review of studies, conversation w/ consultant [employer] vice president [employer] (ex ), review of inpatient medication list Back pain relatively well controlled. Remains afebrile. Operative cultures growing coagulase negative Staph All Other Systems: Reviewed and Negative Medications Current Inpatient Medications Medications (Trade) Dose Ordered Sig/Colten Route Start Time Stop Time Status Last Admin Dose Admin Magnesium Hydroxide (Milk Of Magnesia Susp) 30 ml DAILY PRN PO 01/07/17 16:45 02/06/17 16:44 Docusate Sodium (coLACE CAP) 100 mg BID PO 01/07/17 21:00 02/06/17 20:59 01/10/17 09:22 100 MG Acetaminophen (Tylenol Tab) 650 mg Q6H PRN PO 01/07/17 16:45 02/06/17 16:44 Ondansetron HCl (Zofran Inj) 4 mg Q6 PRN IV 01/07/17 16:45 02/06/17 16:44 Pneumococcal Polysaccharide Vaccine 1 ea PRN PRN N/A 01/07/17 16:45 02/06/17 16:44 Influenza Virus Vacc Triv Types A&B 1 ea PRN PRN N/A 01/07/17 16:45 02/06/17 16:44 Oxycodone HCl (Roxicodone Immediate Rel Tab) 5 mg Q4H PRN PO 01/07/17 16:45 01/21/17 16:44 01/10/17 13:30 5 MG Hydromorphone HCl (Dilaudid Inj) 1 mg Q3H PRN IV 01/07/17 16:45 01/21/17 16:44 01/09/17 19:58 1 MG Polyethylene (Miralax Powder Packet) 17 gm DAILY PO 01/09/17 09:00 02/08/17 08:59 01/10/17 09:26 17 GM Bisacodyl (Dulcolax Tab) 5 mg DAILY PRN PO 01/09/17 06:00 02/08/17 05:59 Bisacodyl (Dulcolax Supp) 10 mg DAILY PRN OK 01/09/17 06:00 02/08/17 05:59 Benztropine Mesylate (Cogentin Tab) 2 mg BID PO 01/07/17 21:00 02/06/17 20:59 01/10/17 09:26 2 MG Diazepam (Valium Tab) 5 mg BID PO 01/07/17 21:00 02/06/17 20:59 01/10/17 09:21 5 MG Acetaminophen/ Hydrocodone Bitart ([place] 5/325 Tab) 1 tab BID PRN PO 01/07/17 16:45 01/21/17 16:44 Future Hold Ibuprofen (Advil Tab) 400 mg Q4 PRN PO 01/07/17 16:45 02/06/17 16:44 Lisinopril (Zestril Tab) 10 mg DAILY PO 01/08/17 09:00 02/07/17 08:59 01/10/17 09:23 10 MG Metoprolol Tartrate (Lopressor Tab) 12.5 mg Q12 PO 01/07/17 21:00 02/06/17 20:59 01/10/17 09:22 12.5 MG Mirtazapine (Remeron Tab) 30 mg HS PO 01/07/17 21:00 02/06/17 20:59 01/09/17 20:55 30 MG Multivitamins/ Minerals (Multivitamin W/ Minerals Tab) 1 tab DAILY PO 01/08/17 09:00 02/07/17 08:59 01/10/17 09:21 1 TAB Naproxen (Naprosyn Tab) 750 mg BID PO 01/07/17 21:00 02/06/17 20:59 01/10/17 09:25 750 MG Polyethylene (Miralax Powder Packet) 17 gm DAILY PRN PO 01/07/17 16:45 02/06/17 16:44 Promethazine HCl (Phenergan Tab) 25 mg Q4H PRN PO 01/07/17 16:45 02/06/17 16:44 Tamsulosin HCl (Flomax Cap) 0.4 mg HS PO 01/07/17 21:00 02/06/17 20:59 01/09/17 20:55 0.4 MG Trazodone HCl (Desyrel Tab) 200 mg HS PO 01/07/17 21:00 02/06/17 20:59 01/09/17 20:56 200 MG Venlafaxine HCl 225 mg 225 mg QAM PO 01/08/17 09:00 02/07/17 08:59 01/10/17 09:21 225 MG Cefazolin Sodium/ Dextrose (Ancef Iv/D5 50ml) 60 ml @ 100 mls/hr Q8H IV 01/09/17 12:00 02/20/17 11:14 01/10/17 12:45 100 MLS/HR Objective Vital Signs Date Time Temp Pulse Resp B/P Pulse Ox O2 Delivery O2 Flow Rate FiO2 01/10/17 08:10 Room Air 01/10/17 06:58 36.5 88 16 124/81 98 Room Air 01/09/17 23:20 Room Air 01/09/17 22:45 36.5 80 16 109/69 96 Room Air 01/09/17 16:00 93 Room Air Physical Exam General Appearance: WD/WN, no apparent distress Eyes: normal inspection, sclerae normal ENT: normal ENT inspection, pharynx normal Neck: supple, no adenopathy, trachea midline Respiratory/Chest: lungs clear, normal breath sounds, no respiratory distress Cardiovascular: regular rate, rhythm, no gallop, no murmur Abdomen: normal bowel sounds, non tender, soft, no organomegaly Extremities: non-tender, no calf tenderness Neurologic/Psychiatric: alert, oriented x 3 Skin: normal color, no rash, + pertinent finding (Surgical dressing intact) Lymphatic: no adenopathy Laboratory Results RUN DATE: 01/10/17 [facility] PAGE 1 RUN TIME: 1305 Specimen Inquiry PATIENT: LILYDAKOTA LOC: [facility] U # : [id number] AGE/SX: 51/M ROOM: [facility] REG : 01/07/[address]: Xiang DiazDFedericoOFederico : 1965 BED: 2 DIS : STATUS: ADM IN TLOC: SPEC #: [id number] JADEN: 01/07/17 STATUS: RES REQ #: [id number] RECD: 01/07/17 [facility] DR: Xiang Diaz D.O. SOURCE: INC.SITE ENTR: 01/07/[address] [facility] [address]: Stephan Escobedo M.D. [facility]: Dakota Gandara D.O. ORDERED: AER/TIM CULTSMR COMMENTS: L4 VERTEBRAL BODY Procedure Result Verified Site GRAM STAIN Final 01/08/170856 RESULT FEW WBCs SEEN NO ORGANISMS SEEN OR AER/TIM CULT Preliminary 01/10/17-1308 Organism 1 COAG NEG STAPHYLOCOCCUS QUANITY RARE SENS NO SENSITIVITY TO FOLLOW ANAS NO ANAEROBES ISOLATED. Last 24 Hours Test 01/10/17 08:50 White Blood Count 8.04 K/uL Red Blood Count 4.14 M/uL Hemoglobin 11.1 g/dL Hematocrit 34.9 % Mean Corpuscular Volume 84.3 fL Mean Corpuscular Hemoglobin 26.8 pg Mean Corpuscular Hemoglobin Concent 31.8 g/dl Platelet Count 504 K/uL Mean Platelet Volume 8.5 fL Neutrophils (%) (Auto) 57.3 % Lymphocytes (%) (Auto) 34.6 % Monocytes (%) (Auto) 3.4 % Eosinophils (%) (Auto) 3.7 % Basophils (%) (Auto) 0.4 % Neutrophils # (Auto) 4.61 K/uL Lymphocytes # (Auto) 2.78 K/uL Monocytes # (Auto) 0.27 K/uL Eosinophils # (Auto) 0.30 K/uL Basophils # (Auto) 0.03 K/uL RDW Standard Deviation 50.6 fL RDW Coefficient of Variation 16.4 % Immature Granulocyte % (Auto) 0.6 % Immature Granulocyte # (Auto) 0.05 K/uL Sodium Level 141 mmol/L Potassium Level 4.1 mmol/L Chloride Level 107 mmol/L Carbon Dioxide Level 28 mmol/L Anion Gap 6.0 mmol/L Blood Urea Nitrogen 21 mg/dl Creatinine 0.88 mg/dl Est Creatinine Clear Calc Drug Dose 104.4 ml/min Estimated GFR () 114.5 Estimated GFR (Non- 98.8 BUN/Creatinine Ratio 23.5 Random Glucose 170 mg/dl Calcium Level 8.3 mg/dl Assessment and Plan now in safe 51-year-old male status post lumbar surgery now with deep lumbar infection with possible diskitis, vertebral osteomyelitis, status post removal of hardware and debridement, cultures now growing coagulase negative Staph. I will adjust antibiotics once final sensitivities are available. Will likely need 6 weeks of IV antibiotics. Will follow.
[2017-01-10 15:10] VITALS: BP 110/73; PULSE 82; TEMP 36.7; O2SAT 95
[2017-01-10] MEDS: HYDROmorphone INJ 1 MG/ML SYR IV PRN (20:15)
[2017-01-10] MEDS: TRAZODONE HCL 100 MG TAB PO SCH (20:30)
[2017-01-10] MEDS: TAMSULOSIN HCL 0.4 MG CAP PO SCH (20:30)
[2017-01-10] MEDS: MIRTAZAPINE TAB 15 MG TAB PO SCH (20:32)
[2017-01-10 23:00] VITALS: BP 96/62; PULSE 91; TEMP 36.4; O2SAT 96
[2017-01-11] MEDS: CEFAZOLIN IV 2,000 MG in DEXTROSE 5% 50ML 50 ML IV SCH ×3 (04:18→19:54)
[2017-01-11 07:04] VITALS: BP 117/80; PULSE 106; TEMP 36.8; O2SAT 98
[2017-01-11] MEDS ORDERED: BISACODYL 10 MG SUPP PR ONE (08:30)
[2017-01-11] MEDS: VENLAFAXINE HCL XR 75 MG CAPXR PO SCH (08:44)
[2017-01-11] MEDS: CEROVITE ADV FORMULA TAB PO SCH (08:44)
[2017-01-11] MEDS: DIAZEPAM 5MG TAB PO SCH ×2 (08:45→21:01)
[2017-01-11] MEDS: OXYCODONE HCL IR 5 MG TAB (IMMEDIATE RELEASE) PO PRN ×3 (08:45→16:28)
[2017-01-11] MEDS: DOCUSATE SODIUM 100 MG CAP PO SCH ×2 (08:45→20:56)
[2017-01-11] MEDS: NAPROXEN 375 MG TAB PO SCH ×2 (08:45→20:56)
[2017-01-11] MEDS: LISINOPRIL 10 MG TAB PO SCH (08:45)
[2017-01-11] MEDS: POLYETHYLENE (MIRALAX) 17 GM PACK PO SCH (08:46)
[2017-01-11] MEDS: BENZTROPINE MESYLATE 1 MG TAB PO SCH ×2 (08:47→20:56)
[2017-01-11] MEDS: METOPROLOL TARTRATE 25 MG TAB PO SCH ×2 (10:27→20:57)
--- NOTE | 2017-01-11 12:20 | Hospitalist Progress Note ---
Hospitalist Progress Note Date of Service January 11, 2017. Subjective Pt evaluation today including: conversation w/ patient, physical exam, chart review, lab review, review of inpatient medication list Patient continues to be depressed today. He still admits to thinking about suicide. He does not have a plan as of now. He is very depressed about his health. He has little hope that his bowel function will improve. He denies any significant pain. No weakness, numbness or tingling in the lower extremities. He has the urge to have a bowel movement, however he has not had a bowel movement since this admission. Additional Comments: 6 system review negative. Please see pertinent positives in the history of present illness section. Objective Vital Signs Date Time Temp Pulse Resp B/P Pulse Ox O2 Delivery O2 Flow Rate FiO2 01/11/17 08:25 Room Air 01/11/17 07:04 36.8 106 16 117/80 98 Room Air 01/10/17 23:30 Room Air 01/10/17 23:00 36.4 91 18 96/62 96 Room Air 01/10/17 16:00 Room Air 01/10/17 15:10 36.7 82 20 110/73 95 Room Air Physical Exam General Appearance: no apparent distress (depressed affect) Eyes: EOMI Neck: no JVD Respiratory/Chest: lungs clear Cardiovascular: regular rate, rhythm Abdomen: non tender, soft, + pertinent finding (bowel sounds hypoactive) Extremities: non-tender, no pedal edema Neurologic/Psychiatric: + pertinent finding (no focal motor deficits noted. Alert and oriented 3.) Skin: warm/dry Assessment and Plan This patient is a 51-year-old male with a history of hypertension and schizoaffective disorder that underwent lumbar spine surgery for possible diskitis, vertebral osteomyelitis on 01/07 -pain management, DVT prophylaxis, PT per primary team -on Ancef 2 g IV q 8 h -one cx growing coag neg staph -PICC line to be placed today -ID following--6 weeks abx therapy Constipation -dulcolax supp x 1 now -Continue schedule Colace 100 mg po BID and Miralax daily HTN-BP slightly low this am but improved and asymptomatic -continue lisinopril 10 mg daily, Lopressor 12.5 mg BID Schizoaffective disorder/Suicidal ideation -Will need very close psych follow up. Should be ok to go to [facility]. I' d be very concerned about sending this patient home with firearms in the house -Current regimen Cogentin 2 mg BID, Valium 5 mg BID, Remeron 30 mg at night, trazodone 200 mg at night, Effexor 225 mg QAM -further adjustments per psych team This chart was completed in part utilizing [employer] Speech Voice Recognition software. Attempts were made to minimize the grammatical errors, random word insertions, pronoun errors and incomplete sentences. Any formal questions or concerns about the content, text or information contained within the body of this dictation should be directly addressed to the provider for clarification.
--- NOTE | 2017-01-11 12:32 | PROGRESS NOTE ---
DATE: 01/11/2017 DATE: 01/11/2017. SUBJECTIVE: No complaints of back pain. Vital signs stable. Again cultures growing coag negative staph. ASSESSMENT: Status post lumbar decompression with evidence of osteomyelitis. PLAN: At this time, it has been recommended he have 6 weeks of antibiotics, final dosage and antibiotic pending. He will placed with PICC line today. Hopefully, we would be able to turn to antibiotics and senior care treatment plan in the next 24 hours and discharge with home health.
[2017-01-11] MEDS ORDERED: NURSING DECISION MEDICATION ORDER SCH (13:45)
--- NOTE | 2017-01-11 14:47 | Infectious Disease Progress Nt ---
Progress Note Date of Service January 11, 2017. Subjective Pt evaluation today including: conversation w/ patient, physical exam, chart review, review of studies, conversation w/ health and safety consultant, review of inpatient medication list No new complaints today. Back pain controlled. Remains afebrile. Tolerating antibiotic without apparent difficulty. All Other Systems: Reviewed and Negative Medications Current Inpatient Medications Medications (Trade) Dose Ordered Sig/Colten Route Start Time Stop Time Status Last Admin Dose Admin Magnesium Hydroxide (Milk Of Magnesia Susp) 30 ml DAILY PRN PO 01/07/17 16:45 02/06/17 16:44 Docusate Sodium (coLACE CAP) 100 mg BID PO 01/07/17 21:00 02/06/17 20:59 01/11/17 08:45 100 MG Acetaminophen (Tylenol Tab) 650 mg Q6H PRN PO 01/07/17 16:45 02/06/17 16:44 Ondansetron HCl (Zofran Inj) 4 mg Q6 PRN IV 01/07/17 16:45 02/06/17 16:44 Pneumococcal Polysaccharide Vaccine 1 ea PRN PRN N/A 01/07/17 16:45 02/06/17 16:44 Influenza Virus Vacc Triv Types A&B 1 ea PRN PRN N/A 01/07/17 16:45 02/06/17 16:44 Oxycodone HCl (Roxicodone Immediate Rel Tab) 5 mg Q4H PRN PO 01/07/17 16:45 01/21/17 16:44 01/11/17 12:37 5 MG Hydromorphone HCl (Dilaudid Inj) 1 mg Q3H PRN IV 01/07/17 16:45 01/21/17 16:44 01/10/17 20:15 1 MG Polyethylene (Miralax Powder Packet) 17 gm DAILY PO 01/09/17 09:00 02/08/17 08:59 01/11/17 08:46 17 GM Bisacodyl (Dulcolax Tab) 5 mg DAILY PRN PO 01/09/17 06:00 02/08/17 05:59 Bisacodyl (Dulcolax Supp) 10 mg DAILY PRN VT 01/09/17 06:00 02/08/17 05:59 Benztropine Mesylate (Cogentin Tab) 2 mg BID PO 01/07/17 21:00 6/11/17 20:59 01/11/17 08:47 2 MG Diazepam (Valium Tab) 5 mg BID PO 01/07/17 21:00 02/06/17 20:59 01/11/17 08:45 5 MG Acetaminophen/ Hydrocodone Bitart ([place] 5/325 Tab) 1 tab BID PRN PO 01/07/17 16:45 01/21/17 16:44 Future Hold Ibuprofen (Advil Tab) 400 mg Q4 PRN PO 01/07/17 16:45 02/06/17 16:44 01/11/17 13:38 400 MG Lisinopril (Zestril Tab) 10 mg DAILY PO 01/08/17 09:00 02/07/17 08:59 01/11/17 08:45 10 MG Metoprolol Tartrate (Lopressor Tab) 12.5 mg Q12 PO 01/07/17 21:00 02/06/17 20:59 01/11/17 10:27 12.5 MG Mirtazapine (Remeron Tab) 30 mg HS PO 01/07/17 21:00 02/06/17 20:59 01/10/17 20:32 30 MG Multivitamins/ Minerals (Multivitamin W/ Minerals Tab) 1 tab DAILY PO 01/08/17 09:00 02/07/17 08:59 01/11/17 08:44 1 TAB Naproxen (Naprosyn Tab) 750 mg BID PO 01/07/17 21:00 02/06/17 20:59 01/11/17 08:45 750 MG Polyethylene (Miralax Powder Packet) 17 gm DAILY PRN PO 01/07/17 16:45 02/06/17 16:44 Promethazine HCl (Phenergan Tab) 25 mg Q4H PRN PO 01/07/17 16:45 02/06/17 16:44 Tamsulosin HCl (Flomax Cap) 0.4 mg HS PO 01/07/17 21:00 02/06/17 20:59 01/10/17 20:30 0.4 MG Trazodone HCl (Desyrel Tab) 200 mg HS PO 01/07/17 21:00 02/06/17 20:59 01/10/17 20:30 200 MG Venlafaxine HCl 225 mg 225 mg QAM PO 01/08/17 09:00 02/07/17 08:59 01/11/17 08:44 225 MG Cefazolin Sodium/ Dextrose (Ancef Iv/D5 50ml) 60 ml @ 100 mls/hr Q8H IV 01/09/17 12:00 02/20/17 11:14 01/11/17 12:35 100 MLS/HR Heparin Sodium (Porcine) (Heparin 10 Unit/ ml 5 ml Flush) 5 ml PRN PRN FLUSH 01/11/17 13:45 02/10/17 13:44 Objective Vital Signs Date Time Temp Pulse Resp B/P Pulse Ox O2 Delivery O2 Flow Rate FiO2 01/11/17 08:25 Room Air 01/11/17 07:04 36.8 106 16 117/80 98 Room Air 01/10/17 23:30 Room Air 01/10/17 23:00 36.4 91 18 96/62 96 Room Air 01/10/17 16:00 Room Air 01/10/17 15:10 36.7 82 20 110/73 95 Room Air Physical Exam General Appearance: WD/WN, no apparent distress Eyes: normal inspection, sclerae normal ENT: normal ENT inspection, pharynx normal Neck: supple, no adenopathy, trachea midline Respiratory/Chest: chest non-tender, lungs clear, normal breath sounds, no respiratory distress Cardiovascular: regular rate, rhythm, no gallop, no murmur Abdomen: normal bowel sounds, non tender, soft, no organomegaly Extremities: non-tender, no calf tenderness Neurologic/Psychiatric: alert, oriented x 3 Skin: normal color, no rash Lymphatic: no adenopathy Laboratory Results LAB PAGE 1 RUN TIME: 957 Specimen Inquiry PATIENT: DAKOTA BAUTISTA LOC: [facility] Pace # : [id number] AGE/SX: 51/M ROOM: [facility] REG : 01/07/[address]: Xiang Diaz D.O. : 1965 BED: 2 DIS : STATUS: ADM IN TLOC: SPEC #: [id number] JADEN: 01/07/17 STATUS: RES REQ #: [id number] RECD: 01/07/[address]: Xiang Diaz D.O. SOURCE: INC.SITE ENTR: 01/07/[address]: Stephan Escobedo [facility].D. [facility] Gandara D[facility] ORDERED: AER/TIM CULTSMR COMMENTS: L5 VERTEBRAL BODY Procedure Result Verified Site GRAM STAIN Final 01/08/17 RESULT RARE WBCs SEEN NO ORGANISMS SEEN OR AER/TIM CULT Preliminary 01/11/17 Organism 1 COAG NEG STAPHYLOCOCCUS QUANITY RARE SENS NO SENSITIVITY TO FOLLOW ANAS NO ANAEROBES ISOLATED. Assessment and Plan now in safe 51-year-old male status post lumbar surgery now with deep lumbar infection with possible diskitis, vertebral osteomyelitis, status post removal of hardware and debridement, cultures now growing coagulase negative Staph. I will adjust antibiotics once final sensitivities are available. Will likely need 6 weeks of IV antibiotics. Will follow.
[2017-01-11 15:28] VITALS: BP 122/75; PULSE 78; TEMP 36.8; O2SAT 96
[2017-01-11] MEDS ORDERED: NURSING VERBAL MED ORDER ONE ×2 (16:45)
[2017-01-11] MEDS: CYCLOBENZAPRINE HCL 10 MG TAB PO PRN (17:48)
[2017-01-11] MEDS: HYDROmorphone INJ 1 MG/ML SYR IV PRN (20:12)
[2017-01-11 20:54] VITALS: BP 157/93; PULSE 78
[2017-01-11] MEDS: TRAZODONE HCL 100 MG TAB PO SCH (20:56)
[2017-01-11] MEDS: TAMSULOSIN HCL 0.4 MG CAP PO SCH (20:57)
[2017-01-11] MEDS: MIRTAZAPINE TAB 15 MG TAB PO SCH (20:57)
[2017-01-11 23:35] VITALS: BP 115/76; PULSE 87; TEMP 36.5; O2SAT 93
[2017-01-12] MEDS: CEFAZOLIN IV 2,000 MG in DEXTROSE 5% 50ML 50 ML IV SCH ×2 (04:24→12:05)
[2017-01-12 07:07] VITALS: BP 121/77; PULSE 89; TEMP 36.5; O2SAT 95
[2017-01-12] MEDS: CEROVITE ADV FORMULA TAB PO SCH (09:27)
[2017-01-12] MEDS: LISINOPRIL 10 MG TAB PO SCH (09:27)
[2017-01-12] MEDS: METOPROLOL TARTRATE 25 MG TAB PO SCH ×2 (09:27→20:36)
[2017-01-12] MEDS: VENLAFAXINE HCL XR 75 MG CAPXR PO SCH (09:27)
[2017-01-12] MEDS: POLYETHYLENE (MIRALAX) 17 GM PACK PO SCH (09:27)
[2017-01-12] MEDS: BENZTROPINE MESYLATE 1 MG TAB PO SCH ×2 (09:28→20:39)
[2017-01-12] MEDS: NAPROXEN 375 MG TAB PO SCH ×2 (09:28→20:37)
[2017-01-12] MEDS: DOCUSATE SODIUM 100 MG CAP PO SCH ×2 (09:28→20:34)
[2017-01-12] MEDS: DIAZEPAM 5MG TAB PO SCH ×2 (09:34→20:34)
[2017-01-12] MEDS: HYDROmorphone INJ 1 MG/ML SYR IV PRN ×4 (10:01→20:46)
--- NOTE | 2017-01-12 11:05 | Hospitalist Progress Note ---
Hospitalist Progress Note Date of Service January 12, 2017. Subjective Pt evaluation today including: conversation w/ patient, physical exam, chart review, review of inpatient medication list pt currently has no complaints. Denies any severe pain, numbness, tingling. Says that his urge to have a bowel movement is slightly better. Had a BM yesterday. No CP, SOB Constitutional: No chills, No fever Respiratory: No shortness of breath Cardiovascular: No chest pain Abdomen: No nausea Musculoskeletal: No problem reported Male : No dysuria Objective Vital Signs Date Time Temp Pulse Resp B/P Pulse Ox O2 Delivery O2 Flow Rate FiO2 01/12/17 08:30 Room Air 01/12/17 07:07 36.5 89 16 121/77 95 Room Air 01/11/17 23:35 36.5 87 14 115/76 93 Room Air 01/11/17 23:35 Room Air 01/11/17 20:54 78 157/93 01/11/17 19:45 Room Air 01/11/17 15:28 36.8 78 17 122/75 96 Room Air Physical Exam General Appearance: no apparent distress, + pertinent finding (sleeping with the covers over his head. Drowsy) Eyes: EOMI Neck: no JVD Respiratory/Chest: lungs clear Cardiovascular: regular rate, rhythm Abdomen: non tender, soft, + pertinent finding (BS hypoactive) Extremities: non-tender, no pedal edema Neurologic/Psychiatric: no motor/sensory deficits, oriented x 3 Skin: warm/dry Assessment and Plan This patient is a 51-year-old male with a history of hypertension and schizoaffective disorder that underwent lumbar spine surgery for possible diskitis, vertebral osteomyelitis on 01/07 -pain management, DVT prophylaxis, PT per primary team -on Ancef 2 g IV q 8 h -cx growing coag neg staph -PICC line in place -ID following--6 weeks abx therapy Constipation-resolved -dulcolax supp prn -Continue schedule Colace 100 mg po BID and Miralax daily "rectal spasms"-better today -continue zanaflex 2 mg QID and Flexeril 10 mg TID prn HTN-BP stable -continue lisinopril 10 mg daily, Lopressor 12.5 mg BID Schizoaffective disorder/Suicidal ideation-no current plan -psych following -Current regimen Cogentin 2 mg BID, Valium 5 mg BID, Remeron 30 mg at night, trazodone 200 mg at night, Effexor 225 mg QAM-->adjustments per psych team DISPO -[facility] auth pending. They would like more psychiatric info about pt. Would benefit for ongoing counseling and mental health therapy at [facility] -NOT SAFE TO GO HOME WITH UNSECURED WEAPONS AT HOME Stable for D/C from a medical stand point. The medicine service will sign off. [facility]. This chart was completed in part utilizing [employer] Speech Voice Recognition software. Attempts were made to minimize the grammatical errors, random word insertions, pronoun errors and incomplete sentences. Any formal questions or concerns about the content, text or information contained within the body of this dictation should be directly addressed to the provider for clarification.
--- NOTE | 2017-01-12 11:06 | Consultant Recommendations ---
Registration Rep Recommendations Date of Service January 12, 2017. Registration Rep Recommendations Constipation-resolved -dulcolax supp prn -Continue schedule Colace 100 mg po BID and Miralax scheduled daily "rectal spasms"-better today -continue zanaflex 2 mg QID and Flexeril 10 mg TID prn HTN-BP stable -continue lisinopril 10 mg daily, Lopressor 12.5 mg BID Schizoaffective disorder/Suicidal ideation-no current plan -psych following -Current regimen Cogentin 2 mg BID, Valium 5 mg BID, Remeron 30 mg at night, trazodone 200 mg at night, Effexor 225 mg QAM-->adjustments per psych team DISPO -[facility] auth pending. They would like more psychiatric info about pt. Would benefit for ongoing counseling and mental health therapy at [facility] -NOT SAFE TO GO HOME WITH UNSECURED WEAPONS AT HOME
--- NOTE | 2017-01-12 12:22 | PROGRESS NOTE ---
DATE: 01/12/2017 SUBJECTIVE: He is status post lumbar decompression/I\T\D with evidence of osteomyelitis of the lumbar spine. Today, he has no complaints. Back pain is controlled. He denies radicular leg pain. He denies fevers or chills. IV PICC line was placed yesterday in the right arm. We are currently awaiting final culture sensitivities for IV antibiotic therapy. Currently growing coag negative staph. We are also awaiting approval from [facility] for discharge. PHYSICAL EXAMINATION: He is lying in bed. He is in no obvious distress. VITAL SIGNS: Stable. He is afebrile. SKIN: Lumbar dressing is clean, dry and intact. LOWER EXTREMITIES: Neurovascularly intact. ASSESSMENT: Status post I\T\D lumbar spine with removal of instrumentation/osteomyelitis. PLAN: At this point in time, we are currently awaiting approval from rehab to discharge him to. We are also awaiting final sensitivities for antibiotic therapy. Dr. Sanchez has recommended 6-8 weeks of IV antibiotic therapy.
[2017-01-12] MEDS ORDERED: ZNF4 PO (13:59)
[2017-01-12] MEDS ORDERED: FLX10 PO (13:59)
[2017-01-12 15:58] VITALS: BP 112/75; PULSE 87; TEMP 36.4; O2SAT 95
--- NOTE | 2017-01-12 17:08 | Infectious Disease Progress Nt ---
Progress Note Date of Service January 12, 2017. Subjective Pt evaluation today including: conversation w/ patient, physical exam, chart review, lab review, review of studies, conversation w/ senior professional services consultant, review of inpatient medication list Patient offering no new complaints today. Pain is controlled. Remains afebrile. All Other Systems: Reviewed and Negative Medications Current Inpatient Medications Medications (Trade) Dose Ordered Sig/Colten Route Start Time Stop Time Status Last Admin Dose Admin Magnesium Hydroxide (Milk Of Magnesia Susp) 30 ml DAILY PRN PO 01/07/17 16:45 02/06/17 16:44 Docusate Sodium (coLACE CAP) 100 mg BID PO 01/07/17 21:00 02/06/17 20:59 01/12/17 09:28 100 MG Acetaminophen (Tylenol Tab) 650 mg Q6H PRN PO 01/07/17 16:45 02/06/17 16:44 Ondansetron HCl (Zofran Inj) 4 mg Q6 PRN IV 01/07/17 16:45 02/06/17 16:44 Pneumococcal Polysaccharide Vaccine 1 ea PRN PRN N/A 01/07/17 16:45 02/06/17 16:44 Influenza Virus Vacc Triv Types A&B 1 ea PRN PRN N/A 01/07/17 16:45 02/06/17 16:44 Oxycodone HCl (Roxicodone Immediate Rel Tab) 5 mg Q4H PRN PO 01/07/17 16:45 01/21/17 16:44 01/11/17 16:28 5 MG Hydromorphone HCl (Dilaudid Inj) 1 mg Q3H PRN IV 01/07/17 16:45 01/21/17 16:44 01/12/17 16:47 1 MG Polyethylene (Miralax Powder Packet) 17 gm DAILY PO 01/09/17 09:00 02/08/17 08:59 01/12/17 09:27 17 GM Bisacodyl (Dulcolax Tab) 5 mg DAILY PRN PO 01/09/17 06:00 02/08/17 05:59 Bisacodyl (Dulcolax Supp) 10 mg DAILY PRN [place] 01/09/17 06:00 02/08/17 05:59 Benztropine Mesylate (Cogentin Tab) 2 mg BID PO 01/07/17 21:00 02/06/17 20:59 01/12/17 09:28 2 MG Diazepam (Valium Tab) 5 mg BID PO 01/07/17 21:00 02/06/17 20:59 01/12/17 09:34 5 MG Acetaminophen/ Hydrocodone Bitart ([place] 5/325 Tab) 1 tab BID PRN PO 01/07/17 16:45 01/21/17 16:44 Future Hold Ibuprofen (Advil Tab) 400 mg Q4 PRN PO 01/07/17 16:45 02/06/17 16:44 01/11/17 13:38 400 MG Lisinopril (Zestril Tab) 10 mg DAILY PO 01/08/17 09:00 02/07/17 08:59 01/12/17 09:27 10 MG Metoprolol Tartrate (Lopressor Tab) 12.5 mg Q12 PO 01/07/17 21:00 02/06/17 20:59 01/12/17 09:27 12.5 MG Mirtazapine (Remeron Tab) 30 mg HS PO 01/07/17 21:00 02/06/17 20:59 01/11/17 20:57 30 MG Multivitamins/ Minerals (Multivitamin W/ Minerals Tab) 1 tab DAILY PO 01/08/17 09:00 02/07/17 08:59 01/12/17 09:27 1 TAB Naproxen (Naprosyn Tab) 750 mg BID PO 01/07/17 21:00 02/06/17 20:59 01/12/17 09:28 750 MG Polyethylene (Miralax Powder Packet) 17 gm DAILY PRN PO 01/07/17 16:45 02/06/17 16:44 Promethazine HCl (Phenergan Tab) 25 mg Q4H PRN PO 01/07/17 16:45 02/06/17 16:44 Tamsulosin HCl (Flomax Cap) 0.4 mg HS PO 01/07/17 21:00 02/06/17 20:59 01/11/17 20:57 0.4 MG Trazodone HCl (Desyrel Tab) 200 mg HS PO 01/07/17 21:00 02/06/17 20:59 01/11/17 20:56 200 MG Venlafaxine HCl 225 mg 225 mg QAM PO 01/08/17 09:00 02/07/17 08:59 01/12/17 09:27 225 MG Cefazolin Sodium/ Dextrose (Ancef Iv/D5 50ml) 60 ml @ 100 mls/hr Q8H IV 01/09/17 12:00 02/20/17 11:14 01/12/17 12:05 100 MLS/HR Heparin Sodium (Porcine) (Heparin 10 Unit/ ml 5 ml Flush) 5 ml PRN PRN FLUSH 01/11/17 13:45 02/10/17 13:44 01/12/17 16:50 5 ML Cyclobenzaprine HCl (Flexeril Tab) 10 mg Q8H PRN PO 01/11/17 17:00 02/10/17 16:59 01/11/17 17:48 10 MG Tizanidine HCl (Zanaflex Tab) 2 mg QID PRN PO 01/11/17 17:00 02/10/17 16:59 01/11/17 19:36 2 MG Objective Vital Signs Date Time Temp Pulse Resp B/P Pulse Ox O2 Delivery O2 Flow Rate FiO2 01/12/17 16:47 Room Air 01/12/17 15:58 36.4 87 18 112/75 95 Room Air 01/12/17 08:30 Room Air 01/12/17 07:07 36.5 89 16 121/77 95 Room Air 01/11/17 23:35 36.5 87 14 115/76 93 Room Air 01/11/17 23:35 Room Air 01/11/17 20:54 78 157/93 01/11/17 19:45 Room Air Physical Exam General Appearance: WD/WN, no apparent distress Eyes: normal inspection, sclerae normal ENT: normal ENT inspection, pharynx normal Neck: supple, thyroid normal, trachea midline Respiratory/Chest: chest non-tender, lungs clear, normal breath sounds, no respiratory distress Cardiovascular: regular rate, rhythm, no gallop, no murmur Abdomen: normal bowel sounds, non tender, soft, no organomegaly Extremities: non-tender, no calf tenderness Neurologic/Psychiatric: alert, oriented x 3 Skin: normal color, no rash Lymphatic: no adenopathy Laboratory Results RUN DATE: 01/12/17 [facility] LAB PAGE 1 RUN TIME: 1210 Specimen Inquiry PATIENT: DAKOTA BAUTISTA LOC: [facility] U # : [id number] AGE/SX: 51/M ROOM: [facility] REG : 01/07/[address]: Xiang Diaz D.O. : 1965 BED: 2 DIS : STATUS: ADM IN TLOC: SPEC #: [id number] JADEN: 01/07/17 STATUS: COMP REQ #: [id number] RECD: 01/07/[address]: Xiang Diaz D.O. SOURCE: INC.SITE ENTR: 01/07/17 [facility] DR: Stephan Escobedo M.D. [facility] Dakota Arthur D.O. ORDERED: AER/TIM CULTSMR COMMENTS: L5 VERTEBRAL BODY Procedure Result Verified Site GRAM STAIN Final 01/08/17-08 RESULT RARE WBCs SEEN NO ORGANISMS SEEN OR AER/TIM CULT Final 01/12/17-1210 Organism 1 COAG NEG STAPHYLOCOCCUS QUANITY RARE SENS NO SENSITIVITY TO FOLLOW ANAS NO ANAEROBES ISOLATED. Assessment and Plan 51-year-old male status post lumbar surgery now with deep lumbar infection with possible diskitis, vertebral osteomyelitis, status post removal of hardware and debridement, cultures now growing coagulase negative Staph. Given lack of sensitivity data, will change to IV daptomycin. Will discuss and follow.
[2017-01-12] MEDS: DAPTOmycin IV 500 MG in SODIUM CHLORIDE 0.9% 50ML 50 ML IV SCH (18:30)
[2017-01-12 20:33] VITALS: BP 127/74; PULSE 98
[2017-01-12] MEDS: TRAZODONE HCL 100 MG TAB PO SCH (20:36)
[2017-01-12] MEDS: TAMSULOSIN HCL 0.4 MG CAP PO SCH (20:37)
[2017-01-12] MEDS: MIRTAZAPINE TAB 15 MG TAB PO SCH (20:38)
[2017-01-12 23:25] VITALS: BP 103/68; PULSE 84; TEMP 36.5; O2SAT 91
[2017-01-12] MEDS: OXYCODONE HCL IR 5 MG TAB (IMMEDIATE RELEASE) PO PRN (23:26)
[2017-01-13 07:50] VITALS: BP 95/59; PULSE 70; TEMP 36.4; O2SAT 97
--- NOTE | 2017-01-13 07:55 | Discharge Instructions ---
Discharge Instructions Date of Service January 13, 2017. Admission Reason for Admission: Lumbar Spine Painful Hardware W/Infection Discharge Discharge Diagnosis / Problem: lumbar infection Discharge Goals Goal(s): Improve function Activity Recommendations Activity Limitations: per Instructions/Follow-up section ACTIVITY RECOMMENDATIONS: SELF CARE INSTRUCTIONS AFTER THORACIC/LUMBAR FUSIONS 1. You may walk to your tolerance. It is good exercise for your legs and back. Expect some back and intermittent leg aches and pains. 2. You may perform "counter-top" level activities (make a sandwich, james with a project, etc.). 3. No bending or lifting of more than 10 pounds or back twisting of any nature (roll like a log when turning in bed). 4. You may ride in a car for 20-30 minutes at a time. No driving until after your first visit with your doctor. 5. Frequent changes of position and restricting sitting to 30 minutes at a time will help limit the amount of back spasms and stiffness you may experience. 6. You may discontinue the use of ambulatory aids (cane, crutches, etc.) once your strength and confidence allow. 7. You may rubber moulding machine operator the shower and let water strike your incision when you arrive home at least once daily. Do not take a tub bath, sit in a hot tub or go into a swimming pool until after your first recheck in the office. SPECIAL CARE INSTRUCTIONS: VERY IMPORTANT TO READ AND REVIEW A. Your surgical incision has been closed with a cosmetic suture under the skin that will dissolve in about 6 weeks. In 14 days, you can use a pair of clean scissors and cut the suture that is left outside of the skin at the ends of your incision. 1. The small skin tapes can be removed 7 days after surgery if they have not fallen off by that point. 2. You may keep the wound open to air as much as possible to promote healing after post-op day number 5 unless told otherwise by your doctor. 3. If you think the wound looks like it is becoming infected (redness or worsening drainage) and/or you are experiencing fever, chill or worsening back pain and muscle spasms, contact the office so that we may evaluate you as soon as possible. B. Complications are uncommon, but please contact us if you have any signs or symptoms of: 1. wound infection (fever higher than 102.5 degrees F, redness, separation of wound, drainage, or increasing pain from the incision) 2. blood clots in legs (pain, swelling, redness and warmth in legs) 3. urinary tract infection (fever higher than 102.5 degrees F, burning upon urination or increased frequency of urination) 4. nerve problems (inability to walk on your toes or heels, numbness, loss of bowel or bladder control) 5. any other symptoms that concern you C. Please call the office at if you have any concerns or questions about your operation or recovery. D. No smoking! Smoking drastically decreases the chance of a solid fusion. E. Do not take any anti-inflammatory medications (Indocin, Advil, Motrin, Aspirin, Naprosyn, etc.) as these may inhibit the chance of a solid fusion. Tylenol is okay to take for pain. MANAGING PAIN AFTER SPINAL SURGERY 1. Narcotic medication is intended for short-term use and will be provided for surgical pain. Surgical pain usually lasts for a period of 4-6 weeks. Narcotic medication includes Percocet, Vicodin, Darvocet, Tylenol #3 or Lortab. 2. Longer-term pain is more appropriately treated with non-narcotic medication such as Tylenol ES. 3. Muscle spasm is not appropriately treated with narcotics. Muscle relaxers such as Soma, Flexeril or Skelaxin can be used along with Tylenol ES. 4. Remember that we all live with some "aches and pains". This is not unusual or uncommon after an injury or as we get older. a. Back pain is expected and may include muscle spasms for 4 to 6 weeks after surgery. The pain should gradually improve. If the pain worsens for no apparent reason, please contact the office. b. Intermittent leg pain may also be experienced and should not be concerned about unless it worsens for no apparent reason. If so, please contact the office. 5. We will provide appropriate medication within the normal guidelines of their prescribed use. We will also be very cautious and aware of potential abuse and extended duration of patients' medication needs. a. Pain medications are for your comfort and to assist with sleep and rest so that the tissue can heal. They are not provided in order to return to normal activity and should not be used through the day. To do so or worsening pain at night can result from ongoing tissue damage and development of tolerance to the prescribed medicine. 6. Please allow 2-3 days to process refills. Prescriptions will not be mailed but must be picked up at the office. FOLLOW UP VISIT: Keep your scheduled follow-up appointment. Any questions, please call the office at . . Current Hospital Diet Patient's current hospital diet: Regular Diet Discharge Diet Recommended Diet: Regular Diet Procedures Procedures Performed: i and d Pending Studies Studies pending at discharge: no Medical Emergencies . Who to Call and When: Medical Emergencies: If at any time you feel your situation is an emergency, please call 911 immediately. . Non-Emergent Contact Non-Emergency issues call your: Primary Care Provider . "Provider Documentation" section prepared by Xiang Diaz. . Instrument Installer Recommendations Instrument Installer Recommendations: Constipation-resolved -dulcolax supp prn -Continue schedule Colace 100 mg po BID and Miralax scheduled daily "rectal spasms"-better today -continue zanaflex 2 mg QID and Flexeril 10 mg TID prn HTN-BP stable -continue lisinopril 10 mg daily, Lopressor 12.5 mg BID Schizoaffective disorder/Suicidal ideation-no current plan -psych following -Current regimen Cogentin 2 mg BID, Valium 5 mg BID, Remeron 30 mg at night, trazodone 200 mg at night, Effexor 225 mg QAM-->adjustments per psych team DISPO -[facility] auth pending. They would like more psychiatric info about pt. Would benefit for ongoing counseling and mental health therapy at [facility] -NOT SAFE TO GO HOME WITH UNSECURED WEAPONS AT HOME VTE Core Measure Inpt VTE Proph given/why not?: Ara Aguilar, SCD's
[2017-01-13] MEDS: DIAZEPAM 5MG TAB PO SCH ×2 (08:59→20:30)
[2017-01-13] MEDS: CEROVITE ADV FORMULA TAB PO SCH (08:59)
[2017-01-13] MEDS: VENLAFAXINE HCL XR 75 MG CAPXR PO SCH (08:59)
[2017-01-13] MEDS: NAPROXEN 375 MG TAB PO SCH ×2 (09:00→20:27)
[2017-01-13] MEDS: BENZTROPINE MESYLATE 1 MG TAB PO SCH ×2 (09:00→20:25)
[2017-01-13] MEDS: METOPROLOL TARTRATE 25 MG TAB PO SCH ×2 (09:00→20:25)
[2017-01-13] MEDS: DOCUSATE SODIUM 100 MG CAP PO SCH ×2 (09:00→20:23)
--- NOTE | 2017-01-13 09:00 | DISCHARGE SUMMARY ---
DATE OF DISCHARGE: 01/13/2017 PRINCIPAL DIAGNOSIS: Lumbar infection. HOSPITAL COURSE: On 01/07/2017, the patient was transferred [facility], underwent I\T\D of the lumbar spine, tolerated this well and taken to the orthopedic floor postoperatively. His postoperative course was uneventful. His pain was well controlled, tolerating therapy. Cultures did demonstrate staph infection, infectious disease recommending IV daptomycin. Subsequently, he was discharged with IV daptomycin per infectious disease recommendations. We will see him back in the office in the next 2 weeks to assess his progress. Again, he is going to [facility].
[2017-01-13] MEDS: LISINOPRIL 10 MG TAB PO SCH (09:01)
[2017-01-13] MEDS: POLYETHYLENE (MIRALAX) 17 GM PACK PO SCH (09:01)
[2017-01-13] MEDS: HYDROmorphone INJ 1 MG/ML SYR IV PRN ×4 (09:02→20:20)
[2017-01-13 15:56] VITALS: BP 116/73; PULSE 95; TEMP 36.4; O2SAT 95
[2017-01-13 16:00] VITALS: O2SAT 95
[2017-01-13] MEDS: DAPTOmycin IV 500 MG in SODIUM CHLORIDE 0.9% 50ML 50 ML IV SCH (19:22)
[2017-01-13] MEDS: TRAZODONE HCL 100 MG TAB PO SCH (20:23)
[2017-01-13] MEDS: TAMSULOSIN HCL 0.4 MG CAP PO SCH (20:24)
[2017-01-13] MEDS: MIRTAZAPINE TAB 15 MG TAB PO SCH (20:26)
[2017-01-13 23:19] VITALS: BP 122/62; PULSE 87; TEMP 36.6; O2SAT 93
[2017-01-14] MEDS: HYDROmorphone INJ 1 MG/ML SYR IV PRN ×6 (02:27→19:57)
[2017-01-14 06:46] VITALS: BP 100/62; PULSE 82; TEMP 36.8; O2SAT 94
[2017-01-14] MEDS: BENZTROPINE MESYLATE 1 MG TAB PO SCH ×2 (08:47→21:01)
[2017-01-14] MEDS: DOCUSATE SODIUM 100 MG CAP PO SCH ×2 (08:48→21:00)
[2017-01-14] MEDS: VENLAFAXINE HCL XR 75 MG CAPXR PO SCH (08:49)
[2017-01-14] MEDS: METOPROLOL TARTRATE 25 MG TAB PO SCH ×2 (08:51→20:58)
[2017-01-14] MEDS: LISINOPRIL 10 MG TAB PO SCH (08:54)
[2017-01-14] MEDS: NAPROXEN 375 MG TAB PO SCH ×2 (08:55→21:01)
[2017-01-14] MEDS: DIAZEPAM 5MG TAB PO SCH ×2 (08:56→20:58)
[2017-01-14] MEDS: CEROVITE ADV FORMULA TAB PO SCH (08:56)
[2017-01-14] MEDS: POLYETHYLENE (MIRALAX) 17 GM PACK PO SCH (08:56)
--- NOTE | 2017-01-14 10:29 | PROGRESS NOTE ---
DATE: 01/14/2017 Resting comfortably. Vital signs stable. T-max 36.8. No changes neurologically. ASSESSMENT: Status post I\T\D. PLAN: At this time, we are awaiting disposition. Hopefully, today he will be able to be discharged.
[2017-01-14 15:27] VITALS: BP 101/63; PULSE 89; TEMP 36.4; O2SAT 94
[2017-01-14] MEDS ORDERED: VANCOMYCIN CONSULT ACTIVE PRN ×2 (15:45→16:00)
--- NOTE | 2017-01-14 16:07 | Pharmacy Progress Note ---
Pharmacy Antibiotic Consult Date of Service: January 14, 2017. Pharmacy Dosing Scope Pharmacy is consulted to initiate vancomycin IV dosing therapy, order appropriate labs and adjust drug dose/frequency. Subjective The patient is a 51 year old male admitted on January 07, 2017 at 16:37 for a spinal infection for which he underwent and I&D as well as hardware removal. Antibiotic beads were placed. The cultures from the lumbar wound are growing coag negative staph without sensitivities. Daptomycin is not covered for SNF administration. Objective Height (Feet): 5 Height (Inches): 11.00 Weight (Kilograms): 75.200 Micro Results: RUN DATE: 01/12/17 [facility] LAB PAGE 1 RUN TIME: 1210 Specimen Inquiry PATIENT: LILYDAKOTA Eliane LOC: [facility] U # : [id number] AGE/SX: 51/M ROOM: N388 REG : 01/07/[address]: Xiang DiazDFedericoOFederico : 1965 BED: 2 DIS : STATUS: ADM IN TLOC: SPEC #: [id number] JADEN: 01/07/17 STATUS: COMP REQ #: [id number] RECD: 01/07/17 [facility] DR: Xiang Diaz D.O. SOURCE: INC.SITE ENTR: 01/07/[address] [facility] [address]: Stephan Escobedo [facility]D. [facility] Dakota Gandara D[facility] ORDERED: AER/TIM CULTSMR COMMENTS: L5 VERTEBRAL BODY Procedure Result Verified Site GRAM STAIN Final 01/08/17-51 RESULT RARE WBCs SEEN NO ORGANISMS SEEN OR AER/TIM CULT Final 01/12/17-1210 Organism 1 COAG NEG STAPHYLOCOCCUS QUANITY RARE SENS NO SENSITIVITY TO FOLLOW ANAS NO ANAEROBES ISOLATED. Assessment & Plan Loading dose: vancomycin 1800 mg IV X 1 dose then: vancomycin 1100 mg IV every 8 hours. (population pharmacokinetics suggest a half-life of 7.96 hr) Goal peak level estimate: between 35 - 40 mcg/mL. Goal trough level estimate: between 15 - 20 mcg/mL. Trough has been ordered for: 2016. Pharmacy will continue to follow and will adjust dose/frequency as necessary. Thank you
[2017-01-14] MEDS ORDERED: VANCOMYCIN INJ 1,800 MG in SODIUM CHLORIDE 0.9% 500ML 500 ML IV ONE (16:15)
--- NOTE | 2017-01-14 20:30 | Infectious Disease Progress Nt ---
Progress Note Date of Service January 14, 2017. Subjective Pt evaluation today including: conversation w/ patient, physical exam, chart review, lab review, review of studies, conversation w/ mergers and acquisitions consultant, review of inpatient medication list Patient offers no new complaints today. Pain controlled. Remains afebrile. Tolerating antibiotics without apparent difficulty. All Other Systems: Reviewed and Negative Medications Current Inpatient Medications Medications (Trade) Dose Ordered Sig/Colten Route Start Time Stop Time Status Last Admin Dose Admin Magnesium Hydroxide (Milk Of Magnesia Susp) 30 ml DAILY PRN PO 01/07/17 16:45 02/06/17 16:44 Docusate Sodium (coLACE CAP) 100 mg BID PO 01/07/17 21:00 02/06/17 20:59 01/14/17 08:48 100 MG Acetaminophen (Tylenol Tab) 650 mg Q6H PRN PO 01/07/17 16:45 02/06/17 16:44 Ondansetron HCl (Zofran Inj) 4 mg Q6 PRN IV 01/07/17 16:45 02/06/17 16:44 Pneumococcal Polysaccharide Vaccine 1 ea PRN PRN N/A 01/07/17 16:45 02/06/17 16:44 Influenza Virus Vacc Triv Types A&B 1 ea PRN PRN N/A 01/07/17 16:45 02/06/17 16:44 Oxycodone HCl (Roxicodone Immediate Rel Tab) 5 mg Q4H PRN PO 01/07/17 16:45 01/21/17 16:44 01/12/17 23:26 5 MG Hydromorphone HCl (Dilaudid Inj) 1 mg Q3H PRN IV 01/07/17 16:45 01/21/17 16:44 01/14/17 19:57 1 MG Polyethylene (Miralax Powder Packet) 17 gm DAILY PO 01/09/17 09:00 02/08/17 08:59 01/14/17 08:56 17 GM Bisacodyl (Dulcolax Tab) 5 mg DAILY PRN PO 01/09/17 06:00 02/08/17 05:59 Bisacodyl (Dulcolax Supp) 10 mg DAILY PRN NC 01/09/17 06:00 02/08/17 05:59 Benztropine Mesylate (Cogentin Tab) 2 mg BID PO 01/07/17 21:00 02/06/17 20:59 01/14/17 08:47 2 MG Diazepam (Valium Tab) 5 mg BID PO 01/07/17 21:00 02/06/17 20:59 01/14/17 08:56 5 MG Acetaminophen/ Hydrocodone Bitart ([place] 5/325 Tab) 1 tab BID PRN PO 01/07/17 16:45 01/21/17 16:44 Future Hold Ibuprofen (Advil Tab) 400 mg Q4 PRN PO 01/07/17 16:45 02/06/17 16:44 01/11/17 13:38 400 MG Lisinopril (Zestril Tab) 10 mg DAILY PO 01/08/17 09:00 02/07/17 08:59 01/14/17 08:54 10 MG Metoprolol Tartrate (Lopressor Tab) 12.5 mg Q12 PO 01/07/17 21:00 02/06/17 20:59 01/14/17 08:51 12.5 MG Mirtazapine (Remeron Tab) 30 mg HS PO 01/07/17 21:00 02/06/17 20:59 01/13/17 20:26 30 MG Multivitamins/ Minerals (Multivitamin W/ Minerals Tab) 1 tab DAILY PO 01/08/17 09:00 02/07/17 08:59 01/14/17 08:56 1 TAB Naproxen (Naprosyn Tab) 750 mg BID PO 01/07/17 21:00 02/06/17 20:59 01/14/17 08:55 750 MG Polyethylene (Miralax Powder Packet) 17 gm DAILY PRN PO 01/07/17 16:45 02/06/17 16:44 Promethazine HCl (Phenergan Tab) 25 mg Q4H PRN PO 01/07/17 16:45 02/06/17 16:44 Tamsulosin HCl (Flomax Cap) 0.4 mg HS PO 01/07/17 21:00 02/06/17 20:59 01/13/17 20:24 0.4 MG Trazodone HCl (Desyrel Tab) 200 mg HS PO 01/07/17 21:00 02/06/17 20:59 01/13/17 20:23 200 MG Venlafaxine HCl (effeXOR EXTENDED REL CAP) 225 mg QAM PO 01/08/17 09:00 02/07/17 08:59 01/14/17 08:49 225 MG Heparin Sodium (Porcine) (Heparin 10 Unit/ ml 5 ml Flush) 5 ml PRN PRN FLUSH 01/11/17 13:45 02/10/17 13:44 01/14/17 12:14 5 ML Cyclobenzaprine HCl (Flexeril Tab) 10 mg Q8H PRN PO 01/11/17 17:00 02/10/17 16:59 01/11/17 17:48 10 MG Tizanidine HCl 2 mg 2 mg QID PRN PO 01/11/17 17:00 02/10/17 16:59 01/11/17 19:36 2 MG Vancomycin HCl/ Sodium Chloride (Vancomycin Inj/ Nss 250ml) 272 ml @ 125 mls/hr Q8H IV 01/15/17 02:00 02/26/17 01:59 Vancomycin HCl (Consult) 1 ea UD PRN N/A 01/14/17 15:45 02/13/17 15:44 Vancomycin HCl (Consult) 1 ea UD PRN N/A 01/14/17 16:00 02/13/17 15:59 Objective Vital Signs Date Time Temp Pulse Resp B/P Pulse Ox O2 Delivery O2 Flow Rate FiO2 01/14/17 15:30 Room Air 01/14/17 15:27 36.4 89 18 101/63 94 Room Air 01/14/17 06:46 36.8 82 17 100/62 94 Room Air 01/13/17 23:22 Room Air 01/13/17 23:19 36.6 87 16 122/62 93 Room Air Physical Exam General Appearance: WD/WN, no apparent distress Eyes: normal inspection, EOMI, sclerae normal ENT: normal ENT inspection, pharynx normal Neck: supple, no adenopathy, trachea midline Respiratory/Chest: chest non-tender, lungs clear, normal breath sounds, no respiratory distress Cardiovascular: regular rate, rhythm, no gallop, no murmur Abdomen: normal bowel sounds, non tender, soft, no organomegaly Extremities: non-tender, no calf tenderness Neurologic/Psychiatric: alert, oriented x 3 Skin: normal color, no rash Lymphatic: no adenopathy Assessment and Plan 51-year-old male status post lumbar surgery now with deep lumbar infection with possible diskitis, vertebral osteomyelitis, status post removal of hardware and debridement, cultures now growing coagulase negative Staph. Rehab unwilling to cover daptomycin, wi;; change to vancomycin. Will need to insure adequate levels. discussed with pharmacy, will follow.
[2017-01-14 20:57] VITALS: BP 123/77; PULSE 90
[2017-01-14] MEDS: TRAZODONE HCL 100 MG TAB PO SCH (21:00)
[2017-01-14] MEDS: TAMSULOSIN HCL 0.4 MG CAP PO SCH (21:01)
[2017-01-14] MEDS: MIRTAZAPINE TAB 15 MG TAB PO SCH (21:02)
[2017-01-14 22:50] VITALS: BP 106/70; PULSE 78; TEMP 36.6; O2SAT 96
[2017-01-15] MEDS: VANCOMYCIN INJ 1,100 MG in SODIUM CHLORIDE 0.9% 250ML 250 ML IV SCH ×3 (02:03→18:54)
[2017-01-15] MEDS: OXYCODONE HCL IR 5 MG TAB (IMMEDIATE RELEASE) PO PRN (04:43)
[2017-01-15] MEDS: HYDROmorphone INJ 1 MG/ML SYR IV PRN ×5 (06:14→21:42)
[2017-01-15 06:32] LABS: CREATININE 0.8 mg/dl (0.60-1.40)
[2017-01-15 08:14] VITALS: BP 110/72; PULSE 72; TEMP 36.4; O2SAT 95
[2017-01-15] MEDS: BENZTROPINE MESYLATE 1 MG TAB PO SCH ×2 (08:47→21:36)
[2017-01-15] MEDS: CEROVITE ADV FORMULA TAB PO SCH (08:47)
[2017-01-15] MEDS: POLYETHYLENE (MIRALAX) 17 GM PACK PO SCH (08:48)
[2017-01-15] MEDS: NAPROXEN 375 MG TAB PO SCH ×2 (08:48→21:40)
[2017-01-15] MEDS: DOCUSATE SODIUM 100 MG CAP PO SCH ×2 (08:48→21:37)
[2017-01-15] MEDS: METOPROLOL TARTRATE 25 MG TAB PO SCH ×2 (08:48→21:38)
[2017-01-15] MEDS: VENLAFAXINE HCL XR 75 MG CAPXR PO SCH (08:49)
[2017-01-15] MEDS: LISINOPRIL 10 MG TAB PO SCH (08:49)
[2017-01-15] MEDS: DIAZEPAM 5MG TAB PO SCH ×2 (08:56→21:37)
[2017-01-15 10:48] VITALS: O2SAT 95
--- NOTE | 2017-01-15 10:51 | PROGRESS NOTE ---
DATE: 01/15/2017 DATE: 01/15/2017. SUBJECTIVE: The patient states his pain is well controlled. He has no complaints. Vital signs stable. T-max 36.4. OBJECTIVE: On exam he has good strength to testing, is cooperative. ASSESSMENT: Status post incision and drainage lumbar spine. PLAN: At this time, we are awaiting placement. Appears Tuesday may be possible. I will defer antibiotic treatment to Dr. Sanchez.
[2017-01-15 15:53] VITALS: BP 162/95; PULSE 92; TEMP 36.7; O2SAT 94
[2017-01-15] MEDS ORDERED: VANCOMYCIN TROUGH SCH (17:30)
[2017-01-15] MEDS: TRAZODONE HCL 100 MG TAB PO SCH (21:37)
[2017-01-15] MEDS: MIRTAZAPINE TAB 15 MG TAB PO SCH (21:39)
[2017-01-15] MEDS: TAMSULOSIN HCL 0.4 MG CAP PO SCH (22:00)
[2017-01-15 22:45] VITALS: BP 97/63; PULSE 81; TEMP 36.8; O2SAT 92
[2017-01-16] MEDS: VANCOMYCIN INJ 1,100 MG in SODIUM CHLORIDE 0.9% 250ML 250 ML IV SCH ×3 (01:39→17:55)
[2017-01-16] MEDS: HYDROmorphone INJ 1 MG/ML SYR IV PRN ×6 (06:05→21:55)
[2017-01-16 06:35] LABS: CREATININE 0.84 mg/dl (0.60-1.40)
[2017-01-16 06:43] VITALS: BP 114/73; PULSE 77; TEMP 36.5; O2SAT 94
--- NOTE | 2017-01-16 08:58 | Pharmacy Progress Note ---
Pharmacy Antibiotic Prog Note Date of Service January 16, 2017. Subjective The patient is currently receiving Vancomycin 1100mg IV q8h. The patient is currently on day #3 of IV therapy, level obtained last evening. Objective Height (Feet): 5 Height (Inches): 11.00 Weight (Kilograms): 75.200 Levels: Item Value Date Time Vancomycin Level Trough 18.7 mcg/ml 01/15/17 8975 Lab Results (24hrs): Test 01/15/17 17:35 01/16/17 05:40 Vancomycin Level Trough 18.7 mcg/ml (SEE COMMENT) Creatinine 0.84 mg/dl (0.60-1.40) Est Creatinine Clear Calc Drug Dose 109.4 ml/min Estimated GFR () 116.7 Estimated GFR (Non- 100.7 Micro Results: Item Value Date Time Gram Stain - Final Complete 01/07/17 1618 Incision Site Back Gram Stain - Final Complete 01/07/17 1623 Incision Site Back RUN DATE: 01/12/17 [facility] LAB PAGE 1 RUN TIME: 1210 Specimen Inquiry PATIENT: DAKOTA BAUTISTA Eliane LOC: [facility] U # : [id number] AGE/SX: 51/M ROOM: [facility] REG : 01/07/[address]: Xiang Diaz D.O. : 1965 BED: 2 DIS : STATUS: ADM IN TLOC: SPEC #: [id number] JADEN: 01/07/17 STATUS: COMP REQ #: [id number] RECD: 01/07/[address]: Xiang Diaz D.O. SOURCE: INC.SITE ENTR: 01/07/[address] [facility] [address]: Stephan Escobedo M.D. [facility]: Dakota Gandara D.O. ORDERED: AER/TIM CULTSMR COMMENTS: L5 VERTEBRAL BODY Procedure Result Verified Site GRAM STAIN Final 01/08/17-850 RESULT RARE WBCs SEEN NO ORGANISMS SEEN OR AER/TIM CULT Final 01/12/17-1209 Organism 1 COAG NEG STAPHYLOCOCCUS QUANITY RARE SENS NO SENSITIVITY TO FOLLOW ANAS NO ANAEROBES ISOLATED. Recent Pertinent Medications Item Value Date Time Vancomycin HCl 272 ml @ 125 mls/hr 01/15/17 0200 1100 mg/Sodium Q8H/IV 01/16/17 0139 Chloride Vancomycin HCl 536 ml @ 200 mls/hr 01/14/17 1615 1800 mg/Sodium NOW ONCE/IV 01/14/17 1658 Chloride Assessment & Plan Vancomycin * 51 yo M s/p I&D/hardware removal/abx bead placement on IV Vanco for coag neg staph lumbar infection/osteomyelitis (dapto not covered at [facility]) * Goal trough level: 15-20mcg/mL * Level drawn: 18.7mcg/mL --> Therapeutic * Continue: Vancomycin 1100mg IV q8h * Will recheck trough in a few days, sooner if needed Pharmacy will continue to follow and will adjust dose/frequency as necessary. Thank you
[2017-01-16] MEDS: DOCUSATE SODIUM 100 MG CAP PO SCH ×2 (09:06→20:41)
[2017-01-16] MEDS: BENZTROPINE MESYLATE 1 MG TAB PO SCH ×2 (09:06→20:42)
[2017-01-16] MEDS: CEROVITE ADV FORMULA TAB PO SCH (09:07)
[2017-01-16] MEDS: VENLAFAXINE HCL XR 75 MG CAPXR PO SCH (09:07)
[2017-01-16] MEDS: NAPROXEN 375 MG TAB PO SCH ×2 (09:08→20:41)
[2017-01-16 09:10] VITALS: BP 126/91; PULSE 106
[2017-01-16] MEDS: METOPROLOL TARTRATE 25 MG TAB PO SCH ×2 (09:11→20:41)
[2017-01-16] MEDS: LISINOPRIL 10 MG TAB PO SCH (09:11)
[2017-01-16] MEDS: DIAZEPAM 5MG TAB PO SCH ×2 (09:17→20:42)
--- NOTE | 2017-01-16 09:51 | PROGRESS NOTE ---
DATE: 01/16/2017 SUBJECTIVE: Pain is well controlled. Vital signs stable. T-max 36.5. OBJECTIVE: On exam, he is seen at the bedside. Had good strength to testing. Incision is clean, dry and intact. Moderate swelling, but no erythema or drainage. ASSESSMENT: Status post incision and drainage lumbar spine. PLAN: At this time, we will hope to discharge Tuesday.
[2017-01-16] MEDS: POLYETHYLENE (MIRALAX) 17 GM PACK PO SCH (09:56)
[2017-01-16] MEDS: OXYCODONE HCL IR 5 MG TAB (IMMEDIATE RELEASE) PO PRN ×2 (14:46→20:09)
[2017-01-16 14:58] VITALS: BP 148/71; PULSE 105; TEMP 36.4; O2SAT 97
[2017-01-16 20:37] VITALS: BP 129/88; PULSE 92
[2017-01-16] MEDS: TRAZODONE HCL 100 MG TAB PO SCH (20:41)
[2017-01-16] MEDS: MIRTAZAPINE TAB 15 MG TAB PO SCH (20:42)
[2017-01-16] MEDS: TAMSULOSIN HCL 0.4 MG CAP PO SCH (20:42)
[2017-01-16 22:48] VITALS: BP 138/91; PULSE 84; TEMP 36.5; O2SAT 95
[2017-01-17] MEDS: OXYCODONE HCL IR 5 MG TAB (IMMEDIATE RELEASE) PO PRN ×4 (00:58→17:23)
[2017-01-17] MEDS: VANCOMYCIN INJ 1,100 MG in SODIUM CHLORIDE 0.9% 250ML 250 ML IV SCH ×3 (02:00→18:41)
[2017-01-17 06:08] LABS: CREATININE 0.87 mg/dl (0.60-1.40)
[2017-01-17 06:45] VITALS: BP 105/69; PULSE 73; TEMP 36.8; O2SAT 94
[2017-01-17] MEDS: POLYETHYLENE (MIRALAX) 17 GM PACK PO SCH (08:59)
[2017-01-17] MEDS: VENLAFAXINE HCL XR 75 MG CAPXR PO SCH (08:59)
[2017-01-17] MEDS: DOCUSATE SODIUM 100 MG CAP PO SCH ×2 (08:59→21:02)
[2017-01-17] MEDS: BENZTROPINE MESYLATE 1 MG TAB PO SCH ×2 (08:59→21:02)
[2017-01-17] MEDS: NAPROXEN 375 MG TAB PO SCH ×2 (09:00→21:02)
[2017-01-17] MEDS: CEROVITE ADV FORMULA TAB PO SCH (09:00)
[2017-01-17] MEDS: DIAZEPAM 5MG TAB PO SCH ×2 (09:00→21:01)
[2017-01-17 09:01] VITALS: BP 131/89; PULSE 91
[2017-01-17] MEDS: LISINOPRIL 10 MG TAB PO SCH (09:03)
[2017-01-17] MEDS: METOPROLOL TARTRATE 25 MG TAB PO SCH ×2 (09:03→21:02)
[2017-01-17] MEDS: HYDROmorphone INJ 1 MG/ML SYR IV PRN ×4 (12:38→23:24)
--- NOTE | 2017-01-17 14:05 | Infectious Disease Progress Nt ---
Progress Note Date of Service January 17, 2017. Subjective Pt evaluation today including: conversation w/ patient, physical exam, chart review, lab review, review of studies, conversation w/ sediment remediation consultant, review of inpatient medication list Patient offers no new complaints today. Awaiting paperwork for discharge. Back pain controlled. Tolerating vancomycin without apparent difficulty.Vancomycin trough level therapeutic All Other Systems: Reviewed and Negative Medications Current Inpatient Medications Medications (Trade) Dose Ordered Sig/Colten Route Start Time Stop Time Status Last Admin Dose Admin Magnesium Hydroxide (Milk Of Magnesia Susp) 30 ml DAILY PRN PO 01/07/17 16:45 02/06/17 16:44 Docusate Sodium (coLACE CAP) 100 mg BID PO 01/07/17 21:00 02/06/17 20:59 01/17/17 08:59 100 MG Acetaminophen (Tylenol Tab) 650 mg Q6H PRN PO 01/07/17 16:45 02/06/17 16:44 Ondansetron HCl (Zofran Inj) 4 mg Q6 PRN IV 01/07/17 16:45 02/06/17 16:44 Pneumococcal Polysaccharide Vaccine 1 ea PRN PRN N/A 01/07/17 16:45 02/06/17 16:44 Influenza Virus Vacc Triv Types A&B 1 ea PRN PRN N/A 01/07/17 16:45 02/06/17 16:44 Oxycodone HCl (Roxicodone Immediate Rel Tab) 5 mg Q4H PRN PO 01/07/17 16:45 01/21/17 16:44 01/17/17 09:08 5 MG Hydromorphone HCl (Dilaudid Inj) 1 mg Q3H PRN IV 01/07/17 16:45 01/21/17 16:44 01/17/17 12:38 1 MG Polyethylene (Miralax Powder Packet) 17 gm DAILY PO 01/09/17 09:00 02/08/17 08:59 01/17/17 08:59 17 GM Bisacodyl (Dulcolax Tab) 5 mg DAILY PRN PO 01/09/17 06:00 02/08/17 05:59 Bisacodyl (Dulcolax Supp) 10 mg DAILY PRN IA 01/09/17 06:00 02/08/17 05:59 Benztropine Mesylate (Cogentin Tab) 2 mg BID PO 01/07/17 21:00 02/06/17 20:59 01/17/17 08:59 2 MG Diazepam (Valium Tab) 5 mg BID PO 01/07/17 21:00 02/06/17 20:59 01/17/17 09:00 5 MG Acetaminophen/ Hydrocodone Bitart ([place] 5/325 Tab) 1 tab BID PRN PO 01/07/17 16:45 01/21/17 16:44 Future Hold Ibuprofen (Advil Tab) 400 mg Q4 PRN PO 01/07/17 16:45 02/06/17 16:44 01/11/17 13:38 400 MG Lisinopril (Zestril Tab) 10 mg DAILY PO 01/08/17 09:00 02/07/17 08:59 01/17/17 09:03 10 MG Metoprolol Tartrate (Lopressor Tab) 12.5 mg Q12 PO 01/07/17 21:00 02/06/17 20:59 01/17/17 09:03 12.5 MG Mirtazapine (Remeron Tab) 30 mg HS PO 01/07/17 21:00 02/06/17 20:59 01/16/17 20:42 30 MG Multivitamins/ Minerals (Multivitamin W/ Minerals Tab) 1 tab DAILY PO 01/08/17 09:00 02/07/17 08:59 01/17/17 09:00 1 TAB Naproxen (Naprosyn Tab) 750 mg BID PO 01/07/17 21:00 02/06/17 20:59 01/17/17 09:00 750 MG Polyethylene (Miralax Powder Packet) 17 gm DAILY PRN PO 01/07/17 16:45 02/06/17 16:44 Promethazine HCl (Phenergan Tab) 25 mg Q4H PRN PO 01/07/17 16:45 02/06/17 16:44 Tamsulosin HCl (Flomax Cap) 0.4 mg HS PO 01/07/17 21:00 02/06/17 20:59 01/16/17 20:42 0.4 MG Trazodone HCl (Desyrel Tab) 200 mg HS PO 01/07/17 21:00 02/06/17 20:59 5/21/17 20:41 200 MG Venlafaxine HCl (effeXOR EXTENDED REL CAP) 225 mg QAM PO 01/08/17 09:00 02/07/17 08:59 01/17/17 08:59 225 MG Heparin Sodium (Porcine) (Heparin 10 Unit/ ml 5 ml Flush) 5 ml PRN PRN FLUSH 01/11/17 13:45 02/10/17 13:44 01/17/17 12:37 5 ML Cyclobenzaprine HCl (Flexeril Tab) 10 mg Q8H PRN PO 01/11/17 17:00 02/10/17 16:59 01/11/17 17:48 10 MG Tizanidine HCl 2 mg 2 mg QID PRN PO 01/11/17 17:00 02/10/17 16:59 01/11/17 19:36 2 MG Vancomycin HCl/ Sodium Chloride (Vancomycin Inj/ Nss 250ml) 272 ml @ 125 mls/hr Q8H IV 01/15/17 02:00 02/26/17 01:59 01/17/17 09:30 125 MLS/HR Vancomycin HCl (Consult) 1 ea UD PRN N/A 01/14/17 15:45 02/13/17 15:44 Objective Vital Signs Date Time Temp Pulse Resp B/P Pulse Ox O2 Delivery O2 Flow Rate FiO2 01/17/17 09:01 91 131/89 01/17/17 08:00 Room Air 01/17/17 06:45 36.8 73 17 105/69 94 Room Air 01/16/17 23:30 Room Air 01/16/17 22:48 36.5 84 20 138/91 95 Room Air 01/16/17 20:37 92 129/88 01/16/17 15:30 Room Air 01/16/17 14:58 36.4 105 20 148/71 97 Room Air Physical Exam General Appearance: WD/WN, no apparent distress Eyes: normal inspection, sclerae normal ENT: normal ENT inspection, pharynx normal Neck: supple, no adenopathy, trachea midline Respiratory/Chest: chest non-tender, lungs clear, normal breath sounds, no respiratory distress Cardiovascular: regular rate, rhythm, no gallop, no murmur Abdomen: normal bowel sounds, non tender, soft, no organomegaly Extremities: non-tender, no calf tenderness Neurologic/Psychiatric: alert, oriented x 3 Skin: normal color, no rash, + pertinent finding (Surgical site clean) Lymphatic: no adenopathy Laboratory Results Last 24 Hours Test 01/17/17 05:20 Creatinine 0.87 mg/dl Est Creatinine Clear Calc Drug Dose 105.6 ml/min Estimated GFR () 115.0 Estimated GFR (Non- 99.2 Assessment and Plan 51-year-old male status post lumbar surgery now with deep lumbar infection with possible disc at itis, vertebral osteomyelitis, status post removal of hardware and debridement, cultures now growing coagulase negative Staph. Rehab unwilling to cover daptomycin, have changed to vancomycin. Trough levels currently adequate. Will follow.
[2017-01-17 14:57] VITALS: BP 120/72; PULSE 87; TEMP 36.4; O2SAT 95
--- NOTE | 2017-01-17 15:19 | PROGRESS NOTE ---
DATE: 01/17/2017 PROGRESS: Unchanged. PHYSICAL EXAMINATION: Vital signs stable. T-max 36.8. Bowels are working appropriately. ASSESSMENT: Status post incision and drainage lumbar spine with removal instrumentation. PLAN: At this time, we are looking for discharge tomorrow.
[2017-01-17 21:00] VITALS: BP 115/76; PULSE 85
[2017-01-17] MEDS: MIRTAZAPINE TAB 15 MG TAB PO SCH (21:01)
[2017-01-17] MEDS: TAMSULOSIN HCL 0.4 MG CAP PO SCH (21:01)
[2017-01-17] MEDS: TRAZODONE HCL 100 MG TAB PO SCH (21:02)
[2017-01-17 22:50] VITALS: BP 111/75; PULSE 99; TEMP 36.3; O2SAT 95
[2017-01-18] MEDS: VANCOMYCIN INJ 1,100 MG in SODIUM CHLORIDE 0.9% 250ML 250 ML IV SCH ×2 (02:38→10:44)
[2017-01-18 07:36] VITALS: BP 108/70; PULSE 68; TEMP 36.6; O2SAT 96
--- NOTE | 2017-01-18 08:05 | PROGRESS NOTE ---
DATE: 01/18/2017 He is status post I\T\D and removal of lumbar instrumentation. He currently has a PICC line in place with IV vancomycin. Dr. Sanchez and has been following along with us. He has no complaints. We are currently awaiting discharge disposition. PHYSICAL EXAMINATION: VITAL SIGNS: Stable. He is afebrile. Dressing clean, dry and intact. LOWER EXTREMITIES: Neurovascularly intact. ASSESSMENT: Status post incision and drainage lumbar spine with removal of lumbar instrumentation. PLAN: At this point in time from an orthopedic standpoint is stable. We are awaiting discharge paperwork to be set up. Will continue the PICC line and follow up with Dr. Sanchez for this.
[2017-01-18] MEDS: HYDROmorphone INJ 1 MG/ML SYR IV PRN ×5 (08:25→21:57)
[2017-01-18] MEDS: CEROVITE ADV FORMULA TAB PO SCH (08:56)
[2017-01-18] MEDS: VENLAFAXINE HCL XR 75 MG CAPXR PO SCH (08:56)
[2017-01-18] MEDS: DOCUSATE SODIUM 100 MG CAP PO SCH ×2 (08:56→21:02)
[2017-01-18] MEDS: LISINOPRIL 10 MG TAB PO SCH (08:57)
[2017-01-18] MEDS: POLYETHYLENE (MIRALAX) 17 GM PACK PO SCH (08:58)
[2017-01-18] MEDS: METOPROLOL TARTRATE 25 MG TAB PO SCH ×2 (08:59→21:05)
[2017-01-18] MEDS: BENZTROPINE MESYLATE 1 MG TAB PO SCH ×2 (08:59→21:01)
[2017-01-18] MEDS: NAPROXEN 375 MG TAB PO SCH ×2 (08:59→21:02)
[2017-01-18] MEDS: DIAZEPAM 5MG TAB PO SCH ×2 (09:05→21:03)
[2017-01-18] MEDS ORDERED: VANCOMYCIN TROUGH ONE (09:30)
[2017-01-18] MEDS: OXYCODONE HCL IR 5 MG TAB (IMMEDIATE RELEASE) PO PRN (10:19)
--- NOTE | 2017-01-18 11:42 | Pharmacy Progress Note ---
Pharmacy Antibiotic Prog Note Date of Service January 18, 2017. Subjective The patient is currently receiving Vancomycin 1100mg IV every 8 hours. The patient is currently on day # 5 of Vancomycin IV therapy. Objective Height (Feet): 5 Height (Inches): 11.00 Weight (Kilograms): 75.200 Levels: Item Value Date Time Vancomycin Level Trough 25.3 mcg/ml 01/18/17 0945 Vancomycin Level Trough 18.7 mcg/ml 01/15/17 1735 Lab Results (24hrs): Test 01/18/17 09:45 Vancomycin Level Trough 25.3 mcg/ml (SEE COMMENT) Micro Results: Item Value Date Time Gram Stain - Final Complete 01/07/17 1623 Incision Site Back Gram Stain - Final Complete 01/07/17 1618 Incision Site Back Assessment & Plan This drug level is Supratherapeutic. The initial trough was right on target but it is now looking like Mr. Blanca is accumulating the Vancomycin. I will reduce the frequency while increasing the concentration. This plan will possibly be continued at a SNF as there are plans for discharge at this time. This should be easily transitioned to SNF setting at this frequency as well. I changed Vancomycin to 1300mg (~17mg/kg) every 12 hours. I estimated his half life at around 9 hours. I ordered another trough level, in the event he remains with us, prior to his 0400 dose on 01/20/17. Dr. 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 Goal trough level estimate: between 15-20 mcg/mL. Pharmacy will continue to follow and will adjust dose/frequency as necessary. Thank you
--- NOTE | 2017-01-18 13:35 | Infectious Disease Progress Nt ---
Progress Note Date of Service January 18, 2017. Subjective Pt evaluation today including: conversation w/ patient, physical exam, chart review, lab review, review of studies, conversation w/ obiee consultant, review of inpatient medication list Patient offers no new complaints today. Pain controlled. Vancomycin trough level high, dose adjusted by pharmacy. All Other Systems: Reviewed and Negative Medications Current Inpatient Medications Medications (Trade) Dose Ordered Sig/Colten Route Start Time Stop Time Status Last Admin Dose Admin Magnesium Hydroxide (Milk Of Magnesia Susp) 30 ml DAILY PRN PO 01/07/17 16:45 02/06/17 16:44 Docusate Sodium (coLACE CAP) 100 mg BID PO 01/07/17 21:00 02/06/17 20:59 01/18/17 08:56 100 MG Acetaminophen (Tylenol Tab) 650 mg Q6H PRN PO 01/07/17 16:45 02/06/17 16:44 Ondansetron HCl (Zofran Inj) 4 mg Q6 PRN IV 01/07/17 16:45 02/06/17 16:44 Pneumococcal Polysaccharide Vaccine 1 ea PRN PRN N/A 01/07/17 16:45 02/06/17 16:44 Influenza Virus Vacc Triv Types A&B 1 ea PRN PRN N/A 01/07/17 16:45 02/06/17 16:44 Oxycodone HCl (Roxicodone Immediate Rel Tab) 5 mg Q4H PRN PO 01/07/17 16:45 01/21/17 16:44 01/18/17 10:19 5 MG Hydromorphone HCl (Dilaudid Inj) 1 mg Q3H PRN IV 01/07/17 16:45 01/21/17 16:44 01/18/17 11:51 1 MG Polyethylene (Miralax Powder Packet) 17 gm DAILY PO 01/09/17 09:00 02/08/17 08:59 01/18/17 08:58 17 GM Bisacodyl (Dulcolax Tab) 5 mg DAILY PRN PO 01/09/17 06:00 02/08/17 05:59 Bisacodyl (Dulcolax Supp) 10 mg DAILY PRN IA 01/09/17 06:00 02/08/17 05:59 Benztropine Mesylate (Cogentin Tab) 2 mg BID PO 01/07/17 21:00 02/06/17 20:59 01/18/17 08:59 2 MG Diazepam (Valium Tab) 5 mg BID PO 01/07/17 21:00 02/06/17 20:59 01/18/17 09:05 5 MG Acetaminophen/ Hydrocodone Bitart ([place] 5/325 Tab) 1 tab BID PRN PO 01/07/17 16:45 01/21/17 16:44 Future Hold Ibuprofen (Advil Tab) 400 mg Q4 PRN PO 01/07/17 16:45 02/06/17 16:44 01/11/17 13:38 400 MG Lisinopril (Zestril Tab) 10 mg DAILY PO 01/08/17 09:00 02/07/17 08:59 01/18/17 08:57 10 MG Metoprolol Tartrate (Lopressor Tab) 12.5 mg Q12 PO 01/07/17 21:00 02/06/17 20:59 01/18/17 08:59 12.5 MG Mirtazapine (Remeron Tab) 30 mg HS PO 01/07/17 21:00 02/06/17 20:59 01/17/17 21:01 30 MG Multivitamins/ Minerals (Multivitamin W/ Minerals Tab) 1 tab DAILY PO 01/08/17 09:00 02/07/17 08:59 01/18/17 08:56 1 TAB Naproxen (Naprosyn Tab) 750 mg BID PO 01/07/17 21:00 02/06/17 20:59 01/18/17 08:59 750 MG Polyethylene (Miralax Powder Packet) 17 gm DAILY PRN PO 01/07/17 16:45 02/06/17 16:44 Promethazine HCl (Phenergan Tab) 25 mg Q4H PRN PO 01/07/17 16:45 02/06/17 16:44 Tamsulosin HCl (Flomax Cap) 0.4 mg HS PO 01/07/17 21:00 02/06/17 20:59 01/17/17 21:01 0.4 MG Trazodone HCl (Desyrel Tab) 200 mg HS PO 01/07/17 21:00 02/06/17 20:59 01/17/17 21:02 200 MG Venlafaxine HCl (effeXOR EXTENDED REL CAP) 225 mg QAM PO 01/08/17 09:00 02/07/17 08:59 01/18/17 08:56 225 MG Heparin Sodium (Porcine) (Heparin 10 Unit/ ml 5 ml Flush) 5 ml PRN PRN FLUSH 01/11/17 13:45 02/10/17 13:44 01/18/17 11:51 5 ML Cyclobenzaprine HCl (Flexeril Tab) 10 mg Q8H PRN PO 01/11/17 17:00 02/10/17 16:59 01/11/17 17:48 10 MG Tizanidine HCl (Zanaflex Tab) 2 mg QID PRN PO 01/11/17 17:00 02/10/17 16:59 01/18/17 10:20 2 MG Vancomycin HCl 1 ea 1 ea UD PRN N/A 01/14/17 15:45 02/13/17 15:44 Vancomycin HCl/ Sodium Chloride (Vancomycin Inj/ Nss 250ml) 276 ml @ 125 mls/hr Q12H IV 01/19/17 02:00 03/02/17 01:59 Objective Vital Signs Date Time Temp Pulse Resp B/P Pulse Ox O2 Delivery O2 Flow Rate FiO2 01/18/17 09:08 Room Air 01/18/17 07:36 36.6 68 16 108/70 96 Room Air 01/17/17 23:21 Room Air 01/17/17 22:50 36.3 99 16 111/75 95 Room Air 01/17/17 21:00 85 115/76 01/17/17 15:15 Room Air 01/17/17 14:57 36.4 87 18 120/72 95 Room Air Physical Exam General Appearance: WD/WN, no apparent distress Eyes: normal inspection, sclerae normal ENT: normal ENT inspection, pharynx normal Neck: supple, no adenopathy, trachea midline Respiratory/Chest: lungs clear, normal breath sounds, no respiratory distress Cardiovascular: regular rate, rhythm, no gallop, no murmur Abdomen: normal bowel sounds, non tender, soft, no organomegaly Extremities: non-tender, no calf tenderness Neurologic/Psychiatric: alert, oriented x 3 Skin: normal color, warm/dry, no rash, + pertinent finding (Surgical dressing clean and intact) Lymphatic: no adenopathy Laboratory Results Last 24 Hours Test 01/18/17 09:45 Vancomycin Level Trough 25.3 mcg/ml Assessment and Plan 51-year-old male status post lumbar surgery now with deep lumbar infection with possible discitis, vertebral osteomyelitis, status post removal of hardware and debridement, cultures have grown coagulase negative Staph. Rehab unwilling to cover daptomycin, so patient now on vancomycin, and will require 6 weeks of therapy. Need to monitor trough levels carefully as well as renal function while on antibiotic. Will follow while in hospital.
[2017-01-18 14:48] VITALS: BP 118/78; PULSE 84; TEMP 37.1; O2SAT 94
[2017-01-18 20:55] VITALS: BP 134/85; PULSE 83
[2017-01-18] MEDS: MIRTAZAPINE TAB 15 MG TAB PO SCH (21:01)
[2017-01-18] MEDS: TAMSULOSIN HCL 0.4 MG CAP PO SCH (21:02)
[2017-01-18] MEDS: TRAZODONE HCL 100 MG TAB PO SCH (21:02)
[2017-01-18] MEDS: CYCLOBENZAPRINE HCL 10 MG TAB PO PRN (21:05)
[2017-01-18 22:57] VITALS: BP 106/65; PULSE 81; TEMP 36.5; O2SAT 92
[2017-01-19] MEDS: VANCOMYCIN INJ 1,300 MG in SODIUM CHLORIDE 0.9% 250ML 250 ML IV SCH ×2 (01:52→13:50)
[2017-01-19] MEDS: HYDROmorphone INJ 1 MG/ML SYR IV PRN ×4 (05:38→15:50)
[2017-01-19 07:48] VITALS: BP 112/74; PULSE 72; TEMP 36.5; O2SAT 93
[2017-01-19] MEDS: DIAZEPAM 5MG TAB PO SCH (08:48)
[2017-01-19] MEDS: METOPROLOL TARTRATE 25 MG TAB PO SCH (08:49)
[2017-01-19] MEDS: VENLAFAXINE HCL XR 75 MG CAPXR PO SCH (08:49)
[2017-01-19] MEDS: CEROVITE ADV FORMULA TAB PO SCH (08:49)
[2017-01-19] MEDS: NAPROXEN 375 MG TAB PO SCH (08:50)
[2017-01-19] MEDS: LISINOPRIL 10 MG TAB PO SCH (08:50)
[2017-01-19] MEDS: DOCUSATE SODIUM 100 MG CAP PO SCH (08:50)
[2017-01-19] MEDS: BENZTROPINE MESYLATE 1 MG TAB PO SCH (08:51)
[2017-01-19] MEDS: POLYETHYLENE (MIRALAX) 17 GM PACK PO SCH (08:51)
[2017-01-19] MEDS: OXYCODONE HCL IR 5 MG TAB (IMMEDIATE RELEASE) PO PRN (08:56)
[2017-01-19] MEDS ORDERED: Vancomycin IV (13:16)
[2017-01-19 14:04] VITALS: BP 112/74; PULSE 72; TEMP 36.5; O2SAT 93
[2017-01-20] MEDS ORDERED: VANCOMYCIN TROUGH SCH (03:30)
--- NOTE | 2017-01-20 13:39 | EDITING REQUIRED CODING QUERY ---
CODING QUERY To promote full compliance with coding requirements relating to patient care, provider participation is requested in all cases of cafe attendant uncertainty. Please assist us with the question(s) below: Coding Question(s): Please clarify below, in your clinical opinion, regarding the Osteomyelitis of the Lumbar Vertebra/Diskitis and Abscess. ( ) This infection is a complication resulting from the recent spinal procedure ( ) This infection is Not a complication of the recent spinal procedure Physician's Response(s): Thank you Blossom Barrera Principal Diagnosis: "_that condition established after study, to be chiefly responsible for occasioning the admission of the patient to the hospital for care." Co-Existing Principal Diagnosis: "_when two or more diagnoses equally meet the criteria for principal diagnosis as determined by the circumstances of admission, diagnostic work up, and/or therapy provided, and the Alphabetic Index, Tabular List, or another coding guideline does not provide sequencing direction, any one of the diagnoses may be sequenced first." "When the physician has documented what appears to be a current diagnosis in the body of the record, but has not included the diagnosis in the final diagnostic statement, the physician should be asked whether the diagnosis should be added." ([facility] 2 QTR90. p3-4)
[2017-03-17] MEDS ORDERED: TRAZ100T29 PO (16:10)
[2017-03-17] MEDS ORDERED: CHOL20007 PO (16:10)
[2017-03-17] MEDS ORDERED: TAMS0.4C38 PO (16:10)
[2017-03-17] MEDS ORDERED: IBUP-1459 PO (16:10)
[2017-03-17] MEDS ORDERED: MULT-17 PO (16:10)
[2017-03-17] MEDS ORDERED: METO25TA56 PO (16:10)
[2017-03-17] MEDS ORDERED: HYDR-5688 PO (18:11)
[2017-03-17] MEDS ORDERED: NAPR-1221 PO (18:11)
[2017-03-17] MEDS ORDERED: LISI-461 PO (18:11)
[2017-03-23] MEDS ORDERED: RXC5 PO (13:44)
[2017-03-23] MEDS ORDERED: KFL500 PO (13:46)
== END 2017-01-19 16:08 | DRG 477 ==
LOC: ENRESERVDT → ENRESERVTM → C.ACU 14:21 → C.MSN 16:37
PROVIDERS: ADMIT Orthopaedic Surgery Orthopaedic Surgery of the Spine; ATTEND Orthopaedic Surgery Orthopaedic Surgery of the Spine
PROC: 0Q9 Lower Bones, Drainage (ICD-10-PCS; principal; 2017-01-07 10:30)
PROC: 0QP004Z Removal of Internal Fixation Device from Lumbar Vertebra, Open Approach (ICD-10-PCS; principal; 2017-01-07 10:30)
PROC: 3E0V329 Introduction of Other Anti-infective into Bones, Percutaneous Approach (ICD-10-PCS; principal; 2017-01-07 10:30)
PROC: 02HV33Z Insertion of Infusion Device into Superior Vena Cava, Percutaneous Approach (ICD-10-PCS; 2017-01-11)
DX: M46.26 Osteomyelitis of vertebra, lumbar region (principal); K68.12 Psoas muscle abscess; F33.2 Major depressive disorder, recurrent severe without psychotic features; R45.851 Suicidal ideations; M46.46 Discitis, unspecified, lumbar region; B95.7 Other staphylococcus as the cause of diseases classified elsewhere; F25.9 Schizoaffective disorder, unspecified; K59.00 Constipation, unspecified; I10 Essential (primary) hypertension; E78.5 Hyperlipidemia, unspecified; Z79.899 Other long term (current) drug therapy; Z98.1 Arthrodesis status; Z87.440 Personal history of urinary (tract) infections; Z87.891 Personal history of nicotine dependence; Z81.8 Family history of other mental and behavioral disorders

== ENCOUNTER 2017-03-17 18:58 | Inpatient (IN) | payer OTHER ==
[~2017-03-17] VITALS: Ht 180.3 cm; Wt 77.0 kg
[~2017-03-17 18:58] MED LIST changes: -BENZ-89 PO; +CGN1 PO; +CHOL20007 PO; -CLC100 PO; -CYCL10TA6 PO; -EFF75 PO; +FLX10 PO; +HYDR-5688 PO; +IBUP-1459 PO; -KFL500 PO; +LISI-461 PO; +METO25TA56 PO; +MULT-17 PO; +NAPR375T3 PO; -SENN8.6C PO; +TAMS0.4C38 PO; +TRAZ100T29 PO; +Vancomycin IV; -ZNF/4 PO; +ZNF4 PO
[2017-03-17] MEDS ORDERED: BENZ2TAB6 PO (19:49)
[2017-03-17] MEDS ORDERED: DIAZ-165 PO (19:49)
[2017-03-17] MEDS ORDERED: CYCL10TA6 PO (19:49)
[2017-03-17] MEDS ORDERED: MIRT30TA3 PO (19:49)
[2017-03-17] MEDS ORDERED: VENL225T27 PO (19:52)
[2017-03-17] MEDS ORDERED: BISA10SU3 PR (19:58)
[2017-03-17] MEDS ORDERED: ACET-1311 PO (19:58)
[2017-03-17] MEDS ORDERED: MAGNSUS73 PO (19:58)
[2017-03-17] MEDS ORDERED: HYDR25SU20 PR (19:58)
[2017-03-17] MEDS ORDERED: POLY335019 PO (19:58)
[2017-03-17] MEDS ORDERED: ONDANSETRON INJ 2 MG/ML 2 ML VIAL IV STA (20:36)
[2017-03-17] MEDS ORDERED: MoRPHine SULFATE 4 MG/ML 1 ML CARP\\VIAL IV STA (20:36)
--- NOTE | 2017-03-17 20:42 | EMERGENCY ROOM VISIT NOTE ---
ED Visit Note First contact with patient: 19:56 CHIEF COMPLAINT: Low back pain HISTORY OF PRESENT ILLNESS: This 52-year-old male patient presents to the emergency department via BLS complaining of pain in the low back which began last night after lifting a 20 pound amplifier. Patient states he initially felt a twinge of pain in the middle of his lower back that has been getting progressively worse. The pain has been gradual in onset, and is now constant and worse with movement. The patient notes the pain as aching/throbbing and a 9 /10. The patient has taken naproxen no relief of the pain. The patient denies any new loss of control of their bowel or bladder functions, but does note that he has to self cath for urine. There has been no new leg numbness or weakness, and no change in sensation. No nausea or vomiting or abdominal pain. No chest pain or shortness of breath. The patient reports a L4 to L5 fusion surgery done about [address] Diaz, which he states was complicated by an infection requiring them to remove the hardware and he was on antibiotics for several weeks. He states he was discharged home from rehabilitation a few days ago and had been doing very well prior to this. Patient does note that he ran out of his [place] pain medication 2 days ago and is unsure if this is part of why he is in so much pain. REVIEW OF SYSTEMS: A review of systems was performed with positives and pertinent negatives listed in the history of present illness. All other systems were reviewed and are negative. ALLERGIES: See chart MEDICATIONS: See chart PMH: See chart SOCIAL HISTORY: See chart PHYSICAL EXAM: VITALS: Vitals are noted on the nurse's note and reviewed by myself. Vital signs reviewed, mild tachycardia, afebrile. GENERAL: Pleasant and cooperative, in no acute distress but does appear to be in pain, diaphoretic and mildly tachycardic. SKIN: The skin was without rashes, erythema, edema, or bruising. Capillary refill less than 2 seconds. NECK: Supple without nuchal rigidity. No cervical spine tenderness. No paraspinous muscle tenderness. HEART: Tachycardia. Regular rate and rhythm without murmurs gallops or rubs. LUNGS: Clear to auscultation bilaterally without wheezes, rales or rhonchi. ABDOMEN: Positive bowel sounds x 4. Normal tympanic percussion. Soft, nontender, without masses or organomegaly. Chapin sign negative. MUSCULOSKELETAL: No muscle atrophy, erythema, or edema noted of the back. There is midline tenderness over the lumbar spinous processes. There is no tenderness over the paraspinous muscles of the lumbar spine. There is no tenderness over the thoracic spine or paraspinous muscles. There are no muscle spasms present. The patient is slow to move around with maximum tenderness with sitting up or bending at the waist. Positive bilateral straight leg raise test. NEURO: Patient was alert and oriented to person place and time. Normal sensation to light and sharp touch. Deep tendon reflexes 2+ in the lower extremities. Dorsalis pedis pulse 2+ bilaterally. Strength 5/5 and equal in the bilateral lower extremities. EMERGENCY DEPARTMENT COURSE: I examined the patient. Differential diagnosis includes lumbar strain, disc herniation, vertebral fracture, discitis/ osteomyelitis flare, UTI, narcotic withdrawal, among others. Patient's symptoms of mild tachycardia, diaphoresis, nausea, and myalgias seem consistent with possible narcotic withdrawal, which is possible given his history of running out of his [place]. Other differential of concern would include a worsening of his previous discitis/osteomyelitis, however this seems less likely given his report of feeling well with no fevers or chills, until his acute lifting injury last night. Workup including labs, blood and urine cultures, urinalysis, and CT of the L-spine was done. Labs concerning for leukocytosis with a left shift, elevated CRP, hyponatremia/hypochloremia. CT findings somewhat equivocal, I discussed on the phone at 12 AM with DONNIE Reyna , covering for ortho spine, who reviewed patient's CT imaging and lab results, and doubts any acute worsening of the patient's spinal infection at this time and also does not recommend any urgent surgical intervention based on patient's history and symptoms. I am most concerned for narcotic withdrawal, given patient's history of this, his persistent tachycardia in spite of IV fluid bolus and his need for multiple doses of IV narcotics to control his pain. The patient was discussed with Dr. Tim, who recommended discussing with the hospitalist team for admission to manage patient's pain and monitor for any other developing issues given the mild leukocytosis. Patient was discussed with Dr. Escobedo for admission. Medication Reconciliation: I attest that I have personally reviewed the patient' s current medication list. Blood pressure screening: The patient was found to have normal blood pressure on screening and does not require follow-up for repeat blood pressure check. Problem List Medical Problems: (1) Anxiety Status: Chronic (2) Depression Status: Chronic (3) Hypertension Status: Chronic (4) Insomnia Status: Resolved (5) Intervertebral disc rupture Status: Chronic (6) Mood disorder Status: Resolved (7) Schizoaffective disorder Status: Chronic (8) Tobacco abuse Status: Chronic (9) Urinary retention Status: Chronic Surgical Problems: (1) History of repair of hip fracture Status: Chronic Current/Historical Medications Scheduled Benztropine Mesylate (Benztropine Mesylate), 2 MG PO BID Cholecalciferol (Vitamin D3), 2,000 INTER.UNIT PO DAILY Diazepam (Valium), 5 MG PO BID Hydrocodone/Acetaminophen 5MG/325MG ([place] 5MG/325MG), 1 TAB PO Q12 Lisinopril (Zestril), 10 MG PO DAILY Metoprolol Tartrate (Lopressor) (Lopressor), 12.5 MG PO Q12 Mirtazapine (Remeron), 30 MG PO HS Multiple Vitamins W/ Minerals (Thera M Plus), 1 TAB PO DAILY Naproxen (Naproxen), 750 MG PO BID Tamsulosin Hcl (Flomax), 0.4 MG PO HS Trazodone Hcl (Trazodone), 200 MG PO HS Venlafaxine Hcl (Venlafaxine Hcl Er), 225 MG PO QAM Scheduled PRN Acetaminophen (Tylenol), 650 MG PO Q4H PRN for Pain Bisacodyl (Dulcolax), 1 SUPP [place] DAILY PRN for Constipation Cyclobenzaprine Hcl (Flexeril), 10 MG PO Q8 PRN for Muscle Spasm Hydrocortisone Acetate (Rectal (Anusol-Hc), 25 MG [place] UD PRN for Hemorrhoids Ibuprofen (Motrin), 400 MG PO Q4H PRN for Pain Magnesium Hydroxide (Milk of Magnesia 400 mg/5Ml), 30 ML PO DAILY PRN for Constipation Polyethylene Glycol 3350 (Miralax), 17 GM PO DAILY PRN for Constipation Allergies Coded Allergies: No Known Allergies (Verified , 12/31/16) Vital Signs Date Time Temp Pulse Resp B/P (MAP) Pulse Ox O2 Delivery O2 Flow Rate FiO2 03/18/17 00:32 93 16 110/72 96 Room Air 03/17/17 22:53 100 16 117/82 95 Room Air 03/17/17 22:04 98 20 128/88 95 Room Air 03/17/17 20:58 98 22 135/97 96 Room Air 03/17/17 19:03 37.1 102 22 122/108 96 Room Air Laboratory Results 03/17/17 20:50 Red Blood Count 4.45, Mean Corpuscular Volume 81.6, Mean Corpuscular Hemoglobin 29.2, Mean Corpuscular Hemoglobin Concent 35.8, Mean Platelet Volume 8.4, Neutrophils (%) (Auto) 80.4, Lymphocytes (%) (Auto) 10.5, Monocytes (%) (Auto) 8.2, Eosinophils (%) (Auto) 0.5, Basophils (%) (Auto) 0.2, Neutrophils # (Auto) 10.32, Lymphocytes # (Auto) 1.35, Monocytes # (Auto) 1.06, Eosinophils # (Auto) 0.07, Basophils # (Auto) 0.02 03/17/17 20:50 Test 03/17/17 20:50 03/17/17 23:50 White Blood Count 12.85 K/uL (4.8-10.8) Red Blood Count 4.45 M/uL (4.7-6.1) Hemoglobin 13.0 g/dL (14.0-18.0) Hematocrit 36.3 % (42-52) Mean Corpuscular Volume 81.6 fL (80-100) Mean Corpuscular Hemoglobin 29.2 pg (25-34) Mean Corpuscular Hemoglobin Concent 35.8 g/dl (32-36) Platelet Count 327 K/uL (130-400) Mean Platelet Volume 8.4 fL (7.4-10.4) Neutrophils (%) (Auto) 80.4 % Lymphocytes (%) (Auto) 10.5 % Monocytes (%) (Auto) 8.2 % Eosinophils (%) (Auto) 0.5 % Basophils (%) (Auto) 0.2 % Neutrophils # (Auto) 10.32 K/uL (1.4-6.5) Lymphocytes # (Auto) 1.35 K/uL (1.2-3.4) Monocytes # (Auto) 1.06 K/uL (0.11-0.59) Eosinophils # (Auto) 0.07 K/uL (0-0.5) Basophils # (Auto) 0.02 K/uL (0-0.2) RDW Standard Deviation 41.0 fL (36.4-46.3) RDW Coefficient of Variation 13.6 % (11.5-14.5) Immature Granulocyte % (Auto) 0.2 % Immature Granulocyte # (Auto) 0.03 K/uL (0.00-0.02) Anion Gap 9.0 mmol/L (3-11) Est Creatinine Clear Calc Drug Dose 104.5 ml/min Estimated GFR () 114.2 Estimated GFR (Non- 98.5 BUN/Creatinine Ratio 13.6 (10-20) Calcium Level 9.2 mg/dl (8.5-10.1) C-Reactive Protein 7.61 mg/dl (0-0.29) Urine Color YELLOW Urine Appearance CLEAR (CLEAR) Urine pH 6.0 (4.5-7.5) Urine Specific [place] 1.012 (1.000-1.030) Urine Protein NEG (NEG) Urine Glucose (UA) NEG (NEG) Urine Ketones 1+ (NEG) Urine Occult Blood 1+ (NEG) Urine Nitrite NEG (NEG) Urine Bilirubin NEG (NEG) Urine Urobilinogen NEG (NEG) Urine Leukocyte Esterase MODERATE (NEG) Urine WBC (Auto) 5-10 /hpf (0-5) Urine RBC (Auto) 0-4 /hpf (0-4) Urine Hyaline Casts (Auto) 1-5 /lpf (0-5) Urine Epithelial Cells (Auto) >30 /lpf (0-5) Urine Bacteria (Auto) 2+ (NEG) Urine Renal Epithelial Cells 0-5 /lpf (0-5) Medications Administered Medications (Trade) Dose Ordered Sig/Colten Route Start Time Stop Time Status Last Admin Dose Admin Ondansetron HCl (Zofran Inj) 4 mg NOW STAT IV 03/17/17 20:36 03/17/17 20:41 DC 03/17/17 21:18 4 MG Morphine Sulfate (MoRPHine SULFATE INJ) 4 mg NOW STAT IV 03/17/17 20:36 03/17/17 20:41 DC 03/17/17 21:18 4 MG Sodium Chloride 1,000 ml @ 999 mls/hr Q1H1M STAT IV 03/17/17 22:48 03/17/17 23:48 DC 03/17/17 22:54 999 MLS/HR Morphine Sulfate (MoRPHine SULFATE INJ) 4 mg NOW STAT IV 03/18/17 00:38 03/18/17 00:39 DC 03/18/17 00:46 4 MG Departure Information Impression Primary Impression: Intractable back pain Dispostion Admitted as an inpatient Condition GOOD Referrals Jayesh Arthur D.O. (PCP) Patient Instructions [facility]
[2017-03-17 21:04] LABS: BASO % 0.2 %; BASO ABS # 0.02 K/uL (0-0.2); COMPLETE YES; EOS % 0.5 %; HEMATOCRIT 36.3 % (42-52); IG% 0.2 %; LYMPH % 10.5 %; LYMPH ABS # 1.35 K/uL (1.2-3.4); MEAN CELL VOLUME 81.6 fL (80-100); MEAN CORPUSCULAR HEMOGLOBIN 29.2 pg (25-34); MEAN CORPUSCULAR HGB CONC 35.8 g/dl (32-36); MEAN PLATELET VOLUME 8.4 fL (7.4-10.4); MONO % 8.2 %; NEUT % 80.4 %; PLATELET COUNT 327 K/uL (130-400); RED BLOOD COUNT 4.45 M/uL (4.7-6.1); WHITE BLOOD COUNT 12.85 K/uL (4.8-10.8)
[2017-03-17 21:20] LABS: BUN/CREATININE RATIO 13.6 (10-20); CALCIUM 9.2 mg/dl (8.5-10.1); CREATININE 0.87 mg/dl (0.60-1.40); POTASSIUM 3.5 mmol/L (3.5-5.1)
--- NOTE | 2017-03-17 21:41 | DIAGNOSTIC IMAGING REPORT ---
CT OF THE LUMBAR SPINE WITHOUT CONTRAST CLINICAL HISTORY: Back pain. COMPARISON STUDY: Lumbar spine MRI January 05, [address] January 06, 2017. FINDINGS: These images demonstrate interval removal of the L4 and L5 pedicle screws since exam of January 06, 2017. The disc spacer at the L4-L5 level remains in place. 8 mm of anterolisthesis of L4 and L5 is unchanged since prior exam. Lucency with sclerosis along the inferior endplate of L4 and superior endplate of L5 consistent with bony erosion has slightly increased since exam of January 06, 2017. No acute fracture is identified on this exam. The central canal and neural foramen are suboptimally assessed given CT technique. There is apparent hyperdense material posterior to the L4 vertebral body. Multilevel disc space narrowing with osteophytosis and vacuum disc phenomenon is noted. There is gas within the L4-L5 disc. Note is made of moderate to marked distention of the bladder which is partially imaged on this exam. No suspicious osseous lesions are identified. IMPRESSION: 1. Interval removal of the L4 and L5 pedicle screws since CT of January 06, 2017. Slight increase in the erosive process centered at the L4-L5 disc space since exam of January 06, 2017. This could reflect age indeterminate discitis/osteomyelitis. No change in grade I anterolisthesis of L4 and L5 suggestive of slippage since prior CT of January 06, 2017. 2. Apparent hyperdense material posterior to the L4 vertebral body. This is nonspecific and suboptimally assessed by CT. An MRI could be obtained for further evaluation. 3. No acute lumbar spine fracture. 4. Moderate to marked distention of the bladder. Electronically signed by: Oswaldo Wilson M.D. 03/17/2017 9:39 PM Dictated Date/Time: 03/17/2017 9:20 PM
[2017-03-17] MEDS ORDERED: SODIUM CHLORIDE 0.9% 1000ML 1,000 ML IV STA (22:48)
[2017-03-18] VITALS (7 sets, daily range): BP systolic 91–124; BP diastolic 57–79; PULSE 86–110; TEMP 36.5–38.1; O2SAT 90–98; Ht 180.3 cm; Wt 77.0 kg
[2017-03-18 00:01] LABS: URINE APPEARANCE CLEAR (CLEAR); URINE BILIRUBIN NEG (NEG); URINE COLOR YELLOW; URINE EPITHELIAL CELL AUTO >30 /lpf (0-5); URINE NITRITE NEG (NEG); URINE SPECIFIC GRAVITY 1.012 (1.000-1.030); UROBILINOGEN NEG (NEG)
[2017-03-18 00:06] LABS: MANUAL MICROSCOPIC REQUIRED? NO; REVIEW REQ? YES
[2017-03-18] MEDS ORDERED: MoRPHine SULFATE 4 MG/ML 1 ML CARP\\VIAL IV STA (00:38)
[2017-03-18] MEDS ORDERED: ACETAMINOPHEN 325 MG TAB PO PRN (01:00)
[2017-03-18] MEDS ORDERED: MAGNESIUM HYDROXIDE SUSP 30 ML UDC PO PRN (01:00)
[2017-03-18] MEDS ORDERED: ONDANSETRON INJ 2 MG/ML 2 ML VIAL IV PRN (01:00)
[2017-03-18] MEDS ORDERED: CYCLOBENZAPRINE HCL 10 MG TAB PO PRN (01:00)
[2017-03-18] MEDS ORDERED: HYDROCORTISONE ACETATE 25 MG SUPP PR PRN (01:00)
[2017-03-18] MEDS ORDERED: MIRTAZAPINE TAB 15 MG TAB PO STA (01:21)
[2017-03-18] MEDS ORDERED: TAMSULOSIN HCL 0.4 MG CAP PO STA (01:21)
[2017-03-18] MEDS ORDERED: TRAZODONE HCL 100 MG TAB PO STA (01:21)
[2017-03-18] MEDS ORDERED: DIAZEPAM 5MG TAB PO STA (01:21)
--- NOTE | 2017-03-18 01:41 | History and Physical ---
History & Physical Date & Time of Service: Mar 18, 2017 at 01:33 Chief Complaint: Back Pain, Out Of Meds. Primary Care Physician: Jayesh Arhtur D.O. History of Present Illness Source: patient, clinic records, hospital records Mr Blanca is a 52 year old male patient with spinal stenosis s/p lumbar spinal fusion presents to the ER with acute on chronic back pain. His pain started after lifting a 20 pound amplifier. The pain progressively got worse and when he woke up the following morning he has in 9/10 pain in the center of his back. He is now unable to get out of bed. He was recently discharged from 2 months of rehabilitation after spinal fusion back surgery and subsequent removal of hardware due to infection. He reports since the back surgery his pain has been much better and controlled with 1 tab 5/325 norco BID. He currently does not have any pain relief at home as he is yet to pickle cutter his script after being discharged due to not being able to get out of the house due to this new acute pain from lifting. He feels he could have controlled this pain at home if he had his norco prescription. PDMP was checked and this corroborates which his story. He denies any fevers, chills, new leg weakness. He does have L4 distribution new tingling sensation, which is worse on foot pressure. He has intermittently self cathed. He has been experiencing diarrhea over the past day but no anal numbness. Past Medical/Surgical History Medical Problems: (1) Anxiety Status: Chronic (2) Depression Status: Chronic (3) Hypertension Status: Chronic (4) Insomnia Status: Resolved (5) Intervertebral disc rupture Status: Chronic (6) Mood disorder Status: Resolved (7) Schizoaffective disorder Status: Chronic (8) Tobacco abuse Status: Chronic (9) Urinary retention Status: Chronic Surgical Problems: (1) History of repair of hip fracture Status: Chronic Family History Depression Social History Smoking Status: Former Smoker Drug Use: none Marital Status: single Housing status: lives alone Occupational Status: unemployed, disabled Multi-Drug Resistant Organisms History of MDRO: No Allergies Coded Allergies: No Known Allergies (Verified , 12/31/16) Home Medications Scheduled Benztropine Mesylate (Benztropine Mesylate), 2 MG PO BID Cholecalciferol (Vitamin D3), 2,000 INTER.UNIT PO DAILY Diazepam (Valium), 5 MG PO BID Hydrocodone/Acetaminophen 5MG/325MG ([place] 5MG/325MG), 1 TAB PO Q12 Lisinopril (Zestril), 10 MG PO DAILY Metoprolol Tartrate (Lopressor) (Lopressor), 12.5 MG PO Q12 Mirtazapine (Remeron), 30 MG PO HS Multiple Vitamins W/ Minerals (Thera M Plus), 1 TAB PO DAILY Naproxen (Naproxen), 750 MG PO BID Tamsulosin Hcl (Flomax), 0.4 MG PO HS Trazodone Hcl (Trazodone), 200 MG PO HS Venlafaxine Hcl (Venlafaxine Hcl Er), 225 MG PO QAM Scheduled PRN Acetaminophen (Tylenol), 650 MG PO Q4H PRN for Pain Bisacodyl (Dulcolax), 1 SUPP [place] DAILY PRN for Constipation Cyclobenzaprine Hcl (Flexeril), 10 MG PO Q8 PRN for Muscle Spasm Hydrocortisone Acetate (Rectal (Anusol-Hc), 25 MG [place] UD PRN for Hemorrhoids Ibuprofen (Motrin), 400 MG PO Q4H PRN for Pain Magnesium Hydroxide (Milk of Magnesia 400 mg/5Ml), 30 ML PO DAILY PRN for Constipation Polyethylene Glycol 3350 (Miralax), 17 GM PO DAILY PRN for Constipation Physical Exam Vital Signs Date Time Temp Pulse Resp B/P (MAP) Pulse Ox O2 Delivery O2 Flow Rate FiO2 03/18/17 00:32 93 16 110/72 96 Room Air 03/17/17 22:53 100 16 117/82 95 Room Air 03/17/17 22:04 98 20 128/88 95 Room Air 03/17/17 20:58 98 22 135/97 96 Room Air 03/17/17 19:03 37.1 102 22 122/108 96 Room Air General Appearance: no apparent distress, + pertinent finding (lip smacking) Respiratory/Chest: chest non-tender, lungs clear, normal breath sounds, no respiratory distress, no accessory muscle use Cardiovascular: regular rate, rhythm, no murmur, normal peripheral pulses Abdomen/GI: normal bowel sounds, non tender, soft Back: normal inspection (well healed surgical scars noted), + pertinent finding (L2 region central and right paraspinal pain on palpation) Extremities/Musculoskelatal: no calf tenderness, normal capillary refill, no pedal edema Neurologic/Psych: no motor/sensory deficits (no motor weakness b/l lower extremity, patient reports b/l atrophy since the surgery), alert, oriented x 3, + sensory deficit (L4 tingling b/l but no numbness present) Skin: normal color, warm/dry, no rash Diagnostics Laboratory Results Results Past 24 Hours Test 03/17/17 20:50 03/17/17 23:50 Range/Units White Blood Count 12.85 4.8-10.8 K/uL Red Blood Count 4.45 4.7-6.1 M/uL Hemoglobin 13.0 14.0-18.0 g/dL Hematocrit 36.3 42-52 % Mean Corpuscular Volume 81.6 80-100 fL Mean Corpuscular Hemoglobin 29.2 25-34 pg Mean Corpuscular Hemoglobin Concent 35.8 32-36 g/dl Platelet Count 327 130-400 K/uL Mean Platelet Volume 8.4 7.4-10.4 fL Neutrophils (%) (Auto) 80.4 % Lymphocytes (%) (Auto) 10.5 % Monocytes (%) (Auto) 8.2 % Eosinophils (%) (Auto) 0.5 % Basophils (%) (Auto) 0.2 % Neutrophils # (Auto) 10.32 1.4-6.5 K/uL Lymphocytes # (Auto) 1.35 1.2-3.4 K/uL Monocytes # (Auto) 1.06 0.11-0.59 K/uL Eosinophils # (Auto) 0.07 0-0.5 K/uL Basophils # (Auto) 0.02 0-0.2 K/uL RDW Standard Deviation 41.0 36.4-46.3 fL RDW Coefficient of Variation 13.6 11.5-14.5 % Immature Granulocyte % (Auto) 0.2 % Immature Granulocyte # (Auto) 0.03 0.00-0.02 K/uL Sodium Level 129 136-145 mmol/L Potassium Level 3.5 3.5-5.1 mmol/L Chloride Level 97 98-107 mmol/L Carbon Dioxide Level 23 21-32 mmol/L Anion Gap 9.0 3-11 mmol/L Blood Urea Nitrogen 12 7-18 mg/dl Creatinine 0.87 0.60-1.40 mg/dl Est Creatinine Clear Calc Drug Dose 104.5 ml/min Estimated GFR () 114.2 Estimated GFR (Non- 98.5 BUN/Creatinine Ratio 13.6 06-17 Random Glucose 88 70-99 mg/dl Calcium Level 9.2 8.5-10.1 mg/dl C-Reactive Protein 7.61 0-0.29 mg/dl Urine Color YELLOW Urine Appearance CLEAR CLEAR Urine pH 6.0 4.5-7.5 Urine Specific [place] 1.012 1.000-1.030 Urine Protein NEG NEG Urine Glucose (UA) NEG NEG Urine Ketones 1+ NEG Urine Occult Blood 1+ NEG Urine Nitrite NEG NEG Urine Bilirubin NEG NEG Urine Urobilinogen NEG NEG Urine Leukocyte Esterase MODERATE NEG Urine WBC (Auto) 5-10 0-5 /hpf Urine RBC (Auto) 0-4 0-4 /hpf Urine Hyaline Casts (Auto) 1-5 0-5 /lpf Urine Epithelial Cells (Auto) >30 0-5 /lpf Urine Bacteria (Auto) 2+ NEG Urine Renal Epithelial Cells 0-5 0-5 /lpf Microbiology Results 03/17/17 Blood Culture, Received Pending 03/17/17 Blood Culture, Received Pending Diagnostic Radiology CT OF THE LUMBAR SPINE WITHOUT CONTRAST CLINICAL HISTORY: Back pain. COMPARISON STUDY: Lumbar spine MRI January 05, [address] January 06, 2017. FINDINGS: These images demonstrate interval removal of the L4 and L5 pedicle screws since exam of January 06, 2017. The disc spacer at the L4-L5 level remains in place. 8 mm of anterolisthesis of L4 and L5 is unchanged since prior exam. Lucency with sclerosis along the inferior endplate of L4 and superior endplate of L5 consistent with bony erosion has slightly increased since exam of January 06, 2017. No acute fracture is identified on this exam. The central canal and neural foramen are suboptimally assessed given CT technique. There is apparent hyperdense material posterior to the L4 vertebral body. Multilevel disc space narrowing with osteophytosis and vacuum disc phenomenon is noted. There is gas within the L4-L5 disc. Note is made of moderate to marked distention of the bladder which is partially imaged on this exam. No suspicious osseous lesions are identified. IMPRESSION: 1. Interval removal of the L4 and L5 pedicle screws since CT of January 06, 2017. Slight increase in the erosive process centered at the L4-L5 disc space since exam of January 06, 2017. This could reflect age indeterminate discitis/osteomyelitis. No change in grade I anterolisthesis of L4 and L5 suggestive of slippage since prior CT of January 06, 2017. 2. Apparent hyperdense material posterior to the L4 vertebral body. This is nonspecific and suboptimally assessed by CT. An MRI could be obtained for further evaluation. 3. No acute lumbar spine fracture. 4. Moderate to marked distention of the bladder. Electronically signed by: Oswaldo Wilson M.D. 03/17/2017 9:39 PM Dictated Date/Time: 03/17/2017 9:20 PM Impression Assessment and Plan 52 year old male with acute on chronic back pain consistent with muscular pain however given complicated history and intractable pain despite morphine use Acute on chronic back pain - likely muscular spasm but CT findings show slight increase in the erosive process centered at the L4-L5 disc space since - continue outpatient medications + make Flexeril JOSE JUAN rather than PRN + added Dilaudid IV 0.5mg PRN for breakthrough pain + Voltaren gel - Consult ortho given CT findings showing possible discitis/osteomyelitis - I understand this was discussed by the PA in the ER therefore he can mobilize as able. Mild WBC elevation, however, no fevers and spinal level changes on CT are not consistent with his pain on examination. CRP decreased from previous but it is significantly raised - will continue to trend. - PT/OT/discharge planning Hyponatremia - suspect secondary to diarrhea - rehydrate with NSS (1L bolus given in the ER) - repeat BMP in morning Opiate withdrawal - diarrhea over last 24 hours. no current agitation Non acute medical issues: schizoaffective disorder, depression, anxiety, hypertension, chronic pain on narcotics, hx neurogenic bladder/intermittent straight catheterization, chronic anemia (baseline Hg 10-11), tardive dyskinesia - No change to outpatient medications VTE Prophylaxis - enoxaparin 40mg SQ daily Code - Full Disposition - observation status to med/surg Resident Physician Supervision Note: I interviewed and examined the patient. Discussed with Dr. Marti and agree with findings and plan as documented in the note. Any exceptions or clarifications are listed here: None Documented By: Abner Romero was doing better than previously then sudden worsening of back pain - but upper Lspine rather than lower. acute recurrence. all other ROS otherwise negative except for as above vitals noted nad when laying still. good movement//no focal neuro deficits. R sided Lspine paraspinals (predominantly lateral to L1-3) high tone/tender/ decreased ROM --> LAS -> improved, pt tolerated well acute on chronic low back pain - highly suspect predominantly muscular mechanism , but with complicated recent hx will have ortho/spine eval. OMT as above, voltaren gel and pain meds. somatic dysfunction lumbar region - OMT as above Level of Care Med/Surg Resuscitation Status FULL RESUSCITATION VTE Prophylaxis VTE Risk Assessment Done? Y/N: Yes Risk Level: Moderate Given or contraindicated: Enoxaparin (Lovenox)SQ Resident Tracking Resident Involvement: Resident Care Provided Care Provided: Adult ED
[2017-03-18] MEDS ORDERED: IV FLUIDS COMPLETED PRN (01:45)
[2017-03-18] MEDS: SODIUM CHLORIDE 0.9% 1000ML 1,000 ML IV SCH ×3 (03:44→17:30)
[2017-03-18] MEDS: CYCLOBENZAPRINE HCL 10 MG TAB PO PRN ×2 (06:28→15:59)
[2017-03-18 06:46] LABS: BASO % 0.1 %; BASO ABS # 0.01 K/uL (0-0.2); COMPLETE YES; EOS % 0.6 %; HEMATOCRIT 35.1 % (42-52); IG% 0.3 %; LYMPH % 7.1 %; LYMPH ABS # 0.98 K/uL (1.2-3.4); MEAN CELL VOLUME 82.2 fL (80-100); MEAN CORPUSCULAR HEMOGLOBIN 27.2 pg (25-34); MEAN PLATELET VOLUME 8.3 fL (7.4-10.4); MONO % 8.4 %; NEUT % 83.5 %; PLATELET COUNT 278 K/uL (130-400); RED BLOOD COUNT 4.27 M/uL (4.7-6.1); WHITE BLOOD COUNT 13.76 K/uL (4.8-10.8)
[2017-03-18 06:57] LABS: PARTIAL THROMBOPLASTIN RATIO 1.4; PROTHROMBIN TIME (PATIENT) 11.1 SECONDS (9.0-12.0)
[2017-03-18 07:21] LABS: BUN/CREATININE RATIO 12.2 (10-20); C-REACTIVE PROTEIN 13.4 mg/dl (0-0.29); CALCIUM 8.2 mg/dl (8.5-10.1); CREATININE 0.86 mg/dl (0.60-1.40); POTASSIUM 3.3 mmol/L (3.5-5.1)
[2017-03-18] MEDS: ACETAMINOPHEN 325 MG TAB PO PRN (07:46)
[2017-03-18] MEDS: IBUPROFEN 200 MG TAB PO PRN ×2 (07:46→19:46)
[2017-03-18] MEDS ORDERED: CEFTRIAXONE SOD INJ 1 GM in DEXTROSE 5% ADD-VANTAGE 50ML 50 ML IV SCH (08:45)
--- NOTE | 2017-03-18 08:45 | DIAGNOSTIC IMAGING REPORT ---
CHEST 2 VIEWS ROUTINE CLINICAL HISTORY: fever to rule out pnea fever COMPARISON STUDY: 01/04/2017 FINDINGS: Lungs are considered clear. At least 2 old healed right rib fractures. Diaphragms smooth. IMPRESSION: No acute process. The above report was generated using voice recognition software. It may contain grammatical, syntax or spelling errors. Electronically signed by: Bob Dillon M.D. 03/18/2017 8:43 AM Dictated Date/Time: 03/18/2017 8:41 AM
[2017-03-18] MEDS: VENLAFAXINE HCL XR 75 MG CAPXR PO SCH (09:04)
[2017-03-18] MEDS: METOPROLOL TARTRATE 25 MG TAB PO SCH ×2 (09:06→20:55)
[2017-03-18] MEDS: NAPROXEN 375 MG TAB PO SCH ×2 (09:07→20:57)
[2017-03-18] MEDS: LISINOPRIL 10 MG TAB PO SCH (09:08)
[2017-03-18] MEDS: CEROVITE ADV FORMULA TAB PO SCH (09:08)
[2017-03-18] MEDS: BENZTROPINE MESYLATE 1 MG TAB PO SCH ×2 (09:09→20:53)
[2017-03-18] MEDS: CHOLECALCIFEROL 1000 INTER.UNIT TAB PO SCH (09:09)
[2017-03-18] MEDS: HYDROCODONE/ACETAMOPHEN 5/325MG TAB PO SCH ×2 (09:10→21:26)
[2017-03-18] MEDS: DIAZEPAM 5MG TAB PO SCH ×2 (09:10→21:26)
[2017-03-18] MEDS: ENOXAPARIN 40 MG/0.4 ML SYR SQ SCH (09:11)
[2017-03-18] MEDS: DICLOFENAC SOD 1% GEL 100 GM TUBE EXT SCH ×4 (09:13→20:53)
[2017-03-18] MEDS: POLYETHYLENE (MIRALAX) 17 GM PACK PO SCH (09:17)
--- NOTE | 2017-03-18 09:31 | Progress Note ---
Subjective Date of Service: Mar 18, 2017. Subjective Pt evaluation today including: conversation w/ patient, physical exam, chart review, lab review, review of studies, review of inpatient medication list Reported still has lower back pain, 8 out of 10 Was having fever this morning Neurogenic bladder need straight cath, history of UTI before Eating drinking okay Problem List Medical Problems: (1) Ambulatory dysfunction Status: Acute (2) Ambulatory dysfunction Status: Acute (3) Back pain Status: Acute (4) Constipation due to opioid therapy Status: Acute (5) Dystonic drug reaction Status: Acute (6) Fall Status: Acute (7) Lactic acidosis Status: Acute (8) Self-care deficit in patient living alone Status: Acute (9) SIRS (systemic inflammatory response syndrome) Status: Acute (10) Subcapital fracture of left hip Status: Acute (11) Suicidal ideation Status: Acute (12) Suicidal ideation Status: Acute (13) Thought disorder Status: Acute (14) UTI (urinary tract infection) Status: Acute Review of Systems Constitutional: + fever (in this morning), No chills, No sweats, No weight loss , No weakness, No fatigue, No problem reported Eyes: No worsening of vision, No eye pain, No redness, No discharge, No diplopia ENT: No hearing loss, No unusual epistaxis, No nasal symptoms, No sore throat, No tinnitus, No dental problems, No trouble swallowing Respiratory: No cough, No sputum, No wheezing, No shortness of breath, No dyspnea on exertion, No dyspnea at rest, No hemoptysis Cardiac: No chest pain, No orthopnea, No PND, No edema, No claudication, No palpitations Abdomen: No pain, No nausea, No vomiting, No diarrhea, No constipation Musculoskeletal: + joint pain, No muscle pain, No swelling, No calf pain Male : No dysuria, No urinary frequency, No incontinence, No nocturia more than once/night, No slowing stream, No hematuria Neurologic: No memory loss, No paralysis, No weakness, No numbness/tingling, No vertigo, No balance problems Psychiatric: No depression symptoms, No anhedonism, No anxiety, No insomnia, No substance abuse Heme: No abnormal bleeding/bruising, No clotting problems, No swollen lymph nodes, No night sweats Endo: No fatigue, No excessive thirst, No excessive urination Skin: No rash, No itch, No new/changing skin lesions, No color change, No bleeding Objective Vital Signs Date Time Temp Pulse Resp B/P (MAP) Pulse Ox O2 Delivery O2 Flow Rate FiO2 03/18/17 07:38 Room Air 03/18/17 07:35 38.1 110 21 99/63 (75) 90 Room Air 03/18/17 02:20 Room Air 03/18/17 02:00 37.0 92 16 113/70 95 Room Air 03/18/17 01:58 95 18 115/65 94 03/18/17 00:32 93 16 110/72 96 Room Air 03/17/17 22:53 100 16 117/82 95 Room Air 03/17/17 22:04 98 20 128/88 95 Room Air 03/17/17 20:58 98 22 135/97 96 Room Air 03/17/17 19:03 37.1 102 22 122/108 96 Room Air Physical Exam General Appearance: WD/WN, no apparent distress, + pertinent finding (pleasant) Eyes: normal inspection, PERRL, EOMI, sclerae normal ENT: normal ENT inspection, hearing grossly normal, pharynx normal Neck: supple, no adenopathy, thyroid normal, no JVD, no carotid bruits, trachea midline Respiratory/Chest: chest non-tender, normal breath sounds, no respiratory distress, no accessory muscle use, + decreased breath sounds Cardiovascular: regular rate, rhythm, no edema, no gallop, no JVD, no murmur Abdomen: normal bowel sounds, non tender, soft, no organomegaly, no pulsatile mass Extremities: non-tender, normal inspection, no pedal edema, no calf tenderness , normal capillary refill, pelvis stable, + pertinent finding (mid upper lower back right sided pain and muscle spasm) Neurologic/Psychiatric: 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, no motor/sensory deficits, alert, normal mood/affect, oriented x 3, + abnormal cerebellar tests Skin: normal color, warm/dry, no rash Lymphatic: no adenopathy Laboratory Results Last 24 Hours Test 03/17/17 20:50 03/17/17 23:50 03/18/17 06:35 White Blood Count 12.85 K/uL 13.76 K/uL Red Blood Count 4.45 M/uL 4.27 M/uL Hemoglobin 13.0 g/dL 11.6 g/dL Hematocrit 36.3 % 35.1 % Mean Corpuscular Volume 81.6 fL 82.2 fL Mean Corpuscular Hemoglobin 29.2 pg 27.2 pg Mean Corpuscular Hemoglobin Concent 35.8 g/dl 33.0 g/dl Platelet Count 327 K/uL 278 K/uL Mean Platelet Volume 8.4 fL 8.3 fL Neutrophils (%) (Auto) 80.4 % 83.5 % Lymphocytes (%) (Auto) 10.5 % 7.1 % Monocytes (%) (Auto) 8.2 % 8.4 % Eosinophils (%) (Auto) 0.5 % 0.6 % Basophils (%) (Auto) 0.2 % 0.1 % Neutrophils # (Auto) 10.32 K/uL 11.50 K/uL Lymphocytes # (Auto) 1.35 K/uL 0.98 K/uL Monocytes # (Auto) 1.06 K/uL 1.15 K/uL Eosinophils # (Auto) 0.07 K/uL 0.08 K/uL Basophils # (Auto) 0.02 K/uL 0.01 K/uL RDW Standard Deviation 41.0 fL 41.5 fL RDW Coefficient of Variation 13.6 % 13.9 % Immature Granulocyte % (Auto) 0.2 % 0.3 % Immature Granulocyte # (Auto) 0.03 K/uL 0.04 K/uL Sodium Level 129 mmol/L 136 mmol/L Potassium Level 3.5 mmol/L 3.3 mmol/L Chloride Level 97 mmol/L 104 mmol/L Carbon Dioxide Level 23 mmol/L 23 mmol/L Anion Gap 9.0 mmol/L 9.0 mmol/L Blood Urea Nitrogen 12 mg/dl 11 mg/dl Creatinine 0.87 mg/dl 0.86 mg/dl Est Creatinine Clear Calc Drug Dose 104.5 ml/min 105.7 ml/min Estimated GFR () 114.2 114.7 Estimated GFR (Non- 98.5 99.0 BUN/Creatinine Ratio 13.6 12.2 Random Glucose 88 mg/dl 113 mg/dl Calcium Level 9.2 mg/dl 8.2 mg/dl C-Reactive Protein 7.61 mg/dl 13.40 mg/dl Urine Color YELLOW Urine Appearance CLEAR Urine pH 6.0 Urine Specific [place] 1.012 Urine Protein NEG Urine Glucose (UA) NEG Urine Ketones 1+ Urine Occult Blood 1+ Urine Nitrite NEG Urine Bilirubin NEG Urine Urobilinogen NEG Urine Leukocyte Esterase MODERATE Urine WBC (Auto) 5-10 /hpf Urine RBC (Auto) 0-4 /hpf Urine Hyaline Casts (Auto) 1-5 /lpf Urine Epithelial Cells (Auto) >30 /lpf Urine Bacteria (Auto) 2+ Urine Renal Epithelial Cells 0-5 /lpf Prothrombin Time 11.1 SECONDS Prothromb Time International Ratio 1.0 Activated Partial Thromboplast Time 36.2 SECONDS Partial Thromboplastin Ratio 1.4 Assessment and Plan 52 year old male admitted on 03/17/2017 because of acute on chronic back pain consistent with muscular pain UTI and possible urosepsis, with Fever, Leukocytosis and an elevated CRP history of straight cath, UTI, Has started Rocephin IV Check kidney ultrasound to rule out hydronephrosis or blockage in collecting duct system Follow-up urine and his blood culture Send a chest x-ray to rule out pneumonia Acute on chronic back pain - likely muscular spasm but CT findings show slight increase in the erosive process centered at the L4-L5 disc space since - continue outpatient medications + make Flexeril JOSE JUAN rather than PRN + added Dilaudid IV 0.5mg PRN for breakthrough pain + Voltaren gel - Consult ortho given CT findings showing possible discitis/osteomyelitis Follow-up Ortho input - PT/OT/discharge planning Hyponatremia, resolved after IV fluid - suspect secondary to diarrhea, no more diarrhea - rehydrate with NSS (1L bolus given in the ER) - repeat BMP in morning Opiate withdrawal - diarrhea over last 24 hours. 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
--- NOTE | 2017-03-18 11:08 | DIAGNOSTIC IMAGING REPORT ---
(RENAL)RETROPERITON COMP CLINICAL HISTORY: 52 years-old Male presenting with straight cath, UTI, LBP want r/o acute disease. TECHNIQUE: Real-time grayscale and limited color Doppler ultrasound imaging of the kidneys and bladder was performed. COMPARISON: CT from 12/28/2016. FINDINGS: Right kidney: Normal echogenicity. Right kidney measures 11.5 cm. No hydronephrosis. No convincing evidence of calculus or mass. Normal perfusion on color Doppler. Left kidney: Normal echogenicity. Left kidney measures 11.4 cm. No hydronephrosis. No convincing evidence of calculus or mass. Normal perfusion on color Doppler. Bladder: Layering debris within the bladder. Mild circumferential bladder wall thickening. Bilateral ureteral jets. IMPRESSION: 1. Layering debris within the bladder with mild circumferential bladder wall thickening. This could be seen in the setting of cystitis. Correlate with urinalysis. Electronically signed by: Sanchez Barnett M.D. 03/18/2017 11:06 AM Dictated Date/Time: 03/18/2017 11:04 AM
--- NOTE | 2017-03-18 13:40 | Orthopedic Consultation ---
Orthopedic Consultation Date of Consultation: Mar 18, 2017. Attending Physician: Silvano Morrow MD, PhD Reason for Consultation: Back pain History of Present Illness Patient had onset of significant back pain well moving amplifier home. He states it was lumbosacral junction rating to the right side. He denies any leg pain or new onset of weakness. At this time he is undergone 1 session of physical therapy prior to my visit. He states this went very well. He is able to ambulate and signature without difficulty. Past Medical/Surgical History Medical Problems: (1) Ambulatory dysfunction Status: Acute (2) Ambulatory dysfunction Status: Acute (3) Back pain Status: Acute (4) Constipation due to opioid therapy Status: Acute (5) Dystonic drug reaction Status: Acute (6) Fall Status: Acute (7) Lactic acidosis Status: Acute (8) Self-care deficit in patient living alone Status: Acute (9) SIRS (systemic inflammatory response syndrome) Status: Acute (10) Subcapital fracture of left hip Status: Acute (11) Suicidal ideation Status: Acute (12) Suicidal ideation Status: Acute (13) Thought disorder Status: Acute (14) UTI (urinary tract infection) Status: Acute Family History Depression Social History Smoking Status: Former Smoker Drug Use: none Marital Status: single Housing Status: lives alone, long term Occupation Status: unemployed, disabled Allergies Coded Allergies: No Known Allergies (Verified , 12/31/16) Home Medications Scheduled Benztropine Mesylate (Benztropine Mesylate), 2 MG PO BID Cholecalciferol (Vitamin D3), 2,000 INTER.UNIT PO DAILY Diazepam (Valium), 5 MG PO BID Hydrocodone/Acetaminophen 5MG/325MG (Bowlus 5MG/325MG), 1 TAB PO Q12 Lisinopril (Zestril), 10 MG PO DAILY Metoprolol Tartrate (Lopressor) (Lopressor), 12.5 MG PO Q12 Mirtazapine (Remeron), 30 MG PO HS Multiple Vitamins W/ Minerals (Thera M Plus), 1 TAB PO DAILY Naproxen (Naproxen), 750 MG PO BID Tamsulosin Hcl (Flomax), 0.4 MG PO HS Trazodone Hcl (Trazodone), 200 MG PO HS Venlafaxine Hcl (Venlafaxine Hcl Er), 225 MG PO QAM Scheduled PRN Acetaminophen (Tylenol), 650 MG PO Q4H PRN for Pain Bisacodyl (Dulcolax), 1 SUPP MD DAILY PRN for Constipation Cyclobenzaprine Hcl (Flexeril), 10 MG PO Q8 PRN for Muscle Spasm Hydrocortisone Acetate (Rectal (Anusol-Hc), 25 MG MD UD PRN for Hemorrhoids Ibuprofen (Motrin), 400 MG PO Q4H PRN for Pain Magnesium Hydroxide (Milk of Magnesia 400 mg/5Ml), 30 ML PO DAILY PRN for Constipation Polyethylene Glycol 3350 (Miralax), 17 GM PO DAILY PRN for Constipation Current Inpatient Medications Current Inpatient Medications Medications (Trade) Dose Ordered Sig/Colten Route Start Time Stop Time Status Last Admin Dose Admin Enoxaparin Sodium (Lovenox Inj) 40 mg Q24H SQ 03/18/17 08:00 04/17/17 07:59 03/18/17 09:11 40 MG Acetaminophen (Tylenol Tab) 650 mg Q4H PRN PO 03/18/17 01:00 04/17/17 00:59 03/18/17 07:46 650 MG Ondansetron HCl (Zofran Inj) 4 mg Q6H PRN IV 03/18/17 01:00 04/17/17 00:59 Diazepam (Valium Tab) 5 mg BID PO 03/18/17 09:00 04/17/17 08:59 03/18/17 09:10 5 MG Acetaminophen/ Hydrocodone Bitart (Bowlus 5/325 Tab) 1 tab Q12H PO 03/18/17 09:00 04/01/17 08:59 03/18/17 09:10 1 TAB Hydrocortisone Acetate (Anusol Hc Supp) 25 mg UD PRN MD 03/18/17 01:00 04/17/17 00:59 Ibuprofen (Advil Tab) 400 mg Q4H PRN PO 03/18/17 01:00 04/17/17 00:59 03/18/17 07:46 400 MG Lisinopril (Zestril Tab) 10 mg DAILY PO 03/18/17 09:00 04/17/17 08:59 03/18/17 09:08 10 MG Magnesium Hydroxide (Milk Of Magnesia Susp) 30 ml DAILY PRN PO 03/18/17 01:00 04/17/17 00:59 Metoprolol Tartrate (Lopressor Tab) 12.5 mg Q12H PO 03/18/17 09:00 04/17/17 08:59 03/18/17 09:06 12.5 MG Mirtazapine (Remeron Tab) 30 mg HS PO 03/18/17 21:00 04/17/17 20:59 Multivitamins/ Minerals (Multivitamin W/ Minerals Tab) 1 tab DAILY PO 03/18/17 09:00 04/17/17 08:59 03/18/17 09:08 1 TAB Naproxen (Naprosyn Tab) 750 mg BID PO 03/18/17 09:00 04/17/17 08:59 03/18/17 09:07 750 MG Tamsulosin HCl (Flomax Cap) 0.4 mg HS PO 03/18/17 21:00 04/17/17 20:59 Trazodone HCl (Desyrel Tab) 200 mg HS PO 03/18/17 21:00 04/17/17 20:59 Benztropine Mesylate (Cogentin Tab) 2 mg BID PO 03/18/17 09:00 04/17/17 08:59 03/18/17 09:09 2 MG Cholecalciferol (Vitamin D Tab) 2,000 inter.unit QAM PO 03/18/17 09:00 04/17/17 08:59 03/18/17 09:09 2,000 INTER.UNIT Polyethylene (Miralax Powder Packet) 17 gm DAILY PO 03/18/17 09:00 04/17/17 08:59 03/18/17 09:17 17 GM Venlafaxine HCl (effeXOR EXTENDED REL CAP) 225 mg QAM PO 03/18/17 09:00 04/17/17 08:59 03/18/17 09:04 225 MG Hydromorphone HCl (Dilaudid Inj) 0.5 mg Q2H PRN IV 03/18/17 01:30 04/01/17 01:29 Cyclobenzaprine HCl (Flexeril Tab) 10 mg Q8H PRN PO 03/18/17 06:00 04/17/17 05:59 03/18/17 06:28 10 MG Miscellaneous (Iv Fluids Completed) 1 ea PRN PRN N/A 03/18/17 01:45 03/18/18 01:44 Sodium Chloride 1,000 ml @ 125 mls/hr Q8H IV 03/18/17 01:45 04/17/17 01:44 03/18/17 09:13 125 MLS/HR Diclofenac Sodium (Voltaren 1% Top Gel) 1 appln QID EXT 03/18/17 09:00 04/17/17 08:59 03/18/17 12:53 1 APPLN Ceftriaxone Sodium 1 gm/ Dextrose 50 ml @ 100 mls/hr Q24H IV 03/19/17 08:00 03/28/17 07:59 Physical Exam Date Time Temp Pulse Resp B/P (MAP) Pulse Ox O2 Delivery O2 Flow Rate FiO2 03/18/17 10:19 36.7 03/18/17 07:38 Room Air 03/18/17 07:35 38.1 110 21 99/63 (75) 90 Room Air 03/18/17 02:20 Room Air 03/18/17 02:00 37.0 92 16 113/70 95 Room Air 03/18/17 01:58 95 18 115/65 94 03/18/17 00:32 93 16 110/72 96 Room Air 03/17/17 22:53 100 16 117/82 95 Room Air 03/17/17 22:04 98 20 128/88 95 Room Air 03/17/17 20:58 98 22 135/97 96 Room Air 03/17/17 19:03 37.1 102 22 122/108 96 Room Air Patient was able to move about the bed without any evidence of antalgia. Incisions well-healed. Nontender to palpation of the paravertebral musculature. His good strength testing bilateral lower extremities. Laboratory Results Last 24 Hours Test 03/17/17 20:50 03/17/17 23:50 03/18/17 06:35 White Blood Count 12.85 K/uL 13.76 K/uL Red Blood Count 4.45 M/uL 4.27 M/uL Hemoglobin 13.0 g/dL 11.6 g/dL Hematocrit 36.3 % 35.1 % Mean Corpuscular Volume 81.6 fL 82.2 fL Mean Corpuscular Hemoglobin 29.2 pg 27.2 pg Mean Corpuscular Hemoglobin Concent 35.8 g/dl 33.0 g/dl Platelet Count 327 K/uL 278 K/uL Mean Platelet Volume 8.4 fL 8.3 fL Neutrophils (%) (Auto) 80.4 % 83.5 % Lymphocytes (%) (Auto) 10.5 % 7.1 % Monocytes (%) (Auto) 8.2 % 8.4 % Eosinophils (%) (Auto) 0.5 % 0.6 % Basophils (%) (Auto) 0.2 % 0.1 % Neutrophils # (Auto) 10.32 K/uL 11.50 K/uL Lymphocytes # (Auto) 1.35 K/uL 0.98 K/uL Monocytes # (Auto) 1.06 K/uL 1.15 K/uL Eosinophils # (Auto) 0.07 K/uL 0.08 K/uL Basophils # (Auto) 0.02 K/uL 0.01 K/uL RDW Standard Deviation 41.0 fL 41.5 fL RDW Coefficient of Variation 13.6 % 13.9 % Immature Granulocyte % (Auto) 0.2 % 0.3 % Immature Granulocyte # (Auto) 0.03 K/uL 0.04 K/uL Sodium Level 129 mmol/L 136 mmol/L Potassium Level 3.5 mmol/L 3.3 mmol/L Chloride Level 97 mmol/L 104 mmol/L Carbon Dioxide Level 23 mmol/L 23 mmol/L Anion Gap 9.0 mmol/L 9.0 mmol/L Blood Urea Nitrogen 12 mg/dl 11 mg/dl Creatinine 0.87 mg/dl 0.86 mg/dl Est Creatinine Clear Calc Drug Dose 104.5 ml/min 105.7 ml/min Estimated GFR () 114.2 114.7 Estimated GFR (Non- 98.5 99.0 BUN/Creatinine Ratio 13.6 12.2 Random Glucose 88 mg/dl 113 mg/dl Calcium Level 9.2 mg/dl 8.2 mg/dl C-Reactive Protein 7.61 mg/dl 13.40 mg/dl Urine Color YELLOW Urine Appearance CLEAR Urine pH 6.0 Urine Specific [place] 1.012 Urine Protein NEG Urine Glucose (UA) NEG Urine Ketones 1+ Urine Occult Blood 1+ Urine Nitrite NEG Urine Bilirubin NEG Urine Urobilinogen NEG Urine Leukocyte Esterase MODERATE Urine WBC (Auto) 5-10 /hpf Urine RBC (Auto) 0-4 /hpf Urine Hyaline Casts (Auto) 1-5 /lpf Urine Epithelial Cells (Auto) >30 /lpf Urine Bacteria (Auto) 2+ Urine Renal Epithelial Cells 0-5 /lpf Prothrombin Time 11.1 SECONDS Prothromb Time International Ratio 1.0 Activated Partial Thromboplast Time 36.2 SECONDS Partial Thromboplastin Ratio 1.4 Assessment & Plan Assessment acute on chronic back pain. Plan at this time certainly acknowledging his history of discitis. The CAT scan demonstrates no evidence of collapse or change in alignment. Strongly suspect his current symptoms are more related to a sprain strain phenomenon. Would recommend continued therapy as tolerated. We'll continue to follow him.
[2017-03-18] MEDS: TAMSULOSIN HCL 0.4 MG CAP PO SCH (20:52)
[2017-03-18] MEDS: TRAZODONE HCL 100 MG TAB PO SCH (20:54)
[2017-03-18] MEDS: MIRTAZAPINE TAB 15 MG TAB PO SCH (20:57)
[2017-03-18] MEDS: HYDROmorphone INJ 0.5 MG/0.5 ML SYR IV PRN (23:17)
[2017-03-19] MEDS: SODIUM CHLORIDE 0.9% 1000ML 1,000 ML IV SCH ×2 (01:28→09:57)
[2017-03-19] MEDS: HYDROmorphone INJ 0.5 MG/0.5 ML SYR IV PRN ×5 (04:06→19:54)
[2017-03-19 07:38] VITALS: BP 104/57; PULSE 99; TEMP 37.4; O2SAT 93
[2017-03-19] MEDS ORDERED: CEFTRIAXONE SOD INJ 1 GM in DEXTROSE 5% ADD-VANTAGE 50ML 50 ML IV SCH (08:00)
[2017-03-19] MEDS: METOPROLOL TARTRATE 25 MG TAB PO SCH ×2 (08:17→21:28)
[2017-03-19] MEDS: HYDROCODONE/ACETAMOPHEN 5/325MG TAB PO SCH ×2 (08:18→21:29)
[2017-03-19] MEDS: LISINOPRIL 10 MG TAB PO SCH (08:18)
[2017-03-19] MEDS: ENOXAPARIN 40 MG/0.4 ML SYR SQ SCH (08:18)
[2017-03-19] MEDS: CHOLECALCIFEROL 1000 INTER.UNIT TAB PO SCH (08:18)
[2017-03-19] MEDS: CEROVITE ADV FORMULA TAB PO SCH (08:19)
[2017-03-19] MEDS: BENZTROPINE MESYLATE 1 MG TAB PO SCH ×2 (08:19→21:27)
[2017-03-19] MEDS: NAPROXEN 375 MG TAB PO SCH ×2 (08:19→21:28)
[2017-03-19] MEDS: VENLAFAXINE HCL XR 75 MG CAPXR PO SCH (08:19)
[2017-03-19] MEDS: DICLOFENAC SOD 1% GEL 100 GM TUBE EXT SCH ×4 (08:19→21:27)
[2017-03-19] MEDS: DIAZEPAM 5MG TAB PO SCH ×2 (08:34→21:29)
[2017-03-19] MEDS: POLYETHYLENE (MIRALAX) 17 GM PACK PO SCH (08:34)
[2017-03-19] MEDS ORDERED: NURSING VERBAL MED ORDER ONE (12:30)
--- NOTE | 2017-03-19 13:08 | Progress Note ---
Subjective Date of Service: Mar 19, 2017. Subjective Pt evaluation today including: conversation w/ patient, conversation w/ family , physical exam, chart review, lab review, review of studies, conversation w/ hr business partner consultant, review of inpatient medication list Posterior left lower back pain and radiation to right lower extremity, Was doing some physical therapy, but not really out of bed and walk yet Otherwise generally feeling okay No fever and chills, eating fairly Problem List Medical Problems: (1) Ambulatory dysfunction Status: Acute (2) Ambulatory dysfunction Status: Acute (3) Back pain Status: Acute (4) Constipation due to opioid therapy Status: Acute (5) Dystonic drug reaction Status: Acute (6) Fall Status: Acute (7) Lactic acidosis Status: Acute (8) Self-care deficit in patient living alone Status: Acute (9) SIRS (systemic inflammatory response syndrome) Status: Acute (10) Subcapital fracture of left hip Status: Acute (11) Suicidal ideation Status: Acute (12) Suicidal ideation Status: Acute (13) Thought disorder Status: Acute (14) UTI (urinary tract infection) Status: Acute Review of Systems Constitutional: No fever, No chills, No sweats, No weight loss, No weakness, No fatigue, No problem reported Eyes: No worsening of vision, No eye pain, No redness, No discharge, No diplopia ENT: No hearing loss, No unusual epistaxis, No nasal symptoms, No sore throat, No tinnitus, No dental problems, No trouble swallowing Respiratory: No cough, No sputum, No wheezing, No shortness of breath, No dyspnea on exertion, No dyspnea at rest, No hemoptysis Cardiac: No chest pain, No orthopnea, No PND, No edema, No claudication, No palpitations Abdomen: No pain, No nausea, No vomiting, No diarrhea, No constipation Musculoskeletal: + joint pain, + muscle pain, No swelling, No calf pain Male : No dysuria, No urinary frequency, No incontinence, No nocturia more than once/night, No slowing stream, No hematuria Neurologic: No memory loss, No paralysis, No weakness, No numbness/tingling, No vertigo, No balance problems Psychiatric: No depression symptoms, No anhedonism, No anxiety, No insomnia, No substance abuse Heme: No abnormal bleeding/bruising, No clotting problems, No swollen lymph nodes, No night sweats Endo: No fatigue, No excessive thirst, No excessive urination Skin: No rash, No itch, No new/changing skin lesions, No color change, No bleeding Objective Vital Signs Date Time Temp Pulse Resp B/P (MAP) Pulse Ox O2 Delivery O2 Flow Rate FiO2 03/19/17 08:30 Room Air 03/19/17 07:38 37.4 99 18 104/57 (73) 93 Room Air 03/19/17 00:08 Room Air 03/18/17 23:06 36.5 89 16 94/57 (69) 96 Room Air 03/18/17 15:50 98 Room Air 03/18/17 15:49 86 98 03/18/17 15:20 36.9 86 16 91/57 (68) 93 Room Air Physical Exam General Appearance: WD/WN, no apparent distress Eyes: normal inspection, PERRL, EOMI, sclerae normal ENT: normal ENT inspection, hearing grossly normal, pharynx normal Neck: supple, no adenopathy, thyroid normal, no JVD, no carotid bruits, trachea midline Respiratory/Chest: chest non-tender, lungs clear, normal breath sounds, no respiratory distress, no accessory muscle use Cardiovascular: regular rate, rhythm, no edema, no gallop, no JVD, no murmur Abdomen: normal bowel sounds, non tender, soft, no organomegaly, no pulsatile mass Extremities: normal range of motion, normal inspection, no pedal edema, no calf tenderness, normal capillary refill, pelvis stable, + pertinent finding ( right lower back mild tender, bilateral lower extremity strain at raising test negative) Neurologic/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 tested, no motor/sensory deficits, alert, normal mood/affect, oriented x 3 Skin: normal color, warm/dry, no rash Lymphatic: no adenopathy Assessment and Plan 52 year old male admitted on 03/17/2017 because of acute on chronic back pain consistent with muscular pain Proteus UTI and possible urosepsis, with Fever upon admission, associated with Leukocytosis and an elevated CRP history of straight cath, UTI, Has started Rocephin IV, continue current antibiotics and follow-up with sensitivity Checked kidney ultrasound gas rule out hydronephrosis or blockage in collecting duct system Follow-up urine and his blood culture Send a chest x-ray to rule out pneumonia Acute on chronic back pain - likely muscular spasm but CT findings show slight increase in the erosive process centered at the L4-L5 disc space since - continue outpatient medications + make Flexeril JOSE JUAN rather than PRN + added Dilaudid IV 0.5mg PRN for breakthrough pain + Voltaren gel - Consult ortho because of possible discitis/osteomyelitis However per orthopedic, because of history of discitis. The CAT scan demonstrates no evidence of collapse or change in alignment. Strongly suspect his current symptoms are more related to a sprain strain phenomenon. Orthopedic Would recommend continued therapy as tolerated. Hyponatremia, resolved after IV fluid - suspect secondary to diarrhea, no more diarrhea - rehydrate with NSS (1L bolus given in the ER) - repeat BMP in morning Opiate withdrawal - diarrhea over last 24 hours. no current agitation Non acute medical issues: History of schizoaffective disorder, depression, anxiety, hypertension, chronic pain on narcotics, hx neurogenic bladder/intermittent straight catheterization, chronic anemia (baseline Hg 10-11), tardive dyskinesia - No change to outpatient medications VTE Prophylaxis - enoxaparin 40mg SQ daily Code - Full Disposition PT OT evaluation and treatment site acquisition manager for discharge plan Increase activity, will change antibiotic to culture results , possible discharge patient home Continued [facility] stay due to: multiple IV medications needed Discharge planning: home
[2017-03-19 15:40] VITALS: BP 113/75; PULSE 98; TEMP 36.9; O2SAT 96
[2017-03-19] MEDS: CYCLOBENZAPRINE HCL 10 MG TAB PO PRN (15:53)
[2017-03-19] MEDS: ACETAMINOPHEN 325 MG TAB PO PRN (20:06)
[2017-03-19 20:18] VITALS: BP 124/74; PULSE 112; TEMP 38.3; O2SAT 95
[2017-03-19 21:19] VITALS: PULSE 106; TEMP 37.2
[2017-03-19 21:22] VITALS: BP 133/75; PULSE 105
[2017-03-19] MEDS: TRAZODONE HCL 100 MG TAB PO SCH (21:27)
[2017-03-19] MEDS: TAMSULOSIN HCL 0.4 MG CAP PO SCH (21:28)
[2017-03-19] MEDS: MIRTAZAPINE TAB 15 MG TAB PO SCH (21:29)
[2017-03-19 23:15] VITALS: BP 107/58; PULSE 96; TEMP 37; O2SAT 95
[2017-03-20] MEDS: HYDROmorphone INJ 0.5 MG/0.5 ML SYR IV PRN ×5 (00:42→22:30)
[2017-03-20 07:16] VITALS: BP 105/65; PULSE 71; TEMP 36.9; O2SAT 96
[2017-03-20 07:43] LABS: BUN/CREATININE RATIO 9.4 (10-20); CALCIUM 9.2 mg/dl (8.5-10.1); CREATININE 0.78 mg/dl (0.60-1.40); MAGNESIUM 2.1 mg/dl (1.8-2.4); POTASSIUM 3.9 mmol/L (3.5-5.1)
[2017-03-20] MEDS: HYDROCODONE/ACETAMOPHEN 5/325MG TAB PO SCH ×2 (09:02→22:28)
[2017-03-20] MEDS: DICLOFENAC SOD 1% GEL 100 GM TUBE EXT SCH ×4 (09:03→22:53)
[2017-03-20] MEDS: ENOXAPARIN 40 MG/0.4 ML SYR SQ SCH (09:05)
[2017-03-20] MEDS: BENZTROPINE MESYLATE 1 MG TAB PO SCH ×2 (09:05→22:28)
[2017-03-20] MEDS: CHOLECALCIFEROL 1000 INTER.UNIT TAB PO SCH (09:06)
[2017-03-20] MEDS: LISINOPRIL 10 MG TAB PO SCH (09:06)
[2017-03-20] MEDS: NAPROXEN 375 MG TAB PO SCH ×2 (09:07→22:29)
[2017-03-20] MEDS: VENLAFAXINE HCL XR 75 MG CAPXR PO SCH (09:07)
[2017-03-20] MEDS: METOPROLOL TARTRATE 25 MG TAB PO SCH ×2 (09:08→22:52)
[2017-03-20] MEDS: CEROVITE ADV FORMULA TAB PO SCH (09:08)
[2017-03-20] MEDS: DIAZEPAM 5MG TAB PO SCH ×2 (09:15→22:27)
[2017-03-20] MEDS: POLYETHYLENE (MIRALAX) 17 GM PACK PO SCH (09:15)
[2017-03-20] MEDS: CEPHALEXIN MONOHYDRATE 500 MG CAP PO SCH ×4 (09:16→22:29)
[2017-03-20 09:20] VITALS: BP 113/77; PULSE 86; TEMP 36.4
--- NOTE | 2017-03-20 15:33 | Progress Note ---
Subjective Date of Service: Mar 20, 2017. Subjective Pt evaluation today including: conversation w/ patient, physical exam, chart review, lab review, review of studies, conversation w/ e business consultant, review of inpatient medication list Was spiking fever last night up to 38.3 Still complaining about lower back pain No stool or urine incontinence, no lower extremity weakness Today no more fever, general condition looks good Problem List Medical Problems: (1) Ambulatory dysfunction Status: Acute (2) Ambulatory dysfunction Status: Acute (3) Back pain Status: Acute (4) Constipation due to opioid therapy Status: Acute (5) Dystonic drug reaction Status: Acute (6) Fall Status: Acute (7) Lactic acidosis Status: Acute (8) Self-care deficit in patient living alone Status: Acute (9) SIRS (systemic inflammatory response syndrome) Status: Acute (10) Subcapital fracture of left hip Status: Acute (11) Suicidal ideation Status: Acute (12) Suicidal ideation Status: Acute (13) Thought disorder Status: Acute (14) UTI (urinary tract infection) Status: Acute Review of Systems Constitutional: + fever Eyes: No worsening of vision, No eye pain, No redness, No discharge, No diplopia ENT: No hearing loss, No unusual epistaxis, No nasal symptoms, No sore throat, No tinnitus, No dental problems, No trouble swallowing Respiratory: No cough, No sputum, No wheezing, No shortness of breath, No dyspnea on exertion, No dyspnea at rest, No hemoptysis Cardiac: No chest pain, No orthopnea, No PND, No edema, No claudication, No palpitations Abdomen: No pain, No nausea, No vomiting, No diarrhea, No constipation Musculoskeletal: + joint pain (in lower back pain), No muscle pain, No swelling , No calf pain Male : No dysuria, No urinary frequency, No incontinence, No nocturia more than once/night, No slowing stream, No hematuria Neurologic: No memory loss, No paralysis, No weakness, No numbness/tingling, No vertigo, No balance problems Psychiatric: No depression symptoms, No anhedonism, No anxiety, No insomnia, No substance abuse Heme: No abnormal bleeding/bruising, No clotting problems, No swollen lymph nodes, No night sweats Endo: No fatigue, No excessive thirst, No excessive urination Skin: No rash, No itch, No new/changing skin lesions, No color change, No bleeding Objective Vital Signs Date Time Temp Pulse Resp B/P (MAP) Pulse Ox O2 Delivery O2 Flow Rate FiO2 03/20/17 09:20 36.4 86 113/77 (89) 03/20/17 08:20 Room Air 03/20/17 07:16 36.9 71 17 105/65 (78) 96 Room Air 03/20/17 00:50 Room Air 03/19/17 23:15 37.0 96 18 107/58 (74) 95 Room Air 03/19/17 21:22 105 133/75 (94) 03/19/17 21:19 37.2 106 03/19/17 20:18 38.3 112 20 124/74 (91) 95 Room Air 03/19/17 16:00 Room Air 03/19/17 15:40 36.9 98 18 113/75 (88) 96 Room Air Physical Exam General Appearance: WD/WN, no apparent distress Eyes: normal inspection, PERRL, EOMI, sclerae normal ENT: normal ENT inspection, hearing grossly normal, pharynx normal Neck: supple, no adenopathy, thyroid normal, no JVD, no carotid bruits, trachea midline Respiratory/Chest: chest non-tender, normal breath sounds, no respiratory distress, no accessory muscle use, + decreased breath sounds Cardiovascular: regular rate, rhythm, no edema, no gallop, no JVD, no murmur Abdomen: normal bowel sounds, non tender, soft, no organomegaly, no pulsatile mass Extremities: normal range of motion, non-tender, normal inspection, no pedal edema, no calf tenderness, normal capillary refill, pelvis stable, + pertinent finding (lower back mild pain in palpation, local no red or swelling) Neurologic/Psychiatric: hedis nurse II-XII nml as tested, no motor/sensory deficits, alert, normal mood/affect, oriented x 3 Skin: normal color, warm/dry, no rash Lymphatic: no adenopathy Laboratory Results Last 24 Hours Test 03/20/17 06:38 Sodium Level 142 mmol/L Potassium Level 3.9 mmol/L Chloride Level 111 mmol/L Carbon Dioxide Level 24 mmol/L Anion Gap 7.0 mmol/L Blood Urea Nitrogen 7 mg/dl Creatinine 0.78 mg/dl Est Creatinine Clear Calc Drug Dose 116.6 ml/min Estimated GFR () 119.4 Estimated GFR (Non- 103.1 BUN/Creatinine Ratio 9.4 Random Glucose 110 mg/dl Calcium Level 9.2 mg/dl Magnesium Level 2.1 mg/dl Assessment and Plan 52 year old male admitted on 03/17/2017 because of acute on chronic back pain consistent with muscular pain Proteus UTI and possible urosepsis, with Fever upon admission, associated with Leukocytosis and an elevated CRP history of straight cath, UTI, Has started Rocephin IV, changed to Keflex by mouth, for total 10 days, per sensitivity Checked kidney ultrasound gas rule out hydronephrosis or blockage in collecting duct system chest x-ray has rule out pneumonia Continue spiking fever last night, this phenomenon to me feel odd, because IV antibiotic she'll have good control of the infection, to continue spiking fever is very rare After 2 days on IV antibiotics, patient's CRP and he waited as well, because patient has acute on chronic pain, and possible discitis/osteomyelitis per lumbar spine CT studies, I will check him us by MRI for further evaluation Acute on chronic back pain - likely muscular spasm but CT findings show slight increase in the erosive process centered at the L4-L5 disc space since - continue outpatient medications + make Flexeril JOSE JUAN rather than PRN + added Dilaudid IV 0.5mg PRN for breakthrough pain + Voltaren gel - Consulted ortho because of possible discitis/osteomyelitis However per orthopedic, because of history of discitis. The CAT scan demonstrates no evidence of collapse or change in alignment. Strongly suspect his current symptoms are more related to a sprain strain phenomenon. Orthopedic Would recommend continued therapy as tolerated. Recommendation in the above, because I'll continue spiking fever and an elevated CRP , ordered MRI to rule out osteomyelitis Hyponatremia, resolved after IV fluid - suspect secondary to diarrhea, no more diarrhea - rehydrate with NSS (1L bolus given in the ER) - repeat BMP in morning Opiate withdrawal, resolved - diarrhea over last 24 hours. 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
[2017-03-20 15:42] VITALS: BP 111/73; PULSE 80; TEMP 36.8; O2SAT 98
[2017-03-20] MEDS: CYCLOBENZAPRINE HCL 10 MG TAB PO PRN (19:45)
[2017-03-20] MEDS: IBUPROFEN 200 MG TAB PO PRN (19:46)
--- NOTE | 2017-03-20 22:24 | DIAGNOSTIC IMAGING REPORT ---
MRI LUMBAR SPINE COMBINATION CLINICAL HISTORY: Back pain. Abnormal CT scan. TECHNIQUE: Sagittal and axial T1, T2 and STIR images were obtained. Images were supplemented with pre and post gadolinium axial and sagittal images. 7.5 cc of intravenous Gadavist was administered. COMPARISON STUDY: CT scan dated 03/17/2017, MRI of the lumbar spine dated 01/05/2017 OBSERVATIONS: There is L4 and L5 vertebral body marrow edema. There is increased signal within the L4-5 disc. The findings are suspicious for discitis/osteomyelitis. L1-2: There is a minor circumferential disc bulge. There is no significant spinal or foraminal stenosis L2-3: There is a mild circumferential disc bulge. There is mild triangular spinal canal narrowing L3-4: There is a circumferential disc bulge and tiny central disc protrusion. There is mild spinal stenosis. L4-5: There has been interval removal of the L4 and L5 pedicle screws when compared the prior MRI study. There is L4 and L5 vertebral body marrow edema. There is increased signal within the L4-5 disc. There is a stable grade 1 spondylolisthesis of L4 and L5. There is an interbody implant which is positioned slightly more posterior than is typical. This remains unchanged in position. There is edema within the surrounding paraspinal musculature. There are small fluid collections within the right lateral paravertebral region, and right posterior paraspinal musculature suspicious for small abscesses. There is enhancing tissue posterior to the L4 vertebral body, consistent with postsurgical granulation tissue/fibrosis. There is severe spinal stenosis with decreased AP diameter of the thecal sac. L5-S1: There is a mild circumferential disc bulge. There is no significant spinal or foraminal stenosis. The conus medullaris and cauda equina appear normal. IMPRESSION: 1. Interval removal of the L4 and L5 pedicle screws when compared the prior MRI study 2. MRI findings consistent with discitis/osteomyelitis at the L4-5 level with tiny right-sided paraspinal abscesses 3. No evidence of epidural abscess 4. Severe spinal stenosis at the L4-5 level 5. Mild spinal stenosis at the L2-3, and L3-4 levels. Electronically signed by: Chalo Mcfarlane M.D. 03/20/2017 10:22 PM Dictated Date/Time: 03/20/2017 10:15 PM
[2017-03-20] MEDS: TAMSULOSIN HCL 0.4 MG CAP PO SCH (22:27)
[2017-03-20] MEDS: TRAZODONE HCL 100 MG TAB PO SCH (22:28)
[2017-03-20] MEDS: MIRTAZAPINE TAB 15 MG TAB PO SCH (22:30)
[2017-03-20] MEDS ORDERED: GADAVIST IV PRN (22:30)
[2017-03-20 22:50] VITALS: BP 135/80; PULSE 96; TEMP 37.3; O2SAT 94
[2017-03-21 07:05] VITALS: BP 105/66; PULSE 75; TEMP 36.5; O2SAT 96
[2017-03-21] MEDS: HYDROmorphone INJ 0.5 MG/0.5 ML SYR IV PRN ×5 (07:55→23:40)
[2017-03-21] MEDS: ENOXAPARIN 40 MG/0.4 ML SYR SQ SCH (07:56)
[2017-03-21 07:59] LABS: MEAN CELL VOLUME 85.4 fL (80-100); MEAN CORPUSCULAR HEMOGLOBIN 28.1 pg (25-34); MEAN CORPUSCULAR HGB CONC 32.9 g/dl (32-36); MEAN PLATELET VOLUME 9.1 fL (7.4-10.4); PLATELET COUNT 364 K/uL (130-400); RED BLOOD COUNT 3.98 M/uL (4.7-6.1); WHITE BLOOD COUNT 6.93 K/uL (4.8-10.8)
[2017-03-21 08:31] LABS: CREATININE 0.93 mg/dl (0.60-1.40)
[2017-03-21 08:58] VITALS: BP 106/75; PULSE 75
[2017-03-21] MEDS: VENLAFAXINE HCL XR 75 MG CAPXR PO SCH (08:59)
[2017-03-21] MEDS: CEROVITE ADV FORMULA TAB PO SCH (08:59)
[2017-03-21] MEDS: BENZTROPINE MESYLATE 1 MG TAB PO SCH ×2 (09:00→22:04)
[2017-03-21] MEDS: CEPHALEXIN MONOHYDRATE 500 MG CAP PO SCH ×4 (09:00→22:03)
[2017-03-21] MEDS: NAPROXEN 375 MG TAB PO SCH ×2 (09:00→22:05)
[2017-03-21] MEDS: METOPROLOL TARTRATE 25 MG TAB PO SCH ×2 (09:00→22:02)
[2017-03-21] MEDS: CHOLECALCIFEROL 1000 INTER.UNIT TAB PO SCH (09:01)
[2017-03-21] MEDS: LISINOPRIL 10 MG TAB PO SCH (09:01)
[2017-03-21] MEDS: DICLOFENAC SOD 1% GEL 100 GM TUBE EXT SCH ×4 (09:01→22:01)
[2017-03-21] MEDS: DIAZEPAM 5MG TAB PO SCH ×2 (09:09→22:02)
[2017-03-21] MEDS: HYDROCODONE/ACETAMOPHEN 5/325MG TAB PO SCH ×2 (09:09→22:02)
[2017-03-21] MEDS: POLYETHYLENE (MIRALAX) 17 GM PACK PO SCH (09:09)
[2017-03-21 15:45] VITALS: BP 115/71; PULSE 84; TEMP 36.8; O2SAT 95
[2017-03-21] MEDS: CYCLOBENZAPRINE HCL 10 MG TAB PO PRN (16:00)
--- NOTE | 2017-03-21 16:22 | Progress Note ---
Subjective Date of Service: Mar 21, 2017. Subjective Pt evaluation today including: conversation w/ patient, physical exam, lab review, review of inpatient medication list Pain: was well until last night PO Intake: adequate Voiding: no voiding problems patient seemed to be getting better until last night when he went for MRI due to persistent fevers his back pain is now worse, controlled with narcotics and laying still no further fevers reviewed lab work, WBC was normal last count, no fevers since 03/19 urine culture with blackburn sensitive Proteus reviewed the MRI report, discussed impression with Dr. Diaz over the phone Problem List Medical Problems: (1) Ambulatory dysfunction Status: Acute (2) Ambulatory dysfunction Status: Acute (3) Back pain Status: Acute (4) Constipation due to opioid therapy Status: Acute (5) Dystonic drug reaction Status: Acute (6) Fall Status: Acute (7) Lactic acidosis Status: Acute (8) Self-care deficit in patient living alone Status: Acute (9) SIRS (systemic inflammatory response syndrome) Status: Acute (10) Subcapital fracture of left hip Status: Acute (11) Suicidal ideation Status: Acute (12) Suicidal ideation Status: Acute (13) Thought disorder Status: Acute (14) UTI (urinary tract infection) Status: Acute Review of Systems Constitutional: + weakness, + fatigue Musculoskeletal: + joint pain (moderate to severe back pain) Neurologic: + weakness, + balance problems All Other Systems: Reviewed and Negative Medications Current Inpatient Medications Medications (Trade) Dose Ordered Sig/Colten Route Start Time Stop Time Status Last Admin Dose Admin Enoxaparin Sodium (Lovenox Inj) 40 mg Q24H SQ 03/18/17 08:00 04/17/17 07:59 03/21/17 07:56 40 MG Acetaminophen (Tylenol Tab) 650 mg Q4H PRN PO 03/18/17 01:00 04/17/17 00:59 03/19/17 20:06 650 MG Ondansetron HCl (Zofran Inj) 4 mg Q6H PRN IV 03/18/17 01:00 04/17/17 00:59 Diazepam (Valium Tab) 5 mg BID PO 03/18/17 09:00 04/17/17 08:59 03/21/17 09:09 5 MG Acetaminophen/ Hydrocodone Bitart ([place] 5/325 Tab) 1 tab Q12H PO 03/18/17 09:00 04/01/17 08:59 03/21/17 09:09 1 TAB Hydrocortisone Acetate (Anusol Hc Supp) 25 mg UD PRN OR 03/18/17 01:00 04/17/17 00:59 Ibuprofen (Advil Tab) 400 mg Q4H PRN PO 03/18/17 01:00 04/17/17 00:59 03/20/17 19:46 400 MG Lisinopril (Zestril Tab) 10 mg DAILY PO 03/18/17 09:00 04/17/17 08:59 03/21/17 09:01 10 MG Magnesium Hydroxide (Milk Of Magnesia Susp) 30 ml DAILY PRN PO 03/18/17 01:00 04/17/17 00:59 Metoprolol Tartrate (Lopressor Tab) 12.5 mg Q12H PO 03/18/17 09:00 04/17/17 08:59 03/21/17 09:00 12.5 MG Mirtazapine (Remeron Tab) 30 mg HS PO 03/18/17 21:00 04/17/17 20:59 03/20/17 22:30 30 MG Multivitamins/ Minerals (Multivitamin W/ Minerals Tab) 1 tab DAILY PO 03/18/17 09:00 04/17/17 08:59 03/21/17 08:59 1 TAB Naproxen (Naprosyn Tab) 750 mg BID PO 03/18/17 09:00 04/17/17 08:59 03/21/17 09:00 750 MG Tamsulosin HCl (Flomax Cap) 0.4 mg HS PO 03/18/17 21:00 04/17/17 20:59 03/20/17 22:27 0.4 MG Trazodone HCl (Desyrel Tab) 200 mg HS PO 03/18/17 21:00 04/17/17 20:59 03/20/17 22:28 200 MG Benztropine Mesylate (Cogentin Tab) 2 mg BID PO 03/18/17 09:00 04/17/17 08:59 03/21/17 09:00 2 MG Cholecalciferol (Vitamin D Tab) 2,000 inter.unit QAM PO 03/18/17 09:00 04/17/17 08:59 03/21/17 09:01 2,000 INTER.UNIT Polyethylene (Miralax Powder Packet) 17 gm DAILY PO 03/18/17 09:00 04/17/17 08:59 03/21/17 09:09 17 GM Venlafaxine HCl (effeXOR EXTENDED REL CAP) 225 mg QAM PO 03/18/17 09:00 04/17/17 08:59 03/21/17 08:59 225 MG Hydromorphone HCl (Dilaudid Inj) 0.5 mg Q2H PRN IV 03/18/17 01:30 04/01/17 01:29 03/21/17 13:54 0.5 MG Cyclobenzaprine HCl (Flexeril Tab) 10 mg Q8H PRN PO 03/18/17 06:00 04/17/17 05:59 03/21/17 16:00 10 MG Miscellaneous (Iv Fluids Completed) 1 ea PRN PRN N/A 03/18/17 01:45 03/18/18 01:44 Diclofenac Sodium (Voltaren 1% Top Gel) 1 appln QID EXT 03/18/17 09:00 04/17/17 08:59 03/21/17 12:28 1 APPLN Cephalexin Monohydrate (Keflex Cap) 500 mg QID PO 03/20/17 09:00 03/30/17 08:59 03/21/17 12:28 500 MG Gadobutrol (Gadavist) 7.5 mmol UD PRN IV 03/20/17 22:30 03/24/17 22:29 Objective Vital Signs Date Time Temp Pulse Resp B/P (MAP) Pulse Ox O2 Delivery O2 Flow Rate FiO2 03/21/17 15:45 36.8 84 18 115/71 (86) 95 Room Air 03/21/17 08:58 75 106/75 (85) 03/21/17 07:40 Room Air 03/21/17 07:05 36.5 75 16 105/66 (79) 96 Room Air 03/20/17 22:50 37.3 96 18 135/80 (98) 94 Room Air 03/20/17 19:37 Room Air 03/20/17 16:30 Room Air Physical Exam General Appearance: WD/WN, no apparent distress Neck: supple, no adenopathy, no JVD, trachea midline Respiratory/Chest: chest non-tender, lungs clear, normal breath sounds, no respiratory distress, no accessory muscle use Cardiovascular: regular rate, rhythm, no edema, no gallop, no JVD, no murmur Abdomen: normal bowel sounds, non tender, soft, no organomegaly Extremities: normal inspection, no pedal edema, no calf tenderness, normal capillary refill, pelvis stable Neurologic/Psychiatric: brim and crown presser II-XII nml as tested, alert, normal mood/affect, oriented x 3, + motor weakness Skin: normal color, warm/dry, no rash Laboratory Results MRI LUMBAR SPINE COMBINATION CLINICAL HISTORY: Back pain. Abnormal CT scan. TECHNIQUE: Sagittal and axial T1, T2 and STIR images were obtained. Images were supplemented with pre and post gadolinium axial and sagittal images. 7.5 cc of intravenous Gadavist was administered. COMPARISON STUDY: CT scan dated 03/17/2017, MRI of the lumbar spine dated 01/05/2017 OBSERVATIONS: There is L4 and L5 vertebral body marrow edema. There is increased signal within the L4-5 disc. The findings are suspicious for discitis/osteomyelitis. L1-2: There is a minor circumferential disc bulge. There is no significant spinal or foraminal stenosis L2-3: There is a mild circumferential disc bulge. There is mild triangular spinal canal narrowing L3-4: There is a circumferential disc bulge and tiny central disc protrusion. There is mild spinal stenosis. L4-5: There has been interval removal of the L4 and L5 pedicle screws when compared the prior MRI study. There is L4 and L5 vertebral body marrow edema. There is increased signal within the L4-5 disc. There is a stable grade 1 spondylolisthesis of L4 and L5. There is an interbody implant which is positioned slightly more posterior than is typical. This remains unchanged in position. There is edema within the surrounding paraspinal musculature. There are small fluid collections within the right lateral paravertebral region, and right posterior paraspinal musculature suspicious for small abscesses. There is enhancing tissue posterior to the L4 vertebral body, consistent with postsurgical granulation tissue/fibrosis. There is severe spinal stenosis with decreased AP diameter of the thecal sac. L5-S1: There is a mild circumferential disc bulge. There is no significant spinal or foraminal stenosis. The conus medullaris and cauda equina appear normal. IMPRESSION: 1. Interval removal of the L4 and L5 pedicle screws when compared the prior MRI study 2. MRI findings consistent with discitis/osteomyelitis at the L4-5 level with tiny right-sided paraspinal abscesses 3. No evidence of epidural abscess 4. Severe spinal stenosis at the L4-5 level 5. Mild spinal stenosis at the L2-3, and L3-4 levels. Last 24 Hours Test 03/21/17 07:09 White Blood Count 6.93 K/uL Red Blood Count 3.98 M/uL Hemoglobin 11.2 g/dL Hematocrit 34.0 % Mean Corpuscular Volume 85.4 fL Mean Corpuscular Hemoglobin 28.1 pg Mean Corpuscular Hemoglobin Concent 32.9 g/dl RDW Standard Deviation 44.4 fL RDW Coefficient of Variation 14.2 % Platelet Count 364 K/uL Mean Platelet Volume 9.1 fL Creatinine 0.93 mg/dl Est Creatinine Clear Calc Drug Dose 97.8 ml/min Estimated GFR () 108.2 Estimated GFR (Non- 93.4 Assessment and Plan 52 year old male admitted on 03/17/2017 because of acute on chronic back pain consistent with muscular pain, also with fevers Proteus UTI and possible urosepsis, with Fever upon admission, associated with Leukocytosis and an elevated CRP history of straight cath, UTI, initially treated with Rocephin, changed to Keflex due to sensitivities had another fever despite antibiotics and CRP trending up may need to consider alternate source of fevers repeat CBC and CRP tomorrow AM, see below for discussion Acute on chronic back pain - thought to be due to muscular spasms, treated with Narcotics and Flexeril spiking fevers and CRP going up MRI lumbar spine with L4/5 discitis / osteomyelitis, no epidural abscess discussed with Dr. Diaz today, still feels that pain and fevers related to UTI will repeat labs tomorrow and reassess patient tomorrow Hyponatremia, resolved after IV fluid Opiate withdrawal, resolved - diarrhea over last 24 hours. 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
[2017-03-21] MEDS: TAMSULOSIN HCL 0.4 MG CAP PO SCH (22:01)
[2017-03-21] MEDS: TRAZODONE HCL 100 MG TAB PO SCH (22:03)
[2017-03-21] MEDS: MIRTAZAPINE TAB 15 MG TAB PO SCH (22:04)
[2017-03-21 22:10] VITALS: BP 138/93; PULSE 84
[2017-03-21 22:45] VITALS: BP 114/73; PULSE 91; TEMP 37.2; O2SAT 97
[2017-03-22] MEDS: HYDROmorphone INJ 0.5 MG/0.5 ML SYR IV PRN ×3 (07:14→14:47)
[2017-03-22 07:38] LABS: BASO % 0.4 %; BASO ABS # 0.02 K/uL (0-0.2); COMPLETE YES; EOS % 6.5 %; HEMATOCRIT 32.4 % (42-52); IG% 0.4 %; LYMPH % 32.2 %; LYMPH ABS # 1.78 K/uL (1.2-3.4); MEAN CELL VOLUME 84.4 fL (80-100); MEAN CORPUSCULAR HEMOGLOBIN 28.1 pg (25-34); MEAN CORPUSCULAR HGB CONC 33.3 g/dl (32-36); MEAN PLATELET VOLUME 8.5 fL (7.4-10.4); MONO % 9.6 %; NEUT % 50.9 %; PLATELET COUNT 385 K/uL (130-400); RED BLOOD COUNT 3.84 M/uL (4.7-6.1); WHITE BLOOD COUNT 5.52 K/uL (4.8-10.8)
[2017-03-22 07:50] VITALS: BP 110/70; PULSE 74; TEMP 36.7; O2SAT 94
[2017-03-22 07:52] VITALS: O2SAT 94
[2017-03-22 08:00] VITALS: O2SAT 94
[2017-03-22 08:16] LABS: BUN/CREATININE RATIO 14.2 (10-20); C-REACTIVE PROTEIN 12.2 mg/dl (0-0.29); CALCIUM 9.1 mg/dl (8.5-10.1); CREATININE 0.95 mg/dl (0.60-1.40); POTASSIUM 3.9 mmol/L (3.5-5.1)
--- NOTE | 2017-03-22 08:32 | Clinical Documentation Query ---
QUERY 1 OF [address] CEDILLO, In your clinical opinion is this patient being managed for: ( x ) Proteus UTI possibly due to intermittent straight catheterizations ( ) Other explanation of clinical findings (Please Explain) ( ) Unable to determine (Please Define) ( ) Need to Discuss ( ) Not Agree The medical record reflects the following clinical findings, treatment, and risk factors. Clinical Indicators:52 yo male presenting initially with back pain. Subsequently developed fevers, elevated CRP Treatment:IV rocephin, transitioned to po Keflex, IV fluid bolus in the ER Risk Factors: intermittent straight catheterizations d/t neurogenic bladder, diarrhea QUERY 2 OF 2 The clinical diagnosis of urosepsis cannot be indexed, coded, or captured in I10 coding language. It is considered simply a UTI. To reflect the appropriate severity of illness and risk of mortality for your patient, please describe one of the following in your medical record documentation: ( x )sepsis due to a urinary tract infection ( )sepsis due to intermittent straight catheterizations ( )urinary tract infection(no sepsis) Please clarify and document your clinical opinion in the progress notes and discharge summary. Terms such as "probable", "suspected", "likely", "questionable", "possible", or "still to be ruled out" are acceptable. IF IN AGREEMENT, YOU MUST DOCUMENT ABOVE DIAGNOSTIC STATEMENT IN DAILY PROGRESS NOTES AND DISCHARGE SUMMARY. This document is not part of the patient's record. Thank You, Nancy Gray, RN [phone]
[2017-03-22] MEDS: ENOXAPARIN 40 MG/0.4 ML SYR SQ SCH (08:36)
[2017-03-22] MEDS: DICLOFENAC SOD 1% GEL 100 GM TUBE EXT SCH ×4 (08:38→20:35)
[2017-03-22] MEDS: BENZTROPINE MESYLATE 1 MG TAB PO SCH ×2 (08:40→20:32)
[2017-03-22] MEDS: VENLAFAXINE HCL XR 75 MG CAPXR PO SCH (08:41)
[2017-03-22] MEDS: CEPHALEXIN MONOHYDRATE 500 MG CAP PO SCH ×4 (08:42→20:32)
[2017-03-22] MEDS: METOPROLOL TARTRATE 25 MG TAB PO SCH ×2 (08:45→20:34)
[2017-03-22] MEDS: POLYETHYLENE (MIRALAX) 17 GM PACK PO SCH (08:47)
[2017-03-22] MEDS: CEROVITE ADV FORMULA TAB PO SCH (08:48)
[2017-03-22] MEDS: NAPROXEN 375 MG TAB PO SCH ×2 (08:49→20:33)
[2017-03-22] MEDS: HYDROCODONE/ACETAMOPHEN 5/325MG TAB PO SCH ×2 (08:50→20:35)
[2017-03-22] MEDS: DIAZEPAM 5MG TAB PO SCH ×2 (08:51→20:33)
[2017-03-22] MEDS: CHOLECALCIFEROL 1000 INTER.UNIT TAB PO SCH (08:52)
[2017-03-22] MEDS: LISINOPRIL 10 MG TAB PO SCH (08:52)
[2017-03-22 14:52] VITALS: BP 134/80; PULSE 78; TEMP 36.5; O2SAT 94
--- NOTE | 2017-03-22 16:19 | Progress Note ---
Subjective Date of Service: Mar 22, 2017. Subjective Pt evaluation today including: conversation w/ patient, physical exam, lab review, review of inpatient medication list Pain: other than first thing in the morning, pain is well controlled PO Intake: adequate Voiding: no voiding problems discussed pain control, going to try Oxy IR 10mg in the AM instead of dilaudid for breakthrough pain since he cannot go home on Dilaudid he is eating, breathing well, ambulating more discussed going home tomorrow, he thinks he will be able to reviewed labs and vitals today, no fever for 3 days Problem List Medical Problems: (1) Ambulatory dysfunction Status: Acute (2) Ambulatory dysfunction Status: Acute (3) Back pain Status: Acute (4) Constipation due to opioid therapy Status: Acute (5) Dystonic drug reaction Status: Acute (6) Fall Status: Acute (7) Lactic acidosis Status: Acute (8) Self-care deficit in patient living alone Status: Acute (9) SIRS (systemic inflammatory response syndrome) Status: Acute (10) Subcapital fracture of left hip Status: Acute (11) Suicidal ideation Status: Acute (12) Suicidal ideation Status: Acute (13) Thought disorder Status: Acute (14) UTI (urinary tract infection) Status: Acute Review of Systems Musculoskeletal: + joint pain (back pain) Neurologic: + weakness, + balance problems All Other Systems: Reviewed and Negative Medications Current Inpatient Medications Medications (Trade) Dose Ordered Sig/Colten Route Start Time Stop Time Status Last Admin Dose Admin Enoxaparin Sodium (Lovenox Inj) 40 mg Q24H SQ 03/18/17 08:00 04/17/17 07:59 03/22/17 08:36 40 MG Acetaminophen (Tylenol Tab) 650 mg Q4H PRN PO 03/18/17 01:00 04/17/17 00:59 03/19/17 20:06 650 MG Ondansetron HCl (Zofran Inj) 4 mg Q6H PRN IV 03/18/17 01:00 04/17/17 00:59 Diazepam (Valium Tab) 5 mg BID PO 03/18/17 09:00 04/17/17 08:59 03/22/17 08:51 5 MG Acetaminophen/ Hydrocodone Bitart ([place] 5/325 Tab) 1 tab Q12H PO 03/18/17 09:00 8/4/17 08:59 03/22/17 08:50 1 TAB Hydrocortisone Acetate (Anusol Hc Supp) 25 mg UD PRN [place] 03/18/17 01:00 04/17/17 00:59 Ibuprofen (Advil Tab) 400 mg Q4H PRN PO 03/18/17 01:00 04/17/17 00:59 03/20/17 19:46 400 MG Lisinopril (Zestril Tab) 10 mg DAILY PO 03/18/17 09:00 04/17/17 08:59 03/22/17 08:52 10 MG Magnesium Hydroxide (Milk Of Magnesia Susp) 30 ml DAILY PRN PO 03/18/17 01:00 04/17/17 00:59 Metoprolol Tartrate (Lopressor Tab) 12.5 mg Q12H PO 03/18/17 09:00 04/17/17 08:59 03/22/17 08:45 12.5 MG Mirtazapine (Remeron Tab) 30 mg HS PO 03/18/17 21:00 04/17/17 20:59 03/21/17 22:04 30 MG Multivitamins/ Minerals (Multivitamin W/ Minerals Tab) 1 tab DAILY PO 03/18/17 09:00 04/17/17 08:59 03/22/17 08:48 1 TAB Naproxen (Naprosyn Tab) 750 mg BID PO 03/18/17 09:00 04/17/17 08:59 03/22/17 08:49 750 MG Tamsulosin HCl (Flomax Cap) 0.4 mg HS PO 03/18/17 21:00 04/17/17 20:59 03/20/17 22:27 0.4 MG Trazodone HCl (Desyrel Tab) 200 mg HS PO 03/18/17 21:00 04/17/17 20:59 03/21/17 22:03 200 MG Benztropine Mesylate (Cogentin Tab) 2 mg BID PO 03/18/17 09:00 04/17/17 08:59 03/22/17 08:40 2 MG Cholecalciferol (Vitamin D Tab) 2,000 inter.unit QAM PO 03/18/17 09:00 04/17/17 08:59 03/22/17 08:52 2,000 INTER.UNIT Venlafaxine HCl (effeXOR EXTENDED REL CAP) 225 mg QAM PO 03/18/17 09:00 04/17/17 08:59 03/22/17 08:41 225 MG Hydromorphone HCl (Dilaudid Inj) 0.5 mg Q2H PRN IV 03/18/17 01:30 04/01/17 01:29 03/22/17 14:47 0.5 MG Cyclobenzaprine HCl (Flexeril Tab) 10 mg Q8H PRN PO 03/18/17 06:00 04/17/17 05:59 03/21/17 16:00 10 MG Miscellaneous (Iv Fluids Completed) 1 ea PRN PRN N/A 03/18/17 01:45 03/18/18 01:44 Diclofenac Sodium (Voltaren 1% Top Gel) 1 appln QID EXT 03/18/17 09:00 04/17/17 08:59 03/22/17 12:34 1 APPLN Cephalexin Monohydrate (Keflex Cap) 500 mg QID PO 03/20/17 09:00 03/30/17 08:59 03/22/17 12:35 500 MG Gadobutrol (Gadavist) 7.5 mmol UD PRN IV 03/20/17 22:30 03/24/17 22:29 Polyethylene (Miralax Powder Packet) 17 gm QAM PO 03/22/17 09:00 04/21/17 08:59 03/22/17 08:47 17 GM Objective Vital Signs Date Time Temp Pulse Resp B/P (MAP) Pulse Ox O2 Delivery O2 Flow Rate FiO2 03/22/17 14:52 36.5 78 16 134/80 (98) 94 Room Air 03/22/17 08:00 94 Room Air 03/22/17 07:52 94 Room Air 03/22/17 07:50 36.7 74 12 110/70 (83) 94 Room Air 03/21/17 23:35 Room Air 03/21/17 22:45 37.2 91 18 114/73 (87) 97 Room Air 03/21/17 22:10 84 138/93 (108) 03/21/17 16:30 Room Air Physical Exam General Appearance: WD/WN, no apparent distress Eyes: normal inspection, EOMI, sclerae normal ENT: normal ENT inspection, hearing grossly normal, pharynx normal Neck: supple, no adenopathy, no JVD, trachea midline Respiratory/Chest: chest non-tender, lungs clear, normal breath sounds, no respiratory distress, no accessory muscle use Cardiovascular: regular rate, rhythm, no edema, no gallop, no JVD, no murmur Abdomen: normal bowel sounds, non tender, soft, no organomegaly Extremities: normal range of motion, non-tender, normal inspection, no pedal edema, no calf tenderness Neurologic/Psychiatric: 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-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 nml as tested, no motor/sensory deficits, alert, normal mood/affect, oriented x 3 Skin: normal color, warm/dry, no rash Laboratory Results Last 24 Hours Test 03/22/17 07:12 White Blood Count 5.52 K/uL Red Blood Count 3.84 M/uL Hemoglobin 10.8 g/dL Hematocrit 32.4 % Mean Corpuscular Volume 84.4 fL Mean Corpuscular Hemoglobin 28.1 pg Mean Corpuscular Hemoglobin Concent 33.3 g/dl Platelet Count 385 K/uL Mean Platelet Volume 8.5 fL Neutrophils (%) (Auto) 50.9 % Lymphocytes (%) (Auto) 32.2 % Monocytes (%) (Auto) 9.6 % Eosinophils (%) (Auto) 6.5 % Basophils (%) (Auto) 0.4 % Neutrophils # (Auto) 2.81 K/uL Lymphocytes # (Auto) 1.78 K/uL Monocytes # (Auto) 0.53 K/uL Eosinophils # (Auto) 0.36 K/uL Basophils # (Auto) 0.02 K/uL RDW Standard Deviation 44.3 fL RDW Coefficient of Variation 14.2 % Immature Granulocyte % (Auto) 0.4 % Immature Granulocyte # (Auto) 0.02 K/uL Sodium Level 139 mmol/L Potassium Level 3.9 mmol/L Chloride Level 103 mmol/L Carbon Dioxide Level 30 mmol/L Anion Gap 6.0 mmol/L Blood Urea Nitrogen 14 mg/dl Creatinine 0.95 mg/dl Est Creatinine Clear Calc Drug Dose 95.7 ml/min Estimated GFR () 105.5 Estimated GFR (Non- 91.0 BUN/Creatinine Ratio 14.2 Random Glucose 116 mg/dl Calcium Level 9.1 mg/dl C-Reactive Protein 12.20 mg/dl Assessment and Plan 52 year old male admitted on 03/17/2017 because of acute on chronic back pain consistent with muscular pain, also with fevers Proteus UTI and possible urosepsis, with Fever upon admission, associated with Leukocytosis and an elevated CRP associated with intermittent straight catheterizations, UTI, initially treated with Rocephin, changed to Keflex due to sensitivities no further fevers and CRP stable now think that fever and infection definitely urine, will continue Keflex look to d/c home tomorrow Acute on chronic back pain - thought to be due to muscular spasms, treated with Narcotics and Flexeril spiking fevers and CRP going up, but ortho thinks this is due to UTI, no osteomyelitis MRI lumbar spine with L4/5 discitis / osteomyelitis, no epidural abscess discussed with Dr. Diaz still feels that pain and fevers related to UTI pain better today, will utilize Oxy IR 10mg in the AM, d/c Dilaudid IV because he cannot go home on it Hyponatremia, resolved after IV fluid Opiate withdrawal, resolved - diarrhea over last 24 hours. no current agitation Non acute medical issues: History of schizoaffective disorder, depression, anxiety, hypertension, chronic pain on narcotics, hx neurogenic bladder/intermittent straight catheterization, chronic anemia (baseline Hg 10-11), tardive dyskinesia - No change to outpatient medications VTE Prophylaxis - enoxaparin 40mg SQ daily Code - Full plan to d/c home tomorrow Continued [facility] stay due to: home environment unsafe for pt Discharge planning: home
[2017-03-22] MEDS: OXYCODONE HCL IR 5 MG TAB (IMMEDIATE RELEASE) PO PRN (17:25)
[2017-03-22] MEDS: MIRTAZAPINE TAB 15 MG TAB PO SCH (20:33)
[2017-03-22] MEDS: TAMSULOSIN HCL 0.4 MG CAP PO SCH (20:33)
[2017-03-22] MEDS: TRAZODONE HCL 100 MG TAB PO SCH (20:34)
[2017-03-22 22:50] VITALS: BP 128/75; PULSE 88; TEMP 37.3; O2SAT 91
[2017-03-23] MEDS: OXYCODONE HCL IR 5 MG TAB (IMMEDIATE RELEASE) PO PRN ×3 (01:00→16:12)
[2017-03-23 07:29] VITALS: BP 118/62; PULSE 80; TEMP 37; O2SAT 96
[2017-03-23 07:34] VITALS: O2SAT 96
[2017-03-23] MEDS: ENOXAPARIN 40 MG/0.4 ML SYR SQ SCH (08:17)
[2017-03-23] MEDS: DICLOFENAC SOD 1% GEL 100 GM TUBE EXT SCH ×4 (08:46→20:45)
[2017-03-23] MEDS: BENZTROPINE MESYLATE 1 MG TAB PO SCH ×2 (08:47→20:43)
[2017-03-23] MEDS: VENLAFAXINE HCL XR 75 MG CAPXR PO SCH (08:48)
[2017-03-23] MEDS: CEPHALEXIN MONOHYDRATE 500 MG CAP PO SCH ×4 (08:48→20:44)
[2017-03-23] MEDS: METOPROLOL TARTRATE 25 MG TAB PO SCH ×2 (08:51→20:40)
[2017-03-23] MEDS: POLYETHYLENE (MIRALAX) 17 GM PACK PO SCH (08:52)
[2017-03-23] MEDS: CEROVITE ADV FORMULA TAB PO SCH (08:53)
[2017-03-23] MEDS: NAPROXEN 375 MG TAB PO SCH ×2 (08:54→20:44)
[2017-03-23] MEDS: HYDROCODONE/ACETAMOPHEN 5/325MG TAB PO SCH ×2 (08:55→20:42)
[2017-03-23] MEDS: CHOLECALCIFEROL 1000 INTER.UNIT TAB PO SCH (08:56)
[2017-03-23] MEDS: DIAZEPAM 5MG TAB PO SCH ×2 (08:56→20:42)
[2017-03-23] MEDS: LISINOPRIL 10 MG TAB PO SCH (08:57)
[2017-03-23] MEDS: CYCLOBENZAPRINE HCL 10 MG TAB PO PRN ×2 (09:47→19:53)
[2017-03-23] MEDS: IBUPROFEN 200 MG TAB PO PRN (12:33)
[2017-03-23] MEDS ORDERED: RXC5 PO (13:44)
[2017-03-23] MEDS ORDERED: KFL500 PO (13:46)
--- NOTE | 2017-03-23 13:51 | Discharge Instructions ---
Discharge Instructions Date of Service Mar 23, 2017. Admission Reason for Admission: Chronic Low Back Pain,Intractable Back Pain Discharge Discharge Diagnosis / Problem: Acute low back pain, musculoskeletal, UTI with sepsis Discharge Goals Goal(s): Improve function, Improve disease control Activity Recommendations Activity Limitations: resume your previous activity Lifting Limitations: none Exercise/Sports Limitations: as tolerated Shower/Bathe: no limitations . Instructions / Follow-Up Instructions / Follow-Up Medications: - KEFLEX: take 4 times a day for the next 10 days to complete 14 days total of treatment - OXYCODONE: prescribed for breakthrough pain in the short term to help you transition back to home UTI: culture grew Proteus, sensitive to Keflex, complete 10 more days Low back pain: evaluated by Dr. Diaz and MRI of the lumbar spine. Dr. Diaz feels that the changes on MRI not consistent with osteomyelitis and discitis you have been afebrile on oral antibiotics for the UTI continue muscle relaxers, narcotics for pain control FOLLOW UP - Dr. Arthur in 7-10 days Current Hospital Diet Patient's current hospital diet: Regular Diet Discharge Diet Recommended Diet: Regular Diet Pending Studies Studies pending at discharge: no Medical Emergencies . Who to Call and When: Medical Emergencies: If at any time you feel your situation is an emergency, please call 911 immediately. . Non-Emergent Contact Non-Emergency issues call your: Primary Care Provider Call Non-Emergent contact if: you have any medication questions . . "Provider Documentation" section prepared by Taye Rothman. . VTE Core Measure Inpt VTE Proph given/why not?: Enoxaparin (Lovenox)[facility] Drug Monitoring Program Search Results: no issues identified
--- NOTE | 2017-03-23 16:15 | Progress Note ---
Subjective Date of Service: Mar 23, 2017. Subjective Pt evaluation today including: conversation w/ patient, physical exam Pain: back pain PO Intake: adequate Voiding: requires PRN straight cath discussed going home with patient, he would like to appeal discharge through Medicare Problem List Medical Problems: (1) Ambulatory dysfunction Status: Acute (2) Ambulatory dysfunction Status: Acute (3) Back pain Status: Acute (4) Constipation due to opioid therapy Status: Acute (5) Dystonic drug reaction Status: Acute (6) Fall Status: Acute (7) Lactic acidosis Status: Acute (8) Self-care deficit in patient living alone Status: Acute (9) SIRS (systemic inflammatory response syndrome) Status: Acute (10) Subcapital fracture of left hip Status: Acute (11) Suicidal ideation Status: Acute (12) Suicidal ideation Status: Acute (13) Thought disorder Status: Acute (14) UTI (urinary tract infection) Status: Acute Review of Systems Constitutional: + weakness, + fatigue Musculoskeletal: + joint pain (back) Neurologic: + weakness, + balance problems All Other Systems: Reviewed and Negative Medications Current Inpatient Medications Medications (Trade) Dose Ordered Sig/Colten Route Start Time Stop Time Status Last Admin Dose Admin Enoxaparin Sodium (Lovenox Inj) 40 mg Q24H SQ 03/18/17 08:00 04/17/17 07:59 03/23/17 08:17 40 MG Acetaminophen (Tylenol Tab) 650 mg Q4H PRN PO 03/18/17 01:00 04/17/17 00:59 03/19/17 20:06 650 MG Ondansetron HCl (Zofran Inj) 4 mg Q6H PRN IV 03/18/17 01:00 04/17/17 00:59 Diazepam (Valium Tab) 5 mg BID PO 03/18/17 09:00 04/17/17 08:59 03/23/17 08:56 5 MG Acetaminophen/ Hydrocodone Bitart ([place] 5/325 Tab) 1 tab Q12H PO 03/18/17 09:00 04/01/17 08:59 03/23/17 08:55 1 TAB Hydrocortisone Acetate (Anusol Hc Supp) 25 mg UD PRN [place] 03/18/17 01:00 04/17/17 00:59 Ibuprofen (Advil Tab) 400 mg Q4H PRN PO 03/18/17 01:00 04/17/17 00:59 03/23/17 12:33 400 MG Lisinopril (Zestril Tab) 10 mg DAILY PO 03/18/17 09:00 04/17/17 08:59 03/23/17 08:57 10 MG Magnesium Hydroxide (Milk Of Magnesia Susp) 30 ml DAILY PRN PO 03/18/17 01:00 04/17/17 00:59 03/22/17 20:35 30 ML Metoprolol Tartrate (Lopressor Tab) 12.5 mg Q12H PO 03/18/17 09:00 04/17/17 08:59 03/23/17 08:51 12.5 MG Mirtazapine (Remeron Tab) 30 mg HS PO 03/18/17 21:00 04/17/17 20:59 03/22/17 20:33 30 MG Multivitamins/ Minerals (Multivitamin W/ Minerals Tab) 1 tab DAILY PO 03/18/17 09:00 04/17/17 08:59 03/23/17 08:53 1 TAB Naproxen (Naprosyn Tab) 750 mg BID PO 03/18/17 09:00 04/17/17 08:59 03/23/17 08:54 750 MG Tamsulosin HCl (Flomax Cap) 0.4 mg HS PO 03/18/17 21:00 04/17/17 20:59 03/22/17 20:33 0.4 MG Trazodone HCl (Desyrel Tab) 200 mg HS PO 03/18/17 21:00 04/17/17 20:59 03/22/17 20:34 200 MG Benztropine Mesylate (Cogentin Tab) 2 mg BID PO 03/18/17 09:00 04/17/17 08:59 03/23/17 08:47 2 MG Cholecalciferol (Vitamin D Tab) 2,000 inter.unit QAM PO 03/18/17 09:00 04/17/17 08:59 03/23/17 08:56 2,000 INTER.UNIT Venlafaxine HCl (effeXOR EXTENDED REL CAP) 225 mg QAM PO 03/18/17 09:00 04/17/17 08:59 03/23/17 08:48 225 MG Cyclobenzaprine HCl (Flexeril Tab) 10 mg Q8H PRN PO 03/18/17 06:00 04/17/17 05:59 03/23/17 09:47 10 MG Miscellaneous (Iv Fluids Completed) 1 ea PRN PRN N/A 03/18/17 01:45 03/18/18 01:44 Diclofenac Sodium (Voltaren 1% Top Gel) 1 appln QID EXT 03/18/17 09:00 04/17/17 08:59 03/23/17 12:34 1 APPLN Cephalexin Monohydrate (Keflex Cap) 500 mg QID PO 03/20/17 09:00 03/30/17 08:59 03/23/17 12:34 500 MG Gadobutrol (Gadavist) 7.5 mmol UD PRN IV 03/20/17 22:30 03/24/17 22:29 Polyethylene (Miralax Powder Packet) 17 gm QAM PO 03/22/17 09:00 04/21/17 08:59 03/23/17 08:52 17 GM Oxycodone HCl (Roxicodone Immediate Rel Tab) 10 mg Q6 PRN PO 03/22/17 16:15 04/05/17 16:14 03/23/17 08:15 10 MG Objective Vital Signs Date Time Temp Pulse Resp B/P (MAP) Pulse Ox O2 Delivery O2 Flow Rate FiO2 03/23/17 08:00 Room Air 03/23/17 07:34 96 Room Air 03/23/17 07:29 37.0 80 14 118/62 (80) 96 Room Air 03/23/17 00:15 Room Air 03/22/17 22:50 37.3 88 18 128/75 (92) 91 Room Air 03/22/17 17:09 Room Air Physical Exam General Appearance: WD/WN, no apparent distress Eyes: normal inspection, EOMI, sclerae normal ENT: normal ENT inspection, hearing grossly normal, pharynx normal Respiratory/Chest: chest non-tender, lungs clear, normal breath sounds, no respiratory distress, no accessory muscle use Cardiovascular: regular rate, rhythm, no edema, no gallop, no JVD, no murmur Abdomen: normal bowel sounds, non tender, soft, no organomegaly Extremities: normal inspection, no pedal edema, no calf tenderness, pelvis stable, + pertinent finding (scutcher tender, decreased active ROM due to pain) Neurologic/Psychiatric: 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 nml as tested, alert, normal mood/affect, oriented x 3, + motor weakness, + pertinent finding (dyskinesia, at baseline) Skin: normal color, warm/dry, no rash Assessment and Plan 52 year old male admitted on 03/17/2017 because of acute on chronic back pain consistent with muscular pain, also with fevers Proteus UTI and possible urosepsis, with Fever upon admission, associated with Leukocytosis and an elevated CRP associated with intermittent straight catheterizations, UTI, initially treated with Rocephin, changed to Keflex due to sensitivities no further fevers and CRP stable now think that fever and infection definitely urine, will continue Keflex tried to d/c home today, he challenged discharge through Medicare Acute on chronic back pain - thought to be due to muscular spasms, treated with Narcotics and Flexeril spiking fevers and CRP going up, but ortho thinks this is due to UTI, no osteomyelitis MRI lumbar spine with L4/5 discitis / osteomyelitis, no epidural abscess discussed with Dr. Diaz still feels that pain and fevers related to UTI pain controlled with [place] and Oxy IR 10mg PRN, told him that he could use this at home Hyponatremia, resolved after IV fluid Opiate withdrawal, resolved - diarrhea over last 24 hours. no current agitation Non acute medical issues: History of schizoaffective disorder, depression, anxiety, hypertension, chronic pain on narcotics, hx neurogenic bladder/intermittent straight catheterization, chronic anemia (baseline Hg 10-11), tardive dyskinesia - No change to outpatient medications VTE Prophylaxis - enoxaparin 40mg SQ daily Code - Full wait to see if Medicare upholds his appeal for discharge, he will be here tomorrow Continued [facility] stay due to: home environment unsafe for pt Discharge planning: home
[2017-03-23 16:45] VITALS: BP 126/87; PULSE 86; TEMP 37; O2SAT 94
[2017-03-23] MEDS: TAMSULOSIN HCL 0.4 MG CAP PO SCH (20:39)
[2017-03-23] MEDS: MIRTAZAPINE TAB 15 MG TAB PO SCH (20:42)
[2017-03-23] MEDS: TRAZODONE HCL 100 MG TAB PO SCH (20:43)
[2017-03-23 22:45] VITALS: BP 108/71; PULSE 79; TEMP 36.6; O2SAT 93
[2017-03-24 06:32] LABS: HEMATOCRIT 38.4 % (42-52); MEAN CELL VOLUME 85.1 fL (80-100); MEAN CORPUSCULAR HEMOGLOBIN 27.9 pg (25-34); MEAN CORPUSCULAR HGB CONC 32.8 g/dl (32-36); MEAN PLATELET VOLUME 8.7 fL (7.4-10.4); PLATELET COUNT 433 K/uL (130-400); RED BLOOD COUNT 4.51 M/uL (4.7-6.1)
[2017-03-24 07:07] LABS: CREATININE 1.2 mg/dl (0.60-1.40)
[2017-03-24 07:31] VITALS: BP 104/72; PULSE 85; TEMP 36.8; O2SAT 94
[2017-03-24 07:37] VITALS: O2SAT 94
[2017-03-24] MEDS: CEPHALEXIN MONOHYDRATE 500 MG CAP PO SCH ×4 (08:56→21:33)
[2017-03-24] MEDS: POLYETHYLENE (MIRALAX) 17 GM PACK PO SCH (08:56)
[2017-03-24] MEDS: ENOXAPARIN 40 MG/0.4 ML SYR SQ SCH (08:56)
[2017-03-24] MEDS: CHOLECALCIFEROL 1000 INTER.UNIT TAB PO SCH (08:57)
[2017-03-24] MEDS: METOPROLOL TARTRATE 25 MG TAB PO SCH ×2 (08:58→21:37)
[2017-03-24] MEDS: NAPROXEN 375 MG TAB PO SCH ×2 (08:58→21:34)
[2017-03-24] MEDS: BENZTROPINE MESYLATE 1 MG TAB PO SCH ×2 (08:58→21:33)
[2017-03-24] MEDS: CEROVITE ADV FORMULA TAB PO SCH (08:58)
[2017-03-24] MEDS: VENLAFAXINE HCL XR 75 MG CAPXR PO SCH (08:59)
[2017-03-24] MEDS: HYDROCODONE/ACETAMOPHEN 5/325MG TAB PO SCH ×2 (08:59→21:32)
[2017-03-24] MEDS: LISINOPRIL 10 MG TAB PO SCH (08:59)
[2017-03-24] MEDS: DIAZEPAM 5MG TAB PO SCH ×2 (09:05→21:32)
[2017-03-24] MEDS: DICLOFENAC SOD 1% GEL 100 GM TUBE EXT SCH ×4 (09:05→21:32)
[2017-03-24] MEDS: OXYCODONE HCL IR 5 MG TAB (IMMEDIATE RELEASE) PO PRN ×2 (11:16→17:21)
--- NOTE | 2017-03-24 13:28 | Progress Note ---
Subjective Date of Service: Mar 24, 2017. Subjective Pt evaluation today including: conversation w/ patient, physical exam, review of inpatient medication list Pain: controlled PO Intake: adequate Voiding: requires PRN straight cath patient says his pain in low back is moderate but slightly better asked if he had gotten out of bed today, not yet he said later he ambulated to the rest room independently asked about the appeal, said he went through with it Problem List Medical Problems: (1) Ambulatory dysfunction Status: Acute (2) Ambulatory dysfunction Status: Acute (3) Back pain Status: Acute (4) Constipation due to opioid therapy Status: Acute (5) Dystonic drug reaction Status: Acute (6) Fall Status: Acute (7) Lactic acidosis Status: Acute (8) Self-care deficit in patient living alone Status: Acute (9) SIRS (systemic inflammatory response syndrome) Status: Acute (10) Subcapital fracture of left hip Status: Acute (11) Suicidal ideation Status: Acute (12) Suicidal ideation Status: Acute (13) Thought disorder Status: Acute (14) UTI (urinary tract infection) Status: Acute Review of Systems Constitutional: + weakness, + fatigue Musculoskeletal: + joint pain (low back) All Other Systems: Reviewed and Negative Medications Current Inpatient Medications Medications (Trade) Dose Ordered Sig/Colten Route Start Time Stop Time Status Last Admin Dose Admin Enoxaparin Sodium (Lovenox Inj) 40 mg Q24H SQ 03/18/17 08:00 04/17/17 07:59 03/24/17 08:56 40 MG Acetaminophen (Tylenol Tab) 650 mg Q4H PRN PO 03/18/17 01:00 04/17/17 00:59 03/19/17 20:06 650 MG Ondansetron HCl (Zofran Inj) 4 mg Q6H PRN IV 03/18/17 01:00 04/17/17 00:59 Diazepam (Valium Tab) 5 mg BID PO 03/18/17 09:00 04/17/17 08:59 03/24/17 09:05 5 MG Acetaminophen/ Hydrocodone Bitart ([place] 5/325 Tab) 1 tab Q12H PO 03/18/17 09:00 04/01/17 08:59 03/24/17 08:59 1 TAB Hydrocortisone Acetate (Anusol Hc Supp) 25 mg UD PRN [place] 03/18/17 01:00 04/17/17 00:59 Ibuprofen (Advil Tab) 400 mg Q4H PRN PO 03/18/17 01:00 04/17/17 00:59 03/23/17 12:33 400 MG Lisinopril (Zestril Tab) 10 mg DAILY PO 03/18/17 09:00 04/17/17 08:59 03/24/17 08:59 10 MG Magnesium Hydroxide (Milk Of Magnesia Susp) 30 ml DAILY PRN PO 03/18/17 01:00 04/17/17 00:59 03/22/17 20:35 30 ML Metoprolol Tartrate (Lopressor Tab) 12.5 mg Q12H PO 03/18/17 09:00 04/17/17 08:59 03/24/17 08:58 12.5 MG Mirtazapine (Remeron Tab) 30 mg HS PO 03/18/17 21:00 04/17/17 20:59 03/23/17 20:42 30 MG Multivitamins/ Minerals (Multivitamin W/ Minerals Tab) 1 tab DAILY PO 03/18/17 09:00 04/17/17 08:59 03/24/17 08:58 1 TAB Naproxen (Naprosyn Tab) 750 mg BID PO 03/18/17 09:00 04/17/17 08:59 03/24/17 08:58 750 MG Tamsulosin HCl (Flomax Cap) 0.4 mg HS PO 03/18/17 21:00 04/17/17 20:59 03/22/17 20:33 0.4 MG Trazodone HCl (Desyrel Tab) 200 mg HS PO 03/18/17 21:00 04/17/17 20:59 03/23/17 20:43 200 MG Benztropine Mesylate (Cogentin Tab) 2 mg BID PO 03/18/17 09:00 04/17/17 08:59 03/24/17 08:58 2 MG Cholecalciferol (Vitamin D Tab) 2,000 inter.unit QAM PO 03/18/17 09:00 04/17/17 08:59 03/24/17 08:57 2,000 INTER.UNIT Venlafaxine HCl (effeXOR EXTENDED REL CAP) 225 mg QAM PO 03/18/17 09:00 04/17/17 08:59 03/24/17 08:59 225 MG Cyclobenzaprine HCl (Flexeril Tab) 10 mg Q8H PRN PO 03/18/17 06:00 04/17/17 05:59 03/23/17 19:53 10 MG Miscellaneous (Iv Fluids Completed) 1 ea PRN PRN N/A 03/18/17 01:45 03/18/18 01:44 Diclofenac Sodium (Voltaren 1% Top Gel) 1 appln QID EXT 03/18/17 09:00 04/17/17 08:59 03/24/17 09:05 1 APPLN Cephalexin Monohydrate (Keflex Cap) 500 mg QID PO 03/20/17 09:00 03/30/17 08:59 03/24/17 08:56 500 MG Gadobutrol (Gadavist) 7.5 mmol UD PRN IV 03/20/17 22:30 03/24/17 22:29 Polyethylene (Miralax Powder Packet) 17 gm QAM PO 03/22/17 09:00 04/21/17 08:59 03/24/17 08:56 17 GM Oxycodone HCl (Roxicodone Immediate Rel Tab) 10 mg Q6 PRN PO 03/22/17 16:15 04/05/17 16:14 03/24/17 11:16 10 MG Objective Vital Signs Date Time Temp Pulse Resp B/P (MAP) Pulse Ox O2 Delivery O2 Flow Rate FiO2 03/24/17 07:50 Room Air 03/24/17 07:37 94 Room Air 03/24/17 07:31 36.8 85 13 104/72 (83) 94 Room Air 03/24/17 00:15 Room Air 03/23/17 22:45 36.6 79 16 108/71 (83) 93 Room Air 03/23/17 16:45 37.0 86 18 126/87 (100) 94 Room Air 03/23/17 16:05 Room Air Physical Exam General Appearance: WD/WN, no apparent distress Neck: supple, no adenopathy, no JVD, trachea midline Respiratory/Chest: chest non-tender, lungs clear, normal breath sounds, no respiratory distress, no accessory muscle use Cardiovascular: regular rate, rhythm, no edema, no gallop, no JVD, no murmur Abdomen: normal bowel sounds, non tender, soft, no organomegaly Extremities: normal range of motion, non-tender, normal inspection, no pedal edema, no calf tenderness, pelvis stable Neurologic/Psychiatric: 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 as tested, alert, normal mood/affect, oriented x 3, + abnormal gait (dykinesia), + motor weakness Skin: normal color, warm/dry, no rash Laboratory Results Last 24 Hours Test 03/24/17 06:10 White Blood Count 6.00 K/uL Red Blood Count 4.51 M/uL Hemoglobin 12.6 g/dL Hematocrit 38.4 % Mean Corpuscular Volume 85.1 fL Mean Corpuscular Hemoglobin 27.9 pg Mean Corpuscular Hemoglobin Concent 32.8 g/dl RDW Standard Deviation 43.8 fL RDW Coefficient of Variation 14.0 % Platelet Count 433 K/uL Mean Platelet Volume 8.7 fL Creatinine 1.20 mg/dl Est Creatinine Clear Calc Drug Dose 75.8 ml/min Estimated GFR () 79.5 Estimated GFR (Non- 68.6 Assessment and Plan 52 year old male admitted on 03/17/2017 because of acute on chronic back pain consistent with muscular pain, also with fevers Proteus UTI and possible urosepsis, with Fever upon admission, associated with Leukocytosis and an elevated CRP associated with intermittent straight catheterizations, UTI, initially treated with Rocephin, changed to Keflex due to sensitivities no further fevers and CRP stable now think that fever and infection definitely urine, will continue Keflex medically ready for d/c today, he is challenging discharge through medicare Acute on chronic back pain - thought to be due to muscular spasms, treated with Narcotics and Flexeril spiking fevers and CRP going up, but ortho thinks this is due to UTI, no osteomyelitis MRI lumbar spine with L4/5 discitis / osteomyelitis, no epidural abscess discussed with Dr. Diaz still feels that pain and fevers related to UTI pain controlled with [place] and Oxy IR 10mg PRN, told him that he could use this at home Hyponatremia, resolved after IV fluid Opiate withdrawal, resolved - diarrhea over last 24 hours. no current agitation Non acute medical issues: History of schizoaffective disorder, depression, anxiety, hypertension, chronic pain on narcotics, hx neurogenic bladder/intermittent straight catheterization, chronic anemia (baseline Hg 10-11), tardive dyskinesia - No change to outpatient medications VTE Prophylaxis - enoxaparin 40mg SQ daily Code - Full patient here while Medicare reviews appropriateness of discharge Continued [facility] stay due to: home environment unsafe for pt Discharge planning: home
[2017-03-24] MEDS: CYCLOBENZAPRINE HCL 10 MG TAB PO PRN (14:30)
[2017-03-24] MEDS: IBUPROFEN 200 MG TAB PO PRN (15:15)
[2017-03-24 15:55] VITALS: BP 112/77; PULSE 90; TEMP 36.5; O2SAT 95
[2017-03-24] MEDS: TAMSULOSIN HCL 0.4 MG CAP PO SCH (21:00)
[2017-03-24] MEDS: MIRTAZAPINE TAB 15 MG TAB PO SCH (21:32)
[2017-03-24] MEDS: TRAZODONE HCL 100 MG TAB PO SCH (21:33)
[2017-03-24 21:35] VITALS: BP 114/84
[2017-03-24 22:47] VITALS: BP 100/69; PULSE 80; TEMP 37.1; O2SAT 94
[2017-03-25 07:22] VITALS: BP 121/81; PULSE 88; TEMP 36.6; O2SAT 96
[2017-03-25 07:29] VITALS: O2SAT 96
[2017-03-25] MEDS: ENOXAPARIN 40 MG/0.4 ML SYR SQ SCH (07:42)
[2017-03-25] MEDS: OXYCODONE HCL IR 5 MG TAB (IMMEDIATE RELEASE) PO PRN ×3 (07:43→21:38)
[2017-03-25] MEDS: POLYETHYLENE (MIRALAX) 17 GM PACK PO SCH (08:35)
[2017-03-25] MEDS: DICLOFENAC SOD 1% GEL 100 GM TUBE EXT SCH ×4 (08:39→20:52)
[2017-03-25] MEDS: VENLAFAXINE HCL XR 75 MG CAPXR PO SCH (08:40)
[2017-03-25] MEDS: BENZTROPINE MESYLATE 1 MG TAB PO SCH ×2 (08:40→20:53)
[2017-03-25] MEDS: CEPHALEXIN MONOHYDRATE 500 MG CAP PO SCH ×4 (08:41→20:52)
[2017-03-25] MEDS: METOPROLOL TARTRATE 25 MG TAB PO SCH ×2 (08:42→20:53)
[2017-03-25] MEDS: CEROVITE ADV FORMULA TAB PO SCH (08:42)
[2017-03-25] MEDS: NAPROXEN 375 MG TAB PO SCH ×2 (08:43→20:53)
[2017-03-25] MEDS: CHOLECALCIFEROL 1000 INTER.UNIT TAB PO SCH (08:44)
[2017-03-25] MEDS: DIAZEPAM 5MG TAB PO SCH ×2 (08:44→20:53)
[2017-03-25] MEDS: HYDROCODONE/ACETAMOPHEN 5/325MG TAB PO SCH ×2 (08:44→20:53)
[2017-03-25] MEDS: LISINOPRIL 10 MG TAB PO SCH (08:45)
[2017-03-25] MEDS: CYCLOBENZAPRINE HCL 10 MG TAB PO PRN ×2 (09:38→18:56)
[2017-03-25 15:35] VITALS: BP 116/77; PULSE 93; TEMP 36.4; O2SAT 96
--- NOTE | 2017-03-25 16:20 | Progress Note ---
Subjective Date of Service: Mar 25, 2017. Subjective Pt evaluation today including: conversation w/ patient, physical exam, review of inpatient medication list Pain: mild to moderate PO Intake: adequate Voiding: requires PRN straight cath no new issues, still awaiting answer from medicare Problem List Medical Problems: (1) Ambulatory dysfunction Status: Acute (2) Ambulatory dysfunction Status: Acute (3) Back pain Status: Acute (4) Constipation due to opioid therapy Status: Acute (5) Dystonic drug reaction Status: Acute (6) Fall Status: Acute (7) Lactic acidosis Status: Acute (8) Self-care deficit in patient living alone Status: Acute (9) SIRS (systemic inflammatory response syndrome) Status: Acute (10) Subcapital fracture of left hip Status: Acute (11) Suicidal ideation Status: Acute (12) Suicidal ideation Status: Acute (13) Thought disorder Status: Acute (14) UTI (urinary tract infection) Status: Acute Review of Systems Musculoskeletal: + joint pain (back) All Other Systems: Reviewed and Negative Medications Current Inpatient Medications Medications (Trade) Dose Ordered Sig/Colten Route Start Time Stop Time Status Last Admin Dose Admin Enoxaparin Sodium (Lovenox Inj) 40 mg Q24H SQ 03/18/17 08:00 04/17/17 07:59 03/25/17 07:42 40 MG Acetaminophen (Tylenol Tab) 650 mg Q4H PRN PO 03/18/17 01:00 04/17/17 00:59 03/19/17 20:06 650 MG Ondansetron HCl (Zofran Inj) 4 mg Q6H PRN IV 03/18/17 01:00 04/17/17 00:59 Diazepam (Valium Tab) 5 mg BID PO 03/18/17 09:00 04/17/17 08:59 03/25/17 08:44 5 MG Acetaminophen/ Hydrocodone Bitart ([place] 5/325 Tab) 1 tab Q12H PO 03/18/17 09:00 04/01/17 08:59 03/25/17 08:44 1 TAB Hydrocortisone Acetate (Anusol Hc Supp) 25 mg UD PRN [place] 03/18/17 01:00 04/17/17 00:59 Ibuprofen (Advil Tab) 400 mg Q4H PRN PO 03/18/17 01:00 04/17/17 00:59 03/24/17 15:15 400 MG Lisinopril (Zestril Tab) 10 mg DAILY PO 03/18/17 09:00 04/17/17 08:59 03/25/17 08:45 10 MG Magnesium Hydroxide (Milk Of Magnesia Susp) 30 ml DAILY PRN PO 03/18/17 01:00 04/17/17 00:59 03/22/17 20:35 30 ML Metoprolol Tartrate (Lopressor Tab) 12.5 mg Q12H PO 03/18/17 09:00 04/17/17 08:59 03/25/17 08:42 12.5 MG Mirtazapine (Remeron Tab) 30 mg HS PO 03/18/17 21:00 04/17/17 20:59 03/24/17 21:32 30 MG Multivitamins/ Minerals (Multivitamin W/ Minerals Tab) 1 tab DAILY PO 03/18/17 09:00 04/17/17 08:59 03/25/17 08:42 1 TAB Naproxen (Naprosyn Tab) 750 mg BID PO 03/18/17 09:00 04/17/17 08:59 03/25/17 08:43 750 MG Tamsulosin HCl (Flomax Cap) 0.4 mg HS PO 03/18/17 21:00 04/17/17 20:59 03/22/17 20:33 0.4 MG Trazodone HCl (Desyrel Tab) 200 mg HS PO 03/18/17 21:00 04/17/17 20:59 03/24/17 21:33 200 MG Benztropine Mesylate (Cogentin Tab) 2 mg BID PO 03/18/17 09:00 04/17/17 08:59 03/25/17 08:40 2 MG Cholecalciferol (Vitamin D Tab) 2,000 inter.unit QAM PO 03/18/17 09:00 04/17/17 08:59 03/25/17 08:44 2,000 INTER.UNIT Venlafaxine HCl (effeXOR EXTENDED REL CAP) 225 mg QAM PO 03/18/17 09:00 04/17/17 08:59 03/25/17 08:40 225 MG Cyclobenzaprine HCl (Flexeril Tab) 10 mg Q8H PRN PO 03/18/17 06:00 04/17/17 05:59 03/25/17 09:38 10 MG Miscellaneous (Iv Fluids Completed) 1 ea PRN PRN N/A 03/18/17 01:45 03/18/18 01:44 Diclofenac Sodium (Voltaren 1% Top Gel) 1 appln QID EXT 03/18/17 09:00 04/17/17 08:59 03/25/17 12:45 1 APPLN Cephalexin Monohydrate (Keflex Cap) 500 mg QID PO 03/20/17 09:00 03/30/17 08:59 03/25/17 12:45 500 MG Polyethylene (Miralax Powder Packet) 17 gm QAM PO 03/22/17 09:00 04/21/17 08:59 03/24/17 08:56 17 GM Oxycodone HCl (Roxicodone Immediate Rel Tab) 10 mg Q6 PRN PO 03/22/17 16:15 04/05/17 16:14 03/25/17 13:49 10 MG Objective Vital Signs Date Time Temp Pulse Resp B/P (MAP) Pulse Ox O2 Delivery O2 Flow Rate FiO2 03/25/17 15:35 36.4 93 18 116/77 (90) 96 Room Air 03/25/17 15:30 Room Air 03/25/17 07:45 Room Air 03/25/17 07:29 96 Room Air 03/25/17 07:22 36.6 88 16 121/81 (94) 96 Room Air 03/24/17 22:47 37.1 80 16 100/69 (79) 94 Room Air 03/24/17 21:35 114/84 (94) 03/24/17 20:05 Room Air Physical Exam General Appearance: WD/WN, no apparent distress Eyes: normal inspection, EOMI, sclerae normal Neck: supple, no adenopathy, no JVD, trachea midline Respiratory/Chest: chest non-tender, lungs clear, normal breath sounds, no respiratory distress, no accessory muscle use Cardiovascular: regular rate, rhythm, no edema, no gallop, no JVD, no murmur Abdomen: normal bowel sounds, non tender, soft, no organomegaly Extremities: normal range of motion, normal inspection, no pedal edema, no calf tenderness, + pertinent finding (paraspinal muscle tenderness) 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, alert, normal mood/affect, oriented x 3, + motor weakness, + pertinent finding (dyskinesia) Skin: normal color, warm/dry, no rash Assessment and Plan 52 year old male admitted on 03/17/2017 because of acute on chronic back pain consistent with muscular pain, also with fevers Proteus UTI and possible urosepsis, with Fever upon admission, associated with Leukocytosis and an elevated CRP associated with intermittent straight catheterizations, UTI, initially treated with Rocephin, changed to Keflex due to sensitivities no further fevers and CRP stable now think that fever and infection definitely urine, will continue Keflex medically ready for d/c today, he is challenging discharge through medicare, still no decision Acute on chronic back pain - thought to be due to muscular spasms, treated with Narcotics and Flexeril spiking fevers and CRP going up, but ortho thinks this is due to UTI, no osteomyelitis MRI lumbar spine with L4/5 discitis / osteomyelitis, no epidural abscess discussed with Dr. Diaz still feels that pain and fevers related to UTI pain controlled with [place] and Oxy IR 10mg PRN, told him that he could use this at home Hyponatremia, resolved after IV fluid Opiate withdrawal, resolved - diarrhea over last 24 hours. no current agitation Non acute medical issues: History of schizoaffective disorder, depression, anxiety, hypertension, chronic pain on narcotics, hx neurogenic bladder/intermittent straight catheterization, chronic anemia (baseline Hg 10-11), tardive dyskinesia - No change to outpatient medications VTE Prophylaxis - enoxaparin 40mg SQ daily Code - Full patient here while Medicare reviews appropriateness of discharge Continued [facility] stay due to: home environment unsafe for pt Discharge planning: home
[2017-03-25 20:50] VITALS: BP 121/81; PULSE 93
[2017-03-25] MEDS: TAMSULOSIN HCL 0.4 MG CAP PO SCH (20:52)
[2017-03-25] MEDS: MIRTAZAPINE TAB 15 MG TAB PO SCH (20:52)
[2017-03-25] MEDS: TRAZODONE HCL 100 MG TAB PO SCH (20:53)
[2017-03-25 23:08] VITALS: BP 93/60; PULSE 88; TEMP 36.7; O2SAT 94
[2017-03-26] MEDS: OXYCODONE HCL IR 5 MG TAB (IMMEDIATE RELEASE) PO PRN (07:21)
[2017-03-26 07:23] VITALS: BP 126/84; PULSE 95; TEMP 36.8; O2SAT 97
[2017-03-26] MEDS: ENOXAPARIN 40 MG/0.4 ML SYR SQ SCH (07:24)
[2017-03-26] MEDS: BENZTROPINE MESYLATE 1 MG TAB PO SCH (08:50)
[2017-03-26] MEDS: VENLAFAXINE HCL XR 75 MG CAPXR PO SCH (08:50)
[2017-03-26] MEDS: POLYETHYLENE (MIRALAX) 17 GM PACK PO SCH (08:52)
[2017-03-26] MEDS: CEPHALEXIN MONOHYDRATE 500 MG CAP PO SCH (08:52)
[2017-03-26] MEDS: CEROVITE ADV FORMULA TAB PO SCH (08:52)
[2017-03-26] MEDS: CHOLECALCIFEROL 1000 INTER.UNIT TAB PO SCH (08:53)
[2017-03-26] MEDS: NAPROXEN 375 MG TAB PO SCH (08:53)
[2017-03-26 08:54] VITALS: BP 106/74; PULSE 95
[2017-03-26] MEDS: LISINOPRIL 10 MG TAB PO SCH (08:56)
[2017-03-26] MEDS: METOPROLOL TARTRATE 25 MG TAB PO SCH (08:56)
[2017-03-26] MEDS: DIAZEPAM 5MG TAB PO SCH (08:58)
[2017-03-26] MEDS: HYDROCODONE/ACETAMOPHEN 5/325MG TAB PO SCH (08:58)
[2017-03-26] MEDS: DICLOFENAC SOD 1% GEL 100 GM TUBE EXT SCH (08:59)
[2017-03-26 11:14] VITALS: BP 106/74; PULSE 95; TEMP 36.8; O2SAT 97
--- NOTE | 2017-03-27 09:08 | Discharge Summary ---
Discharge Summary Date of Service Mar 26, 2017. Discharge Summary Admission Date: Mar 21, 2017 at 10:12 Discharge Date: Mar 26, 2017 Discharge Disposition: Home Principal Diagnosis: UTI from intermittent straight catheterizations Problems/Secondary Diagnoses: Acute on chronic low back pain, musculoskeletal strain h/o epidural abscess and discitis s/p removal of lumbar hardware Depression Ambulatory dysfunction with dyskinesias Procedures: none Consultations: Orthopedic surgery - Dr. Diaz Medication Reconciliation New Medications: Cephalexin Monohydrate (Cephalexin) 500 Mg Cap 500 MG PO QID, #40 CAP 0 Refills Oxycodone HCl (Oxycodone HCl) 5 Mg Tab 10 MG PO Q6 PRN for Severe Pain, #30 TAB 0 Refills Continued Medications: Acetaminophen (Tylenol) 325 Mg Tab 650 MG PO Q4H PRN for Pain, TAB DO NOT EXCEED 3000 MG APAP/24 HOURS Benztropine Mesylate (Benztropine Mesylate) 2 Mg Tab 2 MG PO BID, TAB Bisacodyl (Dulcolax) 10 Mg Sup 1 SUPP PA DAILY PRN for Constipation, SUP NEEDED IF MOM INEFFECTIVE Cholecalciferol (Vitamin D3) 2,000 Unit Tab 2000 INTER.UNIT PO DAILY, TAB Cyclobenzaprine Hcl (Flexeril) 10 Mg Tab 10 MG PO Q8 PRN for Muscle Spasm, TAB Diazepam (Valium) 5 Mg Tab 5 MG PO BID, TAB Hydrocodone/Acetaminophen 5MG/325MG ([place] 5MG/325MG) Tab 1 TAB PO Q12, TAB Hydrocortisone Acetate (Rectal (Anusol-Hc) 25 Mg Sup 25 MG PA UD PRN for Hemorrhoids, SUP Ibuprofen (Motrin) 400 Mg Tab 400 MG PO Q4H PRN for Pain, TAB NEEDED FOR PAIN RATED 1-4 ON A SCALE OF "0-10" Lisinopril (Zestril) 10 Mg Tab 10 MG PO DAILY, TAB Magnesium Hydroxide (Milk of Magnesia 400 mg/5Ml) [address] 30 ML PO DAILY PRN for Constipation Metoprolol Tartrate (Lopressor) (Lopressor) 25 Mg Tab 12.5 MG PO Q12, TAB Mirtazapine (Remeron) 30 Mg Tab 30 MG PO HS, TAB Multiple Vitamins W/ Minerals (Thera M Plus) 1 Tab Tab 1 TAB PO DAILY Naproxen (Naproxen) 375 Mg Tab 750 MG PO BID, TAB Polyethylene Glycol 3350 (Miralax) 1 Pow Pow 17 GM PO DAILY PRN for Constipation, GM Tamsulosin Hcl (Flomax) 0.4 Mg Cap 0.4 MG PO HS, CAP Trazodone Hcl (Trazodone) 100 Mg Tab 200 MG PO HS, TAB Venlafaxine Hcl (Venlafaxine Hcl Er) 225 Mg Tab 225 MG PO QAM, TAB Discharge Exam Patient ready for d/c in the morning after medicare appeal denied. Review of Systems: Constitutional: No fever, No chills, No sweats, No weight loss, No weakness , No fatigue, No problem reported Eyes: No worsening of vision, No eye pain, No redness, No discharge, No diplopia, No problem reported ENT: No hearing loss, No unusual epistaxis, No nasal symptoms, No sore throat, No tinnitus, No dental problems, No trouble swallowing, No problem reported Respiratory: No cough, No sputum, No wheezing, No shortness of breath, No dyspnea on exertion, No dyspnea at rest, No hemoptysis, No problem reported Cardiovascular: No chest pain, No orthopnea, No PND, No edema, No claudication, No palpitations, No problem reported Abdomen: No pain, No nausea, No vomiting, No diarrhea, No constipation, No GI bleeding, No problem reported Musculoskeletal: + joint pain (low back, getting better), No muscle pain, No swelling, No calf pain, No problem reported Genitourinary - Male: + urinary retention (stright cath PRN), No hematuria, No dysuria, No urinary frequency, No urinary urgency Neurologic: + weakness, + balance problems, No memory loss, No paralysis, No numbness/tingling, No vertigo, No problem reported Psychiatric: + depression symptoms, No anhedonism, No anxiety, No insomnia, No substance abuse, No problem reported Endocrine: No fatigue, No excessive thirst, No excessive urination, No problem reported Hematologic / Lymphatic: No abnormal bleeding/bruising, No clotting problems , No swollen lymph nodes, No night sweats, No problem reported Integumentary: No rash, No itch, No new/changing skin lesions, No color change, No bleeding, No problem reported Physical Exam: General Appearance: WD/WN, no apparent distress Eyes: normal inspection, EOMI, sclerae normal ENT: normal ENT inspection, hearing grossly normal, pharynx normal Neck: supple, no adenopathy, no JVD, trachea midline Respiratory/Chest: chest non-tender, lungs clear, normal breath sounds, no respiratory distress, no accessory muscle use Cardiovascular: regular rate, rhythm, no edema, no gallop, no JVD, no murmur , normal peripheral pulses Abdomen / GI: normal bowel sounds, non tender, soft, no organomegaly Extremities: normal inspection, no calf tenderness, normal capillary refill , no pedal edema, normal range of motion, pelvis stable 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, alert, normal mood/affect , normal reflexes, oriented x 3, + abnormal gait, + motor weakness Skin: normal color, warm/dry, no rash Hospital Course 52 year old male admitted on 03/17/2017 because of acute on chronic back pain consistent with muscular pain, also with fevers Proteus UTI and possible urosepsis, with Fever upon admission, associated with Leukocytosis and an elevated CRP associated with intermittent straight catheterizations, UTI, initially treated with Rocephin, changed to Keflex due to sensitivities no further fevers and CRP stable now think that fever and infection definitely urine, will continue Keflex on discharge d/c home on 03/26 Acute on chronic back pain - thought to be due to muscular spasms, treated with Narcotics and Flexeril spiking fevers and CRP going up, but ortho thinks this is due to UTI, no osteomyelitis MRI lumbar spine with L4/5 discitis / osteomyelitis, no epidural abscess discussed with Dr. Diaz still feels that pain and fevers related to UTI pain controlled with [place] and Oxy IR 10mg PRN, told him that he could use this at home Hyponatremia, resolved after IV fluid Opiate withdrawal, resolved - diarrhea over last 24 hours. no current agitation Non acute medical issues: History of schizoaffective disorder, depression, anxiety, hypertension, chronic pain on narcotics, hx neurogenic bladder/intermittent straight catheterization, chronic anemia (baseline Hg 10-11), tardive dyskinesia - No change to outpatient medications VTE Prophylaxis - enoxaparin 40mg SQ daily Code - Full d/c home now that medicare appeal denied, acceptable for discharge Total Time Spent: Less than 30 minutes This includes examination of the patient, discharge planning, medication reconciliation, and communication with other providers. Discharge Instructions Please refer to the electronic Patient Visit Report (Discharge Instructions) for additional information. Follow-Up PCP in one week Additional Copies To Jayesh Arthur D.O.
== END 2017-03-26 11:55 | disposition home or self-care (01) | DRG 699 ==
LOC: EDBD 18:58 → C.EDD 18:58 → C.MSN 03-18 01:08 → ENRESERV 03-18 01:18 → OBSVTOIN 03-21 10:12
PROVIDERS: ADMIT Family Medicine; ATTEND Internal Medicine
DX: T83.598A Infection and inflammatory reaction due to other prosthetic device, implant and graft in urinary system, initial encounter (principal); N39.0 Urinary tract infection, site not specified; E87.1 Hypo-osmolality and hyponatremia; F11.23 Opioid dependence with withdrawal; E87.2 Acidosis; S39.012A Strain of muscle, fascia and tendon of lower back, initial encounter; F41.8 Other specified anxiety disorders; I10 Essential (primary) hypertension; T40.2X5A Adverse effect of other opioids, initial encounter; K59.03 Drug induced constipation; F25.9 Schizoaffective disorder, unspecified; F17.200 Nicotine dependence, unspecified, uncomplicated; R33.9 Retention of urine, unspecified; Z98.1 Arthrodesis status; G89.29 Other chronic pain; B96.4 Proteus (mirabilis) (morganii) as the cause of diseases classified elsewhere; Y84.6 Urinary catheterization as the cause of abnormal reaction of the patient, or of later complication, without mention of misadventure at the time of the procedure; X58.XXXA Exposure to other specified factors, initial encounter; Y92.009 Unspecified place in unspecified non-institutional (private) residence as the place of occurrence of the external cause

== ENCOUNTER 2017-03-28 17:41 | Emergency (ER) | payer OTHER ==
[~2017-03-28] VITALS: Ht 180.3 cm; Wt 76.0 kg
[~2017-03-28 17:41] MED LIST changes: +ACET-1311 PO; +BENZ2TAB6 PO; +BISA10SU3 PR; -CGN1 PO; +CYCL10TA6 PO; +DIAZ-165 PO; -EFFSR75 PO; -FLX10 PO; +HYDR25SU20 PR; +KFL500 PO; +MAGNSUS73 PO; -MIRT15TA3 PO; +MIRT30TA3 PO; -MRLP17X PO; +POLY335019 PO; -PROM25TA9 PO; +RXC5 PO; +VENL225T27 PO; -VLM5 PO; -Vancomycin IV; -ZNF4 PO
[2017-03-28 17:55] VITALS: TEMP 37.2; Ht 180.3 cm; Wt 76.0 kg
[2017-03-28] MEDS ORDERED: DIAZEPAM 5MG TAB PO STA (18:55)
[2017-03-28] MEDS ORDERED: OXYCODONE HCL IR 5 MG TAB (IMMEDIATE RELEASE) PO STA (18:55)
[2017-03-28] MEDS ORDERED: SODIUM CHLORIDE 0.9% 1000ML 1,000 ML IV STA (18:55)
[2017-03-28] MEDS ORDERED: SODIUM CHLORIDE 0.9% 500ML 500 ML IV STA (18:55)
[2017-03-28] MEDS ORDERED: METOPROLOL TARTRATE 25 MG TAB PO STA (18:55)
[2017-03-28] MEDS ORDERED: LISINOPRIL 5 MG TAB PO ONE (19:00)
--- NOTE | 2017-03-28 19:00 | EMERGENCY ROOM VISIT NOTE ---
History Report prepared by Pradip: Bekah Sawyer Under the Supervision of: Dr. Jazmine Beckwith M.D. First contact with patient: 18:44 Chief Complaint: OTHER COMPLAINT Stated Complaint: CONFUSION History of Present Illness The patient is a 52 year old male who presents to the Emergency Room with complaints of constant medication withdrawal beginning today. The patient states that he went to get his medications refilled today and he was not able to due to something being wrong with the way that the hard copies of prescriptions were filled out. He reports that he has not been able to get in contact with his doctor and is now having withdrawal. He notes that he was in rehabilitation for his back pain and was seen here 2 days ago inpatient and was discharged yesterday. The patient states that he has a history of depression. He notes that he took his narcotics, antibiotics, and Effexor today. He states that he is on Valium, [place], Trazadone, Oxycodone, Lisinopril, Metoprolol and Lorazepam that he has not had today. He complains of dehydration, diaphoresis, diarrhea, back pain, confusion, and difficulty sleeping. Per review of the PDMP , between February of 2016 and February of 2017 the patient has had 19 prescriptions through 9 providers and has gotten 8 of them through private pay. Source of History: patient Onset: today Position: other (global) Quality: other (withdrawal) Timing: constant Associated Symptoms: + diaphoresis, + back pain, + diarrhea Note: He complains of dehydration, confusion, and difficulty sleeping. Review of Systems See HPI for pertinent positives & negatives. A total of 10 systems reviewed and were otherwise negative. 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 (11) Insomnia (12) Intervertebral disc rupture (13) Intractable back pain (14) Lumbar stenosis with neurogenic claudication (15) Major depressive disorder, recurrent, severe w/o psychotic behavior (16) Mood disorder (17) Muscle spasm (18) past psych meds (19) Schizoaffective disorder (20) Tobacco abuse (21) Urinary retention (22) Urinary tract infection Surgical Problems: (1) History of repair of hip fracture Family History Depression Social History Smoking Status: Former Smoker Drug Use: none Marital Status: single Housing Status: lives alone, intermediate Occupation Status: unemployed, disabled Current/Historical Medications Scheduled Benztropine Mesylate (Benztropine Mesylate), 2 MG PO BID Cephalexin Monohydrate (Cephalexin), 500 MG PO QID Cholecalciferol (Vitamin D3), 2,000 INTER.UNIT PO DAILY Hydrocodone/Acetaminophen 5MG/325MG ([place] 5MG/325MG), 1 TAB PO Q12 Lisinopril (Zestril), 10 MG PO DAILY Lisinopril (Zestril), 10 MG PO DAILY Metoprolol Tartrate (Lopressor), 12.5 MG PO BID Metoprolol Tartrate (Lopressor) (Lopressor), 12.5 MG PO Q12 Mirtazapine (Remeron), 30 MG PO HS Multiple Vitamins W/ Minerals (Thera M Plus), 1 TAB PO DAILY Naproxen (Naproxen), 750 MG PO BID Tamsulosin Hcl (Flomax), 0.4 MG PO HS Trazodone Hcl (Trazodone), 200 MG PO HS Venlafaxine Hcl (Venlafaxine Hcl Er), 225 MG PO QAM Scheduled PRN Acetaminophen (Tylenol), 650 MG PO Q4H PRN for Pain Cyclobenzaprine Hcl (Flexeril), 10 MG PO Q8 PRN for Muscle Spasm Diazepam (Valium), 1 TAB PO BID PRN for Muscle Spasms Hydrocortisone Acetate (Rectal (Anusol-Hc), 25 MG NC UD PRN for Hemorrhoids Ibuprofen (Motrin), 400 MG PO Q4H PRN for Pain Oxycodone HCl (Oxycodone HCl), 10 MG PO Q6 PRN for Severe Pain Oxycodone Immediate Rel Tab (Roxicodone Ir), 10 MG PO Q6H PRN for Pain Polyethylene Glycol 3350 (Miralax), 17 GM PO DAILY PRN for Constipation Allergies Coded Allergies: No Known Allergies (Verified , 12/31/16) Physical Exam Vital Signs Date Time Temp Pulse Resp B/P (MAP) Pulse Ox O2 Delivery O2 Flow Rate FiO2 03/28/17 21:15 91 20 121/81 96 03/28/17 20:39 94 22 110/83 96 03/28/17 19:19 108 22 157/96 95 Room Air 03/28/17 18:50 104 03/28/17 18:47 99 20 154/114 96 03/28/17 17:55 37.2 113 22 173/105 98 Room Air Physical Exam Vital signs reviewed. Patient is hypertensive and tachycardic. General: Chronically ill appearing male, dyskinesia with lip smacking. HEENT: No scleral icterus, PERRLA, neck supple. Dry mucous membranes. Atraumatic. Cardiovascular: Tachycardic rate and regular rhythm, no extra sounds. Pulmonary: Clear to auscultation bilaterally, normal work of breathing. Abdomen: Soft, nontender, nondistended, positive bowel sounds. Musculoskeletal: Atraumatic, no peripheral edema. Neurologic: Patient awake alert and oriented x 3 Skin: Warm, dry, no rash Medical Decision & Procedures Laboratory Results 03/28/17 19:08 Red Blood Count 4.80, Mean Corpuscular Volume 82.1, Mean Corpuscular Hemoglobin 27.9, Mean Corpuscular Hemoglobin Concent 34.0, Mean Platelet Volume 8.5, Neutrophils (%) (Auto) 74.3, Lymphocytes (%) (Auto) 21.3, Monocytes (%) (Auto) 3.3, Eosinophils (%) (Auto) 0.4, Basophils (%) (Auto) 0.3, Neutrophils # (Auto) 5.71, Lymphocytes # (Auto) 1.63, Monocytes # (Auto) 0.25, Eosinophils # (Auto) 0.03, Basophils # (Auto) 0.02 03/28/17 19:08 Test 03/28/17 19:08 03/28/17 20:08 White Blood Count 7.67 K/uL (4.8-10.8) Red Blood Count 4.80 M/uL (4.7-6.1) Hemoglobin 13.4 g/dL (14.0-18.0) Hematocrit 39.4 % (42-52) Mean Corpuscular Volume 82.1 fL (80-100) Mean Corpuscular Hemoglobin 27.9 pg (25-34) Mean Corpuscular Hemoglobin Concent 34.0 g/dl (32-36) Platelet Count 432 K/uL (130-400) Mean Platelet Volume 8.5 fL (7.4-10.4) Neutrophils (%) (Auto) 74.3 % Lymphocytes (%) (Auto) 21.3 % Monocytes (%) (Auto) 3.3 % Eosinophils (%) (Auto) 0.4 % Basophils (%) (Auto) 0.3 % Neutrophils # (Auto) 5.71 K/uL (1.4-6.5) Lymphocytes # (Auto) 1.63 K/uL (1.2-3.4) Monocytes # (Auto) 0.25 K/uL (0.11-0.59) Eosinophils # (Auto) 0.03 K/uL (0-0.5) Basophils # (Auto) 0.02 K/uL (0-0.2) RDW Standard Deviation 39.9 fL (36.4-46.3) RDW Coefficient of Variation 13.2 % (11.5-14.5) Immature Granulocyte % (Auto) 0.4 % Immature Granulocyte # (Auto) 0.03 K/uL (0.00-0.02) Anion Gap 11.0 mmol/L (3-11) Est Creatinine Clear Calc Drug Dose 82.7 ml/min Estimated GFR () 88.4 Estimated GFR (Non- 76.2 BUN/Creatinine Ratio 20.2 (10-20) Calcium Level 9.6 mg/dl (8.5-10.1) Magnesium Level 2.3 mg/dl (1.8-2.4) Total Bilirubin 0.5 mg/dl (0.2-1) Direct Bilirubin 0.2 mg/dl (0-0.2) Aspartate Amino Transf (AST/SGOT) 19 U/L (15-37) Alanine Aminotransferase (ALT/SGPT) 27 U/L (12-78) Alkaline Phosphatase 142 U/L (45-117) Total Creatine Kinase 230 U/L (39-308) Creatine Kinase MB 15.2 ng/ml (0.5-3.6) Creatine Kinase MB Ratio 6.6 (0-3.0) Total Protein 8.5 gm/dl (6.4-8.2) Albumin 3.8 gm/dl (3.4-5.0) Lipase 111 U/L (73-393) Urine Color YELLOW Urine Appearance CLEAR (CLEAR) Urine pH 5.5 (4.5-7.5) Urine Specific [place] 1.017 (1.000-1.030) Urine Protein NEG (NEG) Urine Glucose (UA) NEG (NEG) Urine Ketones 1+ (NEG) Urine Occult Blood NEG (NEG) Urine Nitrite NEG (NEG) Urine Bilirubin NEG (NEG) Urine Urobilinogen NEG (NEG) Urine Leukocyte Esterase NEG (NEG) Urine Opiates Screen POS (NEG) Urine Methadone, Qualitative NEG (NEG) Urine Barbiturates NEG (NEG) Urine Phencyclidine (PCP) Level NEG (NEG) Ur Amphetamine/Methamphetamine NEG (NEG) MDMA (Ecstasy) Screen NEG (NEG) Urine Benzodiazepines Screen POS (NEG) Urine Cocaine Metabolite NEG (NEG) Urine Marijuana (THC) NEG (NEG) Laboratory results per my review. Medications Administered Medications (Trade) Dose Ordered Sig/Colten Route Start Time Stop Time Status Last Admin Dose Admin Diazepam (Valium Tab) 5 mg NOW STAT PO 03/28/17 18:55 03/28/17 19:01 DC 03/28/17 19:25 5 MG Lisinopril (Zestril Tab) 10 mg NOW ONCE PO 03/28/17 19:00 03/28/17 19:01 DC 03/28/17 19:24 10 MG Metoprolol Tartrate (Lopressor Tab) 12.5 mg NOW STAT PO 03/28/17 18:55 03/28/17 19:01 DC 03/28/17 19:23 12.5 MG Oxycodone HCl (Roxicodone Immediate Rel Tab) 10 mg NOW STAT PO 03/28/17 18:55 03/28/17 19:01 DC 03/28/17 19:25 10 MG Sodium Chloride 1,000 ml @ 125 mls/hr Q8H STAT IV 03/28/17 18:55 03/28/17 22:02 DC 03/28/17 20:00 125 MLS/HR Sodium Chloride 500 ml @ 999 mls/hr Q31M STAT IV 03/28/17 18:55 03/28/17 19:25 DC 03/28/17 19:28 999 MLS/HR ED Course 1844: Past medical records reviewed. The patient was evaluated in room A9. A complete history and physical examination was performed. 1855: Sodium Chloride 500 ml @ 999 mls/hr IV, Sodium Chloride 1000 ml @ 125 mls/ hr IV, Oxycodone HCl 10mg PO, Lopressor Tab 12.5mg PO, Valium Tab 5mg PO. 1899: Lisinopril 10mg PO. 1909: I spoke to the [facility] pharmacy and the patients doctor from [place] was discharged with Valium and Oxycodone without a JAIMIE number date or quantity attached. He is not able to be contacted today and the pharmacy will try again tomorrow. [place] has his prescription for Keflex which he did not order picker/assembler and he only picked up prescription for Oxycodone that Dr. Rothman wrote. 2102: Upon reevaluation, the patient appeared to have improvement of his symptoms. I discussed findings with the patient. He verbalized agreement of the treatment plan. The patient was discharged home. Medical Decision Differential diagnosis includes substance abuse, narcotic withdrawal, benzo withdrawal, electrolyte abnormality, infection, dehydration. This patient was evaluated and appeared patient has significant distress. IV access was obtained and laboratory work was drawn. Patient was given 5 mg of oral Valium, 10 mg of the by mouth. The patient's pharmacy was contacted by myself. It seems that the patient did not order picker/assembler his Keflex but did receive his OxyContin as recently prescribed by Dr. Rothman. The prescriptions that he submitted for the remainder of his medications had no JAIMIE number, quantity specified or date. As this is somewhat suspicious, the pharmacy did not fill the prescriptions and have been making attempts to contact the prescriber. The patient was hydrated with normal saline solution. His vital signs did improved tremendously after the above medications. He had also been given his oral several and metoprolol for which she states she has not had in several days. The patient has these medications at home. Case management will contact his intensive home health care case manager for assistance with the prescriptions. He was given a short prescription for lisinopril, metoprolol, OxyContin and Valium. He should have a 1 day supply. Patient was advised to get a hold of his primary care physician at the [place] for further medication management. He will return to the ER for worsening of symptoms or any medical concerns. [place] Drug Monitoring Program Search Results: patient reviewed within database Drug Monitoring Findings: Between February of 2016 and February of 2017 the patient has had 19 prescriptions through 9 providers and has gotten 8 of them through private pay. Medication Reconcilliation Current Medication List: was personally reviewed by me Blood Pressure Screening Patient's blood pressure: Elevated blood pressure Blood pressure disposition: Referred to PCP Impression Primary Impression: Medication withdrawal Scribe Attestation The scribe's documentation has been prepared under my direction and personally reviewed by me in its entirety. I confirm that the note above accurately reflects all work, treatment, procedures, and medical decision making performed by me. Departure Information Dispostion Home / Self-Care Prescriptions Metoprolol Tartrate (LOPRESSOR) 25 Mg Tab 12.5 MG PO BID, #7 TAB Prov: Jazmine Beckwith M.D. 03/28/17 Lisinopril (ZESTRIL) 10 Mg Tab 10 MG PO DAILY, #7 TAB Prov: Jazmine Beckwith M.D. 03/28/17 Diazepam (VALIUM) 5 Mg Tab 1 TAB PO BID Y for Muscle Spasms for 30 Days, #2 TAB Prov: Jazmine Beckwith M.D. 03/28/17 Oxycodone Immediate Rel Tab (ROXICODONE IR) 5 Mg Tab 10 MG PO Q6H Y for Pain, #8 TAB Prov: Jazmine Beckwith M.D. 03/28/17 Referrals Jayesh Arthur D.O. (PCP) Forms HOME CARE DOCUMENTATION FORM, IMPORTANT VISIT INFORMATION, WORK / SCHOOL INSTRUCTIONS Patient Instructions My [facility] Additional Instructions Diagnosis: Medication withdrawal Take your medications as prescribed. Please order picker/assembler your Keflex prescription with your Valium, OxyContin, lisinopril and metoprolol. Your home health care case manager will be contacted in the morning. Please contact your physician, Dr. Arthur, at the [facility] to assist with any further medication prescriptions. Drink plenty of clear fluids. Return to the emergency department for worsening of symptoms or any medical concerns.
[2017-03-28 19:18] LABS: BASO % 0.3 %; BASO ABS # 0.02 K/uL (0-0.2); COMPLETE YES; EOS % 0.4 %; HEMATOCRIT 39.4 % (42-52); IG% 0.4 %; LYMPH % 21.3 %; LYMPH ABS # 1.63 K/uL (1.2-3.4); MEAN CELL VOLUME 82.1 fL (80-100); MEAN CORPUSCULAR HEMOGLOBIN 27.9 pg (25-34); MEAN PLATELET VOLUME 8.5 fL (7.4-10.4); MONO % 3.3 %; NEUT % 74.3 %; PLATELET COUNT 432 K/uL (130-400); WHITE BLOOD COUNT 7.67 K/uL (4.8-10.8)
[2017-03-28 19:37] LABS: BUN/CREATININE RATIO 20.2 (10-20); CALCIUM 9.6 mg/dl (8.5-10.1); CREATININE 1.1 mg/dl (0.60-1.40); MAGNESIUM 2.3 mg/dl (1.8-2.4); POTASSIUM 3.6 mmol/L (3.5-5.1)
[2017-03-28 19:40] LABS: CKMB/CK RATIO 6.6 (0-3.0)
[2017-03-28 20:27] LABS: URINE APPEARANCE CLEAR (CLEAR); URINE BILIRUBIN NEG (NEG); URINE COLOR YELLOW; URINE NITRITE NEG (NEG); URINE PH 5.5 (4.5-7.5); URINE SPECIFIC GRAVITY 1.017 (1.000-1.030); UROBILINOGEN NEG (NEG); ZZURINE CULT IF INDIC CATH NO
[2017-03-28 20:28] LABS: MANUAL MICROSCOPIC REQUIRED? NO; REVIEW REQ? NO
[2017-03-28 20:50] LABS: BENZODIAZEPINE, URINE POS (NEG); COCAINE,URINE NEG (NEG); PHENCYCLIDINE, URINE NEG (NEG)
[2017-03-28] MEDS ORDERED: DIAZ5TAB3 PO (21:00)
[2017-03-28] MEDS ORDERED: LISI-461 PO (21:00)
[2017-03-28] MEDS ORDERED: LPR25 PO (21:00)
[2017-03-28] MEDS ORDERED: OXYC1TAB3 PO (21:00)
[2017-03-28 21:15] VITALS: BP 121/81; PULSE 91; O2SAT 96
[2017-03-31 15:16] LABS: COD UR NEGATIVE NG/ML (CUTOFF=50); HYDROCOD UR NEGATIVE NG/ML (CUTOFF=50); HYDROMOR UR NEGATIVE NG/ML (CUTOFF=50); HYDROXYETHYLFLURAZEPAM CONF NEGATIVE NG/ML (CUTOFF=50); HYDROXYMIDAZOLAM NEGATIVE NG/ML (CUTOFF=50); HYDROXYTRIAZOLAM CONF NEGATIVE NG/ML (CUTOFF=50); MORPHINE UR NEGATIVE NG/ML (CUTOFF=50); NORHYDROCODONE CONF UR NEGATIVE NG/ML (CUTOFF=50); OXYMORPH UR 2090 NG/ML (CUTOFF=50); TEMAZEPAM CONF 190 NG/ML (CUTOFF=50)
== END 2017-03-28 21:21 | disposition home or self-care (01) ==
LOC: C.EDB 17:42 → C.EDA 21:21
DX: F19.939 Other psychoactive substance use, unspecified with withdrawal, unspecified (principal); M54.5 Low back pain; G89.29 Other chronic pain; F32.9 Major depressive disorder, single episode, unspecified; F41.9 Anxiety disorder, unspecified; D64.9 Anemia, unspecified; E78.5 Hyperlipidemia, unspecified; I10 Essential (primary) hypertension; G47.00 Insomnia, unspecified; M48.06 Spinal stenosis, lumbar region; F25.9 Schizoaffective disorder, unspecified; R00.0 Tachycardia, unspecified; Z87.891 Personal history of nicotine dependence; Z81.8 Family history of other mental and behavioral disorders

== ENCOUNTER 2017-03-30 09:48 | Emergency (ER) | payer OTHER ==
[~2017-03-30] VITALS: Ht 180.3 cm; Wt 75.0 kg
[~2017-03-30 09:48] MED LIST changes: -BISA10SU3 PR; -DIAZ-165 PO; +DIAZ5TAB3 PO; +LPR25 PO; -MAGNSUS73 PO; +OXYC1TAB3 PO
[2017-03-30 09:50] VITALS: Ht 180.3 cm; Wt 75.0 kg
--- NOTE | 2017-03-30 10:28 | EMERGENCY ROOM VISIT NOTE ---
History Report prepared by Pradip: Minor Talbot Under the Supervision of: Dr. Alfred Reed M.D. First contact with patient: 10:16 Chief Complaint: NAUSEA Stated Complaint: NAUSEA,DIARRHEA Nursing Triage Summary: pt to the ED with c/o nausea and med withdrawl last had meds this am pt c/o dirrhea and hip pain from a fall from feeling weak no abd pain History of Present Illness The patient is a 52 year old male who presents to the Emergency Room with complaints of persistent nausea that started 3 days ago. He says that he was on medication withdrawal, as he was out of his medications. The patient notes that he did take his medications around 0830 this morning from his supply from when he was last discharged here, which includes Diazepam, Oxycodone, 2 blood pressure medications, and an antibiotic. He says that he took those medications as prescribed. The patient states that he has been having diarrhea for 3 days, and has been having diarrhea every 50 minutes or so. He adds that he has been very weak. The patient notes that his diarrhea is really thin now, with no blood. He says that he has not eaten in 3 days, and he has not been sleeping. The patient states that he feels hot. He denies any vomiting, cough, or abdominal pain. He says that he has not had any recent sick contacts. The patient has hypertension, depression, and a history of multiple back surgeries. The patient denies any recreational drug use. Source of History: patient Onset: 3 days ago Position: other (global - nausea) Timing: other (persistent) Associated Symptoms: + diarrhea, + weakness, No cough, No vomiting, No abdominal pain Note: Associated symptoms: Feels hot. Has not eaten in 3 days. Lack of sleep. Review of Systems See HPI for pertinent positives and negatives. A total of ten systems were reviewed and were otherwise negative. 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 (11) Insomnia (12) Intervertebral disc rupture (13) Intractable back pain (14) Lumbar stenosis with neurogenic claudication (15) Major depressive disorder, recurrent, severe w/o psychotic behavior (16) Mood disorder (17) Muscle spasm (18) past psych meds (19) Schizoaffective disorder (20) Tobacco abuse (21) Urinary retention (22) Urinary tract infection Surgical Problems: (1) History of repair of hip fracture Family History Depression Social History Smoking Status: Former Smoker Drug Use: none Marital Status: single Housing Status: lives alone, fpc Occupation Status: unemployed, disabled Current/Historical Medications Scheduled Benztropine Mesylate (Benztropine Mesylate), 2 MG PO BID Cephalexin Monohydrate (Cephalexin), 500 MG PO QID Cholecalciferol (Vitamin D3), 2,000 INTER.UNIT PO DAILY Hydrocodone/Acetaminophen 5MG/325MG ([place] 5MG/325MG), 1 TAB PO Q12 Lisinopril (Zestril), 10 MG PO DAILY Metoprolol Tartrate (Lopressor) (Lopressor), 12.5 MG PO Q12 Mirtazapine (Remeron), 30 MG PO HS Multiple Vitamins W/ Minerals (Thera M Plus), 1 TAB PO DAILY Naproxen (Naproxen), 750 MG PO BID Tamsulosin Hcl (Flomax), 0.4 MG PO HS Trazodone Hcl (Trazodone), 200 MG PO HS Venlafaxine Hcl (Venlafaxine Hcl Er), 225 MG PO QAM Scheduled PRN Acetaminophen (Tylenol), 650 MG PO Q4H PRN for Pain Cyclobenzaprine Hcl (Flexeril), 10 MG PO Q8 PRN for Muscle Spasm Diazepam (Valium), 1 TAB PO BID PRN for Muscle Spasms Hydrocortisone Acetate (Rectal (Anusol-Hc), 25 MG HI UD PRN for Hemorrhoids Ibuprofen (Motrin), 400 MG PO Q4H PRN for Pain Oxycodone HCl (Oxycodone HCl), 10 MG PO Q6 PRN for Severe Pain Oxycodone Immediate Rel Tab (Roxicodone Ir), 10 MG PO Q6H PRN for Pain Polyethylene Glycol 3350 (Miralax), 17 GM PO DAILY PRN for Constipation Allergies Coded Allergies: No Known Allergies (Verified , 03/30/17) Physical Exam Vital Signs Date Time Temp Pulse Resp B/P (MAP) Pulse Ox O2 Delivery O2 Flow Rate FiO2 03/30/17 13:21 36.7 85 18 122/69 96 03/30/17 13:18 85 18 122/69 96 Room Air 03/30/17 12:18 124/71 100 03/30/17 11:30 77 18 115/74 03/30/17 09:50 36.7 97 18 136/93 96 Physical Exam GENERAL: Generally well-appearing but anxious. HENT: Normocephalic, atraumatic. Oropharynx unremarkable. EYES: Normal conjunctiva. Sclera non-icteric. NECK: Supple. No nuchal rigidity. FROM. RESPIRATORY: CTAB CARDIAC: NSR, RRR, Extremities warm and well perfused. Pulses equal. ABDOMEN: Soft, non-distended. No tenderness to palpation. No rebound or guarding. No masses. MUSCULOSKELETAL: Chest examination reveals no tenderness. The back is symmetrical on inspection without obvious abnormality. There is no CVA tenderness to palpation. No joint edema. LOWER EXTREMITIES: Calves are equal size bilaterally and non-tender. No swelling. No discoloration. NEURO: Normal sensorium. No sensory or motor deficits noted. SKIN: No rash or jaundice noted. Medical Decision & Procedures Laboratory Results 03/30/17 11:04 Red Blood Count 4.54, Mean Corpuscular Volume 82.8, Mean Corpuscular Hemoglobin 28.4, Mean Corpuscular Hemoglobin Concent 34.3, Mean Platelet Volume 8.5, Neutrophils (%) (Auto) 74.5, Lymphocytes (%) (Auto) 19.2, Monocytes (%) (Auto) 4.3, Eosinophils (%) (Auto) 1.6, Basophils (%) (Auto) 0.3, Neutrophils # (Auto) 5.59, Lymphocytes # (Auto) 1.44, Monocytes # (Auto) 0.32, Eosinophils # (Auto) 0.12, Basophils # (Auto) 0.02 03/30/17 11:04 Test 03/30/17 11:04 White Blood Count 7.50 K/uL (4.8-10.8) Red Blood Count 4.54 M/uL (4.7-6.1) Hemoglobin 12.9 g/dL (14.0-18.0) Hematocrit 37.6 % (42-52) Mean Corpuscular Volume 82.8 fL (80-100) Mean Corpuscular Hemoglobin 28.4 pg (25-34) Mean Corpuscular Hemoglobin Concent 34.3 g/dl (32-36) Platelet Count 387 K/uL (130-400) Mean Platelet Volume 8.5 fL (7.4-10.4) Neutrophils (%) (Auto) 74.5 % Lymphocytes (%) (Auto) 19.2 % Monocytes (%) (Auto) 4.3 % Eosinophils (%) (Auto) 1.6 % Basophils (%) (Auto) 0.3 % Neutrophils # (Auto) 5.59 K/uL (1.4-6.5) Lymphocytes # (Auto) 1.44 K/uL (1.2-3.4) Monocytes # (Auto) 0.32 K/uL (0.11-0.59) Eosinophils # (Auto) 0.12 K/uL (0-0.5) Basophils # (Auto) 0.02 K/uL (0-0.2) RDW Standard Deviation 40.1 fL (36.4-46.3) RDW Coefficient of Variation 13.2 % (11.5-14.5) Immature Granulocyte % (Auto) 0.1 % Immature Granulocyte # (Auto) 0.01 K/uL (0.00-0.02) Venous Blood pH 7.43 (7.36-7.41) Venous Blood Partial Pressure CO2 36 mmHg (38.0-50.0) Venous Blood Partial Pressure O2 40 mmHg Venous Blood HCO3 23 mmol/L Venous Blood Oxygen Saturation 73.7 % Venous Blood Base Excess -0.8 mmol/L Anion Gap 6.0 mmol/L (3-11) Est Creatinine Clear Calc Drug Dose 103.0 ml/min Estimated GFR () 113.7 Estimated GFR (Non- 98.1 BUN/Creatinine Ratio 18.5 (10-20) Lactic Acid Level 1.0 mmol/L (0.4-2.0) Calcium Level 9.2 mg/dl (8.5-10.1) Phosphorus Level 3.0 mg/dl (2.5-4.9) Magnesium Level 2.3 mg/dl (1.8-2.4) Laboratory results reviewed by me Medications Administered Medications (Trade) Dose Ordered Sig/Colten Route Start Time Stop Time Status Last Admin Dose Admin Ondansetron HCl (Zofran Inj) 4 mg NOW STAT IV 03/30/17 10:45 03/30/17 10:49 DC 03/30/17 11:21 4 MG Sodium Chloride 1,000 ml @ 999 mls/hr Q1H1M IV 03/30/17 10:45 04/29/17 10:44 03/30/17 11:21 999 MLS/HR Diphenhydramine HCl (Benadryl Inj) 25 mg NOW STAT IV 03/30/17 10:45 03/30/17 10:49 DC 03/30/17 11:20 25 MG Dicyclomine HCl (Bentyl Inj) 20 mg NOW ONCE IM 03/30/17 10:45 03/30/17 10:49 DC 03/30/17 10:45 20 MG ED Course 1038: The patient was evaluated in room B8. A complete history and physical exam was performed. 1045: Ordered Bentyl Inj 20 mg IM, Benadryl Inj 25 mg IV, NSS 1000 ml @ 999 mls/ hr IV, Zofran Inj 4 mg IV. 1157: I reevaluated the patient, and his lab work was unremarkable. He tolerated PO and he is pain controlled. The patient's nausea is controlled. The patient verbally expressed understanding and agreement of the treatment plan. The patient will be discharged. 1222: The caseworker arranged for all the patient's prescriptions to be available at [facility] to be picked up after discharge. The patient was informed and he is agreeable. Medical Decision Differential diagnosis includes but is not limited to: medication withdrawal, dehydration, enteritis. 52-year-old white male with chief complaint of nausea, inability to tolerate by mouth, and diarrhea. Patient with no sick contacts recent travel, stream or well water use. Patient's labs fairly unremarkable and inconsistent with 3 day history of constant diarrhea and inability to tolerate by mouth. Patient does have mild hyponatremia which is consistent from his last visit. Patient is not altered at this time. After fluids and medications patient was feeling much improved. The caseworker further coordinated his care and was able to get his prescriptions ready at [facility]. Patient was notified and all his prescriptions which he said he was unable to obtain but now be available. Patient was given strict follow-up, discharge, return precautions. WERE answered. Patient agreed with plan of care. Patient was discharged home. Medication Reconcilliation Current Medication List: was personally reviewed by me Blood Pressure Screening Patient's blood pressure: Elevated blood pressure Blood pressure disposition: Elevated BP felt to be situational Impression Primary Impression: Noncompliance with medications Additional Impressions: Nausea Diarrhea Scribe Attestation The scribe's documentation has been prepared under my direction and personally reviewed by me in its entirety. I confirm that the note above accurately reflects all work, treatment, procedures, and medical decision making performed by me. Departure Information Dispostion Home / Self-Care Referrals Jayesh Arthur D.O. (PCP) Patient Instructions Diarrhea, My [facility] Additional Instructions Was discussed with the caseworker as well as myself please arrange to hot die picker your prescriptions at [facility]. Please return if you have any worsening symptoms. Please follow up with her primary care provider to continue your care. Problem Qualifiers
[2017-03-30] MEDS ORDERED: ONDANSETRON INJ 2 MG/ML 2 ML VIAL IV STA (10:45)
[2017-03-30] MEDS ORDERED: SODIUM CHLORIDE 0.9% 1000ML 1,000 ML IV SCH (10:45)
[2017-03-30] MEDS ORDERED: DICYCLOMINE HCL 10 MG/ML 2 ML AMP IM ONE (10:45)
[2017-03-30] MEDS ORDERED: DiphenhydrAMINE HCL 50 MG/ML VIAL IV STA (10:45)
[2017-03-30 11:22] LABS: VEN BLD GAS O2 SATURATION 73.7 %; VEN BLOOD GAS BASE EXCESS -0.8 mmol/L
[2017-03-30 11:25] LABS: BASO % 0.3 %; BASO ABS # 0.02 K/uL (0-0.2); COMPLETE YES; EOS % 1.6 %; HEMATOCRIT 37.6 % (42-52); IG% 0.1 %; LYMPH % 19.2 %; LYMPH ABS # 1.44 K/uL (1.2-3.4); MEAN CELL VOLUME 82.8 fL (80-100); MEAN CORPUSCULAR HEMOGLOBIN 28.4 pg (25-34); MEAN CORPUSCULAR HGB CONC 34.3 g/dl (32-36); MEAN PLATELET VOLUME 8.5 fL (7.4-10.4); MONO % 4.3 %; NEUT % 74.5 %; PLATELET COUNT 387 K/uL (130-400); RED BLOOD COUNT 4.54 M/uL (4.7-6.1)
[2017-03-30 11:42] LABS: BUN/CREATININE RATIO 18.5 (10-20); CALCIUM 9.2 mg/dl (8.5-10.1); CREATININE 0.88 mg/dl (0.60-1.40); MAGNESIUM 2.3 mg/dl (1.8-2.4); POTASSIUM 3.8 mmol/L (3.5-5.1)
[2017-03-30 13:21] VITALS: BP 122/69; PULSE 85; TEMP 36.7; O2SAT 96
== END 2017-03-30 13:22 | disposition home or self-care (01) ==
LOC: C.EDB 09:49
DX: Z91.14 Patient's other noncompliance with medication regimen (principal); R11.0 Nausea; R19.7 Diarrhea, unspecified; Z79.899 Other long term (current) drug therapy; M25.559 Pain in unspecified hip; W19.XXXA Unspecified fall, initial encounter; I10 Essential (primary) hypertension; F32.9 Major depressive disorder, single episode, unspecified; F41.9 Anxiety disorder, unspecified; F25.9 Schizoaffective disorder, unspecified; Z87.891 Personal history of nicotine dependence; Z81.8 Family history of other mental and behavioral disorders

== ENCOUNTER 2017-04-12 02:21 | Emergency (ER) | payer OTHER ==
[~2017-04-12] VITALS: Ht 180.3 cm; Wt 78.7 kg
[~2017-04-12 02:21] MED LIST changes: -LPR25 PO
[2017-04-12 02:24] VITALS: Ht 180.3 cm; Wt 78.7 kg
[2017-04-12] MEDS ORDERED: DiphenhydrAMINE HCL 50 MG/ML VIAL IV STA (02:31)
[2017-04-12] MEDS ORDERED: ONDANSETRON INJ 2 MG/ML 2 ML VIAL IV STA (02:31)
[2017-04-12] MEDS ORDERED: SODIUM CHLORIDE 0.9% 1000ML 1,000 ML IV STA (02:31)
[2017-04-12] MEDS ORDERED: DICYCLOMINE HCL 10 MG/ML 2 ML AMP IM ONE (02:45)
[2017-04-12 02:50] LABS: BASO % 0.2 %; BASO ABS # 0.02 K/uL (0-0.2); COMPLETE YES; EOS % 0.6 %; HEMATOCRIT 35.8 % (42-52); IG% 0.3 %; LYMPH % 17.5 %; LYMPH ABS # 1.89 K/uL (1.2-3.4); MEAN CELL VOLUME 82.3 fL (80-100); MEAN CORPUSCULAR HEMOGLOBIN 28.5 pg (25-34); MEAN CORPUSCULAR HGB CONC 34.6 g/dl (32-36); MEAN PLATELET VOLUME 8.3 fL (7.4-10.4); NEUT % 75.4 %; PLATELET COUNT 402 K/uL (130-400); RED BLOOD COUNT 4.35 M/uL (4.7-6.1); WHITE BLOOD COUNT 10.82 K/uL (4.8-10.8)
--- NOTE | 2017-04-12 02:55 | EMERGENCY ROOM VISIT NOTE ---
History Report prepared by Pradip: Sherley Christian Under the Supervision of: Dr. Silvano Bustillo M.D. First contact with patient: 02:27 Chief Complaint: VOMITING Stated Complaint: VOMITING History of Present Illness The patient is a 52 year old male who presents to the Emergency Room with complaints of an episode of vomiting starting 8 hours ago. The patient states that he ate and then felt nauseous. He reports that he has been vomiting since shortly after eating. He notes that it has had some pink tinge to it. He denies anyone else eating what he did. He complains of fever and feeling like he has diarrhea, but without any diarrhea. He notes he has hip pain that is chronic and that he didn't take anything for the vomiting. He currently rates his pain as a n8/10 in severity. Source of History: patient Onset: 8 hours ago Position: other (global) Symptom Intensity: 8/10 Quality: other (global) Timing: other (episode) Associated Symptoms: + fevers, + nausea, No diarrhea Note: The patient complains of a pink tinge to his vomit, feeling like he has diarrhea , but without any diarrhea, and hip pain. Review of Systems See HPI for pertinent positives & negatives. A total of 10 systems reviewed and were otherwise negative. 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 (11) Insomnia (12) Intervertebral disc rupture (13) Intractable back pain (14) Lumbar stenosis with neurogenic claudication (15) Major depressive disorder, recurrent, severe w/o psychotic behavior (16) Mood disorder (17) Muscle spasm (18) past psych meds (19) Schizoaffective disorder (20) Tobacco abuse (21) Urinary retention (22) Urinary tract infection Surgical Problems: (1) History of repair of hip fracture Family History Depression Social History Smoking Status: Former Smoker Drug Use: none Marital Status: single Housing Status: lives alone, long-term Occupation Status: unemployed, disabled Current/Historical Medications Scheduled Benztropine Mesylate (Benztropine Mesylate), 2 MG PO BID Cephalexin Monohydrate (Cephalexin), 500 MG PO QID Cholecalciferol (Vitamin D3), 2,000 INTER.UNIT PO DAILY Hydrocodone/Acetaminophen 5MG/325MG (Barrow 5MG/325MG), 1 TAB PO Q12 Lisinopril (Zestril), 10 MG PO DAILY Metoprolol Tartrate (Lopressor) (Lopressor), 12.5 MG PO Q12 Mirtazapine (Remeron), 30 MG PO HS Multiple Vitamins W/ Minerals (Thera M Plus), 1 TAB PO DAILY Naproxen (Naproxen), 750 MG PO BID Tamsulosin Hcl (Flomax), 0.4 MG PO HS Trazodone Hcl (Trazodone), 200 MG PO HS Venlafaxine Hcl (Venlafaxine Hcl Er), 225 MG PO QAM Scheduled PRN Acetaminophen (Tylenol), 650 MG PO Q4H PRN for Pain Cyclobenzaprine Hcl (Flexeril), 10 MG PO Q8 PRN for Muscle Spasm Diazepam (Valium), 1 TAB PO BID PRN for Muscle Spasms Hydrocortisone Acetate (Rectal (Anusol-Hc), 25 MG MS UD PRN for Hemorrhoids Ibuprofen (Motrin), 400 MG PO Q4H PRN for Pain Oxycodone HCl (Oxycodone HCl), 10 MG PO Q6 PRN for Severe Pain Oxycodone Immediate Rel Tab (Roxicodone Ir), 10 MG PO Q6H PRN for Pain Polyethylene Glycol 3350 (Miralax), 17 GM PO DAILY PRN for Constipation Allergies Coded Allergies: No Known Allergies (Verified , 04/12/17) Physical Exam Vital Signs Date Time Temp Pulse Resp B/P (MAP) Pulse Ox O2 Delivery O2 Flow Rate FiO2 04/12/17 04:04 36.8 102 18 115/67 98 04/12/17 03:39 101 95 Room Air 04/12/17 02:24 36.8 124 18 126/81 94 Room Air Physical Exam GENERAL: Patient is well appearing and in minimal distress. HEENT: No acute trauma, normocephalic atraumatic, mucous membranes moist, no nasal congestion, no scleral icterus. NECK: No stridor, no adenopathy, no meningismus, trachea is midline. LUNGS: No dyspnea. Clear to auscultation and equal bilaterally. No wheeze, no rhonchi. HEART: Mildly tachycardic rate and regular rhythm. No murmurs, rubs, gallops appreciated. ABDOMEN: Soft, nontender, hyperactive bowel sounds, no masses appreciated, no peritonitis. BACK: No midline tenderness, no CVA tenderness EXTREMITIES: Normal motion all extremities, no cyanosis, no edema. NEUROLOGIC: Alert and oriented, no acute motor or sensory deficits, no focal weakness, cranial nerves grossly intact. Dyskinesia. SKIN: No rash, no jaundice, no diaphoresis. Medical Decision & Procedures Laboratory Results 04/12/17 02:40 Red Blood Count 4.35, Mean Corpuscular Volume 82.3, Mean Corpuscular Hemoglobin 28.5, Mean Corpuscular Hemoglobin Concent 34.6, Mean Platelet Volume 8.3, Neutrophils (%) (Auto) 75.4, Lymphocytes (%) (Auto) 17.5, Monocytes (%) (Auto) 6.0, Eosinophils (%) (Auto) 0.6, Basophils (%) (Auto) 0.2, Neutrophils # (Auto) 8.17, Lymphocytes # (Auto) 1.89, Monocytes # (Auto) 0.65, Eosinophils # (Auto) 0.06, Basophils # (Auto) 0.02 04/12/17 02:40 Test 04/12/17 02:40 White Blood Count 10.82 K/uL (4.8-10.8) Red Blood Count 4.35 M/uL (4.7-6.1) Hemoglobin 12.4 g/dL (14.0-18.0) Hematocrit 35.8 % (42-52) Mean Corpuscular Volume 82.3 fL (80-100) Mean Corpuscular Hemoglobin 28.5 pg (25-34) Mean Corpuscular Hemoglobin Concent 34.6 g/dl (32-36) Platelet Count 402 K/uL (130-400) Mean Platelet Volume 8.3 fL (7.4-10.4) Neutrophils (%) (Auto) 75.4 % Lymphocytes (%) (Auto) 17.5 % Monocytes (%) (Auto) 6.0 % Eosinophils (%) (Auto) 0.6 % Basophils (%) (Auto) 0.2 % Neutrophils # (Auto) 8.17 K/uL (1.4-6.5) Lymphocytes # (Auto) 1.89 K/uL (1.2-3.4) Monocytes # (Auto) 0.65 K/uL (0.11-0.59) Eosinophils # (Auto) 0.06 K/uL (0-0.5) Basophils # (Auto) 0.02 K/uL (0-0.2) RDW Standard Deviation 41.9 fL (36.4-46.3) RDW Coefficient of Variation 13.8 % (11.5-14.5) Immature Granulocyte % (Auto) 0.3 % Immature Granulocyte # (Auto) 0.03 K/uL (0.00-0.02) Anion Gap 11.0 mmol/L (3-11) Est Creatinine Clear Calc Drug Dose 90.9 ml/min Estimated GFR () 99.2 Estimated GFR (Non- 85.5 BUN/Creatinine Ratio 6.4 (10-20) Calcium Level 8.7 mg/dl (8.5-10.1) Laboratory results as reviewed by me. Medications Administered Medications (Trade) Dose Ordered Sig/Colten Route Start Time Stop Time Status Last Admin Dose Admin Ondansetron HCl (Zofran Inj) 4 mg NOW STAT IV 04/12/17 02:31 04/12/17 02:33 DC 04/12/17 02:47 4 MG Diphenhydramine HCl (Benadryl Inj) 50 mg NOW STAT IV 04/12/17 02:31 04/12/17 02:33 DC 04/12/17 02:47 50 MG Dicyclomine HCl (Bentyl Inj) 20 mg NOW ONCE IM 04/12/17 02:45 04/12/17 02:46 DC 04/12/17 02:47 20 MG Sodium Chloride 1,000 ml @ 999 mls/hr Q1H1M STAT IV 04/12/17 02:31 04/12/17 03:31 DC 04/12/17 02:47 999 MLS/HR Oxycodone HCl (Roxicodone Immediate Rel Tab) 5 mg NOW STAT PO 04/12/17 03:19 04/12/17 03:20 DC 04/12/17 03:22 5 MG Miscellaneous Medication (Gi Cocktail) 24 ml NOW STAT PO 04/12/17 03:51 04/12/17 03:52 DC 04/12/17 04:02 24 ML Al Hydroxide/Mg Hydroxide (Maalox Susp) 30 ml STK-MED ONCE .ROUTE 04/12/17 03:55 04/12/17 03:56 DC 04/12/17 04:02 30 ML Lidocaine HCl (Viscous Lidocaine 2% Soln) 20 ml STK-MED ONCE .ROUTE 04/12/17 03:55 04/12/17 03:56 DC 04/12/17 04:02 20 ML ED Course 0228: The patient was evaluated in room A3. A complete history and physical exam was performed. 0231: Ordered NSS 1000 ml @ 999 mls/hr IV, Benadryl Inj 50 mg IV, Zofran Inj 4 mg IV. 0245: Ordered Bentyl Inj 20 mg IM. 0314: I reevaluated the patient and he doesn't feel much better. He notes he hasn't vomited anymore though. The patient is still tachycardic. 0318: I reevaluated the patient and he states that he has had his Barrow in the last 8 hours due to vomiting. He believes he is starting withdrawal. 0319: Ordered Oxycodone HCl 5 mg PO. 0348: Reevaluated the patient. His heart rate is in the 90s and he is feeling much better. He is agreeable to go home and see how he feels over the next 12- 24 hours. Discussed results and discharge instructions: He verbalized understanding and agreement. The patient is ready for discharge. 0351: Ordered GI Cocktail 24 ml PO. Medical Decision Differential: Gastroenteritis, Food Borne, Esophageal Perforation, Electrolyte Abnormality, Dehydration, Intraabdominal Infection, Bowel Obstruction, Biliary Pathology, amongst other pathology entertained. 52 yr old male well known to hospital due to multiple recent visits and admissions. Notes he ate something bad earlier in evening and unable to keep down medicines. Given zofran/fluids with improvement in nausea though HR still somewhat elevated, thus given single dose oxy IR with resultant improvement in HR. I suspect he was having some mild withdrawal though he notes he does have his medications at home. He is requesting benzo's as well which I do not feel is indicated. He was given GI cocktail as he felt like he could still taste food he had eaten earlier. Labs unremarkable, vitals normalized and he is in no distress. Reviewed standard discharge instructions. I do not feel his nausea/vomiting is secondary to ACS or acute intraabdominal surgical infection. This is likely food poisoning vs gastroenteritis. Medication Reconcilliation Current Medication List: was personally reviewed by me Blood Pressure Screening Patient's blood pressure: Normal blood pressure Impression Primary Impression: Vomiting Additional Impression: Acute narcotic withdrawal Scribe Attestation The scribe's documentation has been prepared under my direction and personally reviewed by me in its entirety. I confirm that the note above accurately reflects all work, treatment, procedures, and medical decision making performed by me. Departure Information Dispostion Home / Self-Care Referrals Jayesh Arthur D.O. (PCP) Forms HOME CARE DOCUMENTATION FORM, IMPORTANT VISIT INFORMATION Patient Instructions My [facility], [facility] Problem Qualifiers
[2017-04-12 03:09] LABS: BUN/CREATININE RATIO 6.4 (10-20); CALCIUM 8.7 mg/dl (8.5-10.1); POTASSIUM 3.4 mmol/L (3.5-5.1)
[2017-04-12] MEDS ORDERED: OXYCODONE HCL IR 5 MG TAB (IMMEDIATE RELEASE) PO STA (03:19)
[2017-04-12] MEDS ORDERED: GI COCKTAIL PO STA (03:51)
[2017-04-12] MEDS ORDERED: LIDOCAINE HCL 2% VISC SOLN 20 ML UDC ONE (03:55)
[2017-04-12] MEDS ORDERED: ALUMINUM/MAGNESIUM SUSP 30 ML UDC ONE (03:55)
[2017-04-12 04:04] VITALS: BP 115/67; PULSE 102; TEMP 36.8; O2SAT 98
== END 2017-04-12 04:05 | disposition home or self-care (01) ==
LOC: C.EDB 02:22 → C.EDA 04:05
DX: R11.10 Vomiting, unspecified (principal); F11.23 Opioid dependence with withdrawal; D64.9 Anemia, unspecified; F41.9 Anxiety disorder, unspecified; F32.9 Major depressive disorder, single episode, unspecified; E78.5 Hyperlipidemia, unspecified; I10 Essential (primary) hypertension; G47.00 Insomnia, unspecified; F25.9 Schizoaffective disorder, unspecified; Z87.440 Personal history of urinary (tract) infections; Z87.891 Personal history of nicotine dependence; Z79.899 Other long term (current) drug therapy

== ENCOUNTER → 2017-05-25 | Day surgery (SDC) | payer OTHER ==
[2017-05-12 13:23] VITALS: BMI 23.0
[~2017-05-25] VITALS: Ht 180.3 cm; Wt 77.3 kg
[~2017-05-25] MED LIST changes: -DIAZ5TAB3 PO; -HYDR-5688 PO; -KFL500 PO; -OXYC1TAB3 PO; -RXC5 PO
[2017-05-25 13:32] VITALS: BP 115/80; PULSE 94; TEMP 37.1; O2SAT 97
[2017-05-25 13:34] VITALS: Ht 180.3 cm; Wt 77.3 kg
== END | disposition home or self-care (01) ==
LOC: C.GI 13:12
PROVIDERS: ATTEND Internal Medicine Gastroenterology
DX: Z12.11 Encounter for screening for malignant neoplasm of colon (principal); Z53.09 Procedure and treatment not carried out because of other contraindication